=== PATIENT | male | born 1980 | race Caucasian/White ===

== ENCOUNTER 2020-01-05 10:42 | Inpatient (IN) | payer OTHER, MEDICAID, SELFPAY ==
[2020-01-05] VITALS (11 sets, daily range): BP systolic 139–175; BP diastolic 88–110; PULSE 89–106; RESP 12–18; TEMP 36.3–36.7; O2SAT 96–100; BMI 34.7; BMI 34.0
--- NOTE | 2020-01-05 11:53 | RAD_ITS ---
STUDY: X-RAY - LEFT FOOT CLINICAL: Male, 39 years old. INFECTED WOUND LATERAL BALL OF FOOT TECHNIQUE: 3 view(s) of the foot. COMPARISON: None. FINDINGS: There is an enthesophyte involving the posterior superior calcaneus at the site of insertion of the Achilles tendon. Normal visualized subtalar, talonavicular, calcaneocuboid, tarsal and tarsometatarsal articulations. Normal metatarsi. Normal metatarsophalangeal joint of the great toe. Normal tibial and fibular sesamoid bones. Normal interphalangeal joint of the great toe. Normal phalanges of the great toe. Normal second through fifth metatarsophalangeal joints. Normal interphalangeal joints and phalanges of the lesser toes. Soft tissue swelling. RAD/Foot min 3 Views IMPRESSION: Soft tissue swelling. Calcaneal spur. Electronically Signed: Sammy Olsen, at 12:20 EST , Service support ,
[2020-01-05 12:09] LABS: Erythrocyte Sedimentation Rate 6 mm/hr (0-15)
[2020-01-05 12:13] LABS: Absolute Lymphocyte Count 1.64 X10^3/uL (0.83-4.51); Absolute Neutrophil Count 6.8 X10^3/uL (2.0-7.7); Basophil# 0.06 X10^3/uL; Basophil% 0.6 % (0-1); Eosinophil# 0.12 X10^3/uL; Eosinophils% 1.3 % (0-5); Hematocrit 44.9 % (40-54); Hemoglobin 15.4 g/dL (13.0-16.5); Lymphocyte # 1.64 X10^3/ul (4.0); Lymphocyte % 17.7 % (19-41); Mean Corp Hgb Conc 34.3 g/dL (32-36); Mean Corpuscular Hgb 28.8 pg (27.0-32.0); Mean Corpuscular Volume 84.1 fL (80-94); Mean Platelet Vol. 9.1 fl (6.2-12.0); Monocyte# 0.63 X10^3/uL; Monocyte% 6.8 % (0-10); NRBC Flagged by Analyzer 0 % (0-5); Neutrophil # 6.79 X10^3/uL (2.7-7.7); Neutrophil % 73.3 % (47-70); Platelet Count 273 K/mm3 (150-450); RBC Distribution Width CV 12.3 % (11.6-14.6); Red Blood Count 5.34 M/mm3 (4.6-6.2); White Blood Count 9.3 K/mm3 (4.4-11.0)
[2020-01-05 12:18] LABS: ALB/GLOB Ratio 0.9 RATIO (0.9-2.4); AST(SGOT) 16 U/L (15-37); Alanine Aminotransfer ALT/SGPT 39 U/L (16-61); Albumin, Serum 3.6 g/dL (3.2-5.0); Alkaline Phosphatase 57 U/L (45-117); Anion Gap 8 (5-15); BUN 15 mg/dL (7-18); BUN/Creat Ratio 15.1 RATIO (10-20); Calcium,Total 9.3 mg/dL (8.5-10.1); Chloride 102 mmol/L (98-107); Creatinine, Serum 0.99 mg/dL (0.70-1.30); EST Glomerular Filtration Rate 88 mL/min (>60); Est Glom Filt Rate - Afr Amer 107 mL/min (>60); Estimated Creatinine Clearance 117.36 ml/min; Globulin 4.1 g/dL (2.2-4.2); Glucose 277 mg/dL (74-106); Potassium 4.2 mmol/L (3.5-5.1); Protein, Total 7.7 g/dL (6.4-8.2); Sodium Level 136 mmol/L (136-145)
--- NOTE | 2020-01-05 14:21 | MRI_ITS ---
STUDY: MRI LEFT FOREFOOT WITH AND WITHOUT CONTRAST REASON FOR EXAM: Male, 39 years old. wound left foot open wound area of distal 4th/5th MT x 2 1/2wks TECHNIQUE: Standardized fat and water weighted pulse sequences were obtained in all 3 orthogonal planes, post contrast administration. IV Dotarem 25ml was administered for the contrast portion of the examination. COMPARISON: X-ray. FINDINGS: There is degenerative arthrosis with a joint of effusion of the metatarsophalangeal joint of the hallux with capsular distension. Normal tibial and fibular sesamoids, with normal sesamoids-first metatarsal articulations. Normal interphalangeal joint of the hallux. Normal proximal and distal phalanges of the great toe. Normal medial and lateral heads of the flexor hallucis brevis tendons. Normal flexor and extensor hallucis longus tendons. Normal second through fifth metatarsophalangeal (MTP) joints. Normal interphalangeal joints of the second through fifth toes. Normal proximal, middle and distal phalanges of the second through fifth toes. Normal flexor and extensor tendons of the second through fifth toes. Normal first through fourth intermetatarsal spaces. Normal intrinsic muscles of the forefoot. There is soft tissue swelling with subcutaneous edema and enhancement. There is defect with nonenhancing consistent with wound on the plantar aspect in the fourths of metatarsal region. There is adjacent focal marrow edema and enhancement of the fourth metatarsal head, series 9 and 11 images . MRI/Lower Ext No Joint W/WO Cont IMPRESSION: Osteomyelitis of the fourth metatarsal head. There is adjacent soft tissue ulcer and swelling. Electronically Signed: Fredis Rodríguez MD at 17:00 EST , Service support ,
--- NOTE | 2020-01-05 14:24 | ED.DCSUM_ITS ---
- ER Visit Summary Date of Service: 01/05/20 Chief Complaint: Left foot pain History of Present Illness: The patient is a 39 M who presents with left foot pain and open wound that has been getting worse over the past 2-1/2 weeks. Patient describes his pain as aching. Patient states pain is over the plantar aspect of the left foot. Patient does admit to some drainage over the area. Patient went to an outlying emergency department last week and was given antibiotics. Patient followed up with [facility] today and was referred to the emergency department. Physical Examination: Vital signs are stable. Patient is afebrile. Patient is in no acute distress. Skin is warm dry. There is an open wound on the plantar aspect of the left foot over the area of the distal fourth metatarsal. There is no active discharge or drainage. Sensation was intact to light touch in all digits. Capillary refill was less than 2 seconds in all digits. Pedal pulses were equal bilaterally. There is no calf tenderness or edema. Heart was regular rate and rhythm. Lungs are clear and equal bilaterally. Abdomen is soft and nontender. Test Results: X-rays of the right foot were obtained. There is soft tissue swelling. CBC was within normal limits. Glucose was elevated at 277. Sed rate was normal at 6. CRP was ordered and was elevated at 5.10. Hemoglobin A1c was also ordered and was elevated at 12. Wound culture was obtained at the orthopedic office and was ordered here. Emergency Department Course and Treatment: Patient was started on Zosyn and vancomycin. Case was discussed with the hospitalist. He will admit the patient to his service. Orthopedics recommended a stat MRI of the foot to rule out osteomyelitis. This was ordered and is pending. Patient is agreeable to admission. Patient understands and is agreeable with the plan. All questions were answered. Disposition: Admit to hospital Impression: 1. Osteomyelitis left foot 2. New onset diabetes This note was generated with [employer] dictation software. It may contain incorrect words, spelling, and punctuation that were not noted in review of the chart prior to signing ED Disposition - Plan for ED Patient: Disposition: Acute Care Hospital [facility] Diagnosis: Osteomyelitis of left foot, Diabetes mellitus, new onset
--- NOTE | 2020-01-05 16:52 | PCM.HP.STD ---
History of Present Illness Date of Admission: 01/05/20 Chief Complaint: Left foot wound The patient is a 39 year old M with no significant past medical history presents with a left foot wound that he was seen in outside hospital ER about a week and a half ago. He says at that time he was given some antibiotics and sent home. He says that he first noticed his wound about 2 weeks ago because of the smell, he had not felt that before though he denies having any foot numbness. At that time his became concerned because it seemed very similar to a diabetic foot ulcer so she completely changed her diet to a keto diet which they have been doing for about 2 weeks now. He denies any redness, or fevers but he did have some chills over the last few days. The ER physician at the other hospital had recommended follow-up with orthopedic surgery and so he saw the orthopedic surgical PA today who requested that he come to the ER for an MRI and admission given how deep the wound to his foot was. In the ER the foot was already wrapped though a wound culture was taken. He had an elevated CRP with normal ESR, and a foot x-ray initially was obtained which did not show any bony destruction. He has no white count or fever. Past Medical History Allergies No Known Allergies Allergy (Verified 01/05/20 10:42) Home Medications: Ambulatory Orders Medication Instructions Recorded Loratadine [Claritin] 10 mg PO DAILY 01/05/20 Surgical History: no surgical history Smoking Status: Never smoker Tobacco Use: Chew Alcohol: None Drugs: None - *Family History Maternal History Items: Diabetes, Heart Disease Paternal History Items: Diabetes, Heart Disease Review of Systems Constitutional: Reports: Chills. Denies: Anorexia, Fever HEENT: Denies: Head Aches, Sinus Congestion, Sinus Drainage Cardiovascular: Denies: Chest Pain, Palpitations Respiratory: Denies: Cough, Shortness of breath at rest, Sputum production Gastrointestinal: Denies: Abdominal Pain, Nausea, Vomiting Genitourinary: Denies: Dysuria Musculoskeletal: Denies: Joint Pain, Joint Tenderness Skin: Reports: Wounds. Denies: Rash Neurological: Denies: Numbness, Tingling, Focal weakness Psychiatric: Denies: Anxiety, Depression Hematologic/ Lymphatic: Denies: Easy Bruising, Easy Bleeding VTE Information - Inpt Only VTE Present on Admission: No Patient Problems: Active and Suspected Problems Osteomyelitis of left foot (Acute) Diabetes mellitus, new onset (Acute) - Physical Exam Vitals/I&O's: Vital Signs Temp Pulse Resp BP Pulse Ox 98 F 96 16 154/105 H 99 01/05/20 15:00 01/05/20 15:00 01/05/20 15:00 01/05/20 15:00 01/05/20 15:00 Oxygen Delivery Method Room Air Weight: 278 lb Body Mass Index (BMI) 34.7 Intake and Output for Last 24 Hours 01/03/20 01/04/20 01/05/20 23:59 23:59 23:59 Intake Total 100 / 100 Balance 100 / 100 General: Alert, Oriented x3, Cooperative, No apparent distress HEENT: Atraumatic, PERRLA, EOMI, Normocephalic Oral: Moist Mucosa Neck: Supple, No JVD Lungs: Clear to auscultation, Normal air movement, No rhonchi, No wheeze, No rales Cardiovascular: Regular rate, Regular Rhythm, Normal S1, Normal S2, No murmurs Abdomen: Soft, Non Tender, Non-Distended, No Hepato-splenomegaly Extremities: No edema, Capillary Refill Less than 3 Seconds Skin: Ulcer/ Wound - On the ball of his left foot, does track fairly deeply, no surrounding cellulitis or erythema Neurological: Neuro grossly intact, Sensory exam intact to light touch and pain Psych/Mental Status: Normal Affect, Appropriate Microbiology Past 72 Hours 01/05/20 Unknown Wound - Left Foot Gram Stain - Final Laboratory Results 01/05/20 11:25: WBC 9.3, RBC 5.34, Hgb 15.4, Hct 44.9, MCV 84.1, MCH 28.8, MCHC 34.3, RDW Std Deviation 37.0, RDW Coeff of Alivia 12.3, Plt Count 273, MPV 9.1, Immature Gran % (Auto) 0.300, Neut % (Auto) 73.3 H, Lymph % (Auto) 17.7 L, [place] % (Auto) 6.8, Eos % (Auto) 1.3, Baso % (Auto) 0.6, Absolute Neuts (auto) 6.8, Absolute Lymphs (auto) 1.64, Nucleated RBC % 0, ESR 6 01/05/20 11:25: Sodium 136, Potassium 4.2, Chloride 102, Carbon Dioxide 26.0, Anion Gap 8, BUN 15, Creatinine 0.99, Estim Creat Clear Calc 117.36, Est GFR (MDRD) Af Amer 107, Est GFR (MDRD) Non-Af 88, BUN/Creatinine Ratio 15.1, Glucose 277 H, Calcium 9.3, Total Bilirubin 0.90, AST 16, ALT 39, Alkaline Phosphatase 57, C-React Prot Ext Range 5.10 H, Total Protein 7.7, Albumin 3.6, Globulin 4.1, Albumin/Globulin Ratio 0.9 01/05/20 11:25: Hemoglobin A1c 12.0 H 01/05/20 11:58: Acid Fast Stain Cancelled, Miscellaneous Cytology Cancelled Current Medications Acetaminophen (Tylenol) 650 mg PO Q6H PRN PRN PRN Reason: Pain Score 1-10/Temp > 100.7 F Glucagon () 1 mg IM .X1 PRN PRN Reason: Hypoglycemia Vancomycin HCl 2,000 mg/ (Sodium Chloride) 540 mls @ 250 mls/hr IV X1 ONE Stop: 01/05/20 17:54 Last Admin: 01/05/20 16:43 Dose: 250 mls/hr Documented by: Vancomycin IV Pharmacy to Dose (1 ea/ Sodium Chloride) 500 mls @ 250 mls/hr IV X1 PRN; Protocol PRN Reason: Rx to Dose Piperacillin Sod/Tazobactam (Sod 3.375 gm/ Sodium Chloride) 50 mls @ 12.5 mls/hr IV Q8 ASHVIN Dextrose (Dextrose 10%-Water) 250 mls @ 999 mls/hr IV .Q16M PRN; Protocol PRN Reason: HYPOGLYCEMIA Insulin Glargine (Lantus (Bkc)) 5 units SC QHS ASHVIN Insulin Human Lispro (Humalog Kwikpen (Bkc)) 0 unit SC ACHS ASHVIN; Protocol Insulin Human Lispro (Humalog Kwikpen (Bkc)) 5 unit SC TIDAC ASHVIN Ondansetron HCl (Zofran) 4 mg IV Q8H PRN PRN PRN Reason: NAUSEA/VOMITING Sodium Chloride () 10 - 40 ml IV UD PRN PRN Reason: SALINE FLUSH Assessment/Plan All Active Problems Osteomyelitis of left foot (Acute) Diabetes mellitus, new onset (Acute) 1. Left diabetic foot ulcer/new onset insulin-dependent diabetes/obesity -A1c on admission was 12.0 -Start him on Lantus 5 units nightly as well as 5 units with meals of NovoLog and sliding scale insulin -He will also likely need metformin on discharge -Orthopedic surgery sent him in to be admitted to the hospital so we will consult orthopedic surgery for surgical management of this wound -Continue with Vanco and Zosyn for right now until wound culture data returns -MRI of his left foot is pending for possible osteo-, CRP was elevated but ESR was normal -Had a 40-minute discussion with the about lifestyle modifications including diet and exercise -Consult multimedia author for diabetic teaching -We will obtain a microalbumin creatinine ratio and if elevated can start him on a low-dose lisinopril for renal protection DVT: Low risk Code Visit Inpatient E&M: 58271 Init Hosp L2
[2020-01-05] MEDS: Insulin Lispro 100 UNIT/ML INSULN.PEN SC ×3 (17:57→21:36)
--- NOTE | 2020-01-05 17:57 | PCM.RX.CS ---
Consult Pharmacy has been consulted to manage selected antiobiotic: Vancomycin Type of Consult: New start Suspected Infection: Other - DIABETIC FOOT ULCER Prior Doses of Antibiotics Received/Current Regimen: ED DOSE VANCOMYCIN IV 2000MG X1 @ 1643 Labs: Sodium 136 mmol/L (136-145) 01/05/20 11:25 Potassium 4.2 mmol/L (3.5-5.1) 01/05/20 11:25 Chloride 102 mmol/L (98-107) 01/05/20 11:25 Carbon Dioxide 26.0 mmol/L (21.0-32.0) 01/05/20 11:25 Anion Gap 8 (5-15) 01/05/20 11:25 BUN 15 mg/dL (7-18) 01/05/20 11:25 Creatinine 0.99 mg/dL (0.70-1.30) 01/05/20 11:25 Est GFR (MDRD) Af Amer 107 mL/min (>60) 01/05/20 11:25 Est GFR (MDRD) Non-Af 88 mL/min (>60) 01/05/20 11:25 BUN/Creatinine Ratio 15.1 RATIO (10-20) 01/05/20 11:25 Glucose 277 mg/dL (74-106) H 01/05/20 11:25 Microbiology: Microbiology 01/05/20 Unknown Wound - Left Foot Gram Stain - Final Weight used for dosin.6 kg Estimated Creatinine Clearance: 139 Goal Trough: 15-20 mcg/mL Pharmacy Plan for Drug Dosin. Will start vancomycin IV 1500mg Q8H based on weight and CrCl (using Adj body weight) 8 hours after ED dose 2. Trough scheduled prior to the 4th dose 3. Pharmacy Service will continue to monitor and adjust dosing as required. Labs to be done on [date and time ordered]: 01/06/2020 @ 1631
[2020-01-05 18:16] LABS: Bedside Glucose 195 mg/dL (70-110)
[2020-01-05 20:28] LABS: Microalbumin,Random Urine 14.5 mg/L (NO RANGE EST.); Microalbumin:Creatinine Ratio 25.4 mg/g CRE (<30 mg/g CRE)
[2020-01-05 21:46] LABS: Bedside Glucose 262 mg/dL (70-110)
[2020-01-06 02:16] VITALS: BP 124/78; PULSE 83; RESP 16; TEMP 36.8; O2SAT 97
[2020-01-06 04:30] LABS: Bedside Glucose 256 mg/dL (70-110)
[2020-01-06 06:38] LABS: Absolute Neutrophil Count 3.8 X10^3/uL (2.0-7.7); Basophil# 0.04 X10^3/uL; Basophil% 0.7 % (0-1); Eosinophil# 0.19 X10^3/uL; Eosinophils% 3.3 % (0-5); Hematocrit 40.2 % (40-54); Hemoglobin 13.7 g/dL (13.0-16.5); Lymphocyte % 20.6 % (19-41); Mean Corp Hgb Conc 34.1 g/dL (32-36); Mean Corpuscular Hgb 28.7 pg (27.0-32.0); Mean Corpuscular Volume 84.1 fL (80-94); Mean Platelet Vol. 8.9 fl (6.2-12.0); Monocyte# 0.63 X10^3/uL; Monocyte% 10.8 % (0-10); NRBC Flagged by Analyzer 0 % (0-5); Neutrophil # 3.75 X10^3/uL (2.7-7.7); Neutrophil % 64.3 % (47-70); Platelet Count 227 K/mm3 (150-450); RBC Distribution Width SD 36.4 fl (35.1-43.9); Red Blood Count 4.78 M/mm3 (4.6-6.2); White Blood Count 5.8 K/mm3 (4.4-11.0)
[2020-01-06 06:55] LABS: Anion Gap 8 (5-15); BUN 10 mg/dL (7-18); Calcium,Total 8.3 mg/dL (8.5-10.1); Chloride 107 mmol/L (98-107); Creatinine, Serum 0.91 mg/dL (0.70-1.30); EST Glomerular Filtration Rate 98 mL/min (>60); Est Glom Filt Rate - Afr Amer 118 mL/min (>60); Estimated Creatinine Clearance 127.68 ml/min; Glucose 259 mg/dL (74-106); Sodium Level 139 mmol/L (136-145)
--- NOTE | 2020-01-06 07:30 | CON.PCM_ITS ---
Problem List (1) Osteomyelitis of left foot Status: Acute Qualifiers: Osteomyelitis type: other acute Qualified Code(s): M86.172 - Other acute osteomyelitis, left ankle and foot (2) Diabetes mellitus, new onset Status: Acute Reason for Consult Date of Consultation: 01/06/20 Reason for Consultation: 1. Diabetes mellitus type 2 with polyneuropathy. #2 diabetes mellitus type 2 with foot ulcer. 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 History of Present Illness: The patient is a 39 year old M who presented to my office yesterday, January 05, 2020 with complaints of a wound on his left foot. Upon verbal questioning, patient relates that he began to have pain in his left foot approximately 2 weeks ago, and noticed drainage and liquid in his sock. At that time, he noticed a wound on the bottom of his left foot near the ball of his foot. This wound was red, draining, and had a bad odor. Patient presented to an outside emergency department for further evaluation on 12/25/2019. At that time, x-rays were taken showing no cortical destruction in the area of the wound. Patient was discharged from the emergency department on oral antibiotics. According to the patient, he was not instructed on wound care and was not instructed on any specific weightbearing activities. Patient continued to weight-bear as tolerated in regular shoe gear. Patient states that the wound continued to drain, but he was not covering it. Patient states that the wound started to look better with a decrease in redness while he was taken the antibiotics. Patient states that this past weekend, the wound started to hurt again and the redness started to increase. This prompted him to make an appointment with me in my office. Upon seeing the patient yesterday in my office, the wound had a fibronecrotic base with significant erythema. Furthermore, the wound probed down to the fourth metatarsal head. I discussed with the patient that I believe he has a significant infection in his left foot along with probable osteomyelitis. I urged the patient to report to [facility] for admission, IV antibiotics, MRI, and possible surgery. Lab work was performed an MRI was performed as well. [] Past Medical History Allergies No Known Allergies Allergy (Verified 01/05/20 10:42) Home Medications: Ambulatory Orders Medication Instructions Recorded Loratadine [Claritin] 10 mg PO DAILY 01/05/20 Surgical History: no surgical history Psychiatric History: No pertinent psych hx Lives: Spouse/ Significant Other Smoking Status: Never smoker Tobacco Use: Chew Alcohol: None Drugs: None - *Family History Maternal History Items: Diabetes, Heart Disease Paternal History Items: Diabetes, Heart Disease Review of Systems Constitutional: Denies: Chills, Fever, Night Sweats, Malaise, Weakness Eyes: Denies: Blurred vision, Cataracts, Double vision HEENT: Denies: Difficulty Hearing, Difficulty Swallowing, Dysphasia Cardiovascular: Denies: Chest Pain, Claudication, Chest Pressure, Chest Tightness Respiratory: Denies: Cough, Hemoptysis, Shortness of Breath Gastrointestinal: Denies: Abdominal Pain, Constipation, Diarrhea Genitourinary: Denies: Dysuria Musculoskeletal: Reports: Foot Pain - Admits to left foot pain in the area of the wound that has improved. Skin: Reports: Wounds - Admits to wound on bottom of ball of left foot. Neurological: Denies: Balance problems, Blurred vision, Double vision Psychiatric: Denies: Anxiety, Depression Endocrine: Denies: Change in Body Habitus, Heat/ Cold Intolerance Patient Problems: Active and Suspected Problems Osteomyelitis of left foot (Acute) Diabetes mellitus, new onset (Acute) Subjective: Patient is seen today at bedside resting comfortably. Patient denies any acute overnight events. No acute overnight events reported by nursing staff. Patient denies fever, chills, nausea, vomiting, shortness of breath, chest pain. Patient admits to improved pain of his left foot. Patient denies left calf pain. Patient states that no one has discussed the MRI results with him at this time, and he is nervous to hear them. Patient denies any other acute complaints at this time. Objective: Lower extremity physical exam: Vascular: There is a palpable dorsalis pedis and posterior tibial pulse to the left lower extremity. Capillary fill time is less than 3 seconds all digits. Temperature gradient is slightly reversed going from the mid calf down to the forefoot. There is positive nonpitting edema noted around the entirety of the forefoot starting from the dorsal and plantar aspects of the metatarsals ex tending distally to the digits. Pedal hair is present throughout the foot and ankle. Neurological: Light sensation is diminished to the plantar aspect of the forefoot of the left foot. This is reestablished at the midfoot. Dermatological: There is a wound located on the plantar aspect of the left foot in the area of the fourth metatarsal head. This wound has a fibro-necrotic base and hyperkeratotic edges. Of this wound, there is no fluctuance, no crepitus, but positive mild malodor. There is no purulence, but positive serous drainage. There is positive probing to the fourth metatarsal head. There is no tunneling, no tracking, no undermining. There is Josse erythema surrounding the wound extending proximally to the midportion of the metatarsal extending distally to the base of the proximal phalanx. This erythema is improved from previous physical exam. Musculoskeletal: Muscle strength is 5 out of 5 of the left lower extremity. No gross abnormalities are noted. - Physical Exam Vitals/I&O's: Vital Signs Temp Pulse Resp BP Pulse Ox 98.3 F 83 16 124/78 H 97 01/06/20 02:16 01/06/20 02:16 01/06/20 02:16 01/06/20 02:16 01/06/20 02:16 Oxygen Delivery Method Room Air Weight: 123.6 kg Body Mass Index (BMI) 34.0 Intake and Output for Last 24 Hours 01/04/20 01/05/20 01/06/20 23:59 23:59 23:59 Intake Total 1040.25 / 1040.25 1004.25 / 1004.25 Output Total 500 / 500 Balance 1040.25 / 1040.25 504.25 / 504.25 General: Alert, Oriented x3, Cooperative, Well developed, Well nourished HEENT: Atraumatic, PERRLA Oral: Moist Mucosa Neck: Supple, No JVD Lungs: Clear to auscultation, Normal air movement, No rhonchi, No wheeze, No rales Cardiovascular: Regular rate, Regular Rhythm, Normal S1, Normal S2 Abdomen: Bowel Sounds Present, Soft, Non Tender Extremities: Capillary Refill Less than 3 Seconds, Edema - Surrounding the left foot as described above., Peripheral Pulses Normal Skin: Ulcer/ Wound - On the plantar aspect of the left foot as described above. Musculoskeletal: No Tenderness to Palpation of Joints or Extremities - Minimal pain upon palpation of the wound to the left foot. Psych/Mental Status: Alert and oriented to time, place, person, mood and affect Microbiology Past 72 Hours 01/05/20 Unknown Wound - Left Foot Gram Stain - Final Laboratory Results 01/05/20 11:25: WBC 9.3, RBC 5.34, Hgb 15.4, Hct 44.9, MCV 84.1, MCH 28.8, MCHC 34.3, RDW Std Deviation 37.0, RDW Coeff of Alivia 12.3, Plt Count 273, MPV 9.1, Immature Gran % (Auto) 0.300, Neut % (Auto) 73.3 H, Lymph % (Auto) 17.7 L, [place] % (Auto) 6.8, Eos % (Auto) 1.3, Baso % (Auto) 0.6, Absolute Neuts (auto) 6.8, Absolute Lymphs (auto) 1.64, Nucleated RBC % 0, ESR 6 01/05/20 11:25: Sodium 136, Potassium 4.2, Chloride 102, Carbon Dioxide 26.0, Anion Gap 8, BUN 15, Creatinine 0.99, Estim Creat Clear Calc 117.36, Est GFR (MDRD) Af Amer 107, Est GFR (MDRD) Non-Af 88, BUN/Creatinine Ratio 15.1, Glucose 277 H, Calcium 9.3, Total Bilirubin 0.90, AST 16, ALT 39, Alkaline Phosphatase 57, C-React Prot Ext Range 5.10 H, Total Protein 7.7, Albumin 3.6, Globulin 4.1, Albumin/Globulin Ratio 0.9 01/05/20 11:25: Hemoglobin A1c 12.0 H 01/05/20 11:58: Acid Fast Stain Cancelled, Miscellaneous Cytology Cancelled 01/05/20 17:49: POC Glucose 195 H 01/05/20 19:10: Ur Random Microalbumin 14.5, Urine Creatinine 57.10, Microalb/Creat Ratio 25.4 01/05/20 21:27: POC Glucose 262 H 01/06/20 04:24: POC Glucose 256 H 01/06/20 06:10: WBC 5.8, RBC 4.78, Hgb 13.7, Hct 40.2, MCV 84.1, MCH 28.7, MCHC 34.1, RDW Std Deviation 36.4, RDW Coeff of Alivia 12.0, Plt Count 227, MPV 8.9, Immature Gran % (Auto) 0.300, Neut % (Auto) 64.3, Lymph % (Auto) 20.6, [place] % (Auto) 10.8 H, Eos % (Auto) 3.3, Baso % (Auto) 0.7, Absolute Neuts (auto) 3.8, Absolute Lymphs (auto) 1.20, Nucleated RBC % 0 01/06/20 06:10: Sodium 139, Potassium 4.0, Chloride 107, Carbon Dioxide 24.0, Anion Gap 8, BUN 10, Creatinine 0.91, Estim Creat Clear Calc 127.68, Est GFR (MDRD) Af Amer 118, Est GFR (MDRD) Non-Af 98, BUN/Creatinine Ratio 11.0, Glucose 259 H, Calcium 8.3 L Wound culture: Taken on 01/05/2020, still pending. Gram stain showing gram- positive cocci, gram-negative rods, and gram-negative coccobacillus. X-ray 3 views of the left foot taken on January 05, 2020 at [facility] STUDY: X-RAY - LEFT FOOT CLINICAL: Male, 39 years old. INFECTED WOUND LATERAL BALL OF FOOT TECHNIQUE: 3 view(s) of the foot. COMPARISON: None. FINDINGS: There is an enthesophyte involving the posterior superior calcaneus at the site of insertion of the Achilles tendon. Normal visualized subtalar, talonavicular, calcaneocuboid, tarsal and tarsometatarsal articulations. Normal metatarsi. Normal metatarsophalangeal joint of the great toe. Normal tibial and fibular sesamoid bones. Normal interphalangeal joint of the great toe. Normal phalanges of the great toe. Normal second through fifth metatarsophalangeal joints. Normal interphalangeal joints and phalanges of the lesser toes. Soft tissue swelling. MRI of Left foot taken on 01/05/2020 at [facility] STUDY: MRI LEFT FOREFOOT WITH AND WITHOUT CONTRAST REASON FOR EXAM: Male, 39 years old. wound left foot open wound area of distal 4th/5th MT x 2 1/2wks TECHNIQUE: Standardized fat and water weighted pulse sequences were obtained in all 3 orthogonal planes, post contrast administration. IV Dotarem 25ml was administered for the contrast portion of the examination. COMPARISON: X-ray. FINDINGS: There is degenerative arthrosis with a joint of effusion of the metatarsophalangeal joint of the hallux with capsular distension. Normal tibial and fibular sesamoids, with normal sesamoids-first metatarsal articulations. Normal interphalangeal joint of the hallux. Normal proximal and distal phalanges of the great toe. Normal medial and lateral heads of the flexor hallucis brevis tendons. Normal flexor and extensor hallucis longus tendons. Normal second through fifth metatarsophalangeal (MTP) joints. Normal interphalangeal joints of the second through fifth toes. Normal proximal, middle and distal phalanges of the second through fifth toes. Normal flexor and extensor tendons of the second through fifth toes. Normal first through fourth intermetatarsal spaces. Normal intrinsic muscles of the forefoot. There is soft tissue swelling with subcutaneous edema and enhancement. There is defect with nonenhancing consistent with wound on the plantar aspect in the fourths of metatarsal region. There is adjacent focal marrow edema and enhancement of the fourth metatarsal head, series 9 and 11 images . MRI/Lower Ext No Joint W/WO Cont IMPRESSION: Osteomyelitis of the fourth metatarsal head. There is adjacent soft tissue ulcer and swelling. Electronically Signed: Fredis Rodríguez MD at 17:00 EST , Service support , Current Medications Acetaminophen (Tylenol) 650 mg PO Q6H PRN PRN PRN Reason: Pain Score 1-10/Temp > 100.7 F Glucagon () 1 mg IM .X1 PRN PRN Reason: Hypoglycemia Vancomycin IV Pharmacy to Dose (1 ea/ Sodium Chloride) 500 mls @ 250 mls/hr IV X1 PRN; Protocol PRN Reason: Rx to Dose Piperacillin Sod/Tazobactam (Sod 3.375 gm/ Sodium Chloride) 50 mls @ 12.5 mls/hr IV Q8 ASHVIN Last Admin: 01/06/20 05:32 Dose: 12.5 mls/hr Documented by: Dextrose (Dextrose 10%-Water) 250 mls @ 999 mls/hr IV .Q16M PRN; Protocol PRN Reason: HYPOGLYCEMIA Sodium Chloride () 250 mls @ 15 mls/hr IV .[id number] PRN PRN Reason: Saline Flush Last Infusion: 01/06/20 05:35 Dose: 0 mls/hr Documented by: Vancomycin HCl 1,500 mg/ (Sodium Chloride) 530 mls @ 250 mls/hr IV Q8H ASHVIN Last Infusion: 01/06/20 04:40 Dose: Infused Documented by: Insulin Glargine (Lantus (Bkc)) 5 units SC QHS ASHVIN Last Admin: 01/05/20 21:35 Dose: 5 units Documented by: Insulin Human Lispro (Humalog Kwikpen ([facility])) 0 unit SC ACHS ASHVIN; Protocol Last Admin: 01/05/20 21:36 Dose: 6 u Documented by: Insulin Human Lispro (Humalog Kwikpen ([facility])) 5 unit SC TIDAC [facility] Last Admin: 01/05/20 17:57 Dose: 5 u Documented by: Lisinopril (Zestril) 5 mg PO DAILY [facility] Ondansetron HCl (Zofran) 4 mg IV Q8H PRN PRN PRN Reason: NAUSEA/VOMITING Sodium Chloride () 10 - 40 ml IV UD PRN PRN Reason: SALINE FLUSH Assessment/Plan All Active Problems Osteomyelitis of left foot (Acute) Diabetes mellitus, new onset (Acute) Assessment: Is a 39-year-old male with newly diagnosed diabetes mellitus and a nonpressure wound of the left foot with necrosis of bone. Plan: Patient chart reviewed and patient evaluated. Full discussion had with the patient about his current clinical condition. MRI results reviewed with the patient at this time. A full discussion was had with the patient about his treatment options. These included conservative and surgical interventions. Conservative therapy would possibly include aggressive local wound care along with long-term IV antibiotics through a PICC line. A PICC line was discussed with the patient. Surgical interventions would include resection of the fourth metatarsal head of the left foot, a wound debridement of the left foot, incision and drainage of the left foot, washout of left foot wound, application of synthetic skin substitute to the left foot, and application of wound VAC to left foot. Each of the surgical interventions were discussed with the patient in detail. The risks and benefits to both conservative and surgical intervention were discussed with the patient in detail. I discussed with the patient that due to the infection that is present, I recommended surgical intervention. Patient displayed verbal understanding. Patient states that he would like time to discuss with his and to weigh his options. I discussed with the nurse to contact me when patient has made a decision. At this time, I am going to go ahead and schedule his surgery for tomorrow, January 07, 2020 around 1:00pm. I would request that the patient be n.p.o. after midnight tonight. If patient decides to not perform surgery, I will cancel the surgery. I would recommend a consultation from infectious disease for further antibiotic management. I recommend the patient remain nonweightbearing to the left foot with bathroom privileges. I recommend continuation of IV antibiotics at this time. We will continue to wait for wound cultures for further antibiotic management. Patient displayed verbal understanding to all written and oral instructions at this time. Patient is agreeable to the current treatment plan at this time. All of his questions were answered to his satisfaction and all of his concerns were addressed. I urged him to have the nurse contact me with any further questions, concerns. Thank you very much for the consultation and allowing me to take part in the care of your patient. Code Visit Office Visits / Consults: [id number] IP Consult L3
[2020-01-06 08:05] VITALS: BP 141/100; PULSE 100; RESP 18; TEMP 36.6; O2SAT 97
[2020-01-06] MEDS: Insulin Lispro 100 UNIT/ML INSULN.PEN SC ×7 (08:14→21:25)
[2020-01-06] MEDS: Lisinopril 5 MG Tablet PO (08:19)
[2020-01-06 08:20] LABS: Bedside Glucose 247 mg/dL (70-110)
--- NOTE | 2020-01-06 08:34 | NURSING ---
wound photo: left plantar foot
[2020-01-06 10:30] VITALS: RESP 18; O2SAT 97
--- NOTE | 2020-01-06 11:00 | CASEMGMT ---
RN CM Face to Face with patient for initial transition planning/care coordination assessment. RN CM introduced self and role at [facility]. Patient lying in bed, alert and oriented, at bedside. Patient willing to participate in assessment and is able to answer all questions appropriately. Care providers, pharmacy, and demographics verified. Patient wishes to discharge home will monitor for need for HHC. Patient states he has no further needs or concerns at this time. CM to follow for discharge planning needs that may arise. PCP: Was getting established with Kathe Barroso Specialists: none Preferred [facility]acy: [facility] Insurance: PPO multiplan Prescription Benefit: yes Living Will/HPOA: none LNOK: Living Arrangements: Patient lives with in single story home with 4 steps and railing to enter the home. Patient is independent at home. Transportation: self/ DME/HHC: Patient denies any DME or previous HHC Disposition Plan: Patient to discharge home with family support and follow-up plans in place. Will monitor for need for HHC pending course of treatment. Jada DE LEON, RN, CM
[2020-01-06 11:25] LABS: Bedside Glucose 314 mg/dL (70-110)
[2020-01-06 12:00] VITALS: BP 150/93; PULSE 95; RESP 18; TEMP 36.8; O2SAT 97
[2020-01-06] MEDS: Lisinopril 5 MG Tablet 15 MG PO (12:52)
--- NOTE | 2020-01-06 13:20 | NURSING ---
Student documentation reviewed.
--- NOTE | 2020-01-06 15:12 | PCM.HP.ID ---
Problem List (1) Osteomyelitis of left foot Status: Acute Qualifiers: Osteomyelitis type: other acute Qualified Code(s): M86.172 - Other acute osteomyelitis, left ankle and foot Reason for Consult: osteo Consulted by: Dr. Walters History of Present Illness: The patient is a 39 year old M with minimal medical care in the past, presented with 3 weeks of L foot pain, redness, swelling, odor, and bloody/purulent drainage. No inciting event/trauma. Sx progressively worsened, went to [place] ED 12/25, xray done, no lab work or cx sent. Given doxy and keflex for one week, completed 01/01 which did help sx, but foot quickly worsened as soon as it stopped. Some chills. Came to ED after seeing Dr. Rodriguez. MRI done, started on vanc/zosyn. Full ROS Performed and neg except as noted above. Mild neuropathy. - Medical History Surgical History: reviewed Allergies/Adverse Reactions: Allergies No Known Allergies Allergy (Verified 01/05/20 10:42) Home Medications: Ambulatory Orders Medication Instructions Recorded Loratadine [Claritin] 10 mg PO DAILY 01/05/20 - Social History Tobacco Use: non-smoker Vital Signs Temp Pulse Resp BP Pulse Ox 98.3 F 95 18 150/93 H 97 01/06/20 12:00 01/06/20 12:00 01/06/20 12:00 01/06/20 12:00 01/06/20 12:00 Oxygen Delivery Method Room Air Weight: 123.6 kg Body Mass Index (BMI) 34.0 Microbiology Past 72 Hours 01/05/20 Unknown Gram Stain - Final Wound - Left Foot Wound Culture - Preliminary Beta streptococcus Mixed Gram Positive Organisms Laboratory Tests Past 24 Hrs 01/05/20 01/06/20 01/06/20 19:10 06:10 06:10 WBC 5.8 RBC 4.78 Hgb 13.7 Hct 40.2 MCV 84.1 MCH 28.7 MCHC 34.1 RDW Std Deviation 36.4 RDW Coeff of Alivia 12.0 Plt Count 227 MPV 8.9 Immature Gran % (Auto) 0.300 Neut % (Auto) 64.3 Lymph % (Auto) 20.6 [place] % (Auto) 10.8 H Eos % (Auto) 3.3 Baso % (Auto) 0.7 Absolute Neuts (auto) 3.8 Absolute Lymphs (auto) 1.20 Nucleated RBC % 0 Sodium 139 Potassium 4.0 Chloride 107 Carbon Dioxide 24.0 Anion Gap 8 BUN 10 Creatinine 0.91 Estim Creat Clear Calc 127.68 Est GFR (MDRD) Af Amer 118 Est GFR (MDRD) Non-Af 98 BUN/Creatinine Ratio 11.0 Glucose 259 H Calcium 8.3 L Ur Random Microalbumin 14.5 Urine Creatinine 57.10 Microalb/Creat Ratio 25.4 - Other Studies Radiology: [] reviewed Other Studies: [] Route of nutrition/ use of supplements: [] Nutritional Intake: [] IV Site: [] Corona Catheter: [] - Physical Exam General: Alert, Oriented x3, Cooperative, No apparent distress HEENT: Atraumatic, PERRLA, EOMI Neck: Supple, No Nodes Lungs: Clear to auscultation, Normal air movement Cardiovascular: Regular rate, Regular Rhythm, No murmurs Abdomen: Soft, Non Tender, Non-Distended Extremities: No edema Skin: Ulcer/ Wound - L foot reviewed photo, plantar wound with odor, redness, and drainage IV Site: Peripheral, without redness Musculoskeletal: No Tenderness to Palpation of Joints or Extremities Neurological: Cranial nerves II-XII grossly intact - Assessment/Plan Antibiotics: [] Assessment/Plan: [] Active and Suspected Problems Osteomyelitis of left foot (Acute) Diabetes mellitus, new onset (Acute) L foot osteo with new dx of T2DM - A1c is 12. MRI showed osteo of 4th metatarsal. Wound cx with strep and mixed gram (+). Had some improvement with keflex and doxy as outpt, reviewed [facility] records. Recommend OR debridement tomorrow with Dr. Rodriguez, and pt is in agreement. Cont vanc/zosyn for now. Will follow, thank you.
--- NOTE | 2020-01-06 15:34 | PCM.PN.HOSP ---
Patient Problems: Active and Suspected Problems Osteomyelitis of left foot (Acute) Diabetes mellitus, new onset (Acute) Reason for Visit: Follow-up on hypertension and type 2 DM Subjective: Patient was seen and examined. His pain is controlled. He denied any new complains. No fevers or chills Objective: Physical exam: General: Alert, Oriented x3, Cooperative, No apparent distress HEENT: Atraumatic, PERRLA, EOMI, Normocephalic Oral: Moist Mucosa Neck: Supple, No JVD Lungs: Clear to auscultation, Normal air movement, No rhonchi, No wheeze, No rales Cardiovascular: Regular rate, Regular Rhythm, Normal S1, Normal S2, No murmurs Abdomen: Soft, Non Tender, Non-Distended, No Hepato-splenomegaly Extremities: No edema, Capillary Refill Less than 3 Seconds Skin: Left foot dressing with Kody wraps. Offensive smell from the leg Neurological: Neuro grossly intact, Sensory exam intact to light touch and pain Psych/Mental Status: Normal Affect, Appropriate Vitals/I&O's: Vital Signs Temp Pulse Resp BP Pulse Ox 98.3 F 95 18 150/93 H 97 01/06/20 12:00 01/06/20 12:00 01/06/20 12:00 01/06/20 12:00 01/06/20 12:00 Oxygen Delivery Method Room Air Weight: 123.6 kg Body Mass Index (BMI) 34.0 Intake and Output for Last 24 Hours 01/04/20 01/05/20 01/06/20 23:59 23:59 23:59 Intake Total 1040.25 / 1040.25 2864.25 / 2864.25 Output Total 500 / 500 Balance 1040.25 / 1040.25 2364.25 / 2364.25 Microbiology Past 72 Hours 01/05/20 Unknown Wound - Left Foot Gram Stain - Final 01/05/20 Unknown Wound - Left Foot Wound Culture - Preliminary Beta streptococcus Mixed Gram Positive Organisms Laboratory Results 01/05/20 17:49: POC Glucose 195 H 01/05/20 19:10: Ur Random Microalbumin 14.5, Urine Creatinine 57.10, Microalb/Creat Ratio 25.4 01/05/20 21:27: POC Glucose 262 H 01/06/20 04:24: POC Glucose 256 H 01/06/20 06:10: WBC 5.8, RBC 4.78, Hgb 13.7, Hct 40.2, MCV 84.1, MCH 28.7, MCHC 34.1, RDW Std Deviation 36.4, RDW Coeff of Alivia 12.0, Plt Count 227, MPV 8.9, Immature Gran % (Auto) 0.300, Neut % (Auto) 64.3, Lymph % (Auto) 20.6, [place] % (Auto) 10.8 H, Eos % (Auto) 3.3, Baso % (Auto) 0.7, Absolute Neuts (auto) 3.8, Absolute Lymphs (auto) 1.20, Nucleated RBC % 0 01/06/20 06:10: Sodium 139, Potassium 4.0, Chloride 107, Carbon Dioxide 24.0, Anion Gap 8, BUN 10, Creatinine 0.91, Estim Creat Clear Calc 127.68, Est GFR (MDRD) Af Amer 118, Est GFR (MDRD) Non-Af 98, BUN/Creatinine Ratio 11.0, Glucose 259 H, Calcium 8.3 L 01/06/20 08:09: POC Glucose 247 H 01/06/20 11:21: POC Glucose 314 H Current Medications Acetaminophen (Tylenol) 650 mg PO Q6H PRN PRN PRN Reason: Pain Score 1-10/Temp > 100.7 F Glucagon () 1 mg IM .X1 PRN PRN Reason: Hypoglycemia Vancomycin IV Pharmacy to Dose (1 ea/ Sodium Chloride) 500 mls @ 250 mls/hr IV X1 PRN; Protocol PRN Reason: Rx to Dose Piperacillin Sod/Tazobactam (Sod 3.375 gm/ Sodium Chloride) 50 mls @ 12.5 mls/hr IV Q8 ASHVIN Last Admin: 01/06/20 14:08 Dose: 12.5 mls/hr Documented by: Dextrose (Dextrose 10%-Water) 250 mls @ 999 mls/hr IV .Q16M PRN; Protocol PRN Reason: HYPOGLYCEMIA Sodium Chloride () 250 mls @ 15 mls/hr IV .[id number] PRN PRN Reason: Saline Flush Last Infusion: 01/06/20 05:35 Dose: 0 mls/hr Documented by: Vancomycin HCl 1,500 mg/ (Sodium Chloride) 530 mls @ 250 mls/hr IV Q8H ASHVIN Last Infusion: 01/06/20 12:45 Dose: Infused Documented by: Insulin Glargine (Lantus (Bkc)) 12 units SC QHS [facility] Insulin Human Lispro (Humalog Kwikpen (Bkc)) 0 unit SC ACHS COUNT [facility]CLUD[facility]; Protocol Last Admin: 01/06/20 12:52 Dose: 6 u Documented by: Insulin Human Lispro (Humalog Kwikpen (Bkc)) 5 unit SC TIDAC COUNT [facility]CLUDES [facility] Last Admin: 01/06/20 12:52 Dose: 5 u Documented by: Lisinopril (Zestril) 20 mg PO DAILY COUNT [facility] Ondansetron HCl (Zofran) 4 mg IV Q8H PRN PRN PRN Reason: NAUSEA/VOMITING Sodium Chloride () 10 - 40 ml IV UD PRN PRN Reason: SALINE FLUSH STROKE Vital Signs/Narrative: Vital Signs Temp Pulse Resp BP Pulse Ox 01/06/20 12:00 98.3 F 95 18 150/93 H 97 Medical Necessity - Tobacco Use Smoking Status: Never smoker Tobacco Use: Chew Assessment/Plan All Active Problems Osteomyelitis of left foot (Acute) Diabetes mellitus, new onset (Acute) 1. Acute left foot osteomyelitis, seen on MRI of left foot Wound cultures growing beta streptococcus, mixed gram-positive organisms On vancomycin and Zosyn, ID following Patient will be sent to the OR by orthopedics tomorrow 2. Type II DM, newly diagnosed, HbA1c is 12, continue on Lantus as well as pre-meal insulin with insulin sliding scale Will start patient on metformin after his surgeries when his renal function is stable 3. DVT PPx - low risk, early ambulation recommended Code Visit Inpatient E&M: 63697 Subs Hosp L2
[2020-01-06 15:57] VITALS: BP 165/99; PULSE 92; RESP 18; TEMP 36.8; O2SAT 97
[2020-01-06 16:11] LABS: Bedside Glucose 234 mg/dL (70-110)
--- NOTE | 2020-01-06 17:19 | NURSING ---
SPOKE TO DR HARIS RODRIGUEZ MAKING HIM AWARE PT HAS CHOSEN TO HAVE SURGICAL PROCEDURE
--- NOTE | 2020-01-06 18:35 | PCM.RX.CS ---
Consult Pharmacy has been consulted to manage selected antiobiotic: Vancomycin Type of Consult: Follow-up Suspected Infection: Skin/Soft tissue Prior Doses of Antibiotics Received/Current Regimen: VANCOMYCIN 1500MG IV Q8HR: 01/05 @0220,1037 Labs: Sodium 139 mmol/L (136-145) 01/06/20 06:10 Potassium 4.0 mmol/L (3.5-5.1) 01/06/20 06:10 Chloride 107 mmol/L (98-107) 01/06/20 06:10 Carbon Dioxide 24.0 mmol/L (21.0-32.0) 01/06/20 06:10 Anion Gap 8 (5-15) 01/06/20 06:10 BUN 10 mg/dL (7-18) 01/06/20 06:10 Creatinine 0.91 mg/dL (0.70-1.30) 01/06/20 06:10 Est GFR (MDRD) Af Amer 118 mL/min (>60) 01/06/20 06:10 Est GFR (MDRD) Non-Af 98 mL/min (>60) 01/06/20 06:10 BUN/Creatinine Ratio 11.0 RATIO (10-20) 01/06/20 06:10 Glucose 259 mg/dL (74-106) H 01/06/20 06:10 Vancomycin Trough 17.0 ug/mL (5.0-15.0) H 01/06/20 17:30 Microbiology: Microbiology 01/05/20 Unknown Wound - Left Foot Gram Stain - Final 01/05/20 Unknown Wound - Left Foot Wound Culture - Preliminary Beta streptococcus Mixed Gram Positive Organisms Goal Trough: 15-20 mcg/mL Pharmacy Plan for Drug Dosing: The patient had a trough drawn which resulted in a value of 17 (drawn 7hrs from last administered dose). This is within the goal range of 15-20. Since the patient's trough was 17 after only 3 administered doses, will draw another trough in 2 days (instead of 4 per protocol) just to ensure the patient is still within goal range of 15-20. PLAN/RECOMMENDATIONS 1. Continue vancomycin1 500mg IV Q8hr 2. Trough scheduled 2 days from now: 01/08/20 @1730 3. Pharmacy Service will continue to monitor and adjust dosing as required.
[2020-01-06 19:49] VITALS: BP 133/90; PULSE 97; RESP 16; TEMP 36.8; O2SAT 97
[2020-01-06 21:30] LABS: Bedside Glucose 239 mg/dL (70-110)
[2020-01-07] VITALS (13 sets, daily range): BP systolic 107–198; BP diastolic 70–111; PULSE 77–102; RESP 16–18; TEMP 36.3–37.2; O2SAT 92–98; BMI 34.0
--- NOTE | 2020-01-07 | BON_PTH ---
PATIENT: OZIEL HATCH LOC: [facility]3 U#:[id number] AGE/SX: 39/M ROOM: [facility]318 RE01/05/[address]: Dr. Sarah Gaines DO : 1980 BED: 1 DIS: 01/12/2020 SPEC #: [id number] RECD: 01/07/20 17:01 STATUS: CHRISTY RELarry #: [id number] JOHN: 01/07/20 00:[address]: Franklyn Rodriguez DEPT: SURGICAL PATHOLOGY RECD BY: Oziel Lomeli ENTERED: 01/08/20 10:03 SP TYPE: Bone OTHR DR: MD Dr. Richar Colvin MD Dr. Robert Leininger, MD Dr. Timothy J Miller, DPM No Primary Care Phys Tissues: A - Bone of foot, NOS B - Bone of foot, NOS Procedures: Decalcification bone/plaque Surgery Specimen Level IV Comments: @ Ordering doctor for DEC edited from to [email or web address] Potter by CHETAN at 01/08/20 1329 @ Ordering doctor for SUIII edited from to @ by CHETAN at 01/08/20 1329 @ Submitting doctor edited from to @ by CHETAN at 01/08/20 1329 HEADER OPERATION: Left foot excision fourth metatarsal head, incision and drainage PRE-OP DIAGNOSIS: Osteomyelitis of fourth metatarsal head; ulcer and swelling TISSUE SUBMITTED: A - Clear margin fourth metatarsal head left foot, B - Fourth metatarsal head left foot MICROSCOPIC DIAGNOSIS A. Fourth metatarsal head, left foot, clear margin: Unremarkable fragment of cortical bone. B. Fourth metatarsal head, left foot, excision: Chronic reparative and reactive changes. No evidence of acute osteomyelitis. AM:tereza 01/13/20 MICROSCOPIC DESCRIPTION Slides are reviewed. GROSS DESCRIPTION A - Received in fixative is one container labeled with the patient's name and designated clear margin fourth metatarsal head left foot. The specimen consists of a piece of bone measuring 0.5 x 0.6 x 0.2 cm. The entire specimen is submitted in one cassette after decalcification. B - Received in fixative is one container labeled with the patient's name and designated fourth metatarsal head left foot. The specimen consists of a piece of bone measuring 1.7 x 1 x 1 cm. The specimen is sectioned and submitted entirely in one cassette after decalcification. / Jonah 01/07/02 TC:5 CPT:
[2020-01-07] MEDS: Dextrose 5%/0.9% NaCl 1,000 ML 100 ML IV (02:05)
[2020-01-07] MEDS: Insulin Lispro 100 UNIT/ML INSULN.PEN SC ×3 (05:42→21:35)
[2020-01-07 05:51] LABS: Bedside Glucose 306 mg/dL (70-110)
[2020-01-07 05:58] LABS: Absolute Lymphocyte Count 2.21 X10^3/uL (0.83-4.51); Absolute Neutrophil Count 3.7 X10^3/uL (2.0-7.7); Basophil# 0.06 X10^3/uL; Basophil% 0.9 % (0-1); Eosinophil# 0.29 X10^3/uL; Eosinophils% 4.2 % (0-5); Hematocrit 43.3 % (40-54); Hemoglobin 14.4 g/dL (13.0-16.5); Lymphocyte # 2.21 X10^3/ul (4.0); Lymphocyte % 31.9 % (19-41); Mean Corp Hgb Conc 33.3 g/dL (32-36); Mean Corpuscular Hgb 28.2 pg (27.0-32.0); Mean Corpuscular Volume 84.7 fL (80-94); Monocyte# 0.69 X10^3/uL; NRBC Flagged by Analyzer 0 % (0-5); Neutrophil # 3.65 X10^3/uL (2.7-7.7); Neutrophil % 52.7 % (47-70); Platelet Count 249 K/mm3 (150-450); RBC Distribution Width CV 12.4 % (11.6-14.6); RBC Distribution Width SD 37.8 fl (35.1-43.9); Red Blood Count 5.11 M/mm3 (4.6-6.2); White Blood Count 6.9 K/mm3 (4.4-11.0)
--- NOTE | 2020-01-07 06:00 | EKG12_ITS ---
Test Reason : AM EKG Blood Pressure : / mmHG Vent. Rate : 088 BPM Atrial Rate : 088 BPM P-R Int : 144 ms QRS Dur : 102 ms QT Int : 344 ms P-R-T Axes : 044 046 080 degrees QTc Int : 416 ms Normal sinus rhythm Nonspecific T wave abnormality Abnormal ECG No previous ECGs available Confirmed by CHANA RIVERA, ROMELIA ([id number]), offline editor PRIMO RODRIGUEZ ([id number]) on 01/11/2020 3:59:57 PM Referred By: DR VELAZCO Confirmed By:ROMELIA ZAYAS MD
[2020-01-07 06:30] LABS: ALB/GLOB Ratio 0.8 RATIO (0.9-2.4); AST(SGOT) 13 U/L (15-37); Alanine Aminotransfer ALT/SGPT 27 U/L (16-61); Alkaline Phosphatase 50 U/L (45-117); Anion Gap 5 (5-15); BUN 10 mg/dL (7-18); BUN/Creat Ratio 9.3 RATIO (10-20); Calcium,Total 8.8 mg/dL (8.5-10.1); Chloride 106 mmol/L (98-107); Creatinine, Serum 1.08 mg/dL (0.70-1.30); EST Glomerular Filtration Rate 80 mL/min (>60); Est Glom Filt Rate - Afr Amer 97 mL/min (>60); Estimated Creatinine Clearance 107.58 ml/min; Globulin 3.8 g/dL (2.2-4.2); Glucose 278 mg/dL (74-106); Potassium 3.8 mmol/L (3.5-5.1); Protein, Total 6.8 g/dL (6.4-8.2); Sodium Level 140 mmol/L (136-145)
--- NOTE | 2020-01-07 07:51 | PN_ITS ---
Patient Problems: Active and Suspected Problems Osteomyelitis of left foot (Acute) Diabetes mellitus, new onset (Acute) Reason for Visit: Follow-up on hypertension and type 2 DM Subjective: Patient was seen and examined. He is going for resection of the fourth metatarsal head of the left foot, a wound debridement of the left foot, incision and drainage of the left foot, washout of left foot wound, application of synthetic skin substitute to the left foot, and application of wound VAC to left foot. Patient denied any pain or fever or chills. No acute events overnight. Objective: Physical exam: General: Alert, Oriented x3, Cooperative, No apparent distress HEENT: Atraumatic, PERRLA, EOMI, Normocephalic Oral: Moist Mucosa Neck: Supple, No JVD Lungs: Clear to auscultation, Normal air movement, No rhonchi, No wheeze, No rales Cardiovascular: Regular rate, Regular Rhythm, Normal S1, Normal S2, No murmurs Abdomen: Soft, Non Tender, Non-Distended, No Hepato-splenomegaly Extremities: No edema, Capillary Refill Less than 3 Seconds Skin: Left foot dressing with Kody wraps. Offensive smell from the leg Neurological: Neuro grossly intact, Sensory exam intact to light touch and pain Psych/Mental Status: Normal Affect, Appropriate Vitals/I&O's: Vital Signs Temp Pulse Resp BP Pulse Ox 98.1 F 78 16 165/109 H 97 01/07/20 07:50 01/07/20 07:50 01/07/20 07:50 01/07/20 07:50 01/07/20 07:50 Oxygen Delivery Method Room Air Weight: 123.6 kg Body Mass Index (BMI) 34.0 Intake and Output for Last 24 Hours 01/05/20 01/06/20 01/07/20 23:59 23:59 23:59 Intake Total 1040.25 / 1040.25 4250.00 / 4250.00 714.83 / 714.83 Output Total 500 / 500 Balance 1040.25 / 1040.25 3750.00 / 3750.00 714.83 / 714.83 Microbiology Past 72 Hours 01/05/20 Unknown Wound - Left Foot Gram Stain - Final 01/05/20 Unknown Wound - Left Foot Wound Culture - Preliminary Beta streptococcus Mixed Gram Positive Organisms Laboratory Results 01/06/20 08:09: POC Glucose 247 H 01/06/20 11:21: POC Glucose 314 H 01/06/20 16:00: POC Glucose 234 H 01/06/20 17:30: Vancomycin Trough 17.0 H 01/06/20 21:23: POC Glucose 239 H 01/07/20 05:25: WBC 6.9, RBC 5.11, Hgb 14.4, Hct 43.3, MCV 84.7, MCH 28.2, MCHC 33.3, RDW Std Deviation 37.8, RDW Coeff of Alivia 12.4, Plt Count 249, MPV 9.0, Immature Gran % (Auto) 0.300, Neut % (Auto) 52.7, Lymph % (Auto) 31.9, [place] % (Auto) 10.0, Eos % (Auto) 4.2, Baso % (Auto) 0.9, Absolute Neuts (auto) 3.7, Absolute Lymphs (auto) 2.21, Nucleated RBC % 0 01/07/20 05:25: Sodium 140, Potassium 3.8, Chloride 106, Carbon Dioxide 29.0, Anion Gap 5, BUN 10, Creatinine 1.08, Estim Creat Clear Calc 107.58, Est GFR (MDRD) Af Amer 97, Est GFR (MDRD) Non-Af 80, BUN/Creatinine Ratio 9.3 L, Glucose 278 H, Calcium 8.8, Total Bilirubin 0.70, AST 13 L, ALT 27, Alkaline Phosphatase 50, Total Protein 6.8, Albumin 3.0 L, Globulin 3.8, Albumin/Globulin Ratio 0.8 L 01/07/20 05:40: POC Glucose 306 H Current Medications Acetaminophen (Tylenol) 650 mg PO Q6H PRN PRN PRN Reason: Pain Score 1-10/Temp > 100.7 F Glucagon () 1 mg IM .X1 PRN PRN Reason: Hypoglycemia Vancomycin IV Pharmacy to Dose (1 ea/ Sodium Chloride) 500 mls @ 250 mls/hr IV X1 PRN; Protocol PRN Reason: Rx to Dose Piperacillin Sod/Tazobactam (Sod 3.375 gm/ Sodium Chloride) 50 mls @ 12.5 mls/hr IV Q8 ASHVIN Last Admin: 01/07/20 05:40 Dose: 12.5 mls/hr Documented by: Dextrose (Dextrose 10%-Water) 250 mls @ 999 mls/hr IV .Q16M PRN; Protocol PRN Reason: HYPOGLYCEMIA Sodium Chloride () 250 mls @ 15 mls/hr IV .[id number] PRN PRN Reason: Saline Flush Last Infusion: 01/07/20 02:00 Dose: 0 mls/hr Documented by: Vancomycin HCl 1,500 mg/ (Sodium Chloride) 530 mls @ 250 mls/hr IV Q8H ASHVIN Last Infusion: 01/07/20 04:23 Dose: Infused Documented by: Dextrose/Sodium Chloride (Dextrose 5%/0.9% Nacl) 1,000 mls @ 50 mls/hr IV .Q20H ASHVIN Last Infusion: 01/07/20 07:44 Dose: Infused Documented by: Sodium Chloride () 1,000 mls @ 75 mls/hr IV .[id number] ASHVIN Insulin Glargine (Lantus (Bkc)) 12 units SC QHS [facility] Last Admin: 01/06/20 21:26 Dose: 12 u Documented by: Insulin Human Lispro (Humalog Kwikpen (Bkc)) 0 unit SC ACHS [facility]; Protocol Last Admin: 01/06/20 21:25 Dose: 6 u Documented by: Insulin Human Lispro (Humalog Kwikpen (Bkc)) 5 unit SC TIDAC [facility] Last Admin: 01/06/20 17:14 Dose: 5 u Documented by: Insulin Human Lispro (Humalog Kwikpen (Bkc)) 0 unit SC Q6 [facility]; Protocol Stop: 01/07/20 16:00 Last Admin: 01/07/20 05:42 Dose: 3 u Documented by: Lisinopril (Zestril) 20 mg PO DAILY [facility] Ondansetron HCl (Zofran) 4 mg IV Q8H PRN PRN PRN Reason: NAUSEA/VOMITING Sodium Chloride () 10 - 40 ml IV UD PRN PRN Reason: SALINE FLUSH STROKE Vital Signs/Narrative: Vital Signs Temp Pulse Resp BP Pulse Ox 01/07/20 07:50 98.1 F 78 16 165/109 H 97 Medical Necessity - Tobacco Use Smoking Status: Never smoker Tobacco Use: Chew Assessment/Plan All Active Problems Osteomyelitis of left foot (Acute) Diabetes mellitus, new onset (Acute) 1. Acute left foot osteomyelitis, seen on MRI of left foot in a newly diagnosed DM Wound cultures growing group G streptococcus, coag negative staph, GPC possible enterococcus, gram-positive rods On vancomycin and Zosyn, ID following Surgery today for I & D and resection of the 4th metatarsal bone. Continue on pain control as well as wound care per orthopedics surgery. 2. Type II DM, newly diagnosed, HbA1c is 12, kept n.p.o. for surgery, taking of pre-meal insulin, on insulin sliding scale Would resume his Lantus insulin as well as pre-meal insulin after surgery when patient is able to eat 3. DVT PPx - low risk, early ambulation recommended Inpatient E&M: 64450 Subs Hosp L2
[2020-01-07] MEDS: Lisinopril 20 MG Tablet PO (07:52)
--- NOTE | 2020-01-07 07:55 | NURSING ---
Pt is scheduled for surgery with Dr Franklyn Rodriguez later this afternoon. Will leave dressing in place at this time.
[2020-01-07] MEDS: 0.9% Normal Saline 1,000 ML 75 ML IV ×2 (08:55→17:17)
--- NOTE | 2020-01-07 09:48 | PN.ID_ITS ---
Patient Problems: Active and Suspected Problems Osteomyelitis of left foot (Acute) Diabetes mellitus, new onset (Acute) Subjective: Feeling better, fever/chills improved. OR today. No n/v/d. - Physical Exam Vitals/I&O's: Vital Signs Temp Pulse Resp BP Pulse Ox 98.1 F 78 16 165/109 H 97 01/07/20 07:50 01/07/20 07:50 01/07/20 07:50 01/07/20 07:50 01/07/20 07:50 Oxygen Delivery Method Room Air Weight: 123.6 kg Body Mass Index (BMI) 34.0 Intake and Output for Last 24 Hours 01/05/20 01/06/20 01/07/20 23:59 23:59 23:59 Intake Total 1040.25 / 1040.25 4250.00 / 4250.00 714.83 / 714.83 Output Total 500 / 500 Balance 1040.25 / 1040.25 3750.00 / 3750.00 714.83 / 714.83 General: Alert, Cooperative, No apparent distress Lungs: Clear to auscultation, Normal air movement Cardiovascular: Regular rate, Regular Rhythm Abdomen: Soft, Non Tender, Non-Distended Skin: Ulcer/ Wound - foot wrapped Microbiology Past 72 Hours 01/05/20 Unknown Wound - Left Foot Gram Stain - Final 01/05/20 Unknown Wound - Left Foot Wound Culture - Preliminary Beta streptococcus Mixed Gram Positive Organisms 01/05/20 Unknown Wound - Left Foot Anaerobic Culture - Preliminary Checking for anaerobes, further studies to follow. Laboratory Results 01/06/20 11:21: POC Glucose 314 H 01/06/20 16:00: POC Glucose 234 H 01/06/20 17:30: Vancomycin Trough 17.0 H 01/06/20 21:23: POC Glucose 239 H 01/07/20 05:25: WBC 6.9, RBC 5.11, Hgb 14.4, Hct 43.3, MCV 84.7, MCH 28.2, MCHC 33.3, RDW Std Deviation 37.8, RDW Coeff of Alivia 12.4, Plt Count 249, MPV 9.0, Immature Gran % (Auto) 0.300, Neut % (Auto) 52.7, Lymph % (Auto) 31.9, [place] % (Auto) 10.0, Eos % (Auto) 4.2, Baso % (Auto) 0.9, Absolute Neuts (auto) 3.7, Absolute Lymphs (auto) 2.21, Nucleated RBC % 0 01/07/20 05:25: Sodium 140, Potassium 3.8, Chloride 106, Carbon Dioxide 29.0, Anion Gap 5, BUN 10, Creatinine 1.08, Estim Creat Clear Calc 107.58, Est GFR (MDRD) Af Amer 97, Est GFR (MDRD) Non-Af 80, BUN/Creatinine Ratio 9.3 L, Glucose 278 H, Calcium 8.8, Total Bilirubin 0.70, AST 13 L, ALT 27, Alkaline Phosphatase 50, Total Protein 6.8, Albumin 3.0 L, Globulin 3.8, Albumin/Globulin Ratio 0.8 L 01/07/20 05:40: POC Glucose 306 H Current Medications Acetaminophen (Tylenol) 650 mg PO Q6H PRN PRN PRN Reason: Pain Score 1-10/Temp > 100.7 F Glucagon () 1 mg IM .X1 PRN PRN Reason: Hypoglycemia Vancomycin IV Pharmacy to Dose (1 ea/ Sodium Chloride) 500 mls @ 250 mls/hr IV X1 PRN; Protocol PRN Reason: Rx to Dose Piperacillin Sod/Tazobactam (Sod 3.375 gm/ Sodium Chloride) 50 mls @ 12.5 mls/hr IV Q8 ASHVIN Last Admin: 01/07/20 05:40 Dose: 12.5 mls/hr Documented by: Dextrose (Dextrose 10%-Water) 250 mls @ 999 mls/hr IV .Q16M PRN; Protocol PRN Reason: HYPOGLYCEMIA Sodium Chloride () 250 mls @ 15 mls/hr IV .[id number] PRN PRN Reason: Saline Flush Last Infusion: 01/07/20 02:00 Dose: 0 mls/hr Documented by: Vancomycin HCl 1,500 mg/ (Sodium Chloride) 530 mls @ 250 mls/hr IV Q8H [facility] Last Infusion: 01/07/20 04:23 Dose: Infused Documented by: Sodium Chloride () 1,000 mls @ 100 mls/hr IV .Q10H [facility] Last Admin: 01/07/20 08:55 Dose: 75 mls/hr Documented by: Insulin Glargine (Lantus (Bkc)) 12 units SC QHS [facility] Last Admin: 01/06/20 21:26 Dose: 12 u Documented by: Insulin Human Lispro (Humalog Kwikpen (Bkc)) 0 unit SC ACHS [facility]; Protocol Last Admin: 01/06/20 21:25 Dose: 6 u Documented by: Insulin Human Lispro (Humalog Kwikpen (Bkc)) 5 unit SC TIDAC [facility] Last Admin: 01/06/20 17:14 Dose: 5 u Documented by: Insulin Human Lispro (Humalog Kwikpen (Bkc)) 0 unit SC Q6 [facility]; Protocol Stop: 01/07/20 16:00 Last Admin: 01/07/20 05:42 Dose: 3 u Documented by: Lisinopril (Zestril) 20 mg PO DAILY [facility] Last Admin: 01/07/20 07:52 Dose: 20 mg Documented by: Ondansetron HCl (Zofran) 4 mg IV Q8H PRN PRN PRN Reason: NAUSEA/VOMITING Sodium Chloride () 10 - 40 ml IV UD PRN PRN Reason: SALINE FLUSH Medical Necessity - Tobacco Use Smoking Status: Never smoker Tobacco Use: Chew Route of nutrition/ use of supplements: [] Nutritional Intake: [] IV Site: [] [place] Catheter: [] - Assessment/Plan Antibiotics: [] Assessment/Plan: [] Active and Suspected Problems Osteomyelitis of left foot (Acute) Diabetes mellitus, new onset (Acute) L foot osteo with new dx of T2DM - A1c is 12. MRI showed osteo of 4th metatarsal. Wound cx with strep and mixed gram (+). OR today. Cont vanc/zosyn for now. May need 6 weeks iv abx at discharge. Will follow
[2020-01-07 11:40] LABS: Bedside Glucose 234 mg/dL (70-110)
[2020-01-07] MEDS: hydrALAZINE 20 MG/ML Vial 10 MG IV (12:04)
--- NOTE | 2020-01-07 12:09 | NURSING ---
Off unit to OR at this time.
[2020-01-07] MEDS: Metoprolol Tartrate 5 MG/5 ML Vial IV (12:15)
[2020-01-07] MEDS: Bupivacaine Mpf 0.5% 30 ML VIAL (13:40)
--- NOTE | 2020-01-07 14:20 | RAD_ITS ---
STUDY: X-RAY - LEFT FOOT CLINICAL: Male, 39 years old. LEFT FOOT EXCISION 4TH METATARSAL HEAD I and amp;D DEBRIDEMENT TECHNIQUE: 3 intraoperative C-arm view(s) of the foot. 4 seconds fluoroscopy time COMPARISON: None. FINDINGS: These images show resection of the head of the fourth metatarsal. Correlate with procedure note. Electronically Signed: Salbador Wilson MD at 19:07 EST , Service support , RAD/Foot min 3 Views
--- NOTE | 2020-01-07 15:33 | OP.PCM_ITS ---
Problem List (1) Osteomyelitis of left foot Status: Acute Qualifiers: Osteomyelitis type: other acute Qualified Code(s): M86.172 - Other acute osteomyelitis, left ankle and foot (2) Diabetes mellitus, new onset Status: Acute Report of Operation Date of Procedure: 01/07/20 Pre-Operative Diagnosis: 1. Acute osteomyelitis left foot fourth metatarsal head. #2 diabetes mellitus type 2 with polyneuropathy. #3 diabetes mellitus type 2 with foot ulcer. #4 nonpressure ulcer left foot with necrosis of bone. #5 left foot cellulitis Post-Operative Diagnosis: Same as preoperative Surgery/Procedure Performed:: 1. Excision of fourth metatarsal head left foot. #2 wound debridement of left foot wound down to including level of bone with excision. #3 incision and drainage left foot. #4 left foot washout of wound. #5 application of wound VAC left foot wound Description of Surgical Findings:: Consistent with diagnosis. Remaining soft tissue appeared healthy with no signs of necrosis. Repeat remaining bone appeared healthy with no signs of necrosis. Healthy active bleeding noted of left foot. geophysical observer: Constance Barragan Type of Anesthesia:: General/Regional - with an ankle block given to the left ankle consisting of 20cc of 0.5% marcaine plain Anesthesiologist: Song Ba Drains: wound vac at 125mmHg low continuous Estimated Blood Loss (mL): 10mL Description of Procedure: Pathology: #1. Fourth metatarsal head left foot for pathology. 2. Fourth metatarsal head left foot for culture. 3. Clear margin fourth metatarsal left foot for pathology. 4. Clear margin fourth metatarsal left foot for culture 5. Wound culture of left foot wound for aerobic, anaerobic status post washout. 6. Wound culture of left foot wound for MRSA status post washout Hemostasis: Pneumatic calf tourniquet placed to the level left calf at 250 mmHg for 60 minutes Estimated blood loss: Less than 20 mL Materials: #1. Integra prime matrix. 2. Size 0 Vicryl. 3. Size 2-0 nylon. 4. KCI wound VAC with associated black foam and tape. Injectables: None Complications: None Condition: Stable Indications: This patient is a 39-year-old male who presented to my office on January 04 for evaluation of a left foot wound. According to the patient, he has not seen a physician in 20 years. Patient related that he developed a wound on his left foot over 2 weeks ago. Upon noticing the wound, the patient went to an outside emergency department for further evaluation. At that time, x-rays were taken. Patient was told that there is no infection of the bone. Patient was then discharged on oral antibiotics. Patient then presented to my office on January 04. Patient states that he was having increased pain in the wound along with increased drainage and malodor. Upon seeing the patient, a significant infection was present with erythema and malodor. Furthermore, the fourth metatarsal head was exposed through the wound. X-rays were taken in my office and I did not see infection in the fourth metatarsal head. Due to the suspicion of osteomyelitis in the fourth metatarsal head, at that time, I urged the patient to present to the emergency department for further evaluation and admission. Patient was admitted through the emergency department on January 04. Patient was started on IV antibiotics. An MRI was ordered of the left foot which revealed osteomyelitis of the fourth metatarsal head. Multiple discussions were had with the patient about his treatment options. Conservative options would include local wound care along with long-term IV antibiotics. Surgical options include excision of the infected bone along with the nonviable tissue, incision and drainage of the left foot, washout the left foot wound, application of graft, application of wound VAC. Risks and benefits of both treatment options were discussed with the patient, including but not limited to continued infection, nonhealing of the wound, DVT, loss of function of the fourth toe, loss of limb, loss of life. Due to the infection that was present, I recommended surgical intervention. Patient was agreeable to surgical in tervention. Operative report Before the patient was brought to the operating room, the risks, benefits, possible outcomes, possible complications of the procedure were discussed with the patient. These included but not limited to continued infection, nonhealing of the wound, DVT, loss of function of the fourth toe, loss of limb, loss of life. All the patient's questions were answered to his satisfaction and all of his concerns were addressed. No guarantees were made as to the outcome of the procedure. Patient understood all aspects of the procedure, and consent was then signed by the patient. Patient was then brought to the operating room and placed on the operating table in supine position. After timeout, under general anesthesia, a well-padded pneumatic calf tourniquet was placed to level of left calf. Next, 20 mL of 0.5% Marcaine plain was distributed ankle block fashion to the left ankle. The left foot, ankle, leg were then scrubbed, prepped, draped in the usual sterile manner. Elevation of the left lower extremity was followed by exsanguination via Esmarch and inflation of the pneumatic calf tourniquet to 250 mmHg. Attention was then directed to the plantar aspect the left foot wound. At this time, #15 blade was used to perform sharp excisional wound debridement of the left foot wound to remove all nonviable tissue down to including level of bone. All nonviable tissue was removed. This included subcutaneous tissue, fourth metatarsal capsule, and the flexor tendon to the fourth digit. These were removed from the operative site. Visual inspection was then performed of the fourth metatarsal head through the wound. This was necrotic, soft, and was not pearly white. Next, #15 blade was used to make an incision from the distal aspect of the wound approximately 0.5 cm distal and from the proximal aspect of the wound 0.5 cm proximal. This was to allow easier access to the fourth metatarsal head excision. This incision was deepened utilizing sharp and blunt dissection. Care was taken retract all vital neural and vascular structures. All bleeders were cauterized and ligated as necessary. At this time, a sagittal bone saw was used to resect the osteonecrotic portion of the fourth metatarsal head. This was resected in a plantar proximal to dorsal distal fashion. Once the bone cut was made, the fourth metatarsal head was sharply excised to the soft tissue attachments and removed from the operative site. Visual inspection was then performed once again of the fourth metatarsal, which appeared osteonecrotic. This was then passed from the table. A portion of this bone was sent for pathology labeled fourth metatarsal head left foot and another portion of this bone was sent for culture labeled fourth metatarsal left foot. Visual inspection was then performed of the remaining fourth metatarsal left foot. This appeared hard, healthy, and pearly white with no signs of osteonecrosis. The remaining bone was deemed healthy. The sagittal bone saw was used to resect a piece of this bone at the distal portion. This resected piece was then split and 2, with 1 sent to pathology labeled clear margin, fourth metatarsal, left foot and the other portion sent for culture labeled clear margin, fourth metatarsal, left foot. At this time, a pulse lavage was used to irrigate the wound with 3 L of normal sterile saline. Once thorough irrigation was performed, the left foot wound was redraped. At this time, a wound culture for MRSA and a wound culture for aerobic and anaerobic organisms was taken of the wound site status post lavage. The wound was then measured to be 2 cm x 1.5 cm x 2 cm. At this time, radiograph evaluation was then performed. This confirmed excision of the fourth metatarsal head. Next, size 0 Vicryl was used to reapproximate and co-apt the subcutaneous tissue of the incisions made on the proximal and distal aspect of the wound. 2-0 nylon was used to reapproximate the skin of both of these incisions in a simple interrupted manner. Next, the pneumatic calf tourniquet was then released and a prompt hyperemic response noted to the entirety of the left foot, ankle, leg. Healthy active bleeding was noted at the medullary canal of the fourth metatarsal of the left foot. At this time, the Integra prime matrix was prepared and placed into the wound. This was then protected via a Mepitel. At this time, wound VAC was cut to protect the surgical sites of the distal and proximal aspects of the wound. Black foam was then applied to the wound site and was adhered utilizing the VAC tape. The wound VAC was then placed and adequate seal and suction was noted at 125 mmHg low continuous. The wound site was then dressed with a dry sterile dressing consisting of 4 x 4 gauze and ABD pads. Care was taken make sure that adequate protection was placed around the left foot and ankle. Kerlix was then wrapped from the foot up to the midcalf. The left foot, ankle, leg were then wrapped with an Kody bandage. Neurovascular status was assessed at the end the application and deemed intact left lower extremity. The surgical scrub technologist, the nurse practitioner, was utilized at the entire case. She helped with patient positioning. She helped with retraction throughout and help holding of the limb. She helped with bandage application. Without the surgical scrub technologist, surgical time would have been increased and outcome could have been less optimal. Patient tolerated the anesthesia procedure well and was transported to the PACU with vital signs stable and neurovascular status intact to left lower extremity. After period of postoperative monitoring, patient will be transferred back to the general medical floor. At this time, I would like to keep the dressing and wound VAC to the left foot and leg clean, dry, intact until further notice. Please reinforce as needed. I like the patient to remain nonweightbearing to the left lower extremity. I recommend continuation of antibiotics per infectious disease. - Admit VTE Documentation VTE Present on Admission: No VTE Mechan Device Prophylaxis: SCD's
--- NOTE | 2020-01-07 15:45 | RAD_ITS ---
STUDY: X-RAY - LEFT FOOT CLINICAL: Male, 39 years old. Post op excision of fourth metatarsal head TECHNIQUE: 3 view(s) of the foot. COMPARISON: 01/05/2020. FINDINGS: Since prior exam there has been resection of the head of the fourth metatarsal. No evidence of acute postsurgical changes. No other significant findings. RAD/Foot min 3 Views IMPRESSION: Grossly satisfactory appearance status post resection of the head of the fourth metatarsal. Electronically Signed: Salbador Wilson MD at 17:36 EST , Service support ,
[2020-01-07 16:41] LABS: Bedside Glucose 227 mg/dL (70-110)
[2020-01-07 18:10] LABS: Bedside Glucose 182 mg/dL (70-110)
[2020-01-07] MEDS: Insulin Lispro 100 UNIT/ML INSULN.PEN 8 UNIT SC (18:45)
[2020-01-07] MEDS: Acetaminophen 325 MG Tablet 650 MG PO (19:16)
[2020-01-07 20:07] LABS: M R Staph aureus DNA By PCR Negative (Negative); Staph aureus DNA By PCR NEGATIVE (Negative)
[2020-01-07 20:08] LABS: Probe Check PASS
[2020-01-07] MEDS: oxyCODONE 5 MG Tablet PO (21:33)
[2020-01-07 22:00] LABS: Bedside Glucose 230 mg/dL (70-110)
[2020-01-08 02:10] VITALS: BP 113/71; PULSE 94; RESP 18; TEMP 37.4; O2SAT 96
--- NOTE | 2020-01-08 07:26 | PN_ITS ---
Patient Problems: Active and Suspected Problems Osteomyelitis of left foot (Acute) Diabetes mellitus, new onset (Acute) Reason for Visit: Follow-up on acute osteomyelitis/Type 2 DM Vitals/I&O's: Vital Signs Temp Pulse Resp BP Pulse Ox 99.3 F H 94 18 113/71 96 01/08/20 02:10 01/08/20 02:10 01/08/20 02:10 01/08/20 02:10 01/08/20 02:10 Oxygen Delivery Method Room Air Weight: 123.6 kg Body Mass Index (BMI) 34.0 Finger Stick Blood Glucose 227 Intake and Output for Last 24 Hours 01/06/20 01/07/20 01/08/20 23:59 23:59 23:59 Intake Total 4250.00 / 4250.00 2490.66 / 2490.66 1483.17 / 1483.17 Output Total 500 / 500 1300 / 1300 600 / 600 Balance 3750.00 / 3750.00 1190.66 / 1190.66 883.17 / 883.17 Microbiology Past 72 Hours 01/05/20 Unknown Wound - Left Foot Gram Stain - Final 01/05/20 Unknown Wound - Left Foot Wound Culture - Preliminary Streptococcus group G Coag Negative Staph GPC Poss Enterococcus sp Gram positive gus 01/05/20 Unknown Wound - Left Foot Anaerobic Culture - Preliminary Checking for anaerobes, further studies to follow. Laboratory Results 01/07/20 11:30: POC Glucose 234 H 01/07/20 16:29: POC Glucose 227 H 01/07/20 18:02: POC Glucose 182 H 01/07/20 21:33: POC Glucose 230 H 01/07/20 : S.aureus Protein A PCR NEGATIVE, MRSA (PCR) Negative Current Medications Acetaminophen (Tylenol) 650 mg PO Q6H PRN PRN PRN Reason: Pain Score 1-10/Temp > 100.7 F Last Admin: 01/07/20 19:16 Dose: 650 mg Documented by: Glucagon () 1 mg IM .X1 PRN PRN Reason: Hypoglycemia Vancomycin IV Pharmacy to Dose (1 ea/ Sodium Chloride) 500 mls @ 250 mls/hr IV X1 PRN; Protocol PRN Reason: Rx to Dose Piperacillin Sod/Tazobactam (Sod 3.375 gm/ Sodium Chloride) 50 mls @ 12.5 mls/hr IV Q8 ASHVIN Last Admin: 01/08/20 06:41 Dose: 12.5 mls/hr Documented by: Dextrose (Dextrose 10%-Water) 250 mls @ 999 mls/hr IV .Q16M PRN; Protocol PRN Reason: HYPOGLYCEMIA Sodium Chloride () 250 mls @ 15 mls/hr IV .[id number] PRN PRN Reason: Saline Flush Last Infusion: 01/08/20 06:41 Dose: 0 mls/hr Documented by: Vancomycin HCl 1,500 mg/ (Sodium Chloride) 530 mls @ 250 mls/hr IV Q8H [facility] Last Infusion: 01/08/20 04:21 Dose: Infused Documented by: Insulin Glargine (Lantus (Bkc)) 18 units SC QHS [facility] Last Admin: 01/07/20 21:34 Dose: 18 u Documented by: Insulin Human Lispro (Humalog Kwikpen (Bkc)) 8 unit SC TIDAC [facility] Last Admin: 01/07/20 18:45 Dose: 8 u Documented by: Insulin Human Lispro (Humalog Kwikpen (Bkc)) 0 unit SC ACHS [facility]; Protocol Last Admin: 01/07/20 21:35 Dose: 4 u Documented by: Lisinopril (Zestril) 20 mg PO DAILY [facility] Last Admin: 01/07/20 07:52 Dose: 20 mg Documented by: Loratadine (Claritin) 10 mg PO DAILY [facility] Ondansetron HCl (Zofran) 4 mg IV Q8H PRN PRN PRN Reason: NAUSEA/VOMITING Oxycodone HCl (Oxyir) 5 mg PO Q6H PRN PRN PRN Reason: Pain Score 6-10/10 Last Admin: 01/07/20 21:33 Dose: 5 mg Documented by: Sodium Chloride () 10 - 40 ml IV UD PRN PRN Reason: SALINE FLUSH Medical Necessity - Tobacco Use Smoking Status: Never smoker Tobacco Use: Chew Assessment/Plan All Active Problems Osteomyelitis of left foot (Acute) Diabetes mellitus, new onset (Acute) 1. POD #1, s/p resection of the 4th metatarsal bone for Acute left foot osteomyelitis, seen on MRI of left foot in a newly diagnosed DM Wound cultures growing group G streptococcus, Coag negative staph, GPC possible enterococcus, gram-positive rods Bone cultures show no growth to date. On vancomycin and unasyn, ID following Continue on pain control as well as wound care per orthopedics surgery. 2. Type II DM, newly diagnosed, HbA1c 12, BS fairly controlled, continue on Lantus 20 units QHS and premeal insulin 10 units TID Will continue on blood glucose checks with ISS 3. Hypertension, uncontrolled, on Lisinopril 20mg daily, will start on metoprolol XL 12.5mg po daily 4. DVT PPx - low risk, early ambulation recommended Inpatient E&M: [id number] Subs Hosp L2
[2020-01-08 07:35] VITALS: BP 141/93; PULSE 91; RESP 16; TEMP 36.8; O2SAT 96
[2020-01-08 07:36] LABS: Bedside Glucose 165 mg/dL (70-110)
--- NOTE | 2020-01-08 07:49 | NURSING ---
Wound VAC dressing is to remain in place per Dr Rodriguez's order. Good seal noted at 125mmHg low continuous suction. Home VAC paperwork on chart for Dr Rodriguez to sign. Unsure of discharge date at this time.
[2020-01-08] MEDS: Lisinopril 20 MG Tablet PO (09:01)
[2020-01-08] MEDS: Insulin Lispro 100 UNIT/ML INSULN.PEN 8 UNIT SC ×2 (09:01→11:18)
[2020-01-08] MEDS: Insulin Lispro 100 UNIT/ML INSULN.PEN SC ×4 (09:01→22:50)
[2020-01-08] MEDS: Loratadine 10 MG Tablet PO (09:03)
[2020-01-08 11:26] LABS: Bedside Glucose 231 mg/dL (70-110)
[2020-01-08 11:36] VITALS: BP 149/95; PULSE 89; RESP 16; TEMP 36.6; O2SAT 96
--- NOTE | 2020-01-08 12:01 | PN.ORTHO_ITS ---
Patient Problems: Active and Suspected Problems Osteomyelitis of left foot (Acute) Diabetes mellitus, new onset (Acute) Subjective: Patient seen at bedside resting comfortably. Patient is 1 day status post left foot fourth metatarsal head resection, wound debridement of nonhealing wound, incision and drainage of left foot wound, washout of left foot wound, application of graft to left foot wound, application of wound VAC to left foot wound. Patient states that he was having increased pain overnight, but is now controlled with medications. Furthermore, the nursing staff loosen to the Kody bandage around his foot and ankle, which is alleviated his pain as well. Patient states that the pain is improved at this time. Patient states that he was upset because he was not able to see his pinky toe of his left foot through the dressing, and thought that that was removed. Nursing staff then exposed the pinky toe, stating that it was not removed. Patient then was no longer upset. Patient's and daughter present at bedside during entire exam. Patient denies any other acute complaints at this time. Currently, patient denies fever, chills, nausea, vomiting, shortness of breath, chest pain. Patient denies left calf pain. Objective: Lower extremity physical exam focused on the left lower extremity: Dressing is clean, dry, intact to left foot and ankle with no strikethrough noted Vascular: palpable popliteal pulse of the left lower extremity. Capillary fill time is less than 3 seconds to all 5 digits of the left foot. Temperature gradient is within normal limits of the left lower extremity. Positive nonpitting edema noted of the left toes. Neurological: Gross and protective sensation are diminished to the toes of left foot Dermatological: Deferred at this time due to a clean and intact sterile dressing Musculoskeletal call: Muscle strength is deferred at this time, but no gross abnormalities are noted. Negative Homans and negative Bledsoe's sign noted of the left lower extremity. - Physical Exam Vitals/I&O's: Vital Signs Temp Pulse Resp BP Pulse Ox 97.9 F 89 16 149/95 H 96 01/08/20 11:36 01/08/20 11:36 01/08/20 11:36 01/08/20 11:36 01/08/20 11:36 Oxygen Delivery Method Room Air Weight: 123.6 kg Body Mass Index (BMI) 34.0 Finger Stick Blood Glucose 227 Intake and Output for Last 24 Hours 01/06/20 01/07/20 01/08/20 23:59 23:59 23:59 Intake Total 4250.00 / 4250.00 2490.66 / 2490.66 2033.17 / 2032. Output Total 500 / 500 1300 / 1300 1150 / 1150 Balance 3750.00 / 3750.00 1190.66 / 1190.66 883.17 / 883.17 General: Alert, Oriented x3, Cooperative, No apparent distress HEENT: Atraumatic, PERRLA Neck: Supple, No JVD Lungs: Clear to auscultation, Normal air movement, No rhonchi, No wheeze, No rales Cardiovascular: Regular rate, Regular Rhythm, Normal S1, Normal S2 Abdomen: Bowel Sounds Present, Soft, Non Tender, Non-Distended Extremities: Capillary Refill Less than 3 Seconds, Edema - As described above the left lower extremity, Peripheral Pulses Normal Skin: Ulcer/ Wound - Of the left plantar foot that is covered in a postoperative dressing Musculoskeletal: No Tenderness to Palpation of Joints or Extremities, Tenderness - Upon palpation compression of the plantar aspect of the metatarsal heads of the left foot. No other areas of tenderness noted. Psych/Mental Status: Alert and oriented to time, place, person, mood and affect Microbiology Past 72 Hours 01/07/20 Unknown Incision/Surgical Site Wound Culture - Preliminary Gram positive organism 01/07/20 Unknown Bone - Left Foot Wound Culture - Preliminary No growth-Final to follow 01/07/20 Unknown Bone - Left Foot Wound Culture - Preliminary No growth-Final to follow 01/05/20 Unknown Wound - Left Foot Gram Stain - Final 01/05/20 Unknown Wound - Left Foot Wound Culture - Preliminary Streptococcus group G Staphylococcus haemolyticus Strep anginosus Corynebacterium jeikeium 01/05/20 Unknown Wound - Left Foot Anaerobic Culture - Preliminary Checking for anaerobes, further studies to follow. Laboratory Results 01/07/20 16:29: POC Glucose 227 H 01/07/20 18:02: POC Glucose 182 H 01/07/20 21:33: POC Glucose 230 H 01/07/20 : S.aureus Protein A PCR NEGATIVE, MRSA (PCR) Negative 01/08/20 07:29: POC Glucose 165 H 01/08/20 11:12: POC Glucose 231 H STUDY: X-RAY - LEFT FOOT CLINICAL: Male, 39 years old. Post op excision of fourth metatarsal head TECHNIQUE: 3 view(s) of the foot. COMPARISON: 01/05/2020. FINDINGS: Since prior exam there has been resection of the head of the fourth metatarsal. No evidence of acute postsurgical changes. No other significant findings. RAD/Foot min 3 Views IMPRESSION: Grossly satisfactory appearance status post resection of the head of the fourth metatarsal. Electronically Signed: Salbador Wilson MD at 17:36 EST , Service support , Current Medications Acetaminophen (Tylenol) 650 mg PO Q6H PRN PRN PRN Reason: Pain Score 1-10/Temp > 100.7 F Last Admin: 01/07/20 19:16 Dose: 650 mg Documented by: Glucagon () 1 mg IM .X1 PRN PRN Reason: Hypoglycemia Vancomycin IV Pharmacy to Dose (1 ea/ Sodium Chloride) 500 mls @ 250 mls/hr IV X1 PRN; Protocol PRN Reason: Rx to Dose Piperacillin Sod/Tazobactam (Sod 3.375 gm/ Sodium Chloride) 50 mls @ 12.5 mls/hr IV Q8 [facility] Last Infusion: 01/08/20 11:15 Dose: Infused Documented by: Dextrose (Dextrose 10%-Water) 250 mls @ 999 mls/hr IV .Q16M PRN; Protocol PRN Reason: HYPOGLYCEMIA Sodium Chloride () 250 mls @ 15 mls/hr IV .[id number] PRN PRN Reason: Saline Flush Last Infusion: 01/08/20 06:41 Dose: 0 mls/hr Documented by: Vancomycin HCl 1,500 mg/ (Sodium Chloride) 530 mls @ 250 mls/hr IV Q8H [facility] Last Admin: 01/08/20 11:15 Dose: 250 mls/hr Documented by: Insulin Glargine (Lantus (Bkc)) 18 units SC QHS [facility] Last Admin: 01/07/20 21:34 Dose: 18 u Documented by: Insulin Human Lispro (Humalog Kwikpen (Bk)) 8 unit SC TIDAC [facility] Last Admin: 01/08/20 11:18 Dose: 8 u Documented by: Insulin Human Lispro (Humalog Kwikpen (Bkc)) 0 unit SC ACHS [facility]; Protocol Last Admin: 01/08/20 11:18 Dose: 4 u Documented by: Lisinopril (Zestril) 20 mg PO DAILY [facility] Last Admin: 01/08/20 09:01 Dose: 20 mg Documented by: Loratadine (Claritin) 10 mg PO DAILY [facility] Last Admin: 01/08/20 09:03 Dose: 10 mg Documented by: Ondansetron HCl (Zofran) 4 mg IV Q8H PRN PRN PRN Reason: NAUSEA/VOMITING Oxycodone HCl (Oxyir) 5 mg PO Q6H PRN PRN PRN Reason: Pain Score 6-10/10 Last Admin: 01/07/20 21:33 Dose: 5 mg Documented by: Sodium Chloride () 10 - 40 ml IV UD PRN PRN Reason: SALINE FLUSH Medical Necessity - Tobacco Use Smoking Status: Never smoker Tobacco Use: Chew Assessment/Plan All Active Problems Osteomyelitis of left foot (Acute) Diabetes mellitus, new onset (Acute) Assessment: Patient is a 39-year-old male 1 day status post left foot fourth metatarsal head resection, left foot wound debridement, left foot incision and drainage, left foot washout, left foot application of graft, left foot application of wound VAC with newly diagnosed diabetes mellitus type 2 and nonhealing wound of his left foot Plan: Patient chart reviewed and patient evaluated Full discussion had with patient, , daughter about the patient's current clinical condition. I discussed with the patient in detail about the operation that took place, which correlated with what I spoke with him during the preoperative assessment. I discussed with the patient that no toes were removed, and the surgery was that was performed was exactly what we talked about. Patient stated that he was relieved and displayed verbal understanding at this time. At this time, I discussed with the patient that would like to keep the dressing clean, dry, intact with a wound VAC on at this time. We will likely change the wound VAC on January 10 at bedside. I discussed with the patient that would like him to go home on the wound VAC therapy to assist in closure of this wound. Patient is agreeable and displayed verbal understanding to this. At this time I would like to patient to remain nonweightbearing to the left foot. I instructed the patient on proper elevation techniques. A physical therapy evaluation was placed to assist the patient nonweightbearing to the left foot with assistive devices. We are currently awaiting the cultures and the pathology that were taken from the operating room yesterday. The cultures that were taken during surgery were from the proximal clear margin of the fourth metatarsal, from the fourth metatarsal head, and wound culture status post washout of the wound. The pathology that was taken was from the proximal clear margin of the fourth metatarsal and the fourth metatarsal head. I recommend the continuation of antibiotics per infectious disease. I appreciate Dr. Robertson's input with this patient. I appreciate the continued medical management from the primary team for this patient. There will be no further surgical interventions by me while the patient is in house. I will be continuing local wound care at this time. I will continue to follow the patient and update accordingly. I will next see the patient on Saturday, January 11, 2020 for a likely wound VAC change. Patient displayed verbal understanding to all written and oral instructions at this time. Patient is agreeable to the current treatment plan at this time. All of his questions were answered to his satisfaction and all of his concerns were addressed. Patient is advised to speak to the nursing staff if he needs to reach out to me with any concerns or questions. Thank you for allowing me to take part in the care of your patient. Inpatient E&M: 59890 Subs Hosp L2
[2020-01-08 14:10] VITALS: BP 157/100; PULSE 87; RESP 16; TEMP 36.8; O2SAT 97
--- NOTE | 2020-01-08 14:32 | PN.ID_ITS ---
Patient Problems: Active and Suspected Problems Osteomyelitis of left foot (Acute) Diabetes mellitus, new onset (Acute) Subjective: Feeling ok, pain controlled, no fever, no n/v/d. - Physical Exam Vitals/I&O's: Vital Signs Temp Pulse Resp BP Pulse Ox 98.2 F 87 16 157/100 H 97 01/08/20 14:10 01/08/20 14:10 01/08/20 14:10 01/08/20 14:10 01/08/20 14:10 Oxygen Delivery Method Room Air Weight: 123.6 kg Body Mass Index (BMI) 34.0 Finger Stick Blood Glucose 227 Intake and Output for Last 24 Hours 01/06/20 01/07/20 01/08/20 23:59 23:59 23:59 Intake Total 4250.00 / 4250.00 2490.66 / 2490.66 2574.17 / 2574.17 Output Total 500 / 500 1300 / 1300 1150 / 1150 Balance 3750.00 / 3750.00 1190.66 / 1190.66 1424.17 / 1424.17 General: Alert, Cooperative, No apparent distress Lungs: Clear to auscultation, Normal air movement Cardiovascular: Regular rate, Regular Rhythm Abdomen: Soft, Non Tender, Non-Distended Skin: Ulcer/ Wound - foot wrapped Microbiology Past 72 Hours 01/07/20 Unknown Incision/Surgical Site Gram Stain - Final 01/07/20 Unknown Incision/Surgical Site Wound Culture - Preliminary Gram positive organism 01/07/20 Unknown Bone - Left Foot Gram Stain - Final 01/07/20 Unknown Bone - Left Foot Wound Culture - Preliminary No growth-Final to follow 01/07/20 Unknown Bone - Left Foot Gram Stain - Final 01/07/20 Unknown Bone - Left Foot Wound Culture - Preliminary No growth-Final to follow 01/05/20 Unknown Wound - Left Foot Gram Stain - Final 01/05/20 Unknown Wound - Left Foot Wound Culture - Preliminary Streptococcus group G Staphylococcus haemolyticus Strep anginosus Corynebacterium jeikeium 01/05/20 Unknown Wound - Left Foot Anaerobic Culture - Preliminary Checking for anaerobes, further studies to follow. Laboratory Results 01/07/20 16:29: POC Glucose 227 H 01/07/20 18:02: POC Glucose 182 H 01/07/20 21:33: POC Glucose 230 H 01/07/20 : S.aureus Protein A PCR NEGATIVE, MRSA (PCR) Negative 01/08/20 07:29: POC Glucose 165 H 01/08/20 11:12: POC Glucose 231 H Current Medications Acetaminophen (Tylenol) 650 mg PO Q6H PRN PRN PRN Reason: Pain Score 1-10/Temp > 100.7 F Last Admin: 01/07/20 19:16 Dose: 650 mg Documented by: Glucagon () 1 mg IM .X1 PRN PRN Reason: Hypoglycemia Vancomycin IV Pharmacy to Dose (1 ea/ Sodium Chloride) 500 mls @ 250 mls/hr IV X1 PRN; Protocol PRN Reason: Rx to Dose Dextrose (Dextrose 10%-Water) 250 mls @ 999 mls/hr IV .Q16M PRN; Protocol PRN Reason: HYPOGLYCEMIA Sodium Chloride () 250 mls @ 15 mls/hr IV .[id number] PRN PRN Reason: Saline Flush Last Infusion: 01/08/20 14:09 Dose: 0 mls/hr Documented by: Vancomycin HCl 1,500 mg/ (Sodium Chloride) 530 mls @ 250 mls/hr IV Q8H [facility] Last Infusion: 01/08/20 13:25 Dose: Infused Documented by: Ampicillin Sodium/Sulbactam (Sodium 3 gm/ Sodium Chloride) 112 mls @ 150 mls/hr IV Q6 [facility] Last Admin: 01/08/20 14:09 Dose: 150 mls/hr Documented by: Insulin Glargine (Lantus (Bkc)) 18 units SC QHS [facility] Last Admin: 01/07/20 21:34 Dose: 18 u Documented by: Insulin Human Lispro (Humalog Kwikpen (Bkc)) 8 unit SC TIDAC [facility] Last Admin: 01/08/20 11:18 Dose: 8 u Documented by: Insulin Human Lispro (Humalog Kwikpen (Bkc)) 0 unit SC ACHS [facility]; Protocol Last Admin: 01/08/20 11:18 Dose: 4 u Documented by: Lisinopril (Zestril) 20 mg PO DAILY [facility] Last Admin: 01/08/20 09:01 Dose: 20 mg Documented by: Loratadine (Claritin) 10 mg PO DAILY [facility] Last Admin: 01/08/20 09:03 Dose: 10 mg Documented by: Ondansetron HCl (Zofran) 4 mg IV Q8H PRN PRN PRN Reason: NAUSEA/VOMITING Oxycodone HCl (Oxyir) 5 mg PO Q6H PRN PRN PRN Reason: Pain Score 6-10/10 Last Admin: 01/07/20 21:33 Dose: 5 mg Documented by: Sodium Chloride () 10 - 40 ml IV UD PRN PRN Reason: SALINE FLUSH Medical Necessity - Tobacco Use Smoking Status: Never smoker Tobacco Use: Chew Route of nutrition/ use of supplements: [] Nutritional Intake: [] IV Site: [] Corona Catheter: [] - Assessment/Plan Antibiotics: [] Assessment/Plan: [] Active and Suspected Problems Osteomyelitis of left foot (Acute) Diabetes mellitus, new onset (Acute) L foot osteo with new dx of T2DM - A1c is 12. MRI showed osteo of 4th metatarsal. Wound cx with strep and mixed gram (+). OR 01/[address] Rodriguez for 4th metatarsal resection. Narrow to vanc/unasyn. Wound cx with MR-CoNS, strep x2, corynebacteria. May need 6 weeks iv abx at discharge, will follow results from OR. Will follow
[2020-01-08 16:06] LABS: Bedside Glucose 205 mg/dL (70-110)
[2020-01-08 18:34] LABS: Creatinine, Serum 1.47 mg/dL (0.70-1.30); EST Glomerular Filtration Rate 56 mL/min (>60); Est Glom Filt Rate - Afr Amer 68 mL/min (>60); Estimated Creatinine Clearance 79.04 ml/min
[2020-01-08 18:36] LABS: Vancomycin, Trough Level 30.8 ug/mL (5.0-15.0)
--- NOTE | 2020-01-08 19:54 | PHA.PHARE_ITS ---
Consult Pharmacy has been consulted to manage selected antiobiotic: Vancomycin Type of Consult: Follow-up Suspected Infection: Osteomyelitis Prior Doses of Antibiotics Received/Current Regimen: the patient is currently on 1500 mg IV q8h with previous 2 doses given today at 11:15 and tonight's dose was started at 18:45 Labs: Sodium 140 mmol/L (136-145) 01/07/20 05:25 Potassium 3.8 mmol/L (3.5-5.1) 01/07/20 05:25 Chloride 106 mmol/L (98-107) 01/07/20 05:25 Carbon Dioxide 29.0 mmol/L (21.0-32.0) 01/07/20 05:25 Anion Gap 5 (5-15) 01/07/20 05:25 BUN 10 mg/dL (7-18) 01/07/20 05:25 Creatinine 1.47 mg/dL (0.70-1.30) H 01/08/20 17:36 Est GFR (MDRD) Af Amer 68 mL/min (>60) 01/08/20 17:36 Est GFR (MDRD) Non-Af 56 mL/min (>60) L 01/08/20 17:36 BUN/Creatinine Ratio 9.3 RATIO (10-20) L 01/07/20 05:25 Glucose 278 mg/dL (74-106) H 01/07/20 05:25 Vancomycin Trough 30.8 ug/mL (5.0-15.0) H 01/08/20 17:36 Microbiology: Microbiology 01/05/20 Unknown Wound - Left Foot Gram Stain - Final 01/05/20 Unknown Wound - Left Foot Wound Culture - Preliminary Streptococcus group G Staphylococcus haemolyticus Strep anginosus Corynebacterium jeikeium 01/05/20 Unknown Wound - Left Foot Anaerobic Culture - Preliminary Checking for anaerobes, further studies to follow. 01/07/20 Unknown Incision/Surgical Site Gram Stain - Final 01/07/20 Unknown Incision/Surgical Site Wound Culture - Preliminary Gram positive organism 01/07/20 Unknown Bone - Left Foot Gram Stain - Final 01/07/20 Unknown Bone - Left Foot Wound Culture - Preliminary No growth-Final to follow 01/07/20 Unknown Bone - Left Foot Gram Stain - Final 01/07/20 Unknown Bone - Left Foot Wound Culture - Preliminary No growth-Final to follow Weight used for dosin.6 kg Estimated Creatinine Clearance: 93.6ml/min Goal Trough: 15-20 mcg/mL Pharmacy Plan for Drug Dosing: The vanc trough level drawn tonight at 17:36 (about 6.25 hours after the prev ious dose) came back as 30.8 mg/L, which is well above goal range of 15-20. Pharmacy then called the nurse about 19:15 to stop the current infusion which had been started about 18:45. The level of 30.8 may be slightly inflated since it was drawn only 6.25 hours after the previous dose instead of the desired 7.5- 8 hours after but it would still be well above 20 if drawn closer to the correct time. Therefore, also noting that the patient's SCr ana to 1.47 and CrCl dropped to 93.6, further dosing was stopped and a random level will be entered to be drawn tomorrow morning. Dosing can then be continued, albeit at a lower dose, when the level drops below 20. Pharmacy Service will continue to monitor and adjust dosing as required. Follow-Up Labs: Trough Vancomycin - random level Labs to be done on [date and time ordered]: 01/09/20 10:00
[2020-01-08 20:05] VITALS: BP 171/87; PULSE 97; RESP 16; TEMP 36.9; O2SAT 96
[2020-01-08 22:59] VITALS: BP 146/92
[2020-01-08 23:05] LABS: Bedside Glucose 210 mg/dL (70-110)
[2020-01-09] VITALS (10 sets, daily range): BP systolic 126–192; BP diastolic 81–108; PULSE 81–88; RESP 16–18; TEMP 36.7–37.1; O2SAT 96–97
--- NOTE | 2020-01-09 01:53 | NURSING ---
At approximately 1930 on 01/08/20 Néstor from Pharmacy called me and told me to stop the patients Vancomycin infusion due to his High Vancomycin trough of 30.8. and the
--- NOTE | 2020-01-09 01:57 | NURSING ---
At approximately 1930 on 01/08/20 Néstor from pharmacy called me and told me to stop Catherine Mondragon's Vancomycin infusion due to his high Vancomycin level of 30.8. He said he would schedule another draw on 01/09/20 and address the continuation and dosage of his Vancomycin after they get the results.
[2020-01-09 06:45] LABS: Bedside Glucose 164 mg/dL (70-110)
[2020-01-09 06:59] LABS: Absolute Lymphocyte Count 1.58 X10^3/uL (0.83-4.51); Absolute Neutrophil Count 5.3 X10^3/uL (2.0-7.7); Basophil# 0.04 X10^3/uL; Basophil% 0.5 % (0-1); Eosinophil# 0.27 X10^3/uL; Eosinophils% 3.3 % (0-5); Hematocrit 37.7 % (40-54); Hemoglobin 12.6 g/dL (13.0-16.5); Lymphocyte # 1.58 X10^3/ul (4.0); Lymphocyte % 19.4 % (19-41); Mean Corp Hgb Conc 33.4 g/dL (32-36); Mean Corpuscular Hgb 28.1 pg (27.0-32.0); Mean Corpuscular Volume 84.2 fL (80-94); Mean Platelet Vol. 9.1 fl (6.2-12.0); Monocyte# 0.94 X10^3/uL; Monocyte% 11.5 % (0-10); NRBC Flagged by Analyzer 0 % (0-5); Neutrophil % 65.1 % (47-70); Platelet Count 228 K/mm3 (150-450); RBC Distribution Width CV 12.3 % (11.6-14.6); RBC Distribution Width SD 37.4 fl (35.1-43.9); Red Blood Count 4.48 M/mm3 (4.6-6.2); White Blood Count 8.2 K/mm3 (4.4-11.0)
[2020-01-09 07:29] LABS: ALB/GLOB Ratio 0.7 RATIO (0.9-2.4); AST(SGOT) 13 U/L (15-37); Alanine Aminotransfer ALT/SGPT 19 U/L (16-61); Albumin, Serum 2.5 g/dL (3.2-5.0); Alkaline Phosphatase 45 U/L (45-117); Anion Gap 7 (5-15); BUN 11 mg/dL (7-18); BUN/Creat Ratio 8.2 RATIO (10-20); Calcium,Total 8.4 mg/dL (8.5-10.1); Chloride 109 mmol/L (98-107); Creatinine, Serum 1.34 mg/dL (0.70-1.30); EST Glomerular Filtration Rate 62 mL/min (>60); Est Glom Filt Rate - Afr Amer 75 mL/min (>60); Estimated Creatinine Clearance 86.71 ml/min; Globulin 3.7 g/dL (2.2-4.2); Glucose 182 mg/dL (74-106); Potassium 3.6 mmol/L (3.5-5.1); Protein, Total 6.2 g/dL (6.4-8.2); Sodium Level 141 mmol/L (136-145)
[2020-01-09] MEDS: Insulin Lispro 100 UNIT/ML INSULN.PEN SC ×4 (08:13→22:43)
[2020-01-09] MEDS: Insulin Lispro 100 UNIT/ML INSULN.PEN 10 UNIT SC ×3 (08:14→17:15)
[2020-01-09] MEDS: Loratadine 10 MG Tablet PO (08:14)
[2020-01-09] MEDS: Metoprolol(XL)Succ 25 MG Tablet PO ×2 (10:00→15:04)
[2020-01-09] MEDS: 0.9% Normal Saline 1,000 ML 150 ML IV ×2 (10:34→13:27)
[2020-01-09 11:16] LABS: Bedside Glucose 224 mg/dL (70-110)
--- NOTE | 2020-01-09 11:25 | PCM.PN.HOSP ---
Patient Problems: Active and Suspected Problems Osteomyelitis of left foot (Acute) Diabetes mellitus, new onset (Acute) Vitals/I&O's: Vital Signs Temp Pulse Resp BP Pulse Ox 98.8 F 86 18 140/97 H 97 01/09/20 07:55 01/09/20 10:00 01/09/20 07:55 01/09/20 07:55 01/09/20 07:55 Oxygen Delivery Method Room Air Weight: 123.6 kg Body Mass Index (BMI) 34.0 Finger Stick Blood Glucose 227 Intake and Output for Last 24 Hours 01/07/20 01/08/20 01/09/20 23:59 23:59 23:59 Intake Total 2490.66 / 2490.66 3626.17 / 3626.17 951.75 / 951.75 Output Total 1300 / 1300 1150 / 1150 1650 / 1650 Balance 1190.66 / 1190.66 2476.17 / 2476.17 -698.25 / -698.25 General: Alert, Oriented x3, Cooperative, No apparent distress HEENT: Atraumatic, PERRLA, EOMI, Normocephalic Oral: Moist Mucosa Neck: Supple Lungs: Clear to auscultation, Normal air movement Cardiovascular: Regular rate, Regular Rhythm, Normal S1, Normal S2, No murmurs Abdomen: Bowel Sounds Present, Soft, Non Tender Extremities: No edema, Capillary Refill Less than 3 Seconds Skin: No rashes, No breakdown Musculoskeletal: No Tenderness to Palpation of Joints or Extremities Neurological: Cranial nerves II-XII grossly intact Psych/Mental Status: Normal Affect, Appropriate Microbiology Past 72 Hours 01/07/20 Unknown Incision/Surgical Site Gram Stain - Final 01/07/20 Unknown Incision/Surgical Site Wound Culture - Preliminary Staphylococcus species 01/05/20 Unknown Wound - Left Foot Gram Stain - Final 01/05/20 Unknown Wound - Left Foot Wound Culture - Final Streptococcus group G Staphylococcus haemolyticus Strep anginosus Corynebacterium amayaikeium 01/05/20 Unknown Wound - Left Foot Anaerobic Culture - Preliminary Checking for anaerobes, further studies to follow. 01/07/20 Unknown Bone - Left Foot Gram Stain - Final 01/07/20 Unknown Bone - Left Foot Wound Culture - Preliminary No growth-Final to follow 01/07/20 Unknown Bone - Left Foot Gram Stain - Final 01/07/20 Unknown Bone - Left Foot Wound Culture - Preliminary No growth-Final to follow Laboratory Results 01/08/20 11:12: POC Glucose 231 H 01/08/20 16:03: POC Glucose 205 H 01/08/20 17:36: Vancomycin Trough 30.8 H 01/08/20 17:36: Creatinine 1.47 H, Estim Creat Clear Calc 79.04, Est GFR (MDRD) Af Amer 68, Est GFR (MDRD) Non-Af 56 L 01/08/20 22:49: POC Glucose 210 H 01/09/20 06:20: WBC 8.2, RBC 4.48 L, Hgb 12.6 L, Hct 37.7 L, MCV 84.2, MCH 28.1, MCHC 33.4, RDW Std Deviation 37.4, RDW Coeff of Alivia 12.3, Plt Count 228, MPV 9.1, Immature Gran % (Auto) 0.200, Neut % (Auto) 65.1, Lymph % (Auto) 19.4, Milam % (Auto) 11.5 H, Eos % (Auto) 3.3, Baso % (Auto) 0.5, Absolute Neuts (auto) 5.3, Absolute Lymphs (auto) 1.58, Nucleated RBC % 0 01/09/20 06:20: Sodium 141, Potassium 3.6, Chloride 109 H, Carbon Dioxide 25.0, Anion Gap 7, BUN 11, Creatinine 1.34 H, Estim Creat Clear Calc 86.71, Est GFR (MDRD) Af Amer 75, Est GFR (MDRD) Non-Af 62, BUN/Creatinine Ratio 8.2 L, Glucose 182 H, Calcium 8.4 L, Total Bilirubin 0.70, AST 13 L, ALT 19, Alkaline Phosphatase 45, Total Protein 6.2 L, Albumin 2.5 L, Globulin 3.7, Albumin/Globulin Ratio 0.7 L 01/09/20 06:41: POC Glucose 164 H 01/09/20 10:18: Random Vancomycin 16.0 H 01/09/20 11:10: POC Glucose 224 H Current Medications Acetaminophen (Tylenol) 650 mg PO Q6H PRN PRN PRN Reason: Pain Score 1-10/Temp > 100.7 F Last Admin: 01/07/20 19:16 Dose: 650 mg Documented by: Glucagon () 1 mg IM .X1 PRN PRN Reason: Hypoglycemia Hydralazine HCl (Apresoline Iv) 5 mg IV Q4H PRN PRN PRN Reason: sbp > 160 ; or DBP > 120 Vancomycin IV Pharmacy to Dose (1 ea/ Sodium Chloride) 500 mls @ 250 mls/hr IV X1 PRN; Protocol PRN Reason: Rx to Dose Dextrose (Dextrose 10%-Water) 250 mls @ 999 mls/hr IV .Q16M PRN; Protocol PRN Reason: HYPOGLYCEMIA Sodium Chloride () 250 mls @ 15 mls/hr IV .[id number] PRN PRN Reason: Saline Flush Last Infusion: 01/09/20 06:46 Dose: Infused Documented by: Ampicillin Sodium/Sulbactam (Sodium 3 gm/ Sodium Chloride) 112 mls @ 150 mls/hr IV Q6 [facility] Last Infusion: 01/09/20 07:23 Dose: Infused Documented by: Sodium Chloride () 1,000 mls @ 150 mls/hr IV .Q6H40M [facility] Last Admin: 01/09/20 10:34 Dose: 150 mls/hr Documented by: Insulin Glargine (Lantus (Bkc)) 20 units SC QHS [facility] Last Admin: 01/08/20 22:51 Dose: 20 u Documented by: Insulin Human Lispro (Humalog Kwikpen (Bkc)) 0 unit SC ACHS [facility]; Protocol Last Admin: 01/09/20 08:13 Dose: 2 u Documented by: Insulin Human Lispro (Humalog Kwikpen (Bkc)) 10 unit SC TIDAC [facility] Last Admin: 01/09/20 08:14 Dose: 10 units Documented by: Loratadine (Claritin) 10 mg PO DAILY [facility] Last Admin: 01/09/20 08:14 Dose: 10 mg Documented by: Metoprolol Succinate (Toprol Xl (Beta Cheryl)) 25 mg PO DAILY [facility] Last Admin: 01/09/20 10:00 Dose: 25 mg Documented by: Ondansetron HCl (Zofran) 4 mg IV Q8H PRN PRN PRN Reason: NAUSEA/VOMITING Oxycodone HCl (Oxyir) 5 mg PO Q6H PRN PRN PRN Reason: Pain Score 6-10/10 Last Admin: 01/07/20 21:33 Dose: 5 mg Documented by: Sodium Chloride () 10 - 40 ml IV UD PRN PRN Reason: SALINE FLUSH STROKE Vital Signs/Narrative: Vital Signs Temp Pulse Resp BP Pulse Ox 01/09/20 10:00 86 01/09/20 07:55 98.8 F 86 18 140/97 H 97 Medical Necessity - Tobacco Use Smoking Status: Never smoker Tobacco Use: Chew Assessment/Plan All Active Problems Osteomyelitis of left foot (Acute) Diabetes mellitus, new onset (Acute) 1. POD #2, s/p resection of the 4th metatarsal bone for Acute left foot osteomyelitis, seen on MRI of left foot in a newly diagnosed DM Wound cultures growing group G streptococcus, Coag negative staph, GPC possible enterococcus, gram-positive rods Bone cultures show no growth to date. On vancomycin and unasyn, ID following Continue on pain control as well as wound care per orthopedics surgery. 2. HUMBERTO, likely prerenal vs vancomycin side-effect, on IVF, Cr improved from 1.47 to 1.34 Will continue on IVF, repeat blood work in am 3. Type II DM, newly diagnosed, HbA1c 12, BS fairly controlled, continue on Lantus 20 units QHS and premeal insulin 10 units TID Will continue on blood glucose checks with ISS 4. Hypertension, uncontrolled, on Lisinopril 20mg daily, will start on metoprolol XL 12.5mg po daily 5. DVT PPx - low risk, early ambulation recommended Inpatient E&M: 56960 Subs Hosp L2
--- NOTE | 2020-01-09 12:32 | PCM.RX.CS ---
Consult Pharmacy has been consulted to manage selected antiobiotic: Vancomycin Type of Consult: Follow-up Suspected Infection: Osteomyelitis Prior Doses of Antibiotics Received/Current Regimen: VANCOMYCIN 1500MG IV GIVEN 01/07 @ 1845 - STOPPED AT 1915 Labs: Sodium 141 mmol/L (136-145) 01/09/20 06:20 Potassium 3.6 mmol/L (3.5-5.1) 01/09/20 06:20 Chloride 109 mmol/L (98-107) H 01/09/20 06:20 Carbon Dioxide 25.0 mmol/L (21.0-32.0) 01/09/20 06:20 Anion Gap 7 (5-15) 01/09/20 06:20 BUN 11 mg/dL (7-18) 01/09/20 06:20 Creatinine 1.34 mg/dL (0.70-1.30) H 01/09/20 06:20 Est GFR (MDRD) Af Amer 75 mL/min (>60) 01/09/20 06:20 Est GFR (MDRD) Non-Af 62 mL/min (>60) 01/09/20 06:20 BUN/Creatinine Ratio 8.2 RATIO (10-20) L 01/09/20 06:20 Glucose 182 mg/dL (74-106) H 01/09/20 06:20 Vancomycin Trough 30.8 ug/mL (5.0-15.0) H 01/08/20 17:36 Random Vancomycin 16.0 ug/mL (0.0-15.0) H 01/09/20 10:18 Microbiology: Microbiology 01/07/20 Unknown Incision/Surgical Site Gram Stain - Final 01/07/20 Unknown Incision/Surgical Site Wound Culture - Preliminary Staphylococcus species 01/05/20 Unknown Wound - Left Foot Gram Stain - Final 01/05/20 Unknown Wound - Left Foot Wound Culture - Final Streptococcus group G Staphylococcus haemolyticus Strep anginosus Corynebacterium amayaikeium 01/05/20 Unknown Wound - Left Foot Anaerobic Culture - Preliminary Checking for anaerobes, further studies to follow. 01/07/20 Unknown Bone - Left Foot Gram Stain - Final 01/07/20 Unknown Bone - Left Foot Wound Culture - Preliminary No growth-Final to follow 01/07/20 Unknown Bone - Left Foot Gram Stain - Final 01/07/20 Unknown Bone - Left Foot Wound Culture - Preliminary No growth-Final to follow Estimated Creatinine Clearance: 102.7 Goal Trough: 15-20 mcg/mL Pharmacy Plan for Drug Dosin. 10.5 hour random level came back at 16 mg/dL 2. Will adjust vancomycin to 1250mg Q12H seeing as how creatinine is still elevated 3. Trough scheduled prior to the 4th dose of the new regimen 4. Pharmacy Service will continue to monitor and adjust dosing as required. Labs to be done on [date and time ordered]: 01/11/2020 @ 0030
[2020-01-09] MEDS: hydrALAZINE 20 MG/ML Vial 5 MG IV (14:08)
[2020-01-09 17:26] LABS: Bedside Glucose 177 mg/dL (70-110)
[2020-01-09] MEDS: hydrALAZINE 20 MG/ML Vial 10 MG IV (17:50)
[2020-01-09] MEDS: LORazepam 2 MG/ML Syringe IV (22:51)
[2020-01-09] MEDS: 0.9% Saline Lock 10 ML Syringe IV (22:51)
[2020-01-09 23:00] LABS: Bedside Glucose 162 mg/dL (70-110)
[2020-01-10 06:03] VITALS: BP 140/89; PULSE 78; RESP 16; TEMP 36.4; O2SAT 97
[2020-01-10 06:49] LABS: Absolute Lymphocyte Count 1.82 X10^3/uL (0.83-4.51); Absolute Neutrophil Count 4.1 X10^3/uL (2.0-7.7); Basophil# 0.06 X10^3/uL; Basophil% 0.8 % (0-1); Eosinophil# 0.33 X10^3/uL; Eosinophils% 4.6 % (0-5); Hematocrit 36.5 % (40-54); Hemoglobin 12.2 g/dL (13.0-16.5); Lymphocyte # 1.82 X10^3/ul (4.0); Lymphocyte % 25.6 % (19-41); Mean Corp Hgb Conc 33.4 g/dL (32-36); Mean Corpuscular Hgb 28.4 pg (27.0-32.0); Mean Corpuscular Volume 85.1 fL (80-94); Mean Platelet Vol. 8.9 fl (6.2-12.0); Monocyte# 0.79 X10^3/uL; Monocyte% 11.1 % (0-10); NRBC Flagged by Analyzer 0 % (0-5); Neutrophil % 57.6 % (47-70); Platelet Count 231 K/mm3 (150-450); RBC Distribution Width CV 12.1 % (11.6-14.6); RBC Distribution Width SD 36.8 fl (35.1-43.9); Red Blood Count 4.29 M/mm3 (4.6-6.2); White Blood Count 7.1 K/mm3 (4.4-11.0)
[2020-01-10 07:18] LABS: ALB/GLOB Ratio 0.6 RATIO (0.9-2.4); AST(SGOT) 11 U/L (15-37); Alanine Aminotransfer ALT/SGPT 16 U/L (16-61); Albumin, Serum 2.3 g/dL (3.2-5.0); Alkaline Phosphatase 46 U/L (45-117); Anion Gap 8 (5-15); BUN 9 mg/dL (7-18); BUN/Creat Ratio 7.5 RATIO (10-20); Calcium,Total 8.4 mg/dL (8.5-10.1); Chloride 110 mmol/L (98-107); EST Glomerular Filtration Rate 71 mL/min (>60); Est Glom Filt Rate - Afr Amer 86 mL/min (>60); Estimated Creatinine Clearance 96.82 ml/min; Globulin 3.7 g/dL (2.2-4.2); Glucose 140 mg/dL (74-106); Potassium 3.4 mmol/L (3.5-5.1); Sodium Level 144 mmol/L (136-145)
[2020-01-10] MEDS: Loratadine 10 MG Tablet PO (08:25)
[2020-01-10] MEDS: 0.9% Normal Saline 1,000 ML 75 ML IV (08:25)
[2020-01-10] MEDS: Insulin Lispro 100 UNIT/ML INSULN.PEN SC ×3 (08:26→17:35)
[2020-01-10 08:27] VITALS: BP 154/96; PULSE 80
[2020-01-10] MEDS: Metoprolol(XL)Succ 50 MG Tablet PO (08:27)
[2020-01-10] MEDS: Insulin Lispro 100 UNIT/ML INSULN.PEN 10 UNIT SC ×3 (08:27→17:35)
[2020-01-10 08:31] LABS: Bedside Glucose 150 mg/dL (70-110)
[2020-01-10 08:35] VITALS: BP 154/96; PULSE 80; RESP 18; TEMP 36.8; O2SAT 95
[2020-01-10 11:15] LABS: Bedside Glucose 160 mg/dL (70-110)
[2020-01-10 14:01] VITALS: BP 143/90; PULSE 75; RESP 18; TEMP 36.6; O2SAT 99
[2020-01-10 16:45] LABS: Bedside Glucose 151 mg/dL (70-110)
--- NOTE | 2020-01-10 16:56 | PCM.PN.HOSP ---
Patient Problems: Active and Suspected Problems Osteomyelitis of left foot (Acute) Diabetes mellitus, new onset (Acute) Subjective: Feeling well. Pain is controlled. Pt states that he would really like to get off of the insulin. Vitals/I&O's: Vital Signs Temp Pulse Resp BP Pulse Ox 97.8 F 75 18 143/90 H 99 01/10/20 14:01 01/10/20 14:01 01/10/20 14:01 01/10/20 14:01 01/10/20 14:01 Oxygen Delivery Method Room Air Weight: 123.6 kg Body Mass Index (BMI) 34.0 Finger Stick Blood Glucose 227 Intake and Output for Last 24 Hours 01/08/20 01/09/20 01/11/20 23:59 23:59 00:59 Intake Total 3626.17 / 3626.17 3342.00 / 3742.00 2241.0 / 2241.0 Output Total 1150 / 1150 3050 / 4000 2150 / 2150 Balance 2476.17 / 2476.17 292.00 / -258.00 91.0 / 91.0 General: Alert, Oriented x3, Cooperative, No apparent distress, Well developed, Well nourished, - - appears comfortable, watching TV HEENT: Atraumatic, PERRLA, EOMI, Normocephalic, EAC Clear Oral: Moist Mucosa, No Gingival or Mucosal Lesions/ Ulcerations, - - poor dentitin, Mallampati 2 Neck: Supple, No JVD, Negative Carotid Bruits, Negative Hepatojugular Reflux, No Nodes, No Nuchal Rigidity, Trachea Midline, Thyroid Normal Size and Texture Lungs: Clear to auscultation, No rhonchi, No wheeze, No rales Cardiovascular: Regular rate, Regular Rhythm, Normal S1, Normal S2, No murmurs, No Ectopic Activity, No rub noted, No Gallop Abdomen: Bowel Sounds Present, Soft, Non Tender, Non-Distended, No Hepato-splenomegaly, No hernias noted Extremities: No clubbing, No cyanosis, No edema, - - L LE with dressing in place, cap refill 2+, warm Skin: No rashes, No breakdown Musculoskeletal: No Tenderness to Palpation of Joints or Extremities, No Muscle Wasting Lymphatic: No Cervical, Supraclavicular, or Inguinal Adenopathy Neurological: Cranial nerves II-XII grossly intact, Deep Tendon Reflexes 2+/4 and Symmetrical, Neuro grossly intact, Motor Exam 5/5 strength throughout, - - decreased sensation B feet Psych/Mental Status: Normal Affect, Appropriate, Alert and oriented to time, place, person, mood and affect Microbiology Past 72 Hours 01/07/20 Unknown Incision/Surgical Site Gram Stain - Final 01/07/20 Unknown Incision/Surgical Site Wound Culture - Final Staphylococcus epidermidis 01/07/20 Unknown Bone - Left Foot Gram Stain - Final 01/07/20 Unknown Bone - Left Foot Wound Culture - Final No growth aerobically. 01/05/20 Unknown Wound - Left Foot Gram Stain - Final 01/05/20 Unknown Wound - Left Foot Wound Culture - Final Streptococcus group G Staphylococcus haemolyticus Strep anginosus Corynebacterium jeikeium 01/05/20 Unknown Wound - Left Foot Anaerobic Culture - Preliminary Checking for anaerobes, further studies to follow. 01/07/20 Unknown Bone - Left Foot Gram Stain - Final 01/07/20 Unknown Bone - Left Foot Wound Culture - Preliminary No growth-Final to follow Laboratory Results 01/09/20 17:13: POC Glucose 177 H 01/09/20 22:41: POC Glucose 162 H 01/10/20 06:02: WBC 7.1, RBC 4.29 L, Hgb 12.2 L, Hct 36.5 L, MCV 85.1, MCH 28.4, MCHC 33.4, RDW Std Deviation 36.8, RDW Coeff of Alivia 12.1, Plt Count 231, MPV 8.9, Immature Gran % (Auto) 0.300, Neut % (Auto) 57.6, Lymph % (Auto) 25.6, Powell % (Auto) 11.1 H, Eos % (Auto) 4.6, Baso % (Auto) 0.8, Absolute Neuts (auto) 4.1, Absolute Lymphs (auto) 1.82, Nucleated RBC % 0 01/10/20 06:02: Sodium 144, Potassium 3.4 L, Chloride 110 H, Carbon Dioxide 26.0, Anion Gap 8, BUN 9, Creatinine 1.20, Estim Creat Clear Calc 96.82, Est GFR (MDRD) Af Amer 86, Est GFR (MDRD) Non-Af 71, BUN/Creatinine Ratio 7.5 L, Glucose 140 H, Calcium 8.4 L, Total Bilirubin 0.70, AST 11 L, ALT 16, Alkaline Phosphatase 46, Total Protein 6.0 L, Albumin 2.3 L, Globulin 3.7, Albumin/Globulin Ratio 0.6 L 01/10/20 08:22: POC Glucose 150 H 01/10/20 11:09: POC Glucose 160 H 01/10/20 16:40: POC Glucose 151 H Current Medications Acetaminophen (Tylenol) 650 mg PO Q6H PRN PRN PRN Reason: Pain Score 1-10/Temp > 100.7 F Last Admin: 01/07/20 19:16 Dose: 650 mg Documented by: Glucagon () 1 mg IM .X1 PRN PRN Reason: Hypoglycemia Hydralazine HCl (Apresoline Iv) 10 mg IV Q4H PRN PRN PRN Reason: sbp > 160 ; or DBP > 120 Last Admin: 01/09/20 17:50 Dose: 10 mg Documented by: Vancomycin IV Pharmacy to Dose (1 ea/ Sodium Chloride) 500 mls @ 250 mls/hr IV X1 PRN; Protocol PRN Reason: Rx to Dose Dextrose (Dextrose 10%-Water) 250 mls @ 999 mls/hr IV .Q16M PRN; Protocol PRN Reason: HYPOGLYCEMIA Sodium Chloride () 250 mls @ 15 mls/hr IV .[id number] PRN PRN Reason: Saline Flush Last Infusion: 01/09/20 06:46 Dose: Infused Documented by: Ampicillin Sodium/Sulbactam (Sodium 3 gm/ Sodium Chloride) 112 mls @ 150 mls/hr IV Q6 [facility] Last Infusion: 01/10/20 12:39 Dose: Infused Documented by: Sodium Chloride () 1,000 mls @ 75 mls/hr IV .[id number] [facility] Last Infusion: 01/10/20 14:50 Dose: 75 mls/hr Documented by: Vancomycin HCl 1,250 mg/ (Sodium Chloride) 275 mls @ 167 mls/hr IV Q12H [facility] Last Infusion: 01/10/20 14:50 Dose: Infused Documented by: Insulin Glargine (Lantus (Bkc)) 20 units SC QHS [facility] Last Admin: 01/09/20 22:43 Dose: 20 u Documented by: Insulin Human Lispro (Humalog Kwikpen (Bkc)) 0 unit SC ACHS [facility]; Protocol Last Admin: 01/10/20 12:30 Dose: 2 u Documented by: Insulin Human Lispro (Humalog Kwikpen (Bkc)) 10 unit SC TIDAC [facility] Last Admin: 01/10/20 12:30 Dose: 10 units Documented by: Loratadine (Claritin) 10 mg PO DAILY [facility] Last Admin: 01/10/20 08:25 Dose: 10 mg Documented by: Metoprolol Succinate (Toprol Xl (Beta Cheryl)) 50 mg PO DAILY [facility] Last Admin: 01/10/20 08:27 Dose: 50 mg Documented by: Ondansetron HCl (Zofran) 4 mg IV Q8H PRN PRN PRN Reason: NAUSEA/VOMITING Oxycodone HCl (Oxyir) 5 mg PO Q6H PRN PRN PRN Reason: Pain Score 6-10/10 Last Admin: 01/07/20 21:33 Dose: 5 mg Documented by: Sodium Chloride () 10 - 40 ml IV UD PRN PRN Reason: SALINE FLUSH Last Admin: 01/09/20 22:51 Dose: 10 ml Documented by: STROKE Vital Signs/Narrative: Vital Signs Temp Pulse Resp BP Pulse Ox 01/10/20 14:01 97.8 F 75 18 143/90 H 99 Medical Necessity - Tobacco Use Smoking Status: Never smoker Tobacco Use: Chew Assessment/Plan All Active Problems Osteomyelitis of left foot (Acute) Diabetes mellitus, new onset (Acute) POD #3, s/p resection of the 4th metatarsal bone for Acute left foot osteomyelitis -seen on MRI of left foot in a newly diagnosed DM -Wound cultures growing group G streptococcus, Coag negative staph, GPC possible enterococcus, gram-positive rods -Bone cultures NGTD, fungal still pending -On vancomycin and unasyn -may need 6 weeks of ABX -?PICC for d/c prep in am (will d/w ID) -ID following -Continue on pain control as well as wound care per orthopedics surgery. HUMBERTO -resolved -D/C IVF -sCr now 1.2 and WNL -repeat BMP in am DM-2 newly diagnosed HbA1c 12 on admission -continue on Lantus but increase to 26 units QHS -continue prandial insulin 10 units TID -continue on blood glucose checks with SSI Hypertension-uncontrolled -not Lisinopril 20mg daily--> add to 20 mg daily and watch sCr closely -continue metoprolol XL 12.5mg po daily for now -trend BP Hypokalemia -PO Kdur 40 mEq x 1 dose -recheck in am Mild Anemia -suspect post operative -no s/o blood loss DVT Prophylaxis -low risk -early ambulation recommended
[2020-01-10 20:00] VITALS: BP 155/108; PULSE 75; RESP 16; TEMP 36.7; O2SAT 95
[2020-01-11] VITALS (9 sets, daily range): BP systolic 137–183; BP diastolic 86–114; PULSE 72–77; RESP 16–18; TEMP 36.4–36.8; O2SAT 92–97
[2020-01-11 01:07] LABS: Vancomycin, Trough Level 16.6 ug/mL (5.0-15.0)
--- NOTE | 2020-01-11 01:12 | PHA.PHARE_ITS ---
Consult Pharmacy has been consulted to manage selected antiobiotic: Vancomycin Type of Consult: Follow-up Suspected Infection: Skin/Soft tissue Prior Doses of Antibiotics Received/Current Regimen: Medications Vancomycin HCl 1,250 mg/ (Sodium Chloride) 275 mls @ 167 mls/hr IV Q12H [facility] Last Admin: 01/10/20 14:50 Dose: Infused Labs: Sodium 144 mmol/L (136-145) 01/10/20 06:02 Potassium 3.4 mmol/L (3.5-5.1) L 01/10/20 06:02 Chloride 110 mmol/L (98-107) H 01/10/20 06:02 Carbon Dioxide 26.0 mmol/L (21.0-32.0) 01/10/20 06:02 Anion Gap 8 (5-15) 01/10/20 06:02 BUN 9 mg/dL (7-18) 01/10/20 06:02 Creatinine 1.20 mg/dL (0.70-1.30) 01/10/20 06:02 Est GFR (MDRD) Af Amer 86 mL/min (>60) 01/10/20 06:02 Est GFR (MDRD) Non-Af 71 mL/min (>60) 01/10/20 06:02 BUN/Creatinine Ratio 7.5 RATIO (10-20) L 01/10/20 06:02 Glucose 140 mg/dL (74-106) H 01/10/20 06:02 Vancomycin Trough 16.6 ug/mL (5.0-15.0) H 01/11/20 00:33 Random Vancomycin 16.0 ug/mL (0.0-15.0) H 01/09/20 10:18 Microbiology: Microbiology 01/07/20 Unknown Incision/Surgical Site Gram Stain - Final 01/07/20 Unknown Incision/Surgical Site Wound Culture - Final Staphylococcus epidermidis 01/07/20 Unknown Bone - Left Foot Gram Stain - Final 01/07/20 Unknown Bone - Left Foot Wound Culture - Final No growth aerobically. 01/05/20 Unknown Wound - Left Foot Gram Stain - Final 01/05/20 Unknown Wound - Left Foot Wound Culture - Final Streptococcus group G Staphylococcus haemolyticus Strep anginosus Corynebacterium jeikeium 01/05/20 Unknown Wound - Left Foot Anaerobic Culture - Preliminary Checking for anaerobes, further studies to follow. 01/07/20 Unknown Bone - Left Foot Gram Stain - Final 01/07/20 Unknown Bone - Left Foot Wound Culture - Preliminary No growth-Final to follow Weight used for dosin.6 kg Estimated Creatinine Clearance: 114 Goal Trough: 15-20 mcg/mL Pharmacy Plan for Drug Dosing: Trough level of 16.6 was within the target range of 15-20, so will continue dosing 1250mg q12h. Will re-draw trough 01/14/20. Pharmacy Service will continue to monitor and adjust dosing as required. Follow-Up Labs: Trough Vancomycin Labs to be done on [date and time ordered]: 01/14/20 @1239
[2020-01-11 02:56] LABS: Bedside Glucose 135 mg/dL (70-110)
[2020-01-11 06:44] LABS: Absolute Neutrophil Count 3.8 X10^3/uL (2.0-7.7); Basophil# 0.07 X10^3/uL; Eosinophil# 0.35 X10^3/uL; Eosinophils% 5.2 % (0-5); Hematocrit 35.4 % (40-54); Hemoglobin 11.8 g/dL (13.0-16.5); Lymphocyte % 28.3 % (19-41); Mean Corp Hgb Conc 33.3 g/dL (32-36); Mean Corpuscular Volume 84.1 fL (80-94); Mean Platelet Vol. 8.8 fl (6.2-12.0); Monocyte# 0.59 X10^3/uL; Monocyte% 8.8 % (0-10); NRBC Flagged by Analyzer 0 % (0-5); Neutrophil # 3.79 X10^3/uL (2.7-7.7); Neutrophil % 56.4 % (47-70); Platelet Count 242 K/mm3 (150-450); RBC Distribution Width CV 12.2 % (11.6-14.6); RBC Distribution Width SD 36.8 fl (35.1-43.9); Red Blood Count 4.21 M/mm3 (4.6-6.2); White Blood Count 6.7 K/mm3 (4.4-11.0)
[2020-01-11 06:46] LABS: Bedside Glucose 140 mg/dL (70-110)
[2020-01-11 07:05] LABS: Anion Gap 5 (5-15); BUN 9 mg/dL (7-18); BUN/Creat Ratio 7.8 RATIO (10-20); Calcium,Total 8.3 mg/dL (8.5-10.1); Chloride 112 mmol/L (98-107); Creatinine, Serum 1.16 mg/dL (0.70-1.30); EST Glomerular Filtration Rate 74 mL/min (>60); Est Glom Filt Rate - Afr Amer 89 mL/min (>60); Estimated Creatinine Clearance 100.16 ml/min; Glucose 141 mg/dL (74-106); Potassium 3.7 mmol/L (3.5-5.1); Sodium Level 143 mmol/L (136-145)
[2020-01-11] MEDS: 0.9% Saline Lock 10 ML Syringe IV ×3 (08:22→17:20)
[2020-01-11] MEDS: hydrALAZINE 20 MG/ML Vial 10 MG IV ×2 (08:22→14:17)
[2020-01-11] MEDS: Insulin Lispro 100 UNIT/ML INSULN.PEN 10 UNIT SC ×2 (08:25→17:15)
[2020-01-11] MEDS: Metoprolol(XL)Succ 50 MG Tablet PO (10:37)
[2020-01-11] MEDS: Loratadine 10 MG Tablet PO (10:37)
[2020-01-11] MEDS: Lisinopril 10 MG Tablet PO (10:38)
--- NOTE | 2020-01-11 10:51 | PCM.PN.HOSP ---
Patient Problems: Active and Suspected Problems Osteomyelitis of left foot (Acute) Diabetes mellitus, new onset (Acute) Subjective: States that he has to get up to go to the [place]. States that he is feeling ok. Denies pain. Does complain that he is not sleeping well and the Melatonin is not helping. Vitals/I&O's: Vital Signs Temp Pulse Resp BP Pulse Ox 98.2 F 72 16 165/110 H 97 01/11/20 08:00 01/11/20 10:37 01/11/20 08:00 01/11/20 08:22 01/11/20 08:00 Oxygen Delivery Method Room Air Weight: 123.6 kg Body Mass Index (BMI) 34.0 Finger Stick Blood Glucose 227 Intake and Output for Last 24 Hours 01/09/20 01/10/20 01/11/20 22:59 23:59 23:59 Intake Total 1391.5 / 1391.5 Output Total 1000 / 1000 Balance 391.5 / 391.5 General: Alert, Oriented x3, Cooperative, No apparent distress, Well developed, Well nourished Lungs: Clear to auscultation, Normal air movement, No rhonchi, No wheeze, No rales Cardiovascular: Regular rate, Regular Rhythm, Normal S1, Normal S2, No murmurs, No Ectopic Activity, No rub noted, No Gallop Abdomen: Bowel Sounds Present, Soft, Non Tender, Non-Distended, No Hepato-splenomegaly, Obese, No hernias noted Extremities: No clubbing, No cyanosis, No edema, Capillary Refill Less than 3 Seconds, Peripheral Pulses Normal, - - L LE dressed with anai bandage, toes warm and cap refill 2+ Psych/Mental Status: Alert and oriented to time, place, person, mood and affect Microbiology Past 72 Hours 01/07/20 Unknown Bone - Left Foot Gram Stain - Final 01/07/20 Unknown Bone - Left Foot Wound Culture - Final No growth aerobically. 01/07/20 Unknown Bone - Left Foot Anaerobic Culture - Preliminary No growth in 48 hours. 01/07/20 Unknown Bone - Left Foot Gram Stain - Final 01/07/20 Unknown Bone - Left Foot Wound Culture - Final No growth aerobically. 01/07/20 Unknown Bone - Left Foot Anaerobic Culture - Preliminary No growth in 48 hours. 01/07/20 Unknown Incision/Surgical Site Gram Stain - Final 01/07/20 Unknown Incision/Surgical Site Wound Culture - Final Staphylococcus epidermidis 01/07/20 Unknown Incision/Surgical Site Anaerobic Culture - Preliminary No anaerobic bacteria isolated. 01/05/20 Unknown Wound - Left Foot Gram Stain - Final 01/05/20 Unknown Wound - Left Foot Wound Culture - Final Streptococcus group G Staphylococcus haemolyticus Strep anginosus Corynebacterium amayaikeium 01/05/20 Unknown Wound - Left Foot Anaerobic Culture - Preliminary Checking for anaerobes, further studies to follow. Laboratory Results 01/10/20 11:09: POC Glucose 160 H 01/10/20 16:40: POC Glucose 151 H 01/10/20 21:05: POC Glucose 135 H 01/11/20 00:33: Vancomycin Trough 16.6 H 01/11/20 06:30: WBC 6.7, RBC 4.21 L, Hgb 11.8 L, Hct 35.4 L, MCV 84.1, MCH 28.0, MCHC 33.3, RDW Std Deviation 36.8, RDW Coeff of Laivia 12.2, Plt Count 242, MPV 8.8, Immature Gran % (Auto) 0.300, Neut % (Auto) 56.4, Lymph % (Auto) 28.3, Mcculloch % (Auto) 8.8, Eos % (Auto) 5.2 H, Baso % (Auto) 1.0, Absolute Neuts (auto) 3.8, Absolute Lymphs (auto) 1.90, Nucleated RBC % 0 01/11/20 06:30: Sodium 143, Potassium 3.7, Chloride 112 H, Carbon Dioxide 26.0, Anion Gap 5, BUN 9, Creatinine 1.16, Estim Creat Clear Calc 100.16, Est GFR (MDRD) Af Amer 89, Est GFR (MDRD) Non-Af 74, BUN/Creatinine Ratio 7.8 L, Glucose 141 H, Calcium 8.3 L 01/11/20 06:32: POC Glucose 140 H Current Medications Acetaminophen (Tylenol) 650 mg PO Q6H PRN PRN PRN Reason: Pain Score 1-10/Temp > 100.7 F Last Admin: 01/07/20 19:16 Dose: 650 mg Documented by: Glucagon () 1 mg IM .X1 PRN PRN Reason: Hypoglycemia Hydralazine HCl (Apresoline Iv) 10 mg IV Q4H PRN PRN PRN Reason: sbp > 160 ; or DBP > 120 Last Admin: 01/11/20 08:22 Dose: 10 mg Documented by: Vancomycin IV Pharmacy to Dose (1 ea/ Sodium Chloride) 500 mls @ 250 mls/hr IV X1 PRN; Protocol PRN Reason: Rx to Dose Dextrose (Dextrose 10%-Water) 250 mls @ 999 mls/hr IV .Q16M PRN; Protocol PRN Reason: HYPOGLYCEMIA Sodium Chloride () 250 mls @ 15 mls/hr IV .[id number] PRN PRN Reason: Saline Flush Last Admin: 01/11/20 08:26 Dose: 15 mls/hr Documented by: Ampicillin Sodium/Sulbactam (Sodium 3 gm/ Sodium Chloride) 112 mls @ 150 mls/hr IV Q6 [facility] Last Infusion: 01/11/20 07:12 Dose: Infused Documented by: Vancomycin HCl 1,250 mg/ (Sodium Chloride) 275 mls @ 167 mls/hr IV Q12H [facility] Last Infusion: 01/11/20 03:53 Dose: Infused Documented by: Insulin Glargine (Lantus (Bkc)) 26 units SC QHS [facility] Last Admin: 01/10/20 21:09 Dose: 10 units Documented by: Insulin Human Lispro (Humalog Kwikpen (Bkc)) 0 unit SC ACHS [facility]; Protocol Last Admin: 01/11/20 06:32 Dose: Not Given Documented by: Insulin Human Lispro (Humalog Kwikpen (Bkc)) 10 unit SC TIDAC [facility] Last Admin: 01/11/20 08:25 Dose: 10 units Documented by: Lisinopril (Zestril) 10 mg PO DAILY [facility] Last Admin: 01/11/20 10:38 Dose: 10 mg Documented by: Loratadine (Claritin) 10 mg PO DAILY [facility] Last Admin: 01/11/20 10:37 Dose: 10 mg Documented by: Metoprolol Succinate (Toprol Xl (Beta Cheryl)) 50 mg PO DAILY [facility] Last Admin: 01/11/20 10:37 Dose: 50 mg Documented by: Ondansetron HCl (Zofran) 4 mg IV Q8H PRN PRN PRN Reason: NAUSEA/VOMITING Oxycodone HCl (Oxyir) 5 mg PO Q6H PRN PRN PRN Reason: Pain Score 6-10/10 Last Admin: 01/07/20 21:33 Dose: 5 mg Documented by: Sodium Chloride () 10 - 40 ml IV UD PRN PRN Reason: SALINE FLUSH Last Admin: 01/11/20 08:22 Dose: 10 ml Documented by: STROKE Vital Signs/Narrative: Vital Signs Temp Pulse Resp BP Pulse Ox 01/11/20 10:37 72 01/11/20 08:22 72 165/110 H 01/11/20 08:10 72 01/11/20 08:00 98.2 F 72 16 165/110 H 97 Medical Necessity - Tobacco Use Smoking Status: Never smoker Tobacco Use: Chew Assessment/Plan All Active Problems Osteomyelitis of left foot (Acute) Diabetes mellitus, new onset (Acute) POD #4, s/p resection of the 4th metatarsal bone for Acute left foot osteomyelitis -seen on MRI of left foot in a newly diagnosed DM -Wound cultures growing group G streptococcus, Coag negative staph, GPC possible enterococcus, gram-positive rods -Bone cultures NGTD, fungal still pending -On vancomycin and unasyn -may need 6 weeks of ABX -?PICC for d/c prep in am (ID to round this afternoon) -ID following -Continue on pain control as well as wound care per orthopedics surgery. HUMBERTO -resolved -sCr now 1.16 and WNL-stable in last 24 hrs DM-2 newly diagnosed -HbA1c 12 on admission -BGT good -continue on Lantus 26 units QHS -continue prandial insulin 10 units TID -continue on blood glucose checks with SSI Hypertension-uncontrolled -only am BP's measured (prior to meds being given) will check TID to see if need further changes -continue Lisinopril 10mg daily -continue metoprolol XL 12.5mg po daily for now -trend BP Hypokalemia -resolved Mild Anemia -suspect post operative -no s/o blood loss -stable DVT Prophylaxis -low risk -early ambulation recommended Dispo D/C soon suspect to home--> ?01/11 ?PICC per ID--> await for them to see pt Inpatient E&M: 67443 Subs Hosp L2
--- NOTE | 2020-01-11 11:14 | PCM.PN.ORT ---
Patient Problems: Active and Suspected Problems Osteomyelitis of left foot (Acute) Diabetes mellitus, new onset (Acute) Subjective: Patient seen at bedside resting comfortably. Patient denies any acute events over the weekend and overnight. Patient states that his left foot does not have any pain. Patient is kept the dressing clean, dry, intact and states that the wound VAC is been working well. Patient has been elevating as instructed and has remained nonweightbearing as instructed. Patient has been using a walker for assistance. Patient denies any acute complaints at this time. Patient states that he believes that he got approval for the wound VAC and is waiting for further instructions on his antibiotics. Currently, patient denies fever, chills, nausea, vomiting, shortness of breath, chest pain. Patient denies left calf pain. Objective: Lower extremity physical exam: Vascular: Dorsalis pedis and posterior tibial pulse are palpable. Capillary fill time is less than 3 seconds to all digits. Temperature gradient is within normal limits the left lower extremity. Mild nonpitting edema noted of the right foot surrounding the dorsal and plantar aspects of the metatarsals. No other areas of edema noted. Neurological: Light touch sensation is diminished to the forefoot. Gross and protective sensation are intact from the medial malleolus extending proximally to the tibial tuberosity. Musculoskeletal: No gross abnormalities are noted. Muscle strength is deferred to the left lower extremity Dermatological: Wound on the plantar aspect the left fourth metatarsal head observed with a graft in place. Of the wound, there is no fluctuance, no crepitus, no malodor, no drainage, no purulence. There is minimal periwound erythema noted. Graft is intact. Mepitel is in place. Wound measures 2 cm x 1.5 cm. Wound VAC: There was adequate seal and suction noted at 125 mmHg low continuous. Less than 50 mL of serosanguineous drainage evacuated - Physical Exam Vitals/I&O's: Vital Signs Temp Pulse Resp BP Pulse Ox 98.2 F 72 16 165/110 H 97 01/11/20 08:00 01/11/20 10:37 01/11/20 08:00 01/11/20 08:22 01/11/20 08:00 Oxygen Delivery Method Room Air Weight: 123.6 kg Body Mass Index (BMI) 34.0 Finger Stick Blood Glucose 227 Intake and Output for Last 24 Hours 0301/10/20 01/11/20 22:59 23:59 23:59 Intake Total 1391.5 / 1391.5 Output Total 1000 / 1000 Balance 391.5 / 391.5 General: Alert, Oriented x3, Cooperative, No apparent distress HEENT: Atraumatic Oral: Moist Mucosa Neck: Supple, No JVD Lungs: Clear to auscultation, Normal air movement, No rhonchi, No wheeze, No rales Cardiovascular: Regular rate, Regular Rhythm, Normal S1, Normal S2 Abdomen: Bowel Sounds Present, Soft, Non Tender, Non-Distended Extremities: Capillary Refill Less than 3 Seconds, No Calf Tenderness, Peripheral Pulses Normal Skin: Ulcer/ Wound - as described above Musculoskeletal: No Tenderness to Palpation of Joints or Extremities - No tenderness to palpation or compression of the wound site Neurological: Muscle tone normal Psych/Mental Status: Alert and oriented to time, place, person, mood and affect Microbiology Past 72 Hours 01/07/20 Unknown Bone - Left Foot Gram Stain - Final 01/07/20 Unknown Bone - Left Foot Wound Culture - Final No growth aerobically. 01/07/20 Unknown Bone - Left Foot Anaerobic Culture - Preliminary No growth in 48 hours. 01/07/20 Unknown Bone - Left Foot Gram Stain - Final 01/07/20 Unknown Bone - Left Foot Wound Culture - Final No growth aerobically. 01/07/20 Unknown Bone - Left Foot Anaerobic Culture - Preliminary No growth in 48 hours. 01/07/20 Unknown Incision/Surgical Site Gram Stain - Final 01/07/20 Unknown Incision/Surgical Site Wound Culture - Final Staphylococcus epidermidis 01/07/20 Unknown Incision/Surgical Site Anaerobic Culture - Preliminary No anaerobic bacteria isolated. 01/05/20 Unknown Wound - Left Foot Gram Stain - Final 01/05/20 Unknown Wound - Left Foot Wound Culture - Final Streptococcus group G Staphylococcus haemolyticus Strep anginosus Corynebacterium jeikeium 01/05/20 Unknown Wound - Left Foot Anaerobic Culture - Preliminary Checking for anaerobes, further studies to follow. Laboratory Results 01/10/20 11:09: POC Glucose 160 H 01/10/20 16:40: POC Glucose 151 H 01/10/20 21:05: POC Glucose 135 H 01/11/20 00:33: Vancomycin Trough 16.6 H 01/11/20 06:30: WBC 6.7, RBC 4.21 L, Hgb 11.8 L, Hct 35.4 L, MCV 84.1, MCH 28.0, MCHC 33.3, RDW Std Deviation 36.8, RDW Coeff of Alivia 12.2, Plt Count 242, MPV 8.8, Immature Gran % (Auto) 0.300, Neut % (Auto) 56.4, Lymph % (Auto) 28.3, [place] % (Auto) 8.8, Eos % (Auto) 5.2 H, Baso % (Auto) 1.0, Absolute Neuts (auto) 3.8, Absolute Lymphs (auto) 1.90, Nucleated RBC % 0 01/11/20 06:30: Sodium 143, Potassium 3.7, Chloride 112 H, Carbon Dioxide 26.0, Anion Gap 5, BUN 9, Creatinine 1.16, Estim Creat Clear Calc 100.16, Est GFR (MDRD) Af Amer 89, Est GFR (MDRD) Non-Af 74, BUN/Creatinine Ratio 7.8 L, Glucose 141 H, Calcium 8.3 L 01/11/20 06:32: POC Glucose 140 H Current Medications Acetaminophen (Tylenol) 650 mg PO Q6H PRN PRN PRN Reason: Pain Score 1-10/Temp > 100.7 F Last Admin: 01/07/20 19:16 Dose: 650 mg Documented by: Glucagon () 1 mg IM .X1 PRN PRN Reason: Hypoglycemia Hydralazine HCl (Apresoline Iv) 10 mg IV Q4H PRN PRN PRN Reason: sbp > 160 ; or DBP > 120 Last Admin: 01/11/20 08:22 Dose: 10 mg Documented by: Vancomycin IV Pharmacy to Dose (1 ea/ Sodium Chloride) 500 mls @ 250 mls/hr IV X1 PRN; Protocol PRN Reason: Rx to Dose Dextrose (Dextrose 10%-Water) 250 mls @ 999 mls/hr IV .Q16M PRN; Protocol PRN Reason: HYPOGLYCEMIA Sodium Chloride () 250 mls @ 15 mls/hr IV .[id number] PRN PRN Reason: Saline Flush Last Admin: 01/11/20 08:26 Dose: 15 mls/hr Documented by: Ampicillin Sodium/Sulbactam (Sodium 3 gm/ Sodium Chloride) 112 mls @ 150 mls/hr IV Q6 [facility] Last Infusion: 01/11/20 07:12 Dose: Infused Documented by: Vancomycin HCl 1,250 mg/ (Sodium Chloride) 275 mls @ 167 mls/hr IV Q12H [facility] Last Infusion: 01/11/20 03:53 Dose: Infused Documented by: Insulin Glargine (Lantus (Bkc)) 26 units SC QHS [facility] Last Admin: 01/10/20 21:09 Dose: 10 units Documented by: Insulin Human Lispro (Humalog Kwikpen (Bk)) 0 unit SC ACHS [facility]; Protocol Last Admin: 01/11/20 06:32 Dose: Not Given Documented by: Insulin Human Lispro (Humalog Kwikpen (Bk)) 10 unit SC TIDAC [facility] Last Admin: 01/11/20 08:25 Dose: 10 units Documented by: Lisinopril (Zestril) 10 mg PO DAILY [facility] Last Admin: 01/11/20 10:38 Dose: 10 mg Documented by: Loratadine (Claritin) 10 mg PO DAILY [facility] Last Admin: 01/11/20 10:37 Dose: 10 mg Documented by: Metoprolol Succinate (Toprol Xl (Beta Cheryl)) 50 mg PO DAILY [facility] Last Admin: 01/11/20 10:37 Dose: 50 mg Documented by: Ondansetron HCl (Zofran) 4 mg IV Q8H PRN PRN PRN Reason: NAUSEA/VOMITING Oxycodone HCl (Oxyir) 5 mg PO Q6H PRN PRN PRN Reason: Pain Score 6-10/10 Last Admin: 01/07/20 21:33 Dose: 5 mg Documented by: Sodium Chloride () 10 - 40 ml IV UD PRN PRN Reason: SALINE FLUSH Last Admin: 01/11/20 08:22 Dose: 10 ml Documented by: Zolpidem Tartrate (Ambien (Generic)) 5 mg PO QHS PRN PRN PRN Reason: INSOMNIA Medical Necessity - Tobacco Use Smoking Status: Never smoker Tobacco Use: Chew Assessment/Plan All Active Problems Osteomyelitis of left foot (Acute) Diabetes mellitus, new onset (Acute) Assessment: Patient is a 39-year-old male 4 days status post left foot fourth metatarsal head resection, left foot wound debridement, left foot incision and drainage, left foot washout, left foot application of graft, left foot application of wound VAC with newly diagnosed diabetes mellitus type 2 and nonhealing wound of his left foot Plan: Patient chart reviewed and patient evaluated Full discussion had with patient about his current clinical condition. At this time, the wound VAC was reapplied to the left foot wound with adequate seal and suction noted at 125 mmHg low continuous. This was then wrapped with a dry sterile dressing with adequate padding to all pressure points and underneath tubing. I discussed with the patient that would like him to go home on the wound VAC therapy to assist in closure of this wound. Patient is agreeable and displayed verbal understanding to this. At this time I would like to patient to remain nonweightbearing to the left foot. I instructed the patient on proper elevation techniques. A physical therapy evaluation was placed to assist the patient nonweightbearing to the left foot with assistive devices. We are currently awaiting the cultures and the pathology that were taken from the operating room yesterday. The cultures that were taken during surgery were from the proximal clear margin of the fourth metatarsal, from the fourth metatarsal head, and wound culture status post washout of the wound. The pathology that was taken was from the proximal clear margin of the fourth metatarsal and the fourth metatarsal head. I recommend the continuation of antibiotics per infectious disease. I appreciate Dr. Robertson's input with this patient. I appreciate the continued medical management from the primary team for this patient. There will be no further surgical interventions by me while the patient is in house. I will be continuing local wound care at this time. I will continue to follow the patient and update accordingly. Patient will follow up with me in one week in my office for the next wound VAC change. Patient is OK for discharge from my point of view with follow up with me in my [place] office in one week. Patient displayed verbal understanding to all written and oral instructions at this time. Patient is agreeable to the current treatment plan at this time. All of his questions were answered to his satisfaction and all of his concerns were addressed. Patient is advised to speak to the nursing staff if he needs to reach out to me with any concerns or questions. Thank you for allowing me to take part in the care of your patient. Inpatient E&M: 27623 Subs Hosp L2
[2020-01-11 11:31] LABS: Bedside Glucose 169 mg/dL (70-110)
[2020-01-11] MEDS: Insulin Lispro 100 UNIT/ML INSULN.PEN SC ×3 (12:21→21:35)
--- NOTE | 2020-01-11 13:33 | NURSING ---
wound photo: left foot
[2020-01-11] MEDS: levoFLOXacin 500 MG Tablet PO (14:12)
--- NOTE | 2020-01-11 14:17 | CASEMGMT ---
DERRICK FLOWERS received update and script that patient will need IV ATBs at discharge. DERRICK CM in to discuss discharge needs. DERRICK FLOWERS provided list of HHC and IV ATB. Patient agreeable to [facility] for IV ATBs. Referrals sent to [facility] and [facility]. DERRICK FLOWERS also made appointment for [facility] in 01/18/20 1200. Appointment also made with Dr. Rodriguez for 01/18/20 1045. DERRICK FLOWERS awaiting call back from [facility] and [facility]. Patient states that he has access to walker, knee scooter, and glucometer, denied further DME needs. DERRICK FLOWERS will continue to follow this patient and plan for a safe discharge.
--- NOTE | 2020-01-11 15:38 | PCM.PN.ID ---
Patient Problems: Active and Suspected Problems Osteomyelitis of left foot (Acute) Diabetes mellitus, new onset (Acute) Subjective: Feeling ok, no fever, no n/v/d. - Physical Exam Vitals/I&O's: Vital Signs Temp Pulse Resp BP Pulse Ox 97.5 F L 72 18 183/114 H 92 01/11/20 14:09 01/11/20 14:17 01/11/20 14:09 01/11/20 14:17 01/11/20 14:09 Oxygen Delivery Method Room Air Weight: 123.6 kg Body Mass Index (BMI) 34.0 Finger Stick Blood Glucose 227 Intake and Output for Last 24 Hours 01/09/20 01/10/20 01/11/20 22:59 23:59 23:59 Intake Total 2549.50 / 2549.50 Output Total 1000 / 1000 Balance 1549.50 / 1549.50 General: Alert, Cooperative, No apparent distress Lungs: Clear to auscultation, Normal air movement Cardiovascular: Regular rate, Regular Rhythm Abdomen: Soft, Non Tender, Non-Distended Skin: Ulcer/ Wound Microbiology Past 72 Hours 01/05/20 Unknown Wound - Left Foot Gram Stain - Final 01/05/20 Unknown Wound - Left Foot Wound Culture - Final Streptococcus group G Staphylococcus haemolyticus Strep anginosus Corynebacterium jeikeium 01/05/20 Unknown Wound - Left Foot Anaerobic Culture - Preliminary Checking for anaerobes, further studies to follow. 01/07/20 Unknown Bone - Left Foot Gram Stain - Final 01/07/20 Unknown Bone - Left Foot Wound Culture - Final No growth aerobically. 01/07/20 Unknown Bone - Left Foot Anaerobic Culture - Preliminary No growth in 48 hours. 01/07/20 Unknown Bone - Left Foot Gram Stain - Final 01/07/20 Unknown Bone - Left Foot Wound Culture - Final No growth aerobically. 01/07/20 Unknown Bone - Left Foot Anaerobic Culture - Preliminary No growth in 48 hours. 01/07/20 Unknown Incision/Surgical Site Gram Stain - Final 01/07/20 Unknown Incision/Surgical Site Wound Culture - Final Staphylococcus epidermidis 01/07/20 Unknown Incision/Surgical Site Anaerobic Culture - Preliminary No anaerobic bacteria isolated. Laboratory Results 01/10/20 16:40: POC Glucose 151 H 01/10/20 21:05: POC Glucose 135 H 01/11/20 00:33: Vancomycin Trough 16.6 H 01/11/20 06:30: WBC 6.7, RBC 4.21 L, Hgb 11.8 L, Hct 35.4 L, MCV 84.1, MCH 28.0, MCHC 33.3, RDW Std Deviation 36.8, RDW Coeff of Alivia 12.2, Plt Count 242, MPV 8.8, Immature Gran % (Auto) 0.300, Neut % (Auto) 56.4, Lymph % (Auto) 28.3, Major % (Auto) 8.8, Eos % (Auto) 5.2 H, Baso % (Auto) 1.0, Absolute Neuts (auto) 3.8, Absolute Lymphs (auto) 1.90, Nucleated RBC % 0 01/11/20 06:30: Sodium 143, Potassium 3.7, Chloride 112 H, Carbon Dioxide 26.0, Anion Gap 5, BUN 9, Creatinine 1.16, Estim Creat Clear Calc 100.16, Est GFR (MDRD) Af Amer 89, Est GFR (MDRD) Non-Af 74, BUN/Creatinine Ratio 7.8 L, Glucose 141 H, Calcium 8.3 L 01/11/20 06:32: POC Glucose 140 H 01/11/20 11:21: POC Glucose 169 H Current Medications Acetaminophen (Tylenol) 650 mg PO Q6H PRN PRN PRN Reason: Pain Score 1-10/Temp > 100.7 F Last Admin: 01/07/20 19:16 Dose: 650 mg Documented by: Glucagon () 1 mg IM .X1 PRN PRN Reason: Hypoglycemia Hydralazine HCl (Apresoline Iv) 10 mg IV Q4H PRN PRN PRN Reason: sbp > 160 ; or DBP > 120 Last Admin: 01/11/20 14:17 Dose: 10 mg Documented by: Dextrose (Dextrose 10%-Water) 250 mls @ 999 mls/hr IV .Q16M PRN; Protocol PRN Reason: HYPOGLYCEMIA Sodium Chloride () 250 mls @ 15 mls/hr IV .[id number] PRN PRN Reason: Saline Flush Last Infusion: 01/11/20 14:43 Dose: 15 mls/hr Documented by: Ceftriaxone Sodium 2 gm/ (Sodium Chloride) 50 mls @ 100 mls/hr IV Q24 [facility] Last Infusion: 01/11/20 14:43 Dose: Infused Documented by: Insulin Glargine (Lantus ([facility])) 26 units SC QHS [facility] Last Admin: 01/10/20 21:09 Dose: 10 units Documented by: Insulin Human Lispro (Humalog Kwikpen ([facility])) 0 unit SC ACHS [facility]; Protocol Last Admin: 01/11/20 12:21 Dose: 2 u Documented by: Insulin Human Lispro (Humalog Kwikpen ([facility])) 10 unit SC TIDAC [facility] Last Admin: 01/11/20 12:20 Dose: Not Given Documented by: Levofloxacin (Levaquin Tablet) 500 mg PO DAILY@0600 [facility] Last Admin: 01/11/20 14:12 Dose: 500 mg Documented by: Lisinopril (Zestril) 10 mg PO DAILY [facility] Last Admin: 01/11/20 10:38 Dose: 10 mg Documented by: Loratadine (Claritin) 10 mg PO DAILY [facility] Last Admin: 01/11/20 10:37 Dose: 10 mg Documented by: Metoprolol Succinate (Toprol Xl (Beta Cheryl)) 50 mg PO DAILY [facility] Last Admin: 01/11/20 10:37 Dose: 50 mg Documented by: Ondansetron HCl (Zofran) 4 mg IV Q8H PRN PRN PRN Reason: NAUSEA/VOMITING Oxycodone HCl (Oxyir) 5 mg PO Q6H PRN PRN PRN Reason: Pain Score 6-10/10 Last Admin: 01/07/20 21:33 Dose: 5 mg Documented by: Sodium Chloride () 10 - 40 ml IV UD PRN PRN Reason: SALINE FLUSH Last Admin: 01/11/20 14:17 Dose: 10 ml Documented by: Zolpidem Tartrate (Ambien (Generic)) 5 mg PO QHS PRN PRN PRN Reason: INSOMNIA Medical Necessity - Tobacco Use Smoking Status: Never smoker Tobacco Use: Chew Route of nutrition/ use of supplements: [] Nutritional Intake: [] IV Site: [] Corona Catheter: [] - Assessment/Plan Antibiotics: [] Assessment/Plan: [] Active and Suspected Problems Osteomyelitis of left foot (Acute) Diabetes mellitus, new onset (Acute) L foot osteo with new dx of T2DM - A1c is 12. MRI showed osteo of 4th metatarsal. Wound cx with strep and mixed gram (+). OR 01/[address] Rodriguez for 4th metatarsal resection. Wound cx with MR-CoNS, strep x2, corynebacteria. Surg cx with MSSE. Plan for discharge with 2 weeks of levaquin, 6 weeks of iv ceftriaxone, stop date 02/18/20. Weekly bmp, cbc, LFT, and esr. ID followup with me in [place] in 2 weeks. Wrote rx. Will follow, d/w test case developer
[2020-01-11] MEDS: Ondansetron 4 MG/2 ML Vial IV (17:19)
[2020-01-11] MEDS: Acetaminophen 325 MG Tablet 650 MG PO (17:19)
[2020-01-11 17:21] LABS: Bedside Glucose 159 mg/dL (70-110)
[2020-01-11 21:35] LABS: Bedside Glucose 172 mg/dL (70-110)
[2020-01-12 01:47] VITALS: BP 129/80; PULSE 70; RESP 16; TEMP 36.7; O2SAT 94
[2020-01-12] MEDS: levoFLOXacin 500 MG Tablet PO (05:05)
[2020-01-12] MEDS: Acetaminophen 325 MG Tablet 650 MG PO (05:05)
[2020-01-12] MEDS: Insulin Lispro 100 UNIT/ML INSULN.PEN 10 UNIT SC ×2 (07:59→11:52)
[2020-01-12 08:00] LABS: Bedside Glucose 136 mg/dL (70-110)
[2020-01-12 08:01] VITALS: BP 136/85; PULSE 76; RESP 16; TEMP 36.6; O2SAT 97
[2020-01-12] MEDS: Loratadine 10 MG Tablet PO (09:41)
[2020-01-12 09:42] VITALS: BP 136/85; PULSE 76
[2020-01-12] MEDS: Metoprolol(XL)Succ 50 MG Tablet PO (09:42)
[2020-01-12] MEDS: Lisinopril 10 MG Tablet PO (09:43)
--- NOTE | 2020-01-12 10:00 | CASEMGMT ---
DERRICK FLOWERS called [facility] for IV ATB coverage. Patient will have weekly dispense cost of $174.49 per week. DERRICK FLOWERS updated the patient and he is agreeable. DERRICK FLOWERS called [facility] regarding HHC referral. Per [facility] it is still pending. DERRICK FLOWERS will continue to follow-this patient and plan for a safe discharge.
--- NOTE | 2020-01-12 10:24 | PN.ID_ITS ---
Patient Problems: Active and Suspected Problems Osteomyelitis of left foot (Acute) Diabetes mellitus, new onset (Acute) Subjective: Picc today, no fever, no n/v/d. - Physical Exam Vitals/I&O's: Vital Signs Temp Pulse Resp BP Pulse Ox 97.9 F 76 16 136/85 H 97 01/12/20 08:01 01/12/20 09:42 01/12/20 08:01 01/12/20 09:42 01/12/20 08:01 Oxygen Delivery Method Room Air Weight: 123.6 kg Body Mass Index (BMI) 34.0 Finger Stick Blood Glucose 227 Intake and Output for Last 24 Hours 01/10/20 01/11/20 01/12/20 23:59 23:59 23:59 Intake Total 2849.50 / 2849.50 165.75 / 165.75 Output Total 1400 / 1400 500 / 500 Balance 1449.50 / 1449.50 -334.25 / -334.25 General: Alert, Cooperative, No apparent distress Lungs: Clear to auscultation, Normal air movement Cardiovascular: Regular rate, Regular Rhythm Abdomen: Soft, Non Tender, Non-Distended Skin: No rashes Microbiology Past 72 Hours 01/07/20 Unknown Bone - Left Foot Gram Stain - Final 01/07/20 Unknown Bone - Left Foot Wound Culture - Final No growth aerobically. 01/07/20 Unknown Bone - Left Foot Anaerobic Culture - Final No growth in 5 days. 01/07/20 Unknown Bone - Left Foot Gram Stain - Final 01/07/20 Unknown Bone - Left Foot Wound Culture - Final No growth aerobically. 01/07/20 Unknown Bone - Left Foot Anaerobic Culture - Final No growth in 5 days. 01/05/20 Unknown Wound - Left Foot Gram Stain - Final 01/05/20 Unknown Wound - Left Foot Wound Culture - Final Streptococcus group G Staphylococcus haemolyticus Strep anginosus Corynebacterium jeikeium 01/05/20 Unknown Wound - Left Foot Anaerobic Culture - Preliminary Checking for anaerobes, further studies to follow. 01/07/20 Unknown Incision/Surgical Site Gram Stain - Final 01/07/20 Unknown Incision/Surgical Site Wound Culture - Final Staphylococcus epidermidis 01/07/20 Unknown Incision/Surgical Site Anaerobic Culture - Preliminary No anaerobic bacteria isolated. Laboratory Results 01/11/20 11:21: POC Glucose 169 H 01/11/20 17:12: POC Glucose 159 H 01/11/20 21:23: POC Glucose 172 H 01/12/20 07:42: POC Glucose 136 H Current Medications Acetaminophen (Tylenol) 650 mg PO Q6H PRN PRN PRN Reason: Pain Score 1-10/Temp > 100.7 F Last Admin: 01/12/20 05:05 Dose: 650 mg Documented by: Glucagon () 1 mg IM .X1 PRN PRN Reason: Hypoglycemia Hydralazine HCl (Apresoline Iv) 10 mg IV Q4H PRN PRN PRN Reason: sbp > 160 ; or DBP > 120 Last Admin: 01/11/20 14:17 Dose: 10 mg Documented by: Dextrose (Dextrose 10%-Water) 250 mls @ 999 mls/hr IV .Q16M PRN; Protocol PRN Reason: HYPOGLYCEMIA Sodium Chloride () 250 mls @ 15 mls/hr IV .[id number] PRN PRN Reason: Saline Flush Last Admin: 01/12/20 01:46 Dose: 15 mls/hr Documented by: Ceftriaxone Sodium 2 gm/ (Sodium Chloride) 50 mls @ 100 mls/hr IV Q24 [facility] Last Admin: 01/12/20 09:43 Dose: 100 mls/hr Documented by: Insulin Glargine (Lantus (Bkc)) 10 units SC QHS [facility] Last Admin: 01/11/20 22:31 Dose: Not Given Documented by: Insulin Human Lispro (Humalog Kwikpen (Bkc)) 0 unit SC ACHS [facility]; Protocol Last Admin: 01/12/20 07:44 Dose: Not Given Documented by: Insulin Human Lispro (Humalog Kwikpen (Bkc)) 10 unit SC TIDAC [facility] Last Admin: 01/12/20 07:59 Dose: 10 units Documented by: Levofloxacin (Levaquin Tablet) 500 mg PO DAILY@0600 [facility] Last Admin: 01/12/20 05:05 Dose: 500 mg Documented by: Lisinopril (Zestril) 10 mg PO DAILY [facility] Last Admin: 01/12/20 09:43 Dose: 10 mg Documented by: Loratadine (Claritin) 10 mg PO DAILY [facility] Last Admin: 01/12/20 09:41 Dose: 10 mg Documented by: Metoprolol Succinate (Toprol Xl (Beta Cheryl)) 50 mg PO DAILY [facility] Last Admin: 01/12/20 09:42 Dose: 50 mg Documented by: Ondansetron HCl (Zofran) 4 mg IV Q8H PRN PRN PRN Reason: NAUSEA/VOMITING Last Admin: 01/11/20 17:19 Dose: 4 mg Documented by: Oxycodone HCl (Oxyir) 5 mg PO Q6H PRN PRN PRN Reason: Pain Score 6-10/10 Last Admin: 01/07/20 21:33 Dose: 5 mg Documented by: Sodium Chloride () 10 - 40 ml IV UD PRN PRN Reason: SALINE FLUSH Last Admin: 01/11/20 17:20 Dose: 10 ml Documented by: Zolpidem Tartrate (Ambien (Generic)) 5 mg PO QHS PRN PRN PRN Reason: INSOMNIA Medical Necessity - Tobacco Use Smoking Status: Never smoker Tobacco Use: Chew Route of nutrition/ use of supplements: [] Nutritional Intake: [] IV Site: [] Corona Catheter: [] - Assessment/Plan Antibiotics: [] Assessment/Plan: [] Active and Suspected Problems Osteomyelitis of left foot (Acute) Diabetes mellitus, new onset (Acute) L foot osteo with new dx of T2DM - A1c is 12. MRI showed osteo of 4th metatarsal. Wound cx with strep and mixed gram (+). OR 01/[address] Rodriguez for 4th metatarsal resection. Wound cx with MR-CoNS, strep x2, corynebacteria. Surg cx with MSSE. Plan for discharge with 2 weeks of levaquin, 6 weeks of iv ceftriaxone, stop date 02/18/20. Weekly bmp, cbc, LFT, and esr. ID followup with me in [place] in 2 weeks. Wrote rx. Will follow, d/w cyanide case hardener
[2020-01-12 11:41] LABS: Bedside Glucose 179 mg/dL (70-110)
[2020-01-12] MEDS: Insulin Lispro 100 UNIT/ML INSULN.PEN SC (11:51)
--- NOTE | 2020-01-12 14:30 | CASEMGMT ---
DERRICK FLOWERS called [facility] again regarding acceptance. Per [facility] they are not able to accept the patient due to non-coverage at this time and that the patient account is in suspension. DERRICK FLOWERS called patient's insurance benefits and per insurance patient does not have [facility] coverage. DERRICK FLOWERS updated the patient. Per and patient, [id number] is RN and can assist with IV ATB, patient is agreeable to one time nurse from [facility] to come and set patient up. DERRICK FLOWERS updated [facility] and cost is $125 per visit, patient notified and is still agreeable. DERRICK FLOWERS updated [facility] regarding patient requesting nurse to visit at home for setup. Per Gosia at [facility], nurse medical scheduler reviewing and will contact patient regarding setup for nursing. DERRICK FLOWERS updated Dr. Robertson regarding plans for home antibiotics and that patient will need script for outpatient labs. DERRICK FLOWERS received script and provided to patient. Per patient, I nurse is not available but they are going to [facility] infusion suite tomorrow 01/13/20 at 9am for initial teaching. No further questions or concerns at this time. DERRICK FLOWERS will continue to follow this patient and plan for a safe discharge.
--- NOTE | 2020-01-12 14:33 | NURSING ---
Pt switched over to the home VAC. reviewed alarms and how to change the canister. pt aware to take a dressing and canister to Dr Franklyn Rodriguez's office visit next week. denies further questions about the VAC. present at bedside as well and also denies questions.
--- NOTE | 2020-01-12 15:23 | DS.PCM_ITS ---
Discharge Date and Diagnosis - Problem List Patient Problems: Active and Suspected Problems Osteomyelitis of left foot (Acute) Diabetes mellitus, new onset (Acute) Date of Admission: 01/05/20 Date of Discharge: 01/12/20 - Primary Discharge Diagnosis Active and Suspected Problems Osteomyelitis of left foot (Acute) Diabetes mellitus, new onset (Acute) Hospital Course and Treatment Imaging Results: MRI Consultations 01/05/20 16:33 Consult: Onc/Wound/horse breeder Routine Comment: Operations: - - 4th metatarsal resection Summary of Care Provided: Mr Mondragon is a 39 year old M wh presented to the ED on 01/05/2020 with a L foot wound. he had been seen for this in the outpt setting and was placed or oral abx. He had been given an ortho referral from a previous ED visit and was sent tt he ED by the ortho PA for admission as they were concerned about osteomyelitis. ESR and CRP were elevated. An MRI was done and ws + for osteo of the 4th metatarsal head. he was placed on ABX at admission and ID was consulted. Wound cx are + for G streptococcus, Coag negative staph, GPC possible enterococcus, gram-positive rods. He was take to the OR for 4th metatarsal resection on 01/06 and a wound vac was placed. ID narrowed his abx to and he is to continue the wound vac and NWB status at d/c until he f/u with ortho (1 week). Per ID he will by discharged n 2 weeks of Levaquin and 6 weeks of ceftriaxone. He was found to be diabetic on admission with an A1c of 12. He was started on Lantus and Humalog. Lantus was decreased on the night prior to d/c by the gis professor and he was d/c with this lower dose but will need close f/u after dc for his sugars. He is to check his sugars 3x/day and scripts were given for Meds/Glucometer/Grace and test strips. His BP was also noted to be elevated throughout his stay and he was place on lisinopril and metoprolol. POD #5, s/p resection of the 4th metatarsal bone for Acute left foot osteomyelitis -seen on MRI of left foot in a newly diagnosed DM -Wound cultures growing group G streptococcus, Coag negative staph, GPC possible enterococcus, gram-positive rods -Bone cultures NGTD, fungal still pending -On vancomycin and unasyn -may need 6 weeks of ABX -?PICC for d/c prep in am (ID to round this afternoon) -ID following -Continue on pain control as well as wound care per orthopedics surgery. HUMBERTO -resolved -sCr now 1.16 DM-2 newly diagnosed -HbA1c 12 on admission -BGT stable -night team reduced Lantus to 10 units QHS--> continue at 10 u for d/c and f/u with PCP -continue prandial insulin 10 units TID -continue on blood glucose checks with SSI Hypertension-uncontrolled -BP is better -continue Lisinopril 10mg daily -continue metoprolol XL 12.5mg po daily for now -trend BP Hypokalemia -resolved Mild Anemia -suspect post operative -no s/o blood loss -stable DVT Prophylaxis -low risk -early ambulation recommended Dispo -D/C today [] Patient Problems: Active and Suspected Problems Osteomyelitis of left foot (Acute) Diabetes mellitus, new onset (Acute) Subjective: Feeling well. Anxious to go home. PICC in place. - Physical Exam Vitals/I&O's: Vital Signs Temp Pulse Resp BP Pulse Ox 97.9 F 76 16 136/85 H 97 01/12/20 08:01 01/12/20 09:42 01/12/20 08:01 01/12/20 09:42 01/12/20 08:01 Oxygen Delivery Method Room Air Weight: 123.6 kg Body Mass Index (BMI) 34.0 Finger Stick Blood Glucose 227 Intake and Output for Last 24 Hours 01/10/20 01/11/20 01/12/20 23:59 23:59 23:59 Intake Total 2849.50 / 2849.50 215.75 / 215.75 Output Total 1400 / 1400 500 / 500 Balance 1449.50 / 1449.50 -284.25 / -284.25 General: Alert, Oriented x3, Cooperative, No apparent distress, Well developed, Well nourished HEENT: Atraumatic, PERRLA, EOMI Oral: Moist Mucosa, No Gingival or Mucosal Lesions/ Ulcerations, - - no thrush Neck: Supple, No JVD, Negative Hepatojugular Reflux, No Nodes, No Nuchal Rigidity, Trachea Midline, Thyroid Normal Size and Texture Lungs: Clear to auscultation, Normal air movement, No rhonchi, No wheeze, No rales Cardiovascular: Regular rate, Regular Rhythm, Normal S1, Normal S2, No murmurs, No Ectopic Activity, No rub noted, No Gallop Abdomen: Bowel Sounds Present, Soft, Non Tender, Non-Distended, No Hepato- splenomegaly, No hernias noted Extremities: No clubbing, No cyanosis, No edema, - - L LE wrapped, good cap refill Skin: No rashes, No breakdown Musculoskeletal: No Tenderness to Palpation of Joints or Extremities Lymphatic: No Cervical, Supraclavicular, or Inguinal Adenopathy Neurological: Cranial nerves II-XII grossly intact, Deep Tendon Reflexes 2+/4 and Symmetrical, Neuro grossly intact, Motor Exam 5/5 strength throughout Psych/Mental Status: Normal Affect, Appropriate, Alert and oriented to time, place, person, mood and affect Microbiology Past 72 Hours 01/07/20 Unknown Incision/Surgical Site Gram Stain - Final 01/07/20 Unknown Incision/Surgical Site Wound Culture - Final Staphylococcus epidermidis 01/07/20 Unknown Incision/Surgical Site Anaerobic Culture - Final No anaerobic bacteria isolated. 01/07/20 Unknown Bone - Left Foot Gram Stain - Final 01/07/20 Unknown Bone - Left Foot Wound Culture - Final No growth aerobically. 01/07/20 Unknown Bone - Left Foot Anaerobic Culture - Final No growth in 5 days. 01/07/20 Unknown Bone - Left Foot Gram Stain - Final 01/07/20 Unknown Bone - Left Foot Wound Culture - Final No growth aerobically. 01/07/20 Unknown Bone - Left Foot Anaerobic Culture - Final No growth in 5 days. 01/05/20 Unknown Wound - Left Foot Gram Stain - Final 01/05/20 Unknown Wound - Left Foot Wound Culture - Final Streptococcus group G Staphylococcus haemolyticus Strep anginosus Corynebacterium jeikeium 01/05/20 Unknown Wound - Left Foot Anaerobic Culture - Preliminary Checking for anaerobes, further studies to follow. Laboratory Results 01/11/20 17:12: POC Glucose 159 H 01/11/20 21:23: POC Glucose 172 H 01/12/20 07:42: POC Glucose 136 H 01/12/20 11:31: POC Glucose 179 H Current Medications Acetaminophen (Tylenol) 650 mg PO Q6H PRN PRN PRN Reason: Pain Score 1-10/Temp > 100.7 F Last Admin: 01/12/20 05:05 Dose: 650 mg Documented by: Glucagon () 1 mg IM .X1 PRN PRN Reason: Hypoglycemia Hydralazine HCl (Apresoline Iv) 10 mg IV Q4H PRN PRN PRN Reason: sbp > 160 ; or DBP > 120 Last Admin: 01/11/20 14:17 Dose: 10 mg Documented by: Dextrose (Dextrose 10%-Water) 250 mls @ 999 mls/hr IV .Q16M PRN; Protocol PRN Reason: HYPOGLYCEMIA Sodium Chloride () 250 mls @ 15 mls/hr IV .[id number] PRN PRN Reason: Saline Flush Last Admin: 01/12/20 01:46 Dose: 15 mls/hr Documented by: Ceftriaxone Sodium 2 gm/ (Sodium Chloride) 50 mls @ 100 mls/hr IV Q24 [facility] Last Infusion: 01/12/20 10:13 Dose: Infused Documented by: Insulin Glargine (Lantus (Bkc)) 10 units SC QHS [facility] Last Admin: 01/11/20 22:31 Dose: Not Given Documented by: Insulin Human Lispro (Humalog Kwikpen (Bkc)) 0 unit SC ACHS [facility]; Protocol Last Admin: 01/12/20 11:51 Dose: 2 u Documented by: Insulin Human Lispro (Humalog Kwikpen (Bkc)) 10 unit SC TIDAC [facility] Last Admin: 01/12/20 11:52 Dose: 10 units Documented by: Levofloxacin (Levaquin Tablet) 500 mg PO DAILY@0600 [facility] Last Admin: 01/12/20 05:05 Dose: 500 mg Documented by: Lisinopril (Zestril) 10 mg PO DAILY [facility] Last Admin: 01/12/20 09:43 Dose: 10 mg Documented by: Loratadine (Claritin) 10 mg PO DAILY [facility] Last Admin: 01/12/20 09:41 Dose: 10 mg Documented by: Metoprolol Succinate (Toprol Xl (Beta Cheryl)) 50 mg PO DAILY [facility] Last Admin: 01/12/20 09:42 Dose: 50 mg Documented by: Ondansetron HCl (Zofran) 4 mg IV Q8H PRN PRN PRN Reason: NAUSEA/VOMITING Last Admin: 01/11/20 17:19 Dose: 4 mg Documented by: Oxycodone HCl (Oxyir) 5 mg PO Q6H PRN PRN PRN Reason: Pain Score 6-10/10 Last Admin: 01/07/20 21:33 Dose: 5 mg Documented by: Sodium Chloride () 10 - 40 ml IV UD PRN PRN Reason: SALINE FLUSH Last Admin: 01/11/20 17:20 Dose: 10 ml Documented by: Zolpidem Tartrate (Ambien (Generic)) 5 mg PO QHS PRN PRN PRN Reason: INSOMNIA Home Medications: Medications to take at Discharge Loratadine [Claritin] 10 mg PO DAILY 01/05/20 Ceftriaxone 2 gm IV Q24 38 Days #38 vial 01/11/20 levoFLOXacin tablet [Levaquin tablet] 500 mg PO DAILY@0600 #12 tab 01/11/20 Insulin Glargine [Lantus SoloStar Pen] 10 units SUBCUT QHS 30 Days #1 pen 01/12/20 Insulin Lispro [Humalog KwikPen] 10 unit SUBCUT TIDAC 30 Days #1 insuln.pen 01/12/20 Lisinopril [Zestril] 10 mg PO DAILY #30 tab 01/12/20 Metoprolol(XL)Succ [Toprol Xl (Beta Cheryl)] 50 mg PO DAILY #30 tab 01/12/20 Oxycodone [Oxyir] 5 mg PO Q6H PRN PRN 5 Days #20 tab 01/12/20 Following Prescrptions Were Given to Patient: Ceftriaxone 2 gm IV Q24 38 Days #38 vial Prescription Printed Insulin Lispro [Humalog KwikPen] 10 unit SUBCUT TIDAC 30 Days #1 insuln.pen Transmission Status: Pending to [id number] Insulin Glargine [Lantus SoloStar Pen] 10 units SUBCUT QHS 30 Days #1 pen Transmission Status: Pending to [id number] levoFLOXacin tablet [Levaquin tablet] 500 mg PO DAILY@0600 #12 tab Transmission Status: Received by [id number] Oxycodone [Oxyir] 5 mg PO Q6H PRN PRN 5 Days #20 tab PRN Reason: Pain Score 6-10/10 Prescription Printed Metoprolol(XL)Succ [Toprol Xl (Beta Cheryl)] 50 mg PO DAILY #30 tab Transmission Status: Pending to [facility] Lisinopril [Zestril] 10 mg PO DAILY #30 tab Transmission Status: Pending to [facility] Primary Care Physician: Care Physician,No Primary [NON-STAFF] - Please Follow Up With: Saskia Hahn NP-C When: Saturday Please Follow Up With: Franklyn Rodriguez MD When: Saturday Medical Necessity - Tobacco Use Smoking Status: Never smoker Tobacco Use: Chew Meaningful Use Info Meaningful Use Diagnoses (Choose all that apply): None applicable Inpatient E&M: 67662 Disch Hosp
--- NOTE | 2020-01-12 15:44 | DCINST_ITS ---
- Discharge Diagnoses Current Active Problems: Current Active and Chronic Problems Osteomyelitis of left foot (Acute) Diabetes mellitus, new onset (Acute) You will use the following diet at home:: Calorie/Carbohydrate Controlled (specify 1200, 1400, etc) Your food should be the consistency of: Regular Your liquids should be the consistency of: Regular/Thin Discharge Activity: Return to Normal Activity Return to work on:: 01/18/20 May resume sexual activity in: No Restrictions Weight Bearing Status: No weight bearing - LLE Keep extremity elevated above heart level: Operative Extremity Call your doctor if your incision/area has: Continuous Slow Oozing, Increased Pain/ Swelling, Increased Redness, Foul Smelling Discharge, Swelling at the incision site Call your doctor if you observe: Fever of 101 or Higher, Coldness, Increased Pain Allergies/Adverse Reactions: Allergies No Known Allergies Allergy (Verified 01/05/20 10:42) Medications to take at Discharge Loratadine [Claritin] 10 mg PO DAILY 01/05/20 Ceftriaxone 2 gm IV Q24 38 Days #38 vial 01/11/20 levoFLOXacin tablet [Levaquin tablet] 500 mg PO DAILY@0600 #12 tab 01/11/20 Insulin Glargine [Lantus SoloStar Pen] 10 units SUBCUT QHS 30 Days #1 pen 01/12/20 Insulin Lispro [Humalog KwikPen] 10 unit SUBCUT TIDAC 30 Days #1 insuln.pen 01/12/20 Lisinopril [Zestril] 10 mg PO DAILY #30 tab 01/12/20 Metoprolol(XL)Succ [Toprol Xl (Beta Cheryl)] 50 mg PO DAILY #30 tab 01/12/20 Oxycodone [Oxyir] 5 mg PO Q6H PRN PRN 5 Days #20 tab 01/12/20 The following prescriptions were given: Ceftriaxone 2 gm IV Q24 38 Days #38 vial Prescription Printed Insulin Lispro [Humalog KwikPen] 10 unit SUBCUT TIDAC 30 Days #1 insuln.pen Transmission Status: Pending to [facility] Insulin Glargine [Lantus SoloStar Pen] 10 units SUBCUT QHS 30 Days #1 pen Transmission Status: Pending to [facility] levoFLOXacin tablet [Levaquin tablet] 500 mg PO DAILY@0600 #12 tab Transmission Status: Received by [facility] Oxycodone [Oxyir] 5 mg PO Q6H PRN PRN 5 Days #20 tab PRN Reason: Pain Score 6-10/10 Prescription Printed Metoprolol(XL)Succ [Toprol Xl (Beta Cheryl)] 50 mg PO DAILY #30 tab Transmission Status: Pending to [facility] Lisinopril [Zestril] 10 mg PO DAILY #30 tab Transmission Status: Pending to [facility] Test Results: Test results from this visit will be discussed in further detail at your follow- up appointment, if applicable. Please Follow Up With: Saskia Hahn NP-C When: Saturday Please Follow Up With: Franklyn Rodriguez MD When: Saturday
[2020-01-12 15:46] VITALS: BP 141/95; PULSE 70; RESP 18; TEMP 36.5; O2SAT 97
[2020-01-12 16:18] VITALS: BP 141/95; PULSE 70; RESP 18; TEMP 36.5; O2SAT 97
== END 2020-01-12 16:13 | disposition home or self-care (01) | DRG 629 ==
LOC: ED 14:25 → MS3 14:37
PROVIDERS: Internal Medicine; Podiatrist Foot & Ankle Surgery; Admitting Provider Family Medicine; Emergency Provider Emergency Medicine; PCP Nurse Practitioner Family; Visit Provider Internal Medicine
PROC: 0QBP0ZZ Excision of Left Metatarsal, Open Approach (ICD-10-PCS; principal; 2020-01-07 12:50)
DX: E11.69 Type 2 diabetes mellitus with other specified complication (principal); M86.172 Other acute osteomyelitis, left ankle and foot; L03.116 Cellulitis of left lower limb; B95.4 Other streptococcus as the cause of diseases classified elsewhere; B95.7 Other staphylococcus as the cause of diseases classified elsewhere; B96.89 Other specified bacterial agents as the cause of diseases classified elsewhere; N17.9 Acute kidney failure, unspecified; Z79.4 Long term (current) use of insulin; I10 Essential (primary) hypertension; E87.6 Hypokalemia; D64.9 Anemia, unspecified; E11.42 Type 2 diabetes mellitus with diabetic polyneuropathy; L97.524 Non-pressure chronic ulcer of other part of left foot with necrosis of bone; Z72.0 Tobacco use
CPT/HCPCS: 36415; 36569; 73630; 73720; 76000; 80048; 80053; 80202; 82043; 82565; 82570; 82962; 83036; 85025; 85652; 86140; 87015; 87070; 87075; 87077; 87101; 87102; 87116; 87186; 87205; 87206; 87640; 88304; 88305; 88311; 93005; 97116; 97162; 97802; 97803; 99284; 99406; A9575; C1713; J7030; J7040; J7050; A4216; J0295; J0696; J2405

== ENCOUNTER → 2020-05-04 11:04 | Outpatient (CLI) | payer MEDICAID, SELFPAY ==
[2020-03-30 13:23] VITALS: BMI 34.0
== END ==
PROVIDERS: PCP Nurse Practitioner Family; Referring Provider Podiatrist Foot & Ankle Surgery; Visit Provider Podiatrist Foot & Ankle Surgery
DX: L97.524 Non-pressure chronic ulcer of other part of left foot with necrosis of bone (principal)
CPT/HCPCS: 87070; 87077; 87186; 87205

== ENCOUNTER 2020-05-09 12:04 | Inpatient (IN) | payer MEDICAID, SELFPAY ==
[2020-03-30 13:23] VITALS: BMI 34.0
[2020-05-09 12:06] VITALS: BP 133/92; PULSE 78; RESP 18; TEMP 36.6; O2SAT 100; BMI 33.7
[2020-05-09] MEDS: 0.9% Normal Saline 1,000 ML 1000 ML IV (13:00)
[2020-05-09 13:04] LABS: Absolute Lymphocyte Count 2.19 X10^3/uL (0.83-4.51); Absolute Neutrophil Count 5.7 X10^3/uL (2.0-7.7); Basophil# 0.05 X10^3/uL; Basophil% 0.6 % (0-1); Eosinophil# 0.26 X10^3/uL; Hematocrit 40.1 % (40-54); Hemoglobin 13.7 g/dL (13.0-16.5); Lymphocyte # 2.19 X10^3/ul (4.0); Lymphocyte % 24.9 % (19-41); Mean Corp Hgb Conc 34.2 g/dL (32-36); Mean Corpuscular Hgb 29.3 pg (27.0-32.0); Mean Corpuscular Volume 85.9 fL (80-94); Mean Platelet Vol. 8.7 fl (6.2-12.0); Monocyte# 0.59 X10^3/uL; Monocyte% 6.7 % (0-10); NRBC Flagged by Analyzer 0 % (0-5); Neutrophil # 5.66 X10^3/uL (2.7-7.7); Neutrophil % 64.3 % (47-70); Platelet Count 312 K/mm3 (150-450); RBC Distribution Width SD 40.3 fl (35.1-43.9); Red Blood Count 4.67 M/mm3 (4.6-6.2); White Blood Count 8.8 K/mm3 (4.4-11.0)
[2020-05-09 13:17] LABS: Erythrocyte Sedimentation Rate 18 mm/hr (0-15)
[2020-05-09 13:19] LABS: ALB/GLOB Ratio 0.8 RATIO (0.9-2.4); AST(SGOT) 16 U/L (15-37); Alanine Aminotransfer ALT/SGPT 25 U/L (16-61); Albumin, Serum 3.4 g/dL (3.2-5.0); Alkaline Phosphatase 52 U/L (45-117); Anion Gap 5 (5-15); BUN 23 mg/dL (7-18); Calcium,Total 9.1 mg/dL (8.5-10.1); Chloride 103 mmol/L (98-107); Creatinine, Serum 1.28 mg/dL (0.70-1.30); EST Glomerular Filtration Rate 66 mL/min (>60); Est Glom Filt Rate - Afr Amer 79 mL/min (>60); Estimated Creatinine Clearance 89.85 ml/min; Globulin 4.2 g/dL (2.2-4.2); Glucose 138 mg/dL (74-106); Potassium 4.5 mmol/L (3.5-5.1); Protein, Total 7.6 g/dL (6.4-8.2); Sodium Level 137 mmol/L (136-145)
[2020-05-09 13:24] LABS: Lactic Acid 0.9 mmol/L (0.4-1.9)
[2020-05-09 13:50] VITALS: RESP 18
--- NOTE | 2020-05-09 14:52 | ED.VISSUMM ---
- ER Visit Summary Date of Service: 05/09/20 Chief Complaint: Infection right foot History of Present Illness: The patient is a 40 M who goes to the [facility]. Has a history of type 2 diabetes. He reports that 12 days ago he stepped on a nail when he was barefoot. He was seen at an urgent care and had his tetanus updated and was placed on antibiotics. He does not know the name of these antibiotics. He had taken these for 6 days when he followed up with Dr. Rodriguez from podiatry. He was switched to doxycycline and Cipro. Wound cultures were obtained. The patient was seen today and is worsening so he sent to the emergency department for admission. Patient reports he has an aching pain is 5-10 he walks into 10 at rest. Denies any paresthesias. He denies any constitutional symptoms. No fever, chills, nausea, or vomiting. Physical Examination: Vitals: Stable. Afebrile. General: Well-nourished and well-developed. Head: Normocephalic atraumatic. Neck: Supple, no lymphadenopathy. No JVD. Nontender. Cardiovascular: Regular rate and rhythm. No murmurs. Respiratory: No respiratory distress. Clear to auscultation bilaterally. Abdominal: Soft, nontender, nondistended, normal bowel sounds. No guarding, rebound, or peritoneal signs. Back: Nontender. Extremities: Nontender, no edema. There is an approximate 1 cm laceration on the bottom of his left foot between the distal portion of the fourth and fifth metacarpals. There is erythema surrounding this that extends onto the top of his foot. There is no induration or fluctuance. He is a 2+ dorsalis pedis pulse. Skin: Normal color, no rash. Neurologic: Alert and oriented ?3. Cranial nerves II through XII are intact. Normal strength and sensation. Psych: Normal affect. Test Results: CRP is 17.2. ESR is 18. Lactic acid is normal. CBC is normal. Chem-7 shows a BUN of 23 and glucose 138. LFTs are normal. Emergency Department Course and Treatment: Patient had an x-ray in the office today. This was not repeated. He is given Zosyn and vancomycin IV. He refused pain medications. He is resting comfortably. Treatment Plan: Patient was discussed with Dr. Francis. He will be admitted to the hospital for further evaluation and treatment. Disposition: Admitted in stable condition. Impression: 1. Puncture wound right foot, infected with failed outpatient treatment. 2. Diabetes mellitus. This note was generated with [employer] dictation software. It may contain incorrect words, spelling, and punctuation that were not noted in review of the chart prior to signing ED Disposition - Plan for ED Patient: Referrals: Saskia Hahn, SIMEON-C [Primary Care Provider] -
[2020-05-09 15:01] VITALS: BP 146/104; PULSE 69; RESP 18; TEMP 36.6; O2SAT 99
--- NOTE | 2020-05-09 15:18 | HP.PCM_ITS ---
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 Patient went to an urgent care and received antibiotics and then saw Dr. Rodriguez last week and was started on doxycycline and ciprofloxacin. Despite that the wound had not healed and had developed some redness. Saw Dr. Rodriguez today who sent the patient to the emergency room. Patient had an x-ray apparently that was unremarkable. Patient received Pipracil and/tazobactam and vancomycin in the emergency room. [] Past Medical History Past Medical History (Chronic Problems): Chronic Problems (Last Reviewed 03/30/20 @ 13:[address] John Patel MD) Polyneuropathy due to type 2 diabetes mellitus (Chronic) Diabetes (Chronic) Medical History: Medical History (Last Reviewed 05/09/20 @ 15:[address] Song Francis DO) DM w/o complication type II E11.9 Essential hypertension I10 Neuropathy G62.9 Osteomyelitis M86.9 Seasonal allergies J30.2 Vitamin D deficiency, unspecified E55.9 Allergies No Known Allergies Allergy (Verified 05/09/20 12:06) Home Medications: Ambulatory Orders Medication Instructions Recorded Glimepiride 4 mg PO DAILY 05/09/20 Insulin Glargine [Lantus SoloStar 10 units SUBCUT QHS 05/09/20 Pen] Lisinopril [Zestril] 10 mg PO DAILY 05/09/20 Loratadine [Claritin] 10 mg PO DAILY 05/09/20 Metformin HCl 500 mg PO BID 05/09/20 Metoprolol(XL)Succ [Toprol Xl 50 mg PO DAILY 05/09/20 (Beta Cheryl)] Surgical History: Surgical History (Last Reviewed 05/09/20 @ 15:[address] Song Francis DO) 4th metatarsal removal Surgical History: no surgical history Psychiatric History: No pertinent psych hx Smoking Status: Never smoker - *Family History Maternal Family History: Family History (Last Reviewed 05/09/20 @ 15:[address] Song Francis DO) Grandmother Diabetes Aunt Diabetes Father Hypertension Brother Hypertension History Items: Diabetes, Heart Disease Paternal Family History: Family History (Last Reviewed 05/09/20 @ 15:[address] Song Francis DO) Grandmother Diabetes Aunt Diabetes Father Hypertension Brother Hypertension History Items: Diabetes, Heart Disease Review of Systems Constitutional: Denies: Chills, Fever, Weight Change Eyes: Denies: Blurred vision, Double vision HEENT: Denies: Head Aches, Sinus Congestion, Sinus Drainage Cardiovascular: Denies: Chest Pain, Palpitations Respiratory: Denies: Cough, Shortness of breath at rest, Sputum production Gastrointestinal: Denies: Abdominal Pain, Nausea, Vomiting Genitourinary: Denies: Dysuria Musculoskeletal: Reports: - - Right foot pain Skin: Reports: - - Redness on the right foot with puncture site in the plantar aspect., - - Patient gets a rash under his chin from his cao Neurological: Reports: - - Neuropathy Hematologic/ Lymphatic: Denies: Easy Bruising, Easy Bleeding, Hx of blood clot Comment: All review of systems were negative except as mentioned above in the history of present illness and the other review of systems. VTE Information - Inpt Only VTE Present on Admission: No VTE Mechan Device Prophylaxis: None VTE Pharm Prophylaxis ordered?: Yes Patient Problems: Active and Suspected Problems (Last Reviewed 03/30/20 @ 13:[address] John Patel MD) Right foot infection (Acute) - Physical Exam Vitals/I&O's: Vital Signs Temp Pulse Resp BP Pulse Ox 36.6 C 69 18 146/104 H 99 05/09/20 15:01 05/09/20 15:01 05/09/20 15:01 05/09/20 15:01 05/09/20 15:01 Oxygen Delivery Method Room Air Weight: 122.47 kg Body Mass Index (BMI) 33.7 Finger Stick Blood Glucose 227 Intake and Output for Last 24 Hours 05/07/20 05/08/20 05/09/20 23:59 23:59 23:59 Intake Total 100 / 100 Balance 100 / 100 General: Alert, Cooperative, No apparent distress HEENT: Atraumatic, Normocephalic Oral: Moist Mucosa, No Gingival or Mucosal Lesions/ Ulcerations Neck: No Nodes, Trachea Midline Lungs: Clear to auscultation, Normal air movement Cardiovascular: Regular rate, No murmurs Abdomen: Bowel Sounds Present, Soft, Non Tender, Non-Distended Extremities: No edema, No Calf Tenderness Skin: - - Patient has a small puncture site on the dorsum of his right foot under the fourth metatarsal joint. No significant swelling. Areas covered in Betadine so unable to appreciate any erythema if present. Musculoskeletal: No Tenderness to Palpation of Joints or Extremities, No Muscle Wasting Psych/Mental Status: Normal Affect, Appropriate Laboratory Results 05/09/20 12:45: WBC 8.8, RBC 4.67, Hgb 13.7, Hct 40.1, MCV 85.9, MCH 29.3, MCHC 34.2, RDW Std Deviation 40.3, RDW Coeff of Alivia 13.0, Plt Count 312, MPV 8.7, Immature Gran % (Auto) 0.500, Neut % (Auto) 64.3, Lymph % (Auto) 24.9, Stanley % (Auto) 6.7, Eos % (Auto) 3.0, Baso % (Auto) 0.6, Absolute Neuts (auto) 5.7, Absolute Lymphs (auto) 2.19, Nucleated RBC % 0, ESR 18 H 05/09/20 12:45: Sodium 137, Potassium 4.5, Chloride 103, Carbon Dioxide 29.0, Anion Gap 5, BUN 23 H, Creatinine 1.28, Estim Creat Clear Calc 89.85, Est GFR (MDRD) Af Amer 79, Est GFR (MDRD) Non-Af 66, BUN/Creatinine Ratio 18.0, Glucose 138 H, Calcium 9.1, Total Bilirubin 0.60, AST 16, ALT 25, Alkaline Phosphatase 52, C-React Prot Ext Range 17.20 H, Total Protein 7.6, Albumin 3.4, Globulin 4.2, Albumin/Globulin Ratio 0.8 L 05/09/20 12:45: Lactic Acid 0.9 Assessment/Plan All Active Problems (Last Reviewed 03/30/20 @ 13:[address] John Patel MD) Right foot infection (Acute) Osteomyelitis of left foot (Resolved) 1. Right foot infection: Status post puncture from stepping on nail. Patient stated that he did receive tetanus booster at the urgent care. Patient had been on 2 courses of antibiotics and the wound is still not healed. Plan is to get an MRI without contrast to evaluate for any abscess or osteomyelitis. Will continue with Pipracil and/tazobactam and vancomycin. Check cultures of the wound as well as an MRSA screen. Consults placed to infectious disease as well as podiatry. 2. Diabetes mellitus type 2: Complicates care. Continue with basal insulin p satnam oral meds. Check A1c. Signed scale insulin. 3. VTE prophylaxis: Moderate risk. Low molecular weight heparin. Inpatient E&M: 63100 Init Hosp L2
--- NOTE | 2020-05-09 16:00 | MRI_ITS ---
STUDY: MRI RIGHT FOREFOOT WITHOUT CONTRAST REASON FOR EXAM: Right foot infection, nail puncture wound at the distal fourth/fifth metatarsal area. TECHNIQUE: Standardized fat and water weighted pulse sequences were obtained in all 3 orthogonal planes. COMPARISON: None. FINDINGS: Normal metatarsophalangeal joint of the hallux. Normal tibial and fibular sesamoids, with normal sesamoids-first metatarsal articulations. Normal interphalangeal joint of the hallux. Normal proximal and distal phalanges of the great toe. Normal medial and lateral heads of the flexor hallucis brevis tendons. Normal flexor and extensor hallucis longus tendons. There is a small effusion of the fourth metatarsophalangeal joint (inversion recovery sagittal image 22). Normal interphalangeal joints of the second through fifth toes. There is bone edema of the fourth metatarsal head and fourth proximal phalangeal base/diaphysis (inversion recovery sagittal images 22, 23) without corresponding decreased T1 bone marrow signal and therefore either early osteomyelitis or reactive bone edema. There are hammertoe deformities of the lesser toes. Normal first through fourth intermetatarsal spaces. Normal flexor and extensor tendons of the second through fifth toes. There is mild edema in the intrinsic muscles of the forefoot (inversion recovery sagittal images 10-25). There is susceptibility artifact in the subcutis adipose space plantar to the fourth metatarsophalangeal joint (T1 sagittal image 23) secondary to the puncture wound. There is edema in the subcutis adipose space without focal fluid collection to indicate soft tissue abscess. MRI/Lower Ext/No Jt/w/o IMPRESSION: Bone edema of the fourth metatarsal head and fourth proximal phalanx, either early osteomyelitis or reactive bone edema. Small effusion of the fourth metatarsophalangeal joint. Edema in the subcutis adipose space without demonstrated soft tissue abscess. Mild edema in the intrinsic muscles of the forefoot, likely secondary to peripheral neuropathy. Electronically Signed: Pankaj Banegas MD at 8:32 EDT Tel , Service support ,
[2020-05-09 16:22] VITALS: BMI 33.3
[2020-05-09 16:23] VITALS: BMI 33.3
[2020-05-09 16:25] LABS: Hemoglobin A1c 6.4 % (3.8-5.6)
--- NOTE | 2020-05-09 17:49 | PCM.RX.CS ---
Consult Pharmacy has been consulted to manage selected antiobiotic: Vancomycin Type of Consult: New start Suspected Infection: Osteomyelitis Prior Doses of Antibiotics Received/Current Regimen: 1 Labs: Sodium 137 mmol/L (136-145) 05/09/20 12:45 Potassium 4.5 mmol/L (3.5-5.1) 05/09/20 12:45 Chloride 103 mmol/L (98-107) 05/09/20 12:45 Carbon Dioxide 29.0 mmol/L (21.0-32.0) 05/09/20 12:45 Anion Gap 5 (5-15) 05/09/20 12:45 BUN 23 mg/dL (7-18) H 05/09/20 12:45 Creatinine 1.28 mg/dL (0.70-1.30) 05/09/20 12:45 Est GFR (MDRD) Af Amer 79 mL/min (>60) 05/09/20 12:45 Est GFR (MDRD) Non-Af 66 mL/min (>60) 05/09/20 12:45 BUN/Creatinine Ratio 18.0 RATIO (10-20) 05/09/20 12:45 Glucose 138 mg/dL (74-106) H 05/09/20 12:45 TROUGH LEVEL ORDERED FOR 30 MIN PRIOR TO 4TH DOSE Weight used for dosin kg Estimated Creatinine Clearance: 89.8 Goal Trough: 15-20 mcg/mL - VANCO IV 2 GRAMS Q12H Pharmacy Plan for Drug Dosing: Pharmacy Service will continue to monitor and adjust dosing as required.
[2020-05-09 18:45] VITALS: BP 159/99; PULSE 76; RESP 16; TEMP 36.6; O2SAT 98
[2020-05-09] MEDS: metFORMIN HCl 500 MG Tablet PO (19:05)
[2020-05-09 21:55] LABS: Bedside Glucose 116 mg/dL (70-110)
[2020-05-10] VITALS (13 sets, daily range): BP systolic 110–147; BP diastolic 79–103; PULSE 67–85; RESP 16–18; TEMP 35.7–36.9; O2SAT 94–98; BMI 33.3
[2020-05-10 05:13] LABS: Absolute Lymphocyte Count 2.69 X10^3/uL (0.83-4.51); Absolute Neutrophil Count 3.7 X10^3/uL (2.0-7.7); Basophil# 0.06 X10^3/uL; Basophil% 0.8 % (0-1); Eosinophil# 0.32 X10^3/uL; Eosinophils% 4.3 % (0-5); Hematocrit 35.8 % (40-54); Hemoglobin 11.9 g/dL (13.0-16.5); Lymphocyte # 2.69 X10^3/ul (4.0); Lymphocyte % 36.4 % (19-41); Mean Corp Hgb Conc 33.2 g/dL (32-36); Mean Corpuscular Hgb 28.9 pg (27.0-32.0); Mean Corpuscular Volume 86.9 fL (80-94); Mean Platelet Vol. 8.3 fl (6.2-12.0); Monocyte# 0.59 X10^3/uL; NRBC Flagged by Analyzer 0 % (0-5); Neutrophil % 50.2 % (47-70); Platelet Count 266 K/mm3 (150-450); RBC Distribution Width CV 13.1 % (11.6-14.6); RBC Distribution Width SD 40.3 fl (35.1-43.9); Red Blood Count 4.12 M/mm3 (4.6-6.2); White Blood Count 7.4 K/mm3 (4.4-11.0)
[2020-05-10 05:25] LABS: Anion Gap 5 (5-15); BUN 18 mg/dL (7-18); BUN/Creat Ratio 15.4 RATIO (10-20); Calcium,Total 8.3 mg/dL (8.5-10.1); Chloride 110 mmol/L (98-107); Creatinine, Serum 1.17 mg/dL (0.70-1.30); EST Glomerular Filtration Rate 73 mL/min (>60); Est Glom Filt Rate - Afr Amer 88 mL/min (>60); Glucose 101 mg/dL (74-106); Potassium 4.1 mmol/L (3.5-5.1); Sodium Level 141 mmol/L (136-145)
[2020-05-10 06:21] LABS: Bedside Glucose 105 mg/dL (70-110)
--- NOTE | 2020-05-10 07:19 | PCM.CONS.GEN ---
Problem List (1) Cellulitis of right foot Status: Acute (2) Right foot infection Status: Acute Reason for Consult Date of Consultation: 05/10/20 Reason for Consultation: right foot cellulitis, possible abscess right foot History of Present Illness: This patient is a 40-year-old male with a past medical history of diabetes mellitus type 2 who on April 27, 2020, stepped on a nail with his right foot. Patient detailed to me that he stepped on his foot with a nail through his boot, but other reports states that he was barefoot when he stepped on the nail. Patient states that the nail did penetrate his foot at that time. After the incident, patient presented to an urgent care. At that time, the nail was removed. Furthermore, the wound site was irrigated. Patient was instructed to perform daily dressing changes with bacitracin and a Band-Aid. He was given a prescription for Keflex. Patient then presented to my office 1 week after the incident on Monday, May 04, 2020. There was localized erythema around the wound, but no evidence of drainage, fluctuance, crepitus. At that time, I performed a thorough irrigation of the wound, and obtained wound cultures. Furthermore, instructed the patient on daily dressing changes and switch his antibiotics to doxycycline and ciprofloxacin. I instructed the patient at that time that if the wound becomes worse or if he experiences signs of systemic infection, he is to report to the emergency department immediately. Patient return to my office on Saturday, May 09, 2020 for further evaluation. Upon viewing the wound yesterday, there is an increase in cellulitic appearance with cellulitis streaking from the wound to his midfoot. Due to the failure of oral therapy, I urged the patient to present to the emergency department for further evaluation and admittance for IV antibiotics and her MRI of the right foot. Past Medical History Past Medical History (Chronic Problems): Chronic Problems (Last Reviewed 05/09/20 @ 15:[address] 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 Song Francis DO) DM w/o complication type II E11.9 Essential hypertension I10 Neuropathy G62.9 Osteomyelitis M86.9 Seasonal allergies J30.2 Vitamin D deficiency, unspecified E55.9 Allergies No Known Allergies Allergy (Verified 05/09/20 12:06) Home Medications: Ambulatory Orders Medication Instructions Recorded Glimepiride 4 mg PO DAILY 05/09/20 Insulin Glargine [Lantus SoloStar 10 units SUBCUT QHS 05/09/20 Pen] Lisinopril [Zestril] 10 mg PO DAILY 05/09/20 Loratadine [Claritin] 10 mg PO DAILY 05/09/20 Metformin HCl 500 mg PO BID 05/09/20 Metoprolol(XL)Succ [Toprol Xl 50 mg PO DAILY 05/09/20 (Beta Cheryl)] Surgical History: Surgical History (Last Reviewed 05/09/20 @ 15:[address] Song Francis DO) 4th metatarsal removal Surgical History: - - left foot wound debridement, excision of fourth metatarsal head 01/2020 Psychiatric History: No pertinent psych hx Lives: Spouse/ Significant Other, With Family Smoking Status: Never smoker Tobacco Use: Chew Alcohol: Occasional Drugs: None - *Family History Maternal Family History: Family History (Last Reviewed 05/09/20 @ 15:[address] Song Francis DO) Grandmother Diabetes Aunt Diabetes Father Hypertension Brother Hypertension History Items: Diabetes, Heart Disease Paternal Family History: Family History (Last Reviewed 05/09/20 @ 15:[address] Song Francis DO) Grandmother Diabetes Aunt Diabetes Father Hypertension Brother Hypertension History Items: Diabetes, Heart Disease Review of Systems Constitutional: Denies: Anorexia, Chills, Fever, Night Sweats, Malaise, Weakness, Weight Change, Fatigue Eyes: Denies: Blurred vision, Cataracts HEENT: Denies: Difficulty Hearing, Difficulty Swallowing, Dysphasia Cardiovascular: Denies: Chest Pain, Claudication Respiratory: Denies: Cough, Shortness of Breath, Shortness of breath at rest, Shortness of breath upon exertion Gastrointestinal: Denies: Abdominal Pain, Constipation, Diarrhea Genitourinary: Denies: Dysuria Musculoskeletal: Denies: Foot Pain - Patient denies foot pain to right foot Skin: Denies: Dryness, Jaundice Neurological: Denies: Balance problems, Blurred vision, Double vision Psychiatric: Denies: Anxiety, Depression Endocrine: Denies: Change in Body Habitus, Heat/ Cold Intolerance, Polydipsia, Polyuria Patient Problems: Active and Suspected Problems (Last Reviewed 05/09/20 @ 15:[address] Song Francis, DO) Right foot infection (Acute) Cellulitis of right foot (Acute) Subjective: Patient seen at bedside resting comfortably. Patient denies any pain to right foot at this time. Patient denies any acute overnight events. No acute overnight events reported by nursing staff. Patient denies any acute complaints at this time. Currently, patient denies fever, chills, nausea, vomiting, shortness of breath, chest pain. Patient denies right calf pain. Objective: Lower extremity physical exam: Dressing is clean, dry, intact to the right lower extremity no evidence of strikethrough. Vascular: Dorsalis pedis and posterior tibial pulse are palpable to the right lower extremity. Capillary fill time is less than 3 seconds to all digits of the right foot. Temperature gradient is within normal limits. Minimal nonpitting edema noted in the plantar aspect of the right foot in the area of the puncture wound. Neurological: Gross and protective sensation are diminished from the digits to the ankle of the right lower extremity and intact from the ankle to the tibial tuberosity. Dermatological: Evidence of superficial lesion noted in the plantar aspect of the fourth metatarsal head of the right foot in the area of the puncture wound. This appears healed at this time. Of this lesion, there is no fluctuance, no crepitus, no malodor, no drainage, no purulence. There is positive periwound erythema, decreased from assessment from office on May 09, 2020. Evidence of streaking that was noted in office yesterday has decreased as well. There is no probing to bone, no tunneling, no tracking. No pain upon palpation or compression of the wound. Musculoskeletal: Muscle strength is 5 out of 5 of the right lower extremity. No gross deformity noted. - Physical Exam Vitals/I&O's: Vital Signs Temp Pulse Resp BP Pulse Ox 98.2 F 67 16 110/79 97 05/10/20 06:00 05/10/20 06:00 05/10/20 06:00 05/10/20 06:00 05/10/20 06:00 Oxygen Delivery Method Room Air Weight: 120.9 kg Body Mass Index (BMI) 33.3 Finger Stick Blood Glucose 227 Intake and Output for Last 24 Hours 05/08/20 05/09/2020 23:59 23:59 23:59 Intake Total 1635 / 1635 1430 / 1430 Output Total 275 / 275 625 / 625 Balance 1360 / 1360 805 / 805 General: Alert, Oriented x3, Cooperative, No apparent distress, Well developed, Well nourished HEENT: Atraumatic, PERRLA Oral: Moist Mucosa Neck: Supple, No JVD Lungs: Clear to auscultation, Normal air movement, No rhonchi, No wheeze, No rales Cardiovascular: Regular rate, Regular Rhythm, Normal S1, Normal S2 Abdomen: Bowel Sounds Present, Soft, Non Tender, Non-Distended, Obese Extremities: No clubbing, Capillary Refill Less than 3 Seconds, Peripheral Pulses Normal Skin: Ulcer/ Wound - As described above. Musculoskeletal: No Tenderness to Palpation of Joints or Extremities - No pain upon palpation or compression of the area of the puncture site of the right foot. Neurological: Motor Exam 5/5 strength throughout Psych/Mental Status: Alert and oriented to time, place, person, mood and affect Laboratory Results 05/09/20 12:45: WBC 8.8, RBC 4.67, Hgb 13.7, Hct 40.1, MCV 85.9, MCH 29.3, MCHC 34.2, RDW Std Deviation 40.3, RDW Coeff of Alivia 13.0, Plt Count 312, MPV 8.7, Immature Gran % (Auto) 0.500, Neut % (Auto) 64.3, Lymph % (Auto) 24.9, [place] % (Auto) 6.7, Eos % (Auto) 3.0, Baso % (Auto) 0.6, Absolute Neuts (auto) 5.7, Absolute Lymphs (auto) 2.19, Nucleated RBC % 0, ESR 18 H 05/09/20 12:45: Sodium 137, Potassium 4.5, Chloride 103, Carbon Dioxide 29.0, Anion Gap 5, BUN 23 H, Creatinine 1.28, Estim Creat Clear Calc 89.85, Est GFR (MDRD) Af Amer 79, Est GFR (MDRD) Non-Af 66, BUN/Creatinine Ratio 18.0, Glucose 138 H, Calcium 9.1, Total Bilirubin 0.60, AST 16, ALT 25, Alkaline Phosphatase 52, C-React Prot Ext Range 17.20 H, Total Protein 7.6, Albumin 3.4, Globulin 4.2, Albumin/Globulin Ratio 0.8 L 05/09/20 12:45: Lactic Acid 0.9 05/09/20 12:45: Hemoglobin A1c 6.4 H 05/09/20 21:46: POC Glucose 116 H 05/10/20 05:02: WBC 7.4, RBC 4.12 L, Hgb 11.9 L, Hct 35.8 L, MCV 86.9, MCH 28.9, MCHC 33.2, RDW Std Deviation 40.3, RDW Coeff of Alivia 13.1, Plt Count 266, MPV 8.3, Immature Gran % (Auto) 0.300, Neut % (Auto) 50.2, Lymph % (Auto) 36.4, [place] % (Auto) 8.0, Eos % (Auto) 4.3, Baso % (Auto) 0.8, Absolute Neuts (auto) 3.7, Absolute Lymphs (auto) 2.69, Nucleated RBC % 0 05/10/20 05:02: Sodium 141, Potassium 4.1, Chloride 110 H, Carbon Dioxide 26.0, Anion Gap 5, BUN 18, Creatinine 1.17, Estim Creat Clear Calc 98.30, Est GFR (MDRD) Af Amer 88, Est GFR (MDRD) Non-Af 73, BUN/Creatinine Ratio 15.4, Glucose 101, Calcium 8.3 L 05/10/20 06:01: POC Glucose 105 MRI taken on 05/09/2020: report pending Current Medications Acetaminophen (Tylenol) 650 mg PO Q6H PRN PRN PRN Reason: Pain Score 1-10/Temp > 100.7 F Dextrose (D50w Syringe) 0 gm IV X1 PRN; Protocol PRN Reason: Hypoglycemia Enoxaparin Sodium (Lovenox) 40 mg SC DAILY [facility] Glimepiride (Amaryl) 4 mg PO DAILY@0800 [facility] Glucagon () 1 mg IM .X1 PRN PRN Reason: Hypoglycemia Piperacillin Sod/Tazobactam (Sod 3.375 gm/ Sodium Chloride) 50 mls @ 12.5 mls/hr IV Q8 [facility] Last Admin: 05/10/20 05:58 Dose: 12.5 mls/hr Documented by: Vancomycin IV Pharmacy to Dose (1 ea/ Sodium Chloride) 500 mls @ 250 mls/hr IV X1 PRN; Protocol PRN Reason: . PRN Vancomycin HCl 2,000 mg/ (Sodium Chloride) 540 mls @ 250 mls/hr IV Q12H [facility] Last Infusion: 05/10/20 04:31 Dose: Infused Documented by: Insulin Glargine (Lantus (Bkc)) 10 units SC QHS [facility] Last Admin: 05/09/20 21:49 Dose: Not Given Documented by: Insulin Human Lispro (Humalog Kwikpen (Bkc)) 0 unit SC TIDAC [facility]; Protocol Last Admin: 05/10/20 06:01 Dose: Not Given Documented by: Lisinopril (Zestril) 10 mg PO DAILY [facility] Loratadine (Claritin) 10 mg PO DAILY [facility] Metformin HCl (Glucophage) 500 mg PO BIDCM [facility] Last Admin: 05/09/20 19:05 Dose: 500 mg Documented by: Metoprolol Succinate (Toprol Xl (Beta Cheryl)) 50 mg PO DAILY [facility] Ondansetron HCl (Zofran) 4 mg IV Q8H PRN PRN PRN Reason: NAUSEA/VOMITING Oxycodone HCl (Oxyir) 5 mg PO Q4H PRN PRN PRN Reason: Pain Score 6-10/10 Assessment/Plan All Active Problems (Last Reviewed 05/09/20 @ 15:[address] Song Francis, ) Right foot infection (Acute) Cellulitis of right foot (Acute) Osteomyelitis of left foot (Resolved) Assessment: This is a 40-year-old male with past medical history of diabetes mellitus type 2 polyneuropathy who was admitted on May 09, 2020 for right foot cellulitis and possible abscess status post puncture wound. Plan: Patient chart reviewed and patient evaluated. Full discussion had with the patient about the patient's current clinical condition. At this time, I discussed with the patient that the MRI has been completed, but we are awaiting the report. As read by me, there is a possible abscess in the area of the fourth metatarsal head and fourth metatarsal phalangeal joint of the right foot. Due to this, I would like to make the patient n.p.o. immediately for possible surgical intervention today. Surgical intervention would include incision and drainage of the right foot wound with a washout. I discussed with the patient the risks and benefits of surgical intervention. Due to the limb and life-threatening infection that could be present, I would recommend surgical intervention. Patient is agreeable to this. We will anticipate surgical intervention today pending on the MRI results. Overall, the right foot does appear better than previous assessment with a decrease in cellulitis. Hopefully, we can avoid surgery and have the patient just continue on the IV antibiotics. I did discuss the plan with the patient, the patient is agreeable for surgical intervention if necessary. We will await the official MRI report for further decision-making. At this time, patient is n.p.o. for now with possible surgical intervention in the afternoon of today, May 10. I will continue to follow patient closely and update accordingly. Thank you very much for the consultation and allowing me to take part in the care of your patient. Office Visits / Consults: [id number] IP Consult L3
--- NOTE | 2020-05-10 08:41 | PCM.PN.HOSP ---
Patient Problems: Active and Suspected Problems (Last Reviewed 05/09/20 @ 15:[address] Song Francis, DO) Right foot infection (Acute) Cellulitis of right foot (Acute) Subjective: Feeling okay. Frustrated as he just got the L foot healed from his last admission. Vitals/I&O's: Vital Signs Temp Pulse Resp BP Pulse Ox 98.2 F 67 16 110/79 97 05/10/20 06:00 05/10/20 06:00 05/10/20 06:00 05/10/20 06:00 05/10/20 06:00 Oxygen Delivery Method Room Air Weight: 120.9 kg Body Mass Index (BMI) 33.3 Finger Stick Blood Glucose 227 Intake and Output for Last 24 Hours 05/08/20 05/09/20 05/10/20 23:59 23:59 23:59 Intake Total 1635 / 1635 1430 / 1430 Output Total 275 / 275 625 / 625 Balance 1360 / 1360 805 / 805 General: Alert, Oriented x3, Cooperative, No apparent distress, Well developed, Well nourished, - - WM lying in bed watching TV Lungs: Clear to auscultation, Normal air movement, No rhonchi, No wheeze, No rales Cardiovascular: Regular rate, Regular Rhythm, Normal S1, Normal S2, No murmurs, No Ectopic Activity Abdomen: Bowel Sounds Present, Soft, Non Tender, Non-Distended, Obese Extremities: No clubbing, No cyanosis, No edema, Capillary Refill Less than 3 Seconds, No Calf Tenderness, Peripheral Pulses Normal, - - R Foot dressed with LANI bandage covering Psych/Mental Status: Normal Affect, Appropriate, Alert and oriented to time, place, person, mood and affect Laboratory Results 05/09/20 12:45: WBC 8.8, RBC 4.67, Hgb 13.7, Hct 40.1, MCV 85.9, MCH 29.3, MCHC 34.2, RDW Std Deviation 40.3, RDW Coeff of Alivia 13.0, Plt Count 312, MPV 8.7, Immature Gran % (Auto) 0.500, Neut % (Auto) 64.3, Lymph % (Auto) 24.9, [place] % (Auto) 6.7, Eos % (Auto) 3.0, Baso % (Auto) 0.6, Absolute Neuts (auto) 5.7, Absolute Lymphs (auto) 2.19, Nucleated RBC % 0, ESR 18 H 05/09/20 12:45: Sodium 137, Potassium 4.5, Chloride 103, Carbon Dioxide 29.0, Anion Gap 5, BUN 23 H, Creatinine 1.28, Estim Creat Clear Calc 89.85, Est GFR (MDRD) Af Amer 79, Est GFR (MDRD) Non-Af 66, BUN/Creatinine Ratio 18.0, Glucose 138 H, Calcium 9.1, Total Bilirubin 0.60, AST 16, ALT 25, Alkaline Phosphatase 52, C-React Prot Ext Range 17.20 H, Total Protein 7.6, Albumin 3.4, Globulin 4.2, Albumin/Globulin Ratio 0.8 L 05/09/20 12:45: Lactic Acid 0.9 05/09/20 12:45: Hemoglobin A1c 6.4 H 05/09/20 21:46: POC Glucose 116 H 05/10/20 05:02: WBC 7.4, RBC 4.12 L, Hgb 11.9 L, Hct 35.8 L, MCV 86.9, MCH 28.9, MCHC 33.2, RDW Std Deviation 40.3, RDW Coeff of Alivia 13.1, Plt Count 266, MPV 8.3, Immature Gran % (Auto) 0.300, Neut % (Auto) 50.2, Lymph % (Auto) 36.4, [place] % (Auto) 8.0, Eos % (Auto) 4.3, Baso % (Auto) 0.8, Absolute Neuts (auto) 3.7, Absolute Lymphs (auto) 2.69, Nucleated RBC % 0 05/10/20 05:02: Sodium 141, Potassium 4.1, Chloride 110 H, Carbon Dioxide 26.0, Anion Gap 5, BUN 18, Creatinine 1.17, Estim Creat Clear Calc 98.30, Est GFR (MDRD) Af Amer 88, Est GFR (MDRD) Non-Af 73, BUN/Creatinine Ratio 15.4, Glucose 101, Calcium 8.3 L 05/10/20 06:01: POC Glucose 105 Current Medications Acetaminophen (Tylenol) 650 mg PO Q6H PRN PRN PRN Reason: Pain Score 1-10/Temp > 100.7 F Dextrose (D50w Syringe) 0 gm IV X1 PRN; Protocol PRN Reason: Hypoglycemia Enoxaparin Sodium (Lovenox) 40 mg SC DAILY [facility] Glimepiride (Amaryl) 4 mg PO DAILY@0800 [facility] Glucagon () 1 mg IM .X1 PRN PRN Reason: Hypoglycemia Piperacillin Sod/Tazobactam (Sod 3.375 gm/ Sodium Chloride) 50 mls @ 12.5 mls/hr IV Q8 [facility] Last Admin: 05/10/20 05:58 Dose: 12.5 mls/hr Documented by: Vancomycin IV Pharmacy to Dose (1 ea/ Sodium Chloride) 500 mls @ 250 mls/hr IV X1 PRN; Protocol PRN Reason: . PRN Vancomycin HCl 2,000 mg/ (Sodium Chloride) 540 mls @ 250 mls/hr IV Q12H [facility] Last Infusion: 05/10/20 04:31 Dose: Infused Documented by: Insulin Glargine (Lantus (Bkc)) 10 units SC QHS [facility] Last Admin: 05/09/20 21:49 Dose: Not Given Documented by: Insulin Human Lispro (Humalog Kwikpen (Bkc)) 0 unit SC TIDAC [facility]; Protocol Last Admin: 05/10/20 06:01 Dose: Not Given Documented by: Lisinopril (Zestril) 10 mg PO DAILY [facility] Loratadine (Claritin) 10 mg PO DAILY [facility] Metformin HCl (Glucophage) 500 mg PO BIDCM [facility] Last Admin: 05/09/20 19:05 Dose: 500 mg Documented by: Metoprolol Succinate (Toprol Xl (Beta Cheryl)) 50 mg PO DAILY [facility] Ondansetron HCl (Zofran) 4 mg IV Q8H PRN PRN PRN Reason: NAUSEA/VOMITING Oxycodone HCl (Oxyir) 5 mg PO Q4H PRN PRN PRN Reason: Pain Score 6-10/10 STROKE Vital Signs/Narrative: Vital Signs Temp Pulse Resp BP Pulse Ox 05/10/20 06:00 98.2 F 67 16 110/79 97 Medical Necessity - Tobacco Use Smoking Status: Never smoker Tobacco Use: Chew Assessment/Plan All Active Problems (Last Reviewed 05/09/20 @ 15:[address] Song Francis, DO) Right foot infection (Acute) Cellulitis of right foot (Acute) Osteomyelitis of left foot (Resolved) Osteomyelits/Soft Tissues infection of the R Foot -pt stepped on nail about 2 weeks ago (04/27/2020) -treated with Keflex after going to Urgent care but no better and f/u with Dr. Rodriguez (05/04/2020) -was placed on doxy and Cipro after wound irrigated and cx done (Cx + for Staph epi) -F/U with Dr. Rodriguez wound looked worse therefore sent to ED (05/09/2020) -MRI with Osteo of the 4th metatarsal head and 4th proximal phalanx -Dr. Rodriguez following and to OR today for I&D with washout -blood cx pending -ESR 18 -await bone cx from surgery -will likely need [facility] abx unless amputation required -continue Vanc and Zosyn Mild Anemia -will trend [id number] -A1c is 6.4 -continue lantus 10 u at HS -hold home metformin and glimepiride -once eating will do SSI but pt NPO today for OR -BGT are stable--> will check q 6 and prn until able to eat after OR HTN -continue BB/lisinopril Tobacco Abuse -chews -denies need for nicotine patch DVT prophylaxis -Lovenox Code Status Full Inpatient E&M: 57982 Subs Hosp L2
[2020-05-10] MEDS: Lisinopril 10 MG Tablet PO (10:07)
[2020-05-10] MEDS: Loratadine 10 MG Tablet PO (10:07)
[2020-05-10] MEDS: Metoprolol(XL)Succ 50 MG Tablet PO (10:07)
--- NOTE | 2020-05-10 10:20 | CASEMGMT ---
RN KRISTIE Face to Face with patient for initial transition planning/care coordination assessment. RN CM introduced self and role at [facility]. Patient lying in bed, alert and oriented. Patient willing to participate in assessment and is able to answer all questions appropriately. Care providers, pharmacy, and demographics verified. Patient wishes to discharge home, denies need for home health at this time. Patient states he has no further needs or concerns at this time. CM to follow for discharge planning needs that may arise. PCP: Jovani Specialists: Hiral Rodriguez; podiatry Preferred Pharmacy: [facility] Insurance: [employer] Prescription Benefit: yes Living Will/HPOA: none LNOK: Living Arrangements: Patient lives with in 1 story home with 3 steps to enter the home. Patient is independent at home. Transportation: self/ DME/HHC: Patient states he has walker and knee scooter. Disposition Plan: Patient to discharge home with family support and follow-up plans in place. Jada DE LEON, RN, CM
[2020-05-10 11:56] LABS: Bedside Glucose 96 mg/dL (70-110)
[2020-05-10] MEDS: Lactated Ringers 1,000 ML 100 ML IV (12:15)
--- NOTE | 2020-05-10 13:00 | BON_PTH ---
PATIENT: LIU HATCH LOC: [facility] U#:[id number] AGE/SX: 40/M ROOM: IL310 RE05/09/[address]: Dr. Sarah Gaines DO : 1980 BED: 1 DIS: 05/11/2020 SPEC #: [id number] RECD: 05/10/20 15:17 STATUS: CHRISTY RE #: [id number] JOHN: 05/10/20 13:[address]: Sarah Gaines DEPT: SURGICAL PATHOLOGY RECD BY: Asaf Cavazos ENTERED: 05/11/20 09:14 SP TYPE: Bone OTHR DR: DO Dr. Too Jaffe MD Dr. Timothy J Miller, DPM Saskia Hahn NP-C Tissues: A - Bone of foot, NOS B - Bone of foot, NOS Procedures: Decalcification bone/plaque Special Stain Group I Surgery Specimen Level III AFB Stain (control) GMS Stain (control) HEADER OPERATION: Foot I & D, wound debridement, bone biopsy PRE-OP DIAGNOSIS: Cellulitis and right foot infection TISSUE SUBMITTED: A - Fourth metatarsal head, B - Proximal phalanx MICROSCOPIC DIAGNOSIS A. Fourth metatarsal head: A piece of bone, negative for acute osteomyelitis. B. Proximal phalanx: Fragments of fibroadipose tissue with acute inflammation and abscess formation. A minute fragment of bone, negative for acute osteomyelitis. Special stains for acid fast bacilli and fungi are negative for organisms; matched controls are appropriate. BEV:tereza 05/16/20 MICROSCOPIC DESCRIPTION Slides are reviewed. GROSS DESCRIPTION A - Received in fixative is one container labeled with the patient's name and designated fourth metatarsal head right. The specimen consists of a fragment of bone measuring 0.3 x 0.2 x 0.1 cm. The specimen is totally submitted in one cassette after decalcification. B - Received in fixative is one container labeled with the patient's name and designated proximal phalanx right. The specimen consists of multiple irregular fragments of camp soft tissue that in aggregate measure 2 x 1 x 0.1 cm. The specimen is totally submitted in one cassette. / BEV:tereza 05/11/20 TC:2 CPT: 39816 x2, 34886, 80134 x2
[2020-05-10] MEDS: Bupivacaine Mpf 0.5% 30 ML VIAL (14:30)
--- NOTE | 2020-05-10 15:08 | PCM.OPRPT ---
Problem List (1) Cellulitis of right foot Status: Acute (2) Right foot infection Status: Acute Report of Operation Date of Procedure: 05/10/20 Pre-Operative Diagnosis: 1. Right foot cellulitis. 2. Possible osteomyelitis, right foot. 3. Puncture wound right foot Post-Operative Diagnosis: Same as preoperative Surgery/Procedure Performed:: 1. Right foot incision and drainage. 2. Right foot wound washout. 3. Right foot bone biopsy from fourth metatarsal head and fourth proximal phalanx. Description of Surgical Findings:: Consistent with diagnosis. Bone of fourth metatarsal and the fourth proximal phalanx appeared hard and healthy. No signs of osteonecrosis noted. Bone appeared pearly white. Type of Anesthesia:: Local MAC - 20 cc of 0.5% Marcaine plain was distributed in a right ankle block fashion Anesthesiologist: Juan Cates Specimen's removed: 1. Right foot fourth metatarsal head bone for culture and microbiology. 2. Right foot fourth metatarsal head bone for pathology. 3. Right foot fourth proximal phalanx bone for culture and microbiology. 4. Right foot fourth proximal phalanx bone for pathology. 5. Wound culture of right foot wound for aerobic, anaerobic, acid-fast, fungal organisms status post washout Drains: 1/4 inch iodoform packing Estimated Blood Loss (mL): 10 Description of Procedure: Hemostasis: Pneumatic calf tourniquet placed to the level of the right calf at 250 mmHg for 60 minutes Blood loss: 10 mL Materials: #1. 1/4 inch iodoform packing. 2. Size 0 Vicryl. 3. Size 2-0 Vicryl. 4. Size 0 Prolene. 5. Size 2-0 nylon. Injectables: 10 mL of 0.5 to Marcaine plain Complications: None Condition: Stable Indications: This patient is a 40-year-old male with a past medical history of diabetes mellitus type 2 who on April 27, 2020, stepped on a nail with his right foot. Patient detailed to me that he stepped on his foot with a nail through his boot, but other reports states that he was barefoot when he stepped on the nail. Patient states that the nail did penetrate his foot at that time. After the incident, patient presented to an urgent care. At that time, the nail was removed. Furthermore, the wound site was irrigated. Patient was instructed to perform daily dressing changes with bacitracin and a Band-Aid. He was given a prescription for Keflex. Patient then presented to my office 1 week after the incident on Monday, May 04, 2020. There was localized erythema around the wound, but no evidence of drainage, fluctuance, crepitus. At that time, I performed a thorough irrigation of the wound, and obtained wound cultures. Furthermore, instructed the patient on daily dressing changes and switch his antibiotics to doxycycline and ciprofloxacin. I instructed the patient at that time that if the wound becomes worse or if he experiences signs of systemic infection, he is to report to the emergency department immediately. Patient return to my office on Saturday, May 09, 2020 for further evaluation. Upon viewing the wound yesterday, there is an increase in cellulitic appearance with cellulitis streaking from the wound to his midfoot. Due to the failure of oral therapy, I urged the patient to present to the emergency department for further evaluation and admittance for IV antibiotics and her MRI of the right foot. Patient was admitted on May 09, 2020 and an MRI was ordered of the right foot. MRI revealed early osteomyelitis versus reactive bone edema of the fourth metatarsal head and fourth proximal phalanx. After discussing the MRI results with the patient, it was determined that a surgical intervention to washout the wound along with a bone biopsy for further treatment planning would greatly benefit the patient help and return to activities of daily living. Operative report: Before the patient was brought to the operating room, the risks, benefits, possible outcomes, possible complications of the procedure discussed with the patient. All the patient's questions were answered to his satisfaction and all of his concerns were addressed. No guarantees were made as to the outcome of the procedure. The risks include but not limited to delayed or nonhealing wounds, delayed or nonhealing bone, DVT, infection, decreased function of limb, loss of limb, decreased function of fourth toe, loss of life. Patient displayed verbal understanding, and consent was then signed by the patient. Patient was then brought to the operating room and placed on the operating table in supine position. After timeout, under IV sedation, 20 mL of 0.5% Marcaine plain was distributed in a right ankle block fashion. Next, a well-padded pneumatic calf tourniquet was placed to level the right calf. The right foot, ankle, leg were then scrubbed, prepped, draped in the usual sterile manner. Elevation of the right lower extremity was followed by exsanguination via Esmarch and inflation of the pneumatic calf tourniquet to 250 mmHg. Attention was then directed to the plantar aspect of the right foot in the area of the fourth metatarsal head. At this time, the puncture wound was identified. Next, a linear longitudinal incision was made starting from the plantar aspect of the base of the proximal phalanx of the fourth digit of the right foot extending proximally to the level of the neck of the fourth metatarsal, centered over the puncture wound. This incision was approximately 2 cm in length. This incision was deepened utilizing sharp and blunt dissection. Care was taken to retract all vital neural and vascular structures. All bleeders were cauterized and ligated as necessary. Next, blunt dissection was continued down deep to the level of the fourth metatarsal phalangeal joint. This was then sharply incised in fashion to that similar of the skin. At this time, the bones of the fourth metatarsal head and bones of the fourth proximal phalanx were identified and investigated. These bones appeared hard, healthy, pearly white with no signs of osteonecrosis. No signs of infection were present. Next, the surgical site was irrigated via a pulse lavage with 3 L of normal sterile saline. The right foot, ankle, leg were then re-scrubbed and draped. At this time, wound cultures of the right foot wound were taken for aerobic, anaerobic, acid-fast, fungal organisms status post washout. Next, a Jamshidi needle was used to remove a portion of the fourth metatarsal head bone. A portion of the specimen was then sent for pathology and the other portion was sent for microbiology. These were both labeled fourth metatarsal head right foot . At this time, a new Jamshidi needle was used to remove a portion of the bone of the base of the fourth proximal phalanx. A portion of this specimen was sent for pathology and the other portion was sent for microbiology. These were both labeled fourth proximal phalanx right foot. Investigation was performed of the bones once again. The all appeared hard, healthy, pearly white with no signs of osteonecrosis. At this time, the periosteal, capsular, and deep soft tissue structures were reapproximated coapted utilizing size 0 Vicryl at the distal and proximal aspects of the incision. The subcutaneous tissues of the distal and proximal aspect of the incision were reapproximated coapted utilizing size 2-0 Vicryl. The skin of the distal and proximal aspects of the surgical site were reapproximated coapted utilizing size 0 Prolene and size 2-0 nylon. The central portion of the incision site was left open intentionally. At this time, 1/4 inch iodoform packing was placed into the surgical wound at the central portion of the incision. Retention sutures were then placed through the wound to tie off at a later date. At this time, the pneumatic calf tourniquet was then released and a prompt hyperemic response noted to the entirety of the right lower extremity. The surgical site was then dressed with Betadine soaked gauze, and a dry sterile dressing consisting of 4 x 4 gauze, ABD pads, wrapped with Kerlix. The right foot and ankle were then wrapped in Kody bandage. Neurovascular status was assessed at the end of the application and deemed intact to the right lower extremity. Patient tolerated the anesthesia and the procedure well and was transported to the PACU with vital signs stable and neurovascular status intact to the right lower extremity. After period of postoperative monitoring, patient will be transferred back to the general medical floor and will continue to be followed by me while in house. At this time, the dressing is to be kept clean, dry, intact until I see the patient next. Patient is to not place any weight on his right foot. Patient is to elevate his right foot above level of heart as often as possible and to place ice on his right ankle as needed. Dressing can be reinforced to the right foot with gauze, Kerlix, Kody bandage. I will continue to follow the patient closely and update accordingly. - Complications None - Admit VTE Documentation VTE Present on Admission: No VTE Mechan Device Prophylaxis: SCD's VTE Pharm Prophylaxis ordered?: Yes
[2020-05-10 15:15] LABS: Bedside Glucose 80 mg/dL (70-110)
--- NOTE | 2020-05-10 15:30 | RAD_ITS ---
STUDY: X-RAY - RIGHT FOOT CLINICAL: Male, 40 years old. S/P BONE BIOPSY RIGHT FOOT. 4TH MET HEAD/PROX PHALAN TECHNIQUE: 3 view(s) of the foot. COMPARISON: None. FINDINGS: Normal talus, calcaneus, and tarsal bones. Normal visualized subtalar, talonavicular, calcaneocuboid, tarsal and tarsometatarsal articulations. Normal metatarsi. Normal metatarsophalangeal joint of the great toe. Normal tibial and fibular sesamoid bones. Normal interphalangeal joint of the great toe. Normal phalanges of the great toe. Normal second through fifth metatarsophalangeal joints. Normal interphalangeal joints and phalanges of the lesser toes. There are edematous changes within the soft tissues at the level of the fourth metatarsal phalangeal joint. No tisha lytic destructive changes are seen.. No evidence for acute fracture or dislocation. RAD/Foot min 3 Views IMPRESSION: Soft tissue swelling at the level of the fourth metatarsal phalangeal joint. No significant bony pathology Electronically Signed: Carl Vincent MD at 15:58 EDT , Service support ,
--- NOTE | 2020-05-10 15:59 | CHAPLAIN ---
Type of Pastoral Visit ___ Initial Visit ___ Follow-up Visit ___ On-call Visit ___ General Patient Visit ___ Spiritual Assessment ___ Family Conference ___ Bereavement ___ Rapid Response ___ Code Blue ___ Other (describe below) Pastoral Care Referral From ___ Patient ___ Family ___ Nurse ___ Physician ___ Statement Processor ___ Grain Inspector ___ Other (describe below) Sacrament/Intervention ___ Active listening ___ Anointing ___ Buddhism ___ Bereavement ___ Communion ___ Justine exploration ___ ___ Life review ___ Prayer ___ Reconciliation ___ Sacrament of Sick ___ Supportive presence ___ Wedding ___ Other (describe below) Pastoral Comments patient and bed were out of the room; calling card left
[2020-05-10 17:26] LABS: Bedside Glucose 112 mg/dL (70-110)
[2020-05-10] MEDS: 0.9% Saline Lock 10 ML Syringe IV (18:01)
[2020-05-10 21:51] LABS: Bedside Glucose 147 mg/dL (70-110)
[2020-05-11 01:48] LABS: Vancomycin, Trough Level 23.3 ug/mL (5.0-15.0)
--- NOTE | 2020-05-11 02:26 | PCM.RX.CS ---
Consult Pharmacy has been consulted to manage selected antiobiotic: Vancomycin Type of Consult: Follow-up Suspected Infection: Osteomyelitis Labs: Sodium 141 mmol/L (136-145) 05/10/20 05:02 Potassium 4.1 mmol/L (3.5-5.1) 05/10/20 05:02 Chloride 110 mmol/L (98-107) H 05/10/20 05:02 Carbon Dioxide 26.0 mmol/L (21.0-32.0) 05/10/20 05:02 Anion Gap 5 (5-15) 05/10/20 05:02 BUN 18 mg/dL (7-18) 05/10/20 05:02 Creatinine 1.17 mg/dL (0.70-1.30) 05/10/20 05:02 Est GFR (MDRD) Af Amer 88 mL/min (>60) 05/10/20 05:02 Est GFR (MDRD) Non-Af 73 mL/min (>60) 05/10/20 05:02 BUN/Creatinine Ratio 15.4 RATIO (10-20) 05/10/20 05:02 Glucose 101 mg/dL (74-106) 05/10/20 05:02 Vancomycin Trough 23.3 ug/mL (5.0-15.0) H 05/11/20 00:58 Goal Trough: 15-20 mcg/mL Pharmacy Plan for Drug Dosing: Pharmacy Service will continue to monitor and adjust dosing as required. TROUGH 23.3 HOLD NEXT DOSE AND RANDOM TROUGH IN 24 HOURS Follow-Up Labs: Trough Vancomycin Labs to be done on [date and time ordered]: 05/12 @ 0030
[2020-05-11 02:30] VITALS: BP 115/77; PULSE 76; RESP 18; TEMP 36.8; O2SAT 96
[2020-05-11] MEDS: 0.9% Normal Saline 1,000 ML 15 ML IV (05:44)
[2020-05-11 06:03] LABS: Absolute Lymphocyte Count 1.98 X10^3/uL (0.83-4.51); Absolute Neutrophil Count 5.4 X10^3/uL (2.0-7.7); Basophil# 0.06 X10^3/uL; Basophil% 0.7 % (0-1); Eosinophil# 0.25 X10^3/uL; Hematocrit 36.2 % (40-54); Hemoglobin 12.2 g/dL (13.0-16.5); Lymphocyte # 1.98 X10^3/ul (4.0); Lymphocyte % 23.6 % (19-41); Mean Corp Hgb Conc 33.7 g/dL (32-36); Mean Corpuscular Hgb 28.8 pg (27.0-32.0); Mean Corpuscular Volume 85.4 fL (80-94); Mean Platelet Vol. 8.4 fl (6.2-12.0); Monocyte% 8.3 % (0-10); NRBC Flagged by Analyzer 0 % (0-5); Neutrophil # 5.37 X10^3/uL (2.7-7.7); Platelet Count 277 K/mm3 (150-450); RBC Distribution Width CV 12.9 % (11.6-14.6); RBC Distribution Width SD 39.6 fl (35.1-43.9); Red Blood Count 4.24 M/mm3 (4.6-6.2); White Blood Count 8.4 K/mm3 (4.4-11.0)
[2020-05-11 06:36] LABS: Anion Gap 5 (5-15); BUN 15 mg/dL (7-18); BUN/Creat Ratio 11.6 RATIO (10-20); Calcium,Total 8.4 mg/dL (8.5-10.1); Chloride 108 mmol/L (98-107); Creatinine, Serum 1.29 mg/dL (0.70-1.30); EST Glomerular Filtration Rate 65 mL/min (>60); Est Glom Filt Rate - Afr Amer 79 mL/min (>60); Estimated Creatinine Clearance 89.16 ml/min; Glucose 130 mg/dL (74-106); Sodium Level 141 mmol/L (136-145)
[2020-05-11 06:55] LABS: Bedside Glucose 130 mg/dL (70-110)
--- NOTE | 2020-05-11 08:59 | PN_ITS ---
Patient Problems: Active and Suspected Problems (Last Reviewed 05/09/20 @ 15:[address] Song Francis, DO) Right foot infection (Acute) Cellulitis of right foot (Acute) Subjective: Feeling well. Intermittent pain in foot but no meds needed. No issues overnight. Vitals/I&O's: Vital Signs Temp Pulse Resp BP Pulse Ox 98.3 F 76 18 115/77 96 05/11/20 02:30 05/11/20 02:30 05/11/20 02:30 05/11/20 02:30 05/11/20 02:30 Oxygen Delivery Method Room Air Weight: 120.9 kg Body Mass Index (BMI) 33.3 Finger Stick Blood Glucose 80 Intake and Output for Last 24 Hours 05/09/20 05/10/20 05/11/20 23:59 23:59 23:59 Intake Total 1635 / 1635 3597 / 3597 963 / 963 Output Total 275 / 275 1175 / 1175 700 / 700 Balance 1360 / 1360 2422 / 2422 263 / 263 General: Alert, Oriented x3, Cooperative, No apparent distress, Well developed, Well nourished, - - WM lying in bed and appears comfortable Oral: Moist Mucosa Lungs: Clear to auscultation, Normal air movement, No rhonchi, No wheeze, No rales Cardiovascular: Regular rate, Regular Rhythm, Normal S1, Normal S2, No murmurs, No Ectopic Activity, No rub noted, No Gallop Abdomen: Bowel Sounds Present, Soft, Non Tender, Non-Distended, Obese, No hernias noted Extremities: No clubbing, No cyanosis, No edema, Capillary Refill Less than 3 Seconds, - - R Foot with dressing and LANI bandage in place Psych/Mental Status: Normal Affect, Appropriate, Alert and oriented to time, place, person, mood and affect Laboratory Results 05/10/20 10:45: COVID-19 (FELICIANO) Not Detected 05/10/20 11:47: POC Glucose 96 05/10/20 15:07: POC Glucose 80 05/10/20 16:30: POC Glucose 112 H 05/10/20 21:40: POC Glucose 147 H 05/10/20 : Acid Fast Stain Pending, Miscellaneous Cytology Pending 05/10/20 : Acid Fast Stain Pending, Miscellaneous Cytology Pending 05/11/20 00:58: Vancomycin Trough 23.3 H 05/11/20 05:50: WBC 8.4, RBC 4.24 L, Hgb 12.2 L, Hct 36.2 L, MCV 85.4, MCH 28.8, MCHC 33.7, RDW Std Deviation 39.6, RDW Coeff of Alivia 12.9, Plt Count 277, MPV 8.4, Immature Gran % (Auto) 0.400, Neut % (Auto) 64.0, Lymph % (Auto) 23.6, Buchanan % (Auto) 8.3, Eos % (Auto) 3.0, Baso % (Auto) 0.7, Absolute Neuts (auto) 5.4, Absolute Lymphs (auto) 1.98, Nucleated RBC % 0 05/11/20 05:50: Sodium 141, Potassium 4.0, Chloride 108 H, Carbon Dioxide 28.0, Anion Gap 5, BUN 15, Creatinine 1.29, Estim Creat Clear Calc 89.16, Est GFR (MDRD) Af Amer 79, Est GFR (MDRD) Non-Af 65, BUN/Creatinine Ratio 11.6, Glucose 130 H, Calcium 8.4 L 05/11/20 06:49: POC Glucose 130 H Current Medications Acetaminophen (Tylenol) 650 mg PO Q6H PRN PRN PRN Reason: Pain Score 1-10/Temp > 100.7 F Hydrocodone Bitart/Acetaminophen ([place] 5mg-325mg) 1 tablet PO Q4H PRN PRN PRN Reason: Pain Score 6-10/10 Dextrose (D50w Syringe) 0 gm IV X1 PRN; Protocol PRN Reason: Hypoglycemia Enoxaparin Sodium (Lovenox) 40 mg SC DAILY COUNTS INCLUDE 234 BEDS AT THE [facility] Last Admin: 05/10/20 10:06 Dose: Not Given Documented by: Glucagon () 1 mg IM .X1 PRN PRN Reason: Hypoglycemia Piperacillin Sod/Tazobactam (Sod 3.375 gm/ Sodium Chloride) 50 mls @ 12.5 mls/hr IV Q8 COUNTS INCLUDE 234 BEDS AT THE [facility] Last Admin: 05/11/20 05:44 Dose: 12.5 mls/hr Documented by: Vancomycin IV Pharmacy to Dose (1 ea/ Sodium Chloride) 500 mls @ 250 mls/hr IV X1 PRN; Protocol PRN Reason: . PRN Sodium Chloride () 250 mls @ 15 mls/hr IV .[id number] PRN PRN Reason: Saline Flush Last Infusion: 05/11/20 05:50 Dose: Infused Documented by: Sodium Chloride () 250 mls @ 15 mls/hr IV .[id number] PRN PRN Reason: Additional IVPB Infusion Sodium Chloride () 1,000 mls @ 15 mls/hr IV .Q48H COUNTS INCLUDE 234 BEDS AT THE [facility] Last Admin: 05/11/20 05:44 Dose: 15 mls/hr Documented by: Insulin Glargine (Lantus ([facility] [place])) 10 units SC QHS COUNTS INCLUDE 234 BEDS AT THE [facility] Last Admin: 05/10/20 21:42 Dose: Not Given Documented by: Insulin Human Lispro (Humalog Kwikpen ([facility])) 0 unit SC TIDAC COUNTS INCLUDE 234 BEDS AT THE [facility]; Protocol Last Admin: 05/11/20 06:52 Dose: Not Given Documented by: Lisinopril (Zestril) 10 mg PO DAILY COUNTS INCLUDE 234 BEDS AT THE [facility] Last Admin: 05/10/20 10:07 Dose: 10 mg Documented by: Loratadine (Claritin) 10 mg PO DAILY COUNTS INCLUDE 234 BEDS AT THE [facility] Last Admin: 05/10/20 10:07 Dose: 10 mg Documented by: Metoprolol Succinate (Toprol Xl (Beta Cheryl)) 50 mg PO DAILY COUNTS INCLUDE 234 BEDS AT THE [facility] Last Admin: 05/10/20 10:07 Dose: 50 mg Documented by: Ondansetron HCl (Zofran) 4 mg IV Q8H PRN PRN PRN Reason: NAUSEA/VOMITING Sodium Chloride () 10 - 40 ml IV UD PRN PRN Reason: SALINE FLUSH Last Admin: 05/10/20 18:01 Dose: 10 ml Documented by: Tramadol HCl (Ultram) 50 mg PO Q6H PRN PRN PRN Reason: Pain Score 1-5/10 Medical Necessity - Tobacco Use Smoking Status: Never smoker Tobacco Use: Chew Assessment/Plan All Active Problems (Last Reviewed 05/09/20 @ 15:[address] Song Francis, DO) Right foot infection (Acute) Cellulitis of right foot (Acute) Osteomyelitis of left foot (Resolved) Osteomyelits/Soft Tissues infection of the R Foot -pt stepped on nail about 2 weeks ago (04/27/2020) -treated with Keflex after going to Urgent care but no better and f/u with Dr. Rodriguez (05/04/2020) -was placed on doxy and Cipro after wound irrigated and cx done (Cx + for Staph epi) -F/U with Dr. Rodriguez wound looked worse therefore sent to ED (05/09/2020) -MRI with Osteo of the 4th metatarsal head and 4th proximal phalanx -Dr. Rodriguez to OR 05/10 for I&D with washout and bone bx for cx -all cx still pending -ESR 18 -continue Vanc and Zosyn until cx result Mild Anemia -will trend [id number] -A1c is 6.4 -continue lantus 10 u at HS -hold home metformin and glimepiride -as and hs BGT -carb control diet -BGT looks good HTN -continue BB/lisinopril Tobacco Abuse -chews -denies need for nicotine patch DVT prophylaxis -Lovenox Code Status Full Inpatient E&M: 01929 Subs Hosp L2
--- NOTE | 2020-05-11 09:04 | NURSING ---
Notified by lab that Dr. Hiral Rodriguez ordered stains without culture. Notified that culture is the gold standard and wondered if he would like acid fast culture with stain, which would be a send out to lab [facility].
--- NOTE | 2020-05-11 09:59 | NURSING ---
This RN called Dr. Galvan's office's answering service to confirm that consult is not accidentally missed. Completed at this time.
[2020-05-11 10:14] VITALS: PULSE 72
[2020-05-11] MEDS: Metoprolol(XL)Succ 50 MG Tablet PO (10:14)
[2020-05-11] MEDS: Lisinopril 10 MG Tablet PO (10:15)
[2020-05-11] MEDS: Enoxaparin 40 MG/0.4 ML Syringe SC (10:15)
[2020-05-11] MEDS: Loratadine 10 MG Tablet PO (10:15)
[2020-05-11] MEDS: Insulin Lispro 100 UNIT/ML INSULN.PEN SC (11:20)
[2020-05-11 11:45] LABS: Bedside Glucose 178 mg/dL (70-110)
[2020-05-11 12:30] VITALS: BP 135/83; PULSE 72; RESP 16; TEMP 36.8; O2SAT 98
--- NOTE | 2020-05-11 13:00 | PN.ORTHO_ITS ---
Patient Problems: Active and Suspected Problems (Last Reviewed 05/09/20 @ 15:[address] Song Francis, DO) Right foot infection (Acute) Cellulitis of right foot (Acute) Subjective: Patient seen at bedside resting comfortably. Patient admits to mild pain of right foot, but improved since surgical intervention. Patient's present at bedside during entire visit. Overall, patient denies any acute complaints. Denies any acute overnight events. No acute events reported overnight by nursing staff. Currently, patient denies fever, chills, nausea, vomiting, shortness of breath, chest pain. Patient denies right calf pain. Objective: Lower extremity physical exam: Dressing is clean, dry, intact of the right foot with no evidence of strikethrough noted. Vascular: Palpable dorsalis pedis and posterior tibial pulse of the right foot. Capillary fill time is less than 3 seconds to all digits of the right foot. Temperature gradient is within normal limits bilaterally. Mild nonpitting edema noted the surgical site on the plantar aspect of the right foot in the area of the fourth metatarsal head. No other areas of edema noted. Neurological: Gross and protective sensation are diminished of the right lower extremity. Musculoskeletal: No evidence of obvious deformity noted the right foot and ankle. Foot appears rectus underneath the tibia at this time. Muscle strength deferred at this time due to recent surgical intervention. Dermatological: Significant decrease in periwound erythema noted on the plantar aspect of the right foot when compared to preoperative assessment. The surgical site of the plantar aspect of the right foot near the fourth metatarsal head is well coapted distally and proximally with a central opening left intact. Evidence of iodoform packing noted in the central aspect. Of the surgical site, there is no fluctuance, no crepitus, no malodor, no purulence. Positive sanguinous drainage noted. Decreasing erythema noted from preoperative assessment. Minimal pain upon palpation compression of the surgical site. Overall, no signs of dehiscence noted. Decreasing signs of acute infection present. - Physical Exam Vitals/I&O's: Vital Signs Temp Pulse Resp BP Pulse Ox 98.3 F 72 16 135/83 H 98 05/11/20 12:30 05/11/20 12:30 05/11/20 12:30 05/11/20 12:30 05/11/20 12:30 Oxygen Delivery Method Room Air Weight: 120.9 kg Body Mass Index (BMI) 33.3 Finger Stick Blood Glucose 80 Intake and Output for Last 24 Hours 05/09/20 05/10/20 05/11/20 23:59 23:59 23:59 Intake Total 1635 / 1635 3597 / 3597 1887.25 / 1887.25 Output Total 275 / 275 1175 / 1175 1100 / 1100 Balance 1360 / 1360 2422 / 2422 787.25 / 787.25 General: Alert, Oriented x3, Cooperative, No apparent distress, Well developed, Well nourished HEENT: Atraumatic, PERRLA Oral: Moist Mucosa Neck: Supple, No JVD Lungs: Clear to auscultation, Normal air movement, No rhonchi, No wheeze, No rales Cardiovascular: Regular rate, Regular Rhythm, Normal S1, Normal S2 Abdomen: Bowel Sounds Present, Soft, Non Tender, Non-Distended Extremities: Capillary Refill Less than 3 Seconds, No Calf Tenderness - Negative Saulo's sign and Negative Bledsoe's sign noted of the right lower extremity, Peripheral Pulses Normal Skin: Ulcer/ Wound - as described above Musculoskeletal: Tenderness - upon palpation and compression of the surgical site Psych/Mental Status: Alert and oriented to time, place, person, mood and affect Microbiology Past 72 Hours 05/10/20 Unknown Tissue - Right Foot Gram Stain - Final 05/10/20 Unknown Tissue - Right Foot Wound Culture - Preliminary Gram positive organism 05/10/20 Unknown Tissue - Right Foot Gram Stain - Final 05/10/20 Unknown Tissue - Right Foot Wound Culture - Preliminary No growth-Final to follow 05/10/20 Unknown Aspirate - Right Foot Gram Stain - Final 05/10/20 Unknown Aspirate - Right Foot Wound Culture - Preliminary Mixed Gram Positive Organisms 05/09/20 12:55 Blood Culture (Wb) - Left Hand Blood Culture - Preliminary No growth in 48 hours. 05/09/20 12:45 Blood Culture (Wb) - Anticubital Right Blood Culture - Preliminary No growth in 48 hours. Laboratory Results 05/10/20 10:45: COVID-19 (FELICIANO) Not Detected 05/10/20 15:07: POC Glucose 80 05/10/20 16:30: POC Glucose 112 H 05/10/20 21:40: POC Glucose 147 H 05/10/20 : Acid Fast Stain Pending, Miscellaneous Cytology Pending 05/10/20 : Acid Fast Stain Pending, Miscellaneous Cytology Pending 05/11/20 00:58: Vancomycin Trough 23.3 H 05/11/20 05:50: WBC 8.4, RBC 4.24 L, Hgb 12.2 L, Hct 36.2 L, MCV 85.4, MCH 28.8, MCHC 33.7, RDW Std Deviation 39.6, RDW Coeff of Alivia 12.9, Plt Count 277, MPV 8.4, Immature Gran % (Auto) 0.400, Neut % (Auto) 64.0, Lymph % (Auto) 23.6, [place] % (Auto) 8.3, Eos % (Auto) 3.0, Baso % (Auto) 0.7, Absolute Neuts (auto) 5.4, Absolute Lymphs (auto) 1.98, Nucleated RBC % 0 05/11/20 05:50: Sodium 141, Potassium 4.0, Chloride 108 H, Carbon Dioxide 28.0, Anion Gap 5, BUN 15, Creatinine 1.29, Estim Creat Clear Calc 89.16, Est GFR (MDRD) Af Amer 79, Est GFR (MDRD) Non-Af 65, BUN/Creatinine Ratio 11.6, Glucose 130 H, Calcium 8.4 L 05/11/20 06:49: POC Glucose 130 H 05/11/20 11:17: POC Glucose 178 H STUDY: X-RAY - RIGHT FOOT CLINICAL: Male, 40 years old. S/P BONE BIOPSY RIGHT FOOT. 4TH MET HEAD/PROX PHALAN TECHNIQUE: 3 view(s) of the foot. COMPARISON: None. FINDINGS: Normal talus, calcaneus, and tarsal bones. Normal visualized subtalar, talonavicular, calcaneocuboid, tarsal and tarsometatarsal articulations. Normal metatarsi. Normal metatarsophalangeal joint of the great toe. Normal tibial and fibular sesamoid bones. Normal interphalangeal joint of the great toe. Normal phalanges of the great toe. Normal second through fifth metatarsophalangeal joints. Normal interphalangeal joints and phalanges of the lesser toes. There are edematous changes within the soft tissues at the level of the fourth metatarsal phalangeal joint. No tisha lytic destructive changes are seen.. No evidence for acute fracture or dislocation. RAD/Foot min 3 Views IMPRESSION: Soft tissue swelling at the level of the fourth metatarsal phalangeal joint. No significant bony pathology Electronically Signed: Carl Vincent MD at 15:58 EDT , Service support , Current Medications Acetaminophen (Tylenol) 650 mg PO Q6H PRN PRN PRN Reason: Pain Score 1-10/Temp > 100.7 F Hydrocodone Bitart/Acetaminophen ([place] 5mg-325mg) 1 tablet PO Q4H PRN PRN PRN Reason: Pain Score 6-10/10 Dextrose (D50w Syringe) 0 gm IV X1 PRN; Protocol PRN Reason: Hypoglycemia Enoxaparin Sodium (Lovenox) 40 mg SC DAILY [facility] Last Admin: 05/11/20 10:15 Dose: 40 mg Documented by: Glucagon () 1 mg IM .X1 PRN PRN Reason: Hypoglycemia Piperacillin Sod/Tazobactam (Sod 3.375 gm/ Sodium Chloride) 50 mls @ 12.5 mls/hr IV Q8 [facility] Last Infusion: 05/11/20 09:49 Dose: Infused Documented by: Vancomycin IV Pharmacy to Dose (1 ea/ Sodium Chloride) 500 mls @ 250 mls/hr IV X1 PRN; Protocol PRN Reason: . PRN Sodium Chloride () 250 mls @ 15 mls/hr IV .[id number] PRN PRN Reason: Saline Flush Last Infusion: 05/11/20 05:50 Dose: Infused Documented by: Sodium Chloride () 250 mls @ 15 mls/hr IV .[id number] PRN PRN Reason: Additional IVPB Infusion Sodium Chloride () 1,000 mls @ 15 mls/hr IV .Q48H [facility] Last Infusion: 05/11/20 11:23 Dose: 15 mls/hr Documented by: Insulin Glargine (Lantus (Bkc)) 10 units SC QHS [facility] Last Admin: 05/10/20 21:42 Dose: Not Given Documented by: Insulin Human Lispro (Humalog Kwikpen (Bkc)) 0 unit SC TIDAC [facility]; Protocol Last Admin: 05/11/20 11:20 Dose: 1 unit Documented by: Lisinopril (Zestril) 10 mg PO DAILY [facility] Last Admin: 05/11/20 10:15 Dose: 10 mg Documented by: Loratadine (Claritin) 10 mg PO DAILY [facility] Last Admin: 05/11/20 10:15 Dose: 10 mg Documented by: Metoprolol Succinate (Toprol Xl (Beta Cheryl)) 50 mg PO DAILY [facility] Last Admin: 05/11/20 10:14 Dose: 50 mg Documented by: Ondansetron HCl (Zofran) 4 mg IV Q8H PRN PRN PRN Reason: NAUSEA/VOMITING Sodium Chloride () 10 - 40 ml IV UD PRN PRN Reason: SALINE FLUSH Last Admin: 05/10/20 18:01 Dose: 10 ml Documented by: Tramadol HCl (Ultram) 50 mg PO Q6H PRN PRN PRN Reason: Pain Score 1-5/10 Medical Necessity - Tobacco Use Smoking Status: Never smoker Tobacco Use: Chew Assessment/Plan All Active Problems (Last Reviewed 05/09/20 @ 15:[address] Song Francis, DO) Right foot infection (Acute) Cellulitis of right foot (Acute) Osteomyelitis of left foot (Resolved) Assessment: This is a 40-year-old male with past medical history significant for diabetes mellitus type 2 with polyneuropathy who is 1 day status post right foot incision and drainage with a washout and bone biopsy of the fourth metatarsal head and fourth proximal phalanx. Plan: Patient chart reviewed and patient evaluated. Full discussion had with the patient and the patient's about the patient's current clinical condition. Radiographs discussed with them at this time. I discussed with the patient that we are still waiting on the culture results. I advised him to continue current antibiotic regimen as instructed. After verbal consent was obtained, iodoform packing was removed in its entirety from the right foot surgical site. Remaining portion of surgical site was then irrigated with copious amounts of normal sterile saline. The remaining portion of the surgical site was then reapproximated coapted utilizing size 2-0 nylon in a simple interrupted fashion. Patient tolerated procedure well without complaints or complications. The surgical site was then dressed with Betadine soaked gauze, and a dry sterile dressing consisting of 4 x 4 gauze wrapped with Kerlix. The right foot and ankle were then wrapped with an Kody bandage. Neurovascular status was assessed at the end of the application and deemed intact to the right lower extremity. At this time, I recommend patient continue nonweightbearing to the right lower extremity with assistive devices. I recommend continue ice around the right ankle as needed and elevation of the right foot above the level of heart as often as possible. Patient already has a pneumatic cam boot for the right foot, which will aid him in his nonweightbearing to the right foot. I recommend that the patient keep the dressing clean, dry, intact to the right lower extremity. Reinforce as needed. Next dressing change will be performed in my office by me as an outpatient. I would like to have the patient follow-up with me in my [place] office on May 17 for further postoperative care. I recommended continuation of broad-spectrum IV antibiotics. I recommend antibiotic course per infectious disease. At this time, there is no further surgical intervention by me. I will have the patient follow-up with me on an outpatient basis. Please do not hesitate to reach out to me with questions or concerns. Thank you for allowing me to take part in the care of your patient. Inpatient E&M: [id number] Subs Hosp L2
--- NOTE | 2020-05-11 13:13 | DCINST_ITS ---
Discharge Activity: May Not Drive, May Not Shower, Use Walker, Use Crutches Weight Bearing Status: No weight bearing Keep extremity elevated above heart level: Right Leg Additional Activity Instructions:: 1. Keep dressing to right foot clean, dry, intact. Do not get dressing wet. If get dressing wet, call office for further instruction. 2. Ice around right ankle 20 minutes on, 20 minutes off, every hour as needed for pain. 3. Elevate right foot above level of heart as often a s possible until follow-up appointment. 4. Take zwzu-[id number] pain medications as needed for pain. 5. No walking or standing on right foot. Use knee scooter for assistance. Use pneumatic cam boot for assistance as well. Call your doctor if your incision/area has: Sudden Increased Bleeding, Increased Pain/ Swelling Call your doctor if you observe: Coldness, Increased Pain, Inability to have a bowel movement, Shortness of breath, Increased palpitations (irregular heartbeat), Calf discomfort, Uncontrolled pain Cleanse incision/area with: Keep Dressing Clean & Dry Allergies/Adverse Reactions: Allergies No Known Allergies Allergy (Verified 05/09/20 12:06) Medications to take at Discharge Glimepiride 4 mg PO DAILY 05/09/20 Insulin Glargine [Lantus SoloStar Pen] 10 units SUBCUT QHS 05/09/20 Lisinopril [Zestril] 10 mg PO DAILY 05/09/20 Loratadine [Claritin] 10 mg PO DAILY 05/09/20 Metformin HCl 500 mg PO BID 05/09/20 Metoprolol(XL)Succ [Toprol Xl (Beta Cheryl)] 50 mg PO DAILY 05/09/20 Primary Care Physician: Saskia Hahn NP-C [Primary Care Provider] - Test Results: Test results from this visit will be discussed in further detail at your follow- up appointment, if applicable. Please Follow Up With: Franklyn Rodriguez DPM When: on May 17 in [place] Office for further post op care
--- NOTE | 2020-05-11 14:53 | PCM.HP.ID ---
Reason for Consult: Diabetic right foot infection Consulted by: Dr. Lizarraga History of Present Illness: The patient is a 40 year old M [] This is a 40-year-old gentleman recently diagnosed with [id number] diabetes mellitus in January when he presented with a complicated left foot infection and at that time required prolonged course of parenteral antibiotic therapy along with debridement of the left foot. Patient was doing well until roughly 2 weeks ago when he stepped on a nail onto his right forefoot. Patient was at home at the time of the injury and was barefoot. Patient went to the emergency department and received a tetanus shot and an oral antibiotic. He then saw his certified addiction counselor Dr. Rodriguez roughly a week later and was prescribed ciprofloxacin plus doxycycline which he took for roughly 4 days prior to come to the hospital. Patient underwent plain films of the right foot as well as an MRI of the right foot. Yesterday patient was taken to the operating room for debridement of the right foot and obtaining cultures. In talking the patient denies any fevers at home no chills. No constitutional symptoms. I did review the operative note from yesterday surgery. - Medical History Past Medical History (Chronic Problems): Chronic Problems (Last Reviewed 05/09/20 @ 15:[address] Song Francis, DO) Polyneuropathy due to type 2 diabetes mellitus (Chronic) Diabetes (Chronic) Allergies/Adverse Reactions: Allergies No Known Allergies Allergy (Verified 05/09/20 12:06) Home Medications: Ambulatory Orders Medication Instructions Recorded Glimepiride 4 mg PO DAILY 05/09/20 Insulin Glargine [Lantus SoloStar 10 units SUBCUT QHS 05/09/20 Pen] Lisinopril [Zestril] 10 mg PO DAILY 05/09/20 Loratadine [Claritin] 10 mg PO DAILY 05/09/20 Metformin HCl 500 mg PO BID 05/09/20 Metoprolol(XL)Succ [Toprol Xl 50 mg PO DAILY 05/09/20 (Beta Cheryl)] Vital Signs Temp Pulse Resp BP Pulse Ox 98.3 F 72 16 135/83 H 98 05/11/20 12:30 05/11/20 12:30 05/11/20 12:30 05/11/20 12:30 05/11/20 12:30 Oxygen Delivery Method Room Air Weight: 120.9 kg Body Mass Index (BMI) 33.3 Finger Stick Blood Glucose 80 Alert and oriented does not appear toxic lungs are clear heart exam S1-S2 abdomen soft nontender left foot the wound ulcers that healed up nicely. Right foot postop dressings are in place Microbiology Past 72 Hours 05/10/20 Unknown Gram Stain - Final Tissue - Right Foot Wound Culture - Preliminary Gram positive organism 05/10/20 Unknown Gram Stain - Final Tissue - Right Foot Wound Culture - Preliminary No growth-Final to follow 05/10/20 Unknown Gram Stain - Final Aspirate - Right Foot Wound Culture - Preliminary Mixed Gram Positive Organisms 05/09/20 12:55 Blood Culture - Preliminary Blood Culture (Wb) - Left Hand No growth in 48 hours. 05/09/20 12:45 Blood Culture - Preliminary Blood Culture (Wb) - Anticubital Right No growth in 48 hours. Laboratory Tests Past 24 Hrs 05/10/20 05/10/20 05/11/20 Unknown Unknown 00:58 WBC RBC Hgb Hct MCV MCH MCHC RDW Std Deviation RDW Coeff of Alivia Plt Count MPV Immature Gran % (Auto) Neut % (Auto) Lymph % (Auto) [place] % (Auto) Eos % (Auto) Baso % (Auto) Absolute Neuts (auto) Absolute Lymphs (auto) Nucleated RBC % Sodium Potassium Chloride Carbon Dioxide Anion Gap BUN Creatinine Estim Creat Clear Calc Est GFR (MDRD) Af Amer Est GFR (MDRD) Non-Af BUN/Creatinine Ratio Glucose Calcium Vancomycin Trough 23.3 H Acid Fast Stain Pending Pending Miscellaneous Cytology Pending Pending 05/11/20 05/11/20 05:50 05:50 WBC 8.4 RBC 4.24 L Hgb 12.2 L Hct 36.2 L MCV 85.4 MCH 28.8 MCHC 33.7 RDW Std Deviation 39.6 RDW Coeff of Alivia 12.9 Plt Count 277 MPV 8.4 Immature Gran % (Auto) 0.400 Neut % (Auto) 64.0 Lymph % (Auto) 23.6 [place] % (Auto) 8.3 Eos % (Auto) 3.0 Baso % (Auto) 0.7 Absolute Neuts (auto) 5.4 Absolute Lymphs (auto) 1.98 Nucleated RBC % 0 Sodium 141 Potassium 4.0 Chloride 108 H Carbon Dioxide 28.0 Anion Gap 5 BUN 15 Creatinine 1.29 Estim Creat Clear Calc 89.16 Est GFR (MDRD) Af Amer 79 Est GFR (MDRD) Non-Af 65 BUN/Creatinine Ratio 11.6 Glucose 130 H Calcium 8.4 L Vancomycin Trough Acid Fast Stain Miscellaneous Cytology - Other Studies Radiology: [] Other Studies: [] Route of nutrition/ use of supplements: [] Nutritional Intake: [] IV Site: [] [place]ona Catheter: [] - Assessment/Plan Antibiotics: [] Assessment/Plan: [] Active and Suspected Problems (Last Reviewed 05/09/20 @ 15:[address] Song Francis, DO) Right foot infection (Acute) Cellulitis of right foot (Acute) Diabetic right foot infection after traumatic injury and stepping onto a nail. Patient was barefoot when the incident happened. Apparently the nail was promptly removed after the puncture. Operative cultures from yesterday are pending. At this point we reasonable to send the patient home on oral antibiotics in the form of ciprofloxacin plus doxycycline for total 4 weeks, I did write the prescription.
--- NOTE | 2020-05-11 14:59 | CASEMGMT ---
DERRICK FLOWERS NOTE: Per Dr Galvan, pt to discharge home on PO atb's. Script for PO atb's received from him and given to RNHeidi. Per Dr Wells, from his stand-point, pt can be discharged home today. Dr Gaines notified of same. DERRICK FLOWERS to room to talk w/pt and . They deny having any discharge planning needs or concerns at this time. Gianna GLORIAN DERRICK CM
[2020-05-11 15:23] VITALS: BP 151/82; PULSE 72; RESP 18; TEMP 36.7; O2SAT 94
--- NOTE | 2020-05-11 15:42 | PCM.DC ---
- Discharge Diagnoses Current Active Problems: Current Active and Chronic Problems (Last Reviewed 05/09/20 @ 15:[address] Song Francis, DO) Right foot infection (Acute) Cellulitis of right foot (Acute) You will use the following diet at home:: Calorie/Carbohydrate Controlled (specify 1200, 1400, etc) Your food should be the consistency of: Regular Your liquids should be the consistency of: Regular/Thin Discharge Activity: May Not Drive, May Not Shower, Use Walker, Use Crutches May resume sexual activity in: No Restrictions Weight Bearing Status: No weight bearing Keep extremity elevated above heart level: Right Leg Additional Activity Instructions:: 1. Keep dressing to right foot clean, dry, intact. Do not get dressing wet. If get dressing wet, call office for further instruction. 2. Ice around right ankle 20 minutes on, 20 minutes off, every hour as needed for pain. 3. Elevate right foot above level of heart as often as possible until follow-up appointment. 4. Take [id number] pain medications as needed for pain. 5. No walking or standing on right foot. Use knee scooter for assistance. Use pneumatic cam boot for assistance as well. Call your doctor if your incision/area has: Sudden Increased Bleeding, Increased Pain/ Swelling Call your doctor if you observe: Coldness, Increased Pain, Inability to have a bowel movement, Shortness of breath, Increased palpitations (irregular heartbeat), Calf discomfort, Uncontrolled pain Cleanse incision/area with: Keep Dressing Clean & Dry Allergies/Adverse Reactions: Allergies No Known Allergies Allergy (Verified 05/09/20 12:06) Medications to take at Discharge Glimepiride 4 mg PO DAILY 05/09/20 Insulin Glargine [Lantus SoloStar Pen] 10 units SUBCUT QHS 05/09/20 Lisinopril [Zestril] 10 mg PO DAILY 05/09/20 Loratadine [Claritin] 10 mg PO DAILY 05/09/20 Metformin HCl 500 mg PO BID 05/09/20 Metoprolol(XL)Succ [Toprol Xl (Beta Cheryl)] 50 mg PO DAILY 05/09/20 Primary Care Physician: Saskia Hahn NP-C [Primary Care Provider] - Test Results: Test results from this visit will be discussed in further detail at your follow-up appointment, if applicable. Please Follow Up With: Franklyn Rodriguez DPM When: on May 17 in [place] Office for further post op care
--- NOTE | 2020-05-11 15:43 | PCM.DC.SUM ---
Discharge Date and Diagnosis - Problem List Patient Problems: Active and Suspected Problems (Last Reviewed 05/09/20 @ 15:[address] Song Francis DO) Right foot infection (Acute) Cellulitis of right foot (Acute) Date of Admission: 05/09/20 Date of Discharge: 05/11/20 - Primary Discharge Diagnosis Acute Problems: Active Problems (Last Reviewed 05/09/20 @ 15:[address] Song Francis DO) Right foot infection (Acute) Cellulitis of right foot (Acute) - Secondary Discharge Diagnosis Chronic Problems: Chronic Problems (Last Reviewed 05/09/20 @ 15:[address] 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 He went to an Urgent care and was given Keflex and a bandaid. The wound worsened so he f/u with Dr. Rodriguez from podiatry on 05/04/2020 where the wound was irrigated, cx were done (Stap epi) and he was placed on doxy and cipro. He f/u with Dr. Rodriguez on 05/09 and the are appeared worse and he was referred to the ED. MRI showed possible osteo with soft tissue infections and he was taken to the OR on 05/10 for an incision and drainage with a washout and bone biopsy of the fourth metatarsal head and fourth proximal phalanx. ID was consulted and are recommending continued cipro and doxy for a total of 4 weeks. He is to remain NWB on his R LE and is to f/u with Dr. Rodriguez on 05/17 in his office. The pt was discharged home in stable condition. Patient Problems: Active and Suspected Problems (Last Reviewed 05/09/20 @ 15:[address] Song Francis DO) Right foot infection (Acute) Cellulitis of right foot (Acute) - Physical Exam Vitals/I&O's: Vital Signs Temp Pulse Resp BP Pulse Ox 98.0 F 72 18 151/82 H 94 05/11/20 15:23 05/11/20 15:23 05/11/20 15:23 05/11/20 15:23 05/11/20 15:23 Oxygen Delivery Method Room Air Weight: 120.9 kg Body Mass Index (BMI) 33.3 Finger Stick Blood Glucose 80 Intake and Output for Last 24 Hours 05/09/20 05/10/20 05/11/20 23:59 23:59 23:59 Intake Total 1635 / 1635 3597 / 3597 1947.50 / 1947.50 Output Total 275 / 275 1175 / 1175 1100 / 1100 Balance 1360 / 1360 2422 / 2422 847.50 / 847.50 Microbiology Past 72 Hours 05/10/20 Unknown Tissue - Right Foot Gram Stain - Final 05/10/20 Unknown Tissue - Right Foot Wound Culture - Preliminary Gram positive organism 05/10/20 Unknown Tissue - Right Foot Gram Stain - Final 05/10/20 Unknown Tissue - Right Foot Wound Culture - Preliminary No growth-Final to follow 05/10/20 Unknown Aspirate - Right Foot Gram Stain - Final 05/10/20 Unknown Aspirate - Right Foot Wound Culture - Preliminary Mixed Gram Positive Organisms 05/09/20 12:55 Blood Culture (Wb) - Left Hand Blood Culture - Preliminary No growth in 48 hours. 05/09/20 12:45 Blood Culture (Wb) - Anticubital Right Blood Culture - Preliminary No growth in 48 hours. Laboratory Results 05/10/20 16:30: POC Glucose 112 H 05/10/20 21:40: POC Glucose 147 H 05/11/20 00:58: Vancomycin Trough 23.3 H 05/11/20 05:50: WBC 8.4, RBC 4.24 L, Hgb 12.2 L, Hct 36.2 L, MCV 85.4, MCH 28.8, MCHC 33.7, RDW Std Deviation 39.6, RDW Coeff of Alivia 12.9, Plt Count 277, MPV 8.4, Immature Gran % (Auto) 0.400, Neut % (Auto) 64.0, Lymph % (Auto) 23.6, [place] % (Auto) 8.3, Eos % (Auto) 3.0, Baso % (Auto) 0.7, Absolute Neuts (auto) 5.4, Absolute Lymphs (auto) 1.98, Nucleated RBC % 0 05/11/20 05:50: Sodium 141, Potassium 4.0, Chloride 108 H, Carbon Dioxide 28.0, Anion Gap 5, BUN 15, Creatinine 1.29, Estim Creat Clear Calc 89.16, Est GFR (MDRD) Af Amer 79, Est GFR (MDRD) Non-Af 65, BUN/Creatinine Ratio 11.6, Glucose 130 H, Calcium 8.4 L 05/11/20 06:49: POC Glucose 130 H 05/11/20 11:17: POC Glucose 178 H Current Medications Acetaminophen (Tylenol) 650 mg PO Q6H PRN PRN PRN Reason: Pain Score 1-10/Temp > 100.7 F Hydrocodone Bitart/Acetaminophen ([place] 5mg-325mg) 1 tablet PO Q4H PRN PRN PRN Reason: Pain Score 6-10/10 Dextrose (D50w Syringe) 0 gm IV X1 PRN; Protocol PRN Reason: Hypoglycemia Enoxaparin Sodium (Lovenox) 40 mg SC DAILY [facility] Last Admin: 05/11/20 10:15 Dose: 40 mg Documented by: Glucagon () 1 mg IM .X1 PRN PRN Reason: Hypoglycemia Piperacillin Sod/Tazobactam (Sod 3.375 gm/ Sodium Chloride) 50 mls @ 12.5 mls/hr IV Q8 [facility] Last Admin: 05/11/20 15:20 Dose: 12.5 mls/hr Documented by: Vancomycin IV Pharmacy to Dose (1 ea/ Sodium Chloride) 500 mls @ 250 mls/hr IV X1 PRN; Protocol PRN Reason: . PRN Sodium Chloride () 250 mls @ 15 mls/hr IV .[id number] PRN PRN Reason: Saline Flush Last Infusion: 05/11/20 05:50 Dose: Infused Documented by: Sodium Chloride () 250 mls @ 15 mls/hr IV .[id number] PRN PRN Reason: Additional IVPB Infusion Sodium Chloride () 1,000 mls @ 15 mls/hr IV .Q48H [facility] Last Infusion: 05/11/20 15:24 Dose: 0 mls/hr Documented by: Insulin Glargine (Lantus (Bkc)) 10 units SC QHS [facility] Last Admin: 05/10/20 21:42 Dose: Not Given Documented by: Insulin Human Lispro (Humalog Kwikpen (Bk)) 0 unit SC TIDAC [facility]; Protocol Last Admin: 05/11/20 11:20 Dose: 1 unit Documented by: Lisinopril (Zestril) 10 mg PO DAILY [facility] Last Admin: 05/11/20 10:15 Dose: 10 mg Documented by: Loratadine (Claritin) 10 mg PO DAILY [facility] Last Admin: 05/11/20 10:15 Dose: 10 mg Documented by: Metoprolol Succinate (Toprol Xl (Beta Cheryl)) 50 mg PO DAILY [facility] Last Admin: 05/11/20 10:14 Dose: 50 mg Documented by: Ondansetron HCl (Zofran) 4 mg IV Q8H PRN PRN PRN Reason: NAUSEA/VOMITING Sodium Chloride () 10 - 40 ml IV UD PRN PRN Reason: SALINE FLUSH Last Admin: 05/10/20 18:01 Dose: 10 ml Documented by: Tramadol HCl (Ultram) 50 mg PO Q6H PRN PRN PRN Reason: Pain Score 1-5/10 Discharge Activity: May Not Drive, May Not Shower, Use Walker, Use Crutches May resume sexual activity in: No Restrictions Weight Bearing Status: No weight bearing Keep extremity elevated above heart level: Right Leg Additional Activity Instructions:: 1. Keep dressing to right foot clean, dry, intact. Do not get dressing wet. If get dressing wet, call office for further instruction. 2. Ice around right ankle 20 minutes on, 20 minutes off, every hour as needed for pain. 3. Elevate right foot above level of heart as often as possible until follow-up appointment. 4. Take rzmy-nil-ddqguzn pain medications as needed for pain. 5. No walking or standing on right foot. Use knee scooter for assistance. Use pneumatic cam boot for assistance as well. Call your doctor if your incision/area has: Sudden Increased Bleeding, Increased Pain/ Swelling Call your doctor if you observe: Coldness, Increased Pain, Inability to have a bowel movement, Shortness of breath, Increased palpitations (irregular heartbeat), Calf discomfort, Uncontrolled pain Cleanse incision/area with: Keep Dressing Clean & Dry Home Medications: Medications to take at Discharge Glimepiride 4 mg PO DAILY 05/09/20 Insulin Glargine [Lantus SoloStar Pen] 10 units SUBCUT QHS 05/09/20 Lisinopril [Zestril] 10 mg PO DAILY 05/09/20 Loratadine [Claritin] 10 mg PO DAILY 05/09/20 Metformin HCl 500 mg PO BID 05/09/20 Metoprolol(XL)Succ [Toprol Xl (Beta Cheryl)] 50 mg PO DAILY 05/09/20 Primary Care Physician: Saskia Hahn, INTERIOR HORTICULTURIST-C [Primary Care Provider] - Please Follow Up With: Franklyn Rodriguez DPM When: on May 17 in [place] Office for further post op care Medical Necessity - Tobacco Use Smoking Status: Never smoker Tobacco Use: Chew Meaningful Use Info Meaningful Use Diagnoses (Choose all that apply): None applicable Inpatient E&M: [id number] [facility]
== END 2020-05-11 17:19 | disposition home or self-care (01) | DRG 383 ==
LOC: ED 15:26 → MS3 15:28
PROVIDERS: Podiatrist Foot & Ankle Surgery; Emergency Provider Emergency Medicine; PCP Nurse Practitioner Family; Visit Provider Internal Medicine
DX: L03.115 Cellulitis of right lower limb (principal); W45.0XXA Nail entering through skin, initial encounter; S91.331A Puncture wound without foreign body, right foot, initial encounter; I10 Essential (primary) hypertension; J30.2 Other seasonal allergic rhinitis; E11.42 Type 2 diabetes mellitus with diabetic polyneuropathy; Z72.0 Tobacco use; Z79.4 Long term (current) use of insulin; Z82.49 Family history of ischemic heart disease and other diseases of the circulatory system; Z83.3 Family history of diabetes mellitus; D64.9 Anemia, unspecified
CPT/HCPCS: 36415; 73630; 73718; 80048; 80053; 80202; 82962; 83036; 83605; 85025; 85652; 86140; 87015; 87040; 87070; 87075; 87077; 87102; 87116; 87176; 87186; 87205; 87206; 87635; 88304; 88311; 88312; 99284; G2023; J7030; J7040; J7050; J7120; A4216; U0003

== ENCOUNTER → 2020-07-12 11:42 | Outpatient (CLI) | payer MEDICAID, SELFPAY ==
[2020-05-25 08:58] VITALS: BMI 33.3
== END ==
PROVIDERS: Referring Provider Podiatrist Foot & Ankle Surgery; Visit Provider Podiatrist Foot & Ankle Surgery
DX: S91.331D Puncture wound without foreign body, right foot, subsequent encounter (principal)
CPT/HCPCS: 87070; 87205

== ENCOUNTER 2020-07-28 08:14 | Outpatient (RCR) | payer MEDICAID, SELFPAY ==
[2020-05-25 08:58] VITALS: BMI 33.3
[2020-07-28 08:49] VITALS: BP 120/83; PULSE 68; RESP 18; TEMP 36.6; BMI 33.7
[2020-07-28 09:39] VITALS: RESP 16; TEMP 36.4
--- NOTE | 2020-07-28 12:32 | HP.PCM_ITS ---
(1) Wound of right foot Status: Chronic Current Visit: Yes Code(s): S91.301A - Unspecified open wound, right foot, initial encounter Comment: Traumatic, Puncture wound with fat layer exposed. (2) Type 2 diabetes mellitus Status: Chronic Current Visit: Yes Code(s): E11.9 - Type 2 diabetes mellitus without complications (3) Polyneuropathy due to type 2 diabetes mellitus Status: Chronic Current Visit: Yes Code(s): E11.42 - Type 2 diabetes mellitus with diabetic polyneuropathy History of Present Illness Date of Service: 07/28/20 Chief Complaint: Non healing right foot wound. History of Wound: Mr. Mondragon is a 40-year-old was referred to the wound center by his case preparer and liner due to nonhealing right foot wound. Sustained wound after a nail puncture. Has been on several courses of antibiotic and is currently applying Silvadene daily. Newly diagnosed diabetes mellitus however now said to be better controlled. Most recent A1c less than 6.5. He states that he has been elevating his lower extremities as much as possible. He feels well otherwise denies chills, fever, nausea vomiting or change in bowel habit. Past Medical History Past Medical History: Chronic Problems (Last Reviewed 05/25/20 @ 09:[address] John Patel MD) Wound of right foot (Chronic) Traumatic, Puncture wound with fat layer exposed. 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) Diabetes (Chronic) Surgical History: - - left foot wound debridement, excision of fourth metatarsal head 01/2020 Allergies/Adverse Reactions: Allergies No Known Allergies Allergy (Verified 05/25/20 08:55) Home Medications: Ambulatory Orders Medication Instructions Recorded Lisinopril [Zestril] 10 mg PO DAILY 05/09/20 Loratadine [Claritin] 10 mg PO DAILY 05/09/20 Metformin HCl 500 mg PO BID 05/09/20 Metoprolol(XL)Succ [Toprol Xl 50 mg PO DAILY 05/09/20 (Beta Cheryl)] glimepiride 2 mg tablet 2 mg PO DAILY #30 tab 05/25/20 Amox/Clavulanate Tablet [Augmentin 1 tab PO Q8H 07/28/20 Tablet] Cephalexin [Keflex] 500 mg PO Q12 07/28/20 - Family History Maternal Family History: Family History (Last Reviewed 05/25/20 @ 09:[address] John Patel MD) Grandmother Diabetes Aunt Diabetes Father Hypertension Brother Hypertension Diabetes, Heart Disease Paternal Family History: Family History (Last Reviewed 05/25/20 @ 09:[address] John Patel MD) Grandmother Diabetes Aunt Diabetes Father Hypertension Brother Hypertension Diabetes, Heart Disease Smoking Status: Current some day smoker Review of Systems Constitutional: Denies: Anorexia, Chills, Fever, Night Sweats Eyes: Denies: Blurred vision, Pain, Redness HEENT: Denies: Difficulty Swallowing Cardiovascular: Denies: Chest Pain, Claudication, Chest Pressure Respiratory: Denies: Cough, Hemoptysis Gastrointestinal: Denies: Abdominal Pain, Hematemesis, Vomiting Skin: Denies: Jaundice - Physical Exam Vital Signs Temp Pulse Resp BP 97.6 F L 68 16 120/83 H 07/28/20 09:39 07/28/20 08:49 07/28/20 09:39 07/28/20 08:49 General: Alert, Oriented x3, Cooperative, No apparent distress HEENT: Atraumatic, Normocephalic Oral: Moist Mucosa Neck: Supple Lungs: Normal air movement Cardiovascular: Regular rate, Regular Rhythm, Normal S1, Normal S2 Abdomen: Non Tender, Obese Extremities: No cyanosis Skin: Ulcer/ Wound Wound Measurements and Assessment WC - Nurse 1 - General Ulcer Measurement Start: 07/28/20 08:48 Freq: Status: Active Protocol: Activity Type Activity Date Activity User E-Sign Co-Sign Detail Recorded Client Recorded Date Recorded By Document 07/28/20 08:49 [id number] 07/28/20 08:58 RB 07/28/20 08:49 Wound Center Nurse 1 [Ulcer Assessment] 1. R plantar -Combined with other wound No -Current Size (cm) - Length 0.3 -Current Size (cm) - Width 0.2 -Current Size (cm) - Depth 0.6 -Total Square Cm 0.06 -Photo Taken Yes -Tunneling No -Undermining/Tunneling No -Circular Undermining No -Exudate Amt Small -Exudate Type Serosanguineous -Wound Margin Thickened -Granulation Amt Medium (34-66%) -Granulation Quality [place] -Slough/Fibrin Yes -Necrosis Amt Small (1-33%) -Necrotic Tissue Type Adherent Slough -Structure Exposed N/A -Texture (Roxanne-wound Skin Appearance) Assessed -Moisture (Roxanne-wound Skin Appearance Assessed ) -Color (Roxanne-wound Skin Appearance) Assessed -Temperature (Roxanne-wound Skin No Abnormality Appearance) (Pt Warm) -Tenderness on Palpation (Roxanne-wound No Skin Appearance) -Ulcer Cleansing Wound Cleanser -Foul Odor after Cleansing No -Anesthetic Used 4% Lidocaine Solution [Edema Assessment] -Lower Limb Edema Present Yes -Right Calf (cm) 39 -Right Ankle (cm) 24 -Left Calf (cm) 38 -Left Ankle (cm) 23.5 YANCI - Nurse 2 - General Ulcer CM Notes Start: 07/28/20 08:48 Freq: Status: Active Protocol: Activity Type Activity Date Activity User E-Sign Co-Sign Detail Recorded Client Recorded Date Recorded By Document 07/28/20 09:19 MW [id number] 07/28/20 09:26 MW 07/28/20 09:19 Wound Center Nurse 2 [Procedure/Treatment] 1. R plantar -Time 09:20 -Correct Patient Yes -Correct Side, Site, Position Yes -Correct Procedure Yes -Procedure Performed Yes -Type of Procedure Debridement -Clinical Debridement Subcutaneous -Tissue Removed Subcutaneous -Post Debridement (cm) - Length 1.5 -Post Debridement (cm) - Width 0.5 -Post Debridement (cm) - Depth 0.6 -Total Square (Post) (cm) 0.75 -Area of Debridement (cm) - Length 1.5 -Area of Debridement (cm) - Width 0.5 -Total Square (Area) (cm) 0.75 -Tunneling No -Undermining/Tunneling No -Circular Undermining No -Wound/Ulcer Outcome Not Healed -Ulcer Cleansing Rinsed/ Irrigated with Saline -Foul Odor after Cleansing No -Bioengineered Tissue No -Bleeding Controlled with Pressure -Offloading No -Treatment Response Procedure Tolerated Well -Debridement - Subq, 1st 20sq cm Yes [See Physician Procedure note for Specifics] Pain Scale: 0-10 Numeric [Pain] -Is Patient Pain Free? Yes YANCI - Nurse 3 - General Ulcer D/C NN Start: 07/28/20 08:48 Freq: Status: Active Protocol: Activity Type Activity Date Activity User E-Sign Co-Sign Detail Recorded Client Recorded Date Recorded By Document 07/28/20 09:39 [facility] [id number] 07/28/20 09:40 BM 07/28/20 09:39 Wound Care Nurse 3 [Wound Dressing] 1. R plantar -Ulcer Cleansing Rinsed/ Irrigated with Saline -Foul Odor after Cleansing No -Primary Dressing Applied Promogran -Primary Dressing Covered/Secured Dry Gauze & with Roll Gauze, Secured with Tape -Promogran 1 [Post Procedure Tolerated] -Treatment Response Procedure Tolerated Well Vital Signs [Temperature Protocol: VS] -Temperature (97.8 F-99.1 F) 97.6 F L -Temperature Source Temporal [Respirations] -Respiratory Rate (12-18 breaths/min) 16 -Respiratory rate source Observation -Oxygen Delivery Method Room Air Pain Scale: 0-10 Numeric [Pain] -Is Patient Pain Free? Yes WC - Visit Discharge [Visit Discharge Information] -Discharge Condition Stable -Ambulatory Status Walker -Transportation Private Auto -Accompanied by -Notes: knee walker Musculoskeletal: No Muscle Wasting Neurological: Cranial nerves II-XII grossly intact Psych/Mental Status: Normal Affect Debridement Note Post-Debridement Measurements/Treatment WC - Nurse 2 - General Ulcer CM Notes Start: 07/28/20 08:48 Freq: Status: Active Protocol: Activity Type Activity Date Activity User E-Sign Co-Sign Detail Recorded Client Recorded Date Recorded By Document 07/28/20 09:19 MW [id number] 07/28/20 09:26 MW 07/28/20 09:19 Wound Center Nurse 2 1. R plantar -Time 09:20 -Correct Patient Yes -Correct Side, Site, Position Yes -Correct Procedure Yes -Procedure Performed Yes -Type of Procedure Debridement -Clinical Debridement Subcutaneous -Tissue Removed Subcutaneous -Post Debridement (cm) - Length 1.5 -Post Debridement (cm) - Width 0.5 -Post Debridement (cm) - Depth 0.6 -Total Square (Post) (cm) 0.75 -Area of Debridement (cm) - Length 1.5 -Area of Debridement (cm) - Width 0.5 -Total Square (Area) (cm) 0.75 -Tunneling No -Undermining/Tunneling No -Circular Undermining No -Wound/Ulcer Outcome Not Healed -Ulcer Cleansing Rinsed/ Irrigated with Saline -Foul Odor after Cleansing No -Bioengineered Tissue No -Bleeding Controlled with Pressure -Offloading No -Treatment Response Procedure Tolerated Well -Debridement - Subq, 1st 20sq cm Yes Pain Scale: 0-10 Numeric Is Patient Pain Free? Yes - Nurse 3 - General Ulcer D/C NN Start: 07/28/20 08:48 Freq: Status: Active Protocol: Activity Type Activity Date Activity User E-Sign Co-Sign Detail Recorded Client Recorded Date Recorded By Document 07/28/20 09:39 [facility] [id number] 07/28/20 09:40 [facility] 07/28/20 09:39 Wound Care Nurse 3 1. R plantar -Ulcer Cleansing Rinsed/ Irrigated with Saline -Foul Odor after Cleansing No -Primary Dressing Applied Promogran -Primary Dressing Covered/Secured with Dry Gauze & Roll Gauze, Secured with Tape -Promogran 1 Treatment Response Procedure Tolerated Well Vital Signs Temperature (97.8 F-99.1 F) 97.6 F L Temperature Source Temporal Respiratory Rate (12-18 breaths/min) 16 Respiratory rate source Observation Oxygen Delivery Method Room Air Pain Scale: 0-10 Numeric Is Patient Pain Free? Yes - Visit Discharge Discharge Condition Stable Ambulatory Status Walker Transportation Private Auto Accompanied by Notes: knee walker Wound debrided: Right foot (plantar) Type of Debridement: Excisional debridement Anesthesia Used: 4% Lidocaine Solution Depth: Down to and including healthy tissue, in the subcutaneous layer Percentage of wound debrided: 100 Instrument Used: 3mm curette, 5mm curette Tissue Removed: Slough and devitalized tissue Severity: Fat Layer Exposed Amount of bleeding with debridement: Mild Bleeding Controlled with: Pressure Patient tolerated procedure well Assessment/Plan Active Problems (Last Reviewed 05/25/20 @ 09:[address] John Patel MD) Wound of right foot (Chronic) Traumatic, Puncture wound with fat layer exposed. 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 Plan: Debridement done as documented above. Procedure was well-tolerated. Currently on Augmentin and Keflex as prescribed by his case preparer and liner. We will hold off culture. Promogran daily, cover with gauze and tape. Optimal diabetes control and increased protein intake discussed. Zinc and vitamin C supplements also recommended. His questions were answered and he was advised to call with any further questions or concerns. Follow-up in a week. This note was generated with Dragon dictation software. It may contain incorrect words, spelling, and punctuation that were not noted in checking the note before signing. Multi Select Codes - Visit Charges Office Visit/Consults: 17149 OV L3 New - Integumentary Integumentary CPT Codes: 70428 Nilam subq tissue 20 sq cm/<
== END 2020-08-03 23:59 ==
LOC: WC 08:14
PROVIDERS: PCP Nurse Practitioner Family; Referring Provider Podiatrist Foot & Ankle Surgery; Visit Provider Internal Medicine
DX: S91.331A Puncture wound without foreign body, right foot, initial encounter (principal); W45.0XXA Nail entering through skin, initial encounter; E11.42 Type 2 diabetes mellitus with diabetic polyneuropathy; I10 Essential (primary) hypertension; Z79.899 Other long term (current) drug therapy; Z79.84 Long term (current) use of oral hypoglycemic drugs
CPT/HCPCS: 11042; 99213; G0463

== ENCOUNTER → 2020-07-28 09:58 | Outpatient (CLI) | payer MEDICAID, SELFPAY ==
[2020-07-28 08:49] VITALS: BMI 33.7
[2020-07-28 11:03] LABS: Absolute Lymphocyte Count 2.31 X10^3/uL (0.83-4.51); Absolute Neutrophil Count 5.5 X10^3/uL (2.0-7.7); Basophil# 0.08 X10^3/uL; Basophil% 0.9 % (0-1); Eosinophil# 0.52 X10^3/uL; Eosinophils% 5.8 % (0-5); Hematocrit 43.8 % (40-54); Hemoglobin 14.3 g/dL (13.0-16.5); Lymphocyte # 2.31 X10^3/ul (4.0); Lymphocyte % 25.7 % (19-41); Mean Corp Hgb Conc 32.6 g/dL (32-36); Mean Corpuscular Hgb 28.3 pg (27.0-32.0); Mean Corpuscular Volume 86.7 fL (80-94); Mean Platelet Vol. 9.1 fl (6.2-12.0); Monocyte% 6.7 % (0-10); NRBC Flagged by Analyzer 0 % (0-5); Neutrophil # 5.45 X10^3/uL (2.7-7.7); Neutrophil % 60.6 % (47-70); Platelet Count 298 K/mm3 (150-450); RBC Distribution Width CV 12.8 % (11.6-14.6); RBC Distribution Width SD 40.1 fl (35.1-43.9); Red Blood Count 5.05 M/mm3 (4.6-6.2)
[2020-07-28 11:20] LABS: AST(SGOT) 16 U/L (15-37); Alanine Aminotransfer ALT/SGPT 23 U/L (16-61); Albumin, Serum 3.7 g/dL (3.2-5.0); Alkaline Phosphatase 45 U/L (45-117); Anion Gap 5 (5-15); BUN 24 mg/dL (7-18); BUN/Creat Ratio 19.7 RATIO (10-20); Calcium,Total 9.1 mg/dL (8.5-10.1); Chloride 105 mmol/L (98-107); Cholesterol 189 mg/dL (200); Creatinine, Serum 1.22 mg/dL (0.70-1.30); EST Glomerular Filtration Rate 69 mL/min (>60); Est Glom Filt Rate - Afr Amer 84 mL/min (>60); Globulin 3.6 g/dL (2.2-4.2); Glucose 129 mg/dL (74-106); High Density Lipoprotein 46 mg/dL; Potassium 4.8 mmol/L (3.5-5.1); Protein, Total 7.3 g/dL (6.4-8.2); Sodium Level 137 mmol/L (136-145); Triglycerides 182 mg/dL; Very Low Density Lipoprotein 36 mg/dL (5-40); Vitamin D,25 Hydroxy 69.7 ng/mL
[2020-07-28 11:23] LABS: Hemoglobin A1c 5.5 % (3.8-5.6)
== END ==
DX: E11.9 Type 2 diabetes mellitus without complications (principal); I10 Essential (primary) hypertension; D64.9 Anemia, unspecified; E55.9 Vitamin D deficiency, unspecified
CPT/HCPCS: 36415; 80053; 80061; 82306; 83036; 85025

== ENCOUNTER 2020-08-11 08:30 | Outpatient (RCR) | payer MEDICAID, SELFPAY ==
[2020-08-04 00:46] VITALS: BP 120/83; PULSE 68; RESP 16; TEMP 36.4
[2020-08-04 09:12] VITALS: BP 136/95; PULSE 68; RESP 16; TEMP 36.6; BMI 33.7
[2020-08-04 09:59] VITALS: BP 154/104; PULSE 66; RESP 16
--- NOTE | 2020-08-04 10:05 | PCM.WC.PN ---
(1) Wound of right foot Status: Chronic Current Visit: Yes Code(s): S91.301A - Unspecified open wound, right foot, initial encounter Comment: Traumatic, Puncture wound with fat layer exposed. 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 History of Wound: Mr. Mondragon is a 40-year-old was referred to the wound center by his chief business officer due to nonhealing right foot wound. Sustained wound after a nail puncture. Has been on several courses of antibiotic and is currently applying Silvadene daily. Newly diagnosed diabetes mellitus however now said to be better controlled. Most recent A1c less than 6.5. He states that he has been elevating his lower extremities as much as possible. He feels well otherwise denies chills, fever, nausea vomiting or change in bowel habit. Progress of Wound: Improving. No new concerns at this time. - Physical Exam Vital Signs Temp Pulse Resp BP 98 F 66 16 154/104 H 08/04/20 09:12 08/04/20 09:59 08/04/20 09:59 08/04/20 09:59 General: Alert, Oriented x3, Cooperative, No apparent distress HEENT: Atraumatic, Normocephalic Oral: Moist Mucosa Neck: Supple Lungs: Normal air movement Extremities: No cyanosis Skin: Ulcer/ Wound Wound Measurements and Assessment WC - Nurse 1 - General Ulcer Measurement Start: 08/04/20 09:12 Freq: Status: Active Protocol: Activity Type Activity Date Activity User E-Sign Co-Sign Detail Recorded Client Recorded Date Recorded By Document 08/04/20 09:12 [facility] [id number] 08/04/20 09:19 [facility] 08/04/20 09:12 Wound Center Nurse 1 [Ulcer Assessment] 1. R plantar -Combined with other wound No -Current Size (cm) - Length 0.1 -Current Size (cm) - Width 0.1 -Current Size (cm) - Depth 0.1 -Total Square Cm 0.01 -Photo Taken No -Tunneling No -Undermining/Tunneling No -Circular Undermining No -Exudate Amt None Present -Wound Margin Flat & Intact -Granulation Amt None Present (0 %) -Slough/Fibrin Yes -Necrosis Amt Large (67-100%) -Necrotic Tissue Type Adherent Slough -Texture (Roxanne-wound Skin Appearance) Callus,Scarring -Moisture (Roxanne-wound Skin Appearance Assessed,Dry/ ) Scaly -Color (Roxanne-wound Skin Appearance) Assessed -Temperature (Roxanne-wound Skin No Abnormality Appearance) (Pt Warm) -Tenderness on Palpation (Roxanne-wound No Skin Appearance) -Ulcer Cleansing Rinsed/ Irrigated with Saline -Foul Odor after Cleansing No -Anesthetic Used 5% Lidocaine Gel WC - Nurse 2 - General Ulcer CM Notes Start: 08/04/20 09:12 Freq: Status: Active Protocol: Activity Type Activity Date Activity User E-Sign Co-Sign Detail Recorded Client Recorded Date Recorded By Document 08/04/20 09:34 MW [id number] 08/04/20 09:40 MW 08/04/20 09:34 Wound Center Nurse 2 [Procedure/Treatment] -Time 09:36 -Correct Patient Yes -Correct Side, Site, Position Yes -Correct Procedure Yes -Procedure Performed Yes -Type of Procedure Debridement -Clinical Debridement Subcutaneous -Tissue Removed Subcutaneous -Post Debridement (cm) - Length 0.7 -Post Debridement (cm) - Width 0.2 -Post Debridement (cm) - Depth 0.5 -Total Square (Post) (cm) 0.14 -Area of Debridement (cm) - Length 0.7 -Area of Debridement (cm) - Width 0.2 -Total Square (Area) (cm) 0.14 -Tunneling No -Undermining/Tunneling No -Circular Undermining No -Wound/Ulcer Outcome Not Healed -Ulcer Cleansing Rinsed/ Irrigated with Saline -Foul Odor after Cleansing No -Bioengineered Tissue No -Bleeding Controlled with Pressure -Offloading No -Debridement - Subq, 1st 20sq cm Yes [See Physician Procedure note for Specifics] Pain Scale: 0-10 Numeric [Pain] -Is Patient Pain Free? Yes YANCI - Nurse 3 - General Ulcer D/C NN Start: 08/04/20 09:12 Freq: Status: Active Protocol: Activity Type Activity Date Activity User E-Sign Co-Sign Detail Recorded Client Recorded Date Recorded By Document 08/04/20 09:59 [facility] [id number] 08/04/20 10:00 [facility] Document 08/04/20 09:59 [facility] [id number] 08/04/20 10:00 [facility] 08/04/20 09:59 Wound Care Nurse 3 [Wound Dressing] 1. R plantar -Ulcer Cleansing Rinsed/ Irrigated with Saline -Foul Odor after Cleansing No -Primary Dressing Applied Promogran -Primary Dressing Covered/Secured Dry Gauze & with Roll Gauze, Secured with Tape,Other -Other Covering anai to secure -Promogran 1 Vital Signs [Pulse] -Pulse Rate (60-100 beats/min) 66 -Pulse Location Monitor [Respirations] -Respiratory Rate (12-18 breaths/min) 16 -Respiratory rate source Observation -Oxygen Delivery Method Room Air [Blood Pressure] -Blood Pressure (90/60-120/80 mm Hg) 154/104 H -Blood Pressure Mean (mm Hg) 120 -Source Monitor -Position Sitting -Blood Pressure Location Left Arm Pain Scale: 0-10 Numeric [Pain] -Is Patient Pain Free? Yes WC - Visit Discharge [Visit Discharge Information] -Discharge Condition Stable -Ambulatory Status Ambulatory, Walker -Transportation Private Auto -Accompanied by -Notes: knee walker Musculoskeletal: No Muscle Wasting Neurological: Cranial nerves II-XII grossly intact Psych/Mental Status: Normal Affect Debridement Note Post-Debridement Measurements/Treatment WC - Nurse 2 - General Ulcer CM Notes Start: 08/04/20 09:12 Freq: Status: Active Protocol: Activity Type Activity Date Activity User E-Sign Co-Sign Detail Recorded Client Recorded Date Recorded By Document 08/04/20 09:34 [id number] 08/04/20 09:40 MW 08/04/20 09:34 Wound Center Nurse 2 1. R plantar -Time 09:36 -Correct Patient Yes -Correct Side, Site, Position Yes -Correct Procedure Yes -Procedure Performed Yes -Type of Procedure Debridement -Clinical Debridement Subcutaneous -Tissue Removed Subcutaneous -Post Debridement (cm) - Length 0.7 -Post Debridement (cm) - Width 0.2 -Post Debridement (cm) - Depth 0.5 -Total Square (Post) (cm) 0.14 -Area of Debridement (cm) - Length 0.7 -Area of Debridement (cm) - Width 0.2 -Total Square (Area) (cm) 0.14 -Tunneling No -Undermining/Tunneling No -Circular Undermining No -Wound/Ulcer Outcome Not Healed -Ulcer Cleansing Rinsed/ Irrigated with Saline -Foul Odor after Cleansing No -Bioengineered Tissue No -Bleeding Controlled with Pressure -Offloading No -Debridement - Subq, 1st 20sq cm Yes Pain Scale: 0-10 Numeric Is Patient Pain Free? Yes - Nurse 3 - General Ulcer D/C NN Start: 08/04/20 09:12 Freq: Status: Active Protocol: Activity Type Activity Date Activity User E-Sign Co-Sign Detail Recorded Client Recorded Date Recorded By Document 08/04/20 09:59 [facility] [id number] 08/04/20 10:00 BM Document 08/04/20 09:59 [facility] [id number] 08/04/20 10:00 [facility] 08/04/20 09:59 Wound Care Nurse 3 1. R plantar -Ulcer Cleansing Rinsed/ Irrigated with Saline -Foul Odor after Cleansing No -Primary Dressing Applied Promogran -Primary Dressing Covered/Secured with Dry Gauze & Roll Gauze, Secured with Tape,Other -Other Covering anai to secure -Promogran 1 Vital Signs Pulse Rate (60-100 beats/min) 66 Pulse Location Monitor Respiratory Rate (12-18 breaths/min) 16 Respiratory rate source Observation Oxygen Delivery Method Room Air Blood Pressure (90/60-120/80 mm Hg) 154/104 H Blood Pressure Mean (mm Hg) 120 Source Monitor Position Sitting Blood Pressure Location Left Arm Pain Scale: 0-10 Numeric Is Patient Pain Free? Yes WC - Visit Discharge Discharge Condition Stable Ambulatory Status Ambulatory, Walker Transportation Private Auto Accompanied by Notes: knee walker Wound debrided: Right foot (plantar) Type of Debridement: Excisional debridement Anesthesia Used: 4% Lidocaine Solution Depth: Down to and including healthy tissue, in the subcutaneous layer Percentage of wound debrided: 100 Instrument Used: 3mm curette Tissue Removed: Slough and devitalized tissue Severity: Fat Layer Exposed Amount of bleeding with debridement: Mild Bleeding Controlled with: Pressure Patient tolerated procedure well Assessment/Plan Active Problems (Last Reviewed 05/25/20 @ 09:[address] John Patel MD) Wound of right foot (Chronic) Traumatic, Puncture wound with fat layer exposed. 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 Plan: Improvement noted. Debridement done as documented above. Procedure was well-tolerated. Continue Promogran daily, cover with gauze and tape. Due to the chronicity of the wound, I believe he will do well with a skin substitute, application begun. Optimal diabetes control and increased protein intake discussed. Zinc and vitamin C supplements also recommended. His questions were answered and he was advised to call with any further questions or concerns. Follow-up in a week. This note was generated with [employer] dictation software. It may contain incorrect words, spelling, and punctuation that were not noted in checking the note before signing. [id number]: [id number] Nilam subq tissue 20 sq cm/<
[2020-08-11 08:36] VITALS: BP 167/106; PULSE 88; RESP 18; TEMP 36.4; BMI 33.7
--- NOTE | 2020-08-11 09:12 | PCM.WC.PN ---
(1) Wound of right foot Status: Chronic Current Visit: Yes Code(s): S91.301A - Unspecified open wound, right foot, initial encounter Comment: Traumatic, Puncture wound with fat layer exposed. 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 History of Wound: Mr. Mondragon is a 40-year-old was referred to the wound center by his electronic equipment repairmen due to nonhealing right foot wound. Sustained wound after a nail puncture. Has been on several courses of antibiotic and is currently applying Silvadene daily. Newly diagnosed diabetes mellitus however now said to be better controlled. Most recent A1c less than 6.5. He states that he has been elevating his lower extremities as much as possible. He feels well otherwise denies chills, fever, nausea vomiting or change in bowel habit. Progress of Wound: Healed. No new concerns at this time. - Physical Exam Vital Signs Temp Pulse Resp BP 97.5 F L 88 18 167/106 H 08/11/20 08:36 08/11/20 08:36 08/11/20 08:36 08/11/20 08:36 General: Alert, Oriented x3, Cooperative, No apparent distress HEENT: Atraumatic, Normocephalic Oral: Moist Mucosa Neck: Supple Lungs: Normal air movement Extremities: No cyanosis Wound Measurements and Assessment WC - Nurse 1 - General Ulcer Measurement Start: 08/04/20 09:12 Freq: Status: Active Protocol: Activity Type Activity Date Activity User E-Sign Co-Sign Detail Recorded Client Recorded Date Recorded By Document 08/11/20 08:36 RB [id number] 08/11/20 08:38 RB 08/11/20 08:36 Wound Center Nurse 1 [Ulcer Assessment] 1. R plantar -Combined with other wound No -Current Size (cm) - Length 0.1 -Current Size (cm) - Width 0.1 -Current Size (cm) - Depth 0.1 -Total Square Cm 0.01 -Tunneling No -Undermining/Tunneling No -Circular Undermining No -Exudate Amt None Present -Wound Margin Flat & Intact -Granulation Amt Large (67-100%) -Granulation Quality [place] -Slough/Fibrin Yes -Necrosis Amt Small (1-33%) -Necrotic Tissue Type Adherent Slough -Structure Exposed N/A -Texture (Roxanne-wound Skin Appearance) Assessed -Moisture (Roxanne-wound Skin Appearance Assessed ) -Color (Roxanne-wound Skin Appearance) Assessed -Temperature (Roxanne-wound Skin No Abnormality Appearance) (Pt Warm) -Tenderness on Palpation (Roxanne-wound No Skin Appearance) -Ulcer Cleansing Wound Cleanser -Foul Odor after Cleansing No -Anesthetic Used 5% Lidocaine Gel WC - Nurse 2 - General Ulcer CM Notes Start: 08/04/20 09:12 Freq: Status: Active Protocol: Activity Type Activity Date Activity User E-Sign Co-Sign Detail Recorded Client Recorded Date Recorded By Document 08/11/20 08:50 MW [id number] 08/11/20 08:53 MW 08/11/20 08:50 Wound Center Nurse 2 [Procedure/Treatment] -Time 08:52 -Correct Patient Yes -Correct Side, Site, Position Yes -Correct Procedure Yes -Procedure Performed No -Post Debridement (cm) - Length 0 -Post Debridement (cm) - Width 0 -Post Debridement (cm) - Depth 0 -Total Square (Post) (cm) 0 -Wound/Ulcer Outcome Healed- Epithelialized [See Physician Procedure note for Specifics] Pain Scale: 0-10 Numeric [Pain] -Is Patient Pain Free? Yes Musculoskeletal: No Muscle Wasting Neurological: Cranial nerves II-XII grossly intact Psych/Mental Status: Normal Affect Debridement Note Post-Debridement Measurements/Treatment - Nurse 2 - General Ulcer CM Notes Start: 08/04/20 09:12 Freq: Status: Active Protocol: Activity Type Activity Date Activity User E-Sign Co-Sign Detail Recorded Client Recorded Date Recorded By Document 08/04/20 09:34 MW [id number] 08/04/20 09:40 MW Document 08/11/20 08:50 MW [id number] 08/11/20 08:53 MW 08/04/20 08/11/20 09:34 08:50 Wound Center Nurse 2 1. R plantar -Time 09:36 08:52 -Correct Patient Yes Yes -Correct Side, Site, Position Yes Yes -Correct Procedure Yes Yes -Procedure Performed Yes No -Type of Procedure Debridement -Clinical Debridement Subcutaneous -Tissue Removed Subcutaneous -Post Debridement (cm) - Length 0.7 0 -Post Debridement (cm) - Width 0.2 0 -Post Debridement (cm) - Depth 0.5 0 -Total Square (Post) (cm) 0.14 0 -Area of Debridement (cm) - Length 0.7 -Area of Debridement (cm) - Width 0.2 -Total Square (Area) (cm) 0.14 -Tunneling No -Undermining/Tunneling No -Circular Undermining No -Wound/Ulcer Outcome Not Healed Healed- Epithelialized -Ulcer Cleansing Rinsed/ Irrigated with Saline -Foul Odor after Cleansing No -Bioengineered Tissue No -Bleeding Controlled with Pressure -Offloading No -Debridement - Subq, 1st 20sq cm Yes Pain Scale: 0-10 Numeric Is Patient Pain Free? Yes Yes - Nurse 3 - General Ulcer D/C NN Start: 08/04/20 09:12 Freq: Status: Active Protocol: Activity Type Activity Date Activity User E-Sign Co-Sign Detail Recorded Client Recorded Date Recorded By Document 08/04/20 09:59 [facility] [id number] 08/04/20 10:00 [facility] Document 08/04/20 09:59 [facility] [id number] 08/04/20 10:00 [facility] 08/04/20 09:59 Wound Care Nurse 3 1. R plantar -Ulcer Cleansing Rinsed/ Irrigated with Saline -Foul Odor after Cleansing No -Primary Dressing Applied Promogran -Primary Dressing Covered/Secured with Dry Gauze & Roll Gauze, Secured with Tape,Other -Other Covering anai to secure -Promogran 1 Vital Signs Pulse Rate (60-100 beats/min) 66 Pulse Location Monitor Respiratory Rate (12-18 breaths/min) 16 Respiratory rate source Observation Oxygen Delivery Method Room Air Blood Pressure (90/60-120/80 mm Hg) 154/104 H Blood Pressure Mean (mm Hg) 120 Source Monitor Position Sitting Blood Pressure Location Left Arm Pain Scale: 0-10 Numeric Is Patient Pain Free? Yes - Visit Discharge Discharge Condition Stable Ambulatory Status Ambulatory, Walker Transportation Private Auto Accompanied by Notes: knee walker No debridement was completed today Assessment/Plan Active Problems (Last Reviewed 05/25/20 @ 09:[address] John Patel MD) Wound of right foot (Chronic) Traumatic, Puncture wound with fat layer exposed. Type 2 diabetes mellitus (Chronic) Polyneuropathy due to type 2 diabetes mellitus (Chronic) Assessment: Healed. Plan: Healed. No new concerns at this time. Adaptic and guaze over top for at least 2 weeks. Keep area protected. Off loading very strongly recommended. Optimal diabetes control and increased protein intake discussed. Zinc and Vitamin C supplements also recommended. His questions were answered and he was advised to call with any further questions or concerns. Follow up with primary Client Renewal Specialist in 2 - 3 weeks. Discharged from the wound clinic. This note was generated with [employer] dictation software. It may contain incorrect words, spelling, and punctuation that were not noted in checking the note before signing. Office Visits / Consults: [id number] OV L3 Est
--- NOTE | 2020-08-11 12:03 | PN.PCM_ITS ---
(1) Wound of right foot Status: Chronic Current Visit: Yes Code(s): S91.301A - Unspecified open wound, right foot, initial encounter Comment: Traumatic, Puncture wound with fat layer exposed. 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 History of Wound: Mr. Mondragon is a 40-year-old was referred to the wound center by his high school teacher due to nonhealing right foot wound. Sustained wound after a nail puncture. Has been on several courses of antibiotic and is currently applying Silvadene daily. Newly diagnosed diabetes mellitus however now said to be better controlled. Most recent A1c less than 6.5. He states that he has been elevating his lower extremities as much as possible. He feels well otherwise denies chills, fever, nausea vomiting or change in bowel habit. Progress of Wound: Healed. No new concerns at this time. - Physical Exam Vital Signs Temp Pulse Resp BP 97.5 F L 88 18 167/106 H 08/11/20 08:36 08/11/20 08:36 08/11/20 08:36 08/11/20 08:36 Wound Measurements and Assessment WC - Nurse 1 - General Ulcer Measurement Start: 08/04/20 09:12 Freq: Status: Active Protocol: Activity Type Activity Date Activity User E-Sign Co-Sign Detail Recorded Client Recorded Date Recorded By Document 08/11/20 08:36 RB [id number] 08/11/20 08:38 RB 08/11/20 08:36 Wound Center Nurse 1 [Ulcer Assessment] 1. R plantar -Combined with other wound No -Current Size (cm) - Length 0.1 -Current Size (cm) - Width 0.1 -Current Size (cm) - Depth 0.1 -Total Square Cm 0.01 -Tunneling No -Undermining/Tunneling No -Circular Undermining No -Exudate Amt None Present -Wound Margin Flat & Intact -Granulation Amt Large (67-100%) -Granulation Quality [place] -Slough/Fibrin Yes -Necrosis Amt Small (1-33%) -Necrotic Tissue Type Adherent Slough -Structure Exposed N/A -Texture (Roxanne-wound Skin Appearance) Assessed -Moisture (Roxanne-wound Skin Appearance Assessed ) -Color (Roxanne-wound Skin Appearance) Assessed -Temperature (Roxanne-wound Skin No Abnormality Appearance) (Pt Warm) -Tenderness on Palpation (Roxanne-wound No Skin Appearance) -Ulcer Cleansing Wound Cleanser -Foul Odor after Cleansing No -Anesthetic Used 5% Lidocaine Gel - Nurse 2 - General Ulcer CM Notes Start: 08/04/20 09:12 Freq: Status: Active Protocol: Activity Type Activity Date Activity User E-Sign Co-Sign Detail Recorded Client Recorded Date Recorded By Document 08/11/20 08:50 MW [id number] 08/11/20 08:53 MW 08/11/20 08:50 Wound Center Nurse 2 [Procedure/Treatment] -Time 08:52 -Correct Patient Yes -Correct Side, Site, Position Yes -Correct Procedure Yes -Procedure Performed No -Post Debridement (cm) - Length 0 -Post Debridement (cm) - Width 0 -Post Debridement (cm) - Depth 0 -Total Square (Post) (cm) 0 -Wound/Ulcer Outcome Healed- Epithelialized [See Physician Procedure note for Specifics] Pain Scale: 0-10 Numeric [Pain] -Is Patient Pain Free? Yes - Nurse 3 - General Ulcer D/C NN Start: 08/04/20 09:12 Freq: Status: Active Protocol: Activity Type Activity Date Activity User E-Sign Co-Sign Detail Recorded Client Recorded Date Recorded By Document 08/11/20 09:14 [facility] [id number] 08/11/20 09:15 [facility] 08/11/20 09:14 Vital Signs [Comments] -Comment NO DEBRIDEMENT TODAY. NO V/S OBTAINED Pain Scale: 0-10 Numeric [Pain] -Is Patient Pain Free? Yes - Visit Discharge [Visit Discharge Information] -Discharge Condition Stable -Ambulatory Status Ambulatory, Walker -Transportation Private Auto -Accompanied by -Notes: KNEE WALKER Debridement Note Post-Debridement Measurements/Treatment - Nurse 2 - General Ulcer CM Notes Start: 08/04/20 09:12 Freq: Status: Active Protocol: Activity Type Activity Date Activity User E-Sign Co-Sign Detail Recorded Client Recorded Date Recorded By Document 08/04/20 09:34 MW [id number] 08/04/20 09:40 MW Document 08/11/20 08:50 MW [id number] 08/11/20 08:53 MW 08/04/20 08/11/20 09:34 08:50 Wound Center Nurse 2 1. R plantar -Time 09:36 08:52 -Correct Patient Yes Yes -Correct Side, Site, Position Yes Yes -Correct Procedure Yes Yes -Procedure Performed Yes No -Type of Procedure Debridement -Clinical Debridement Subcutaneous -Tissue Removed Subcutaneous -Post Debridement (cm) - Length 0.7 0 -Post Debridement (cm) - Width 0.2 0 -Post Debridement (cm) - Depth 0.5 0 -Total Square (Post) (cm) 0.14 0 -Area of Debridement (cm) - Length 0.7 -Area of Debridement (cm) - Width 0.2 -Total Square (Area) (cm) 0.14 -Tunneling No -Undermining/Tunneling No -Circular Undermining No -Wound/Ulcer Outcome Not Healed Healed- Epithelialized -Ulcer Cleansing Rinsed/ Irrigated with Saline -Foul Odor after Cleansing No -Bioengineered Tissue No -Bleeding Controlled with Pressure -Offloading No -Debridement - Subq, 1st 20sq cm Yes Pain Scale: 0-10 Numeric Is Patient Pain Free? Yes Yes WC - Nurse 3 - General Ulcer D/C NN Start: 08/04/20 09:12 Freq: Status: Active Protocol: Activity Type Activity Date Activity User E-Sign Co-Sign Detail Recorded Client Recorded Date Recorded By Document 08/04/20 09:59 [facility] [id number] 08/04/20 10:00 [facility] Document 08/04/20 09:59 [facility] [id number] 08/04/20 10:00 [facility] Document 08/11/20 09:14 [facility] [id number] 08/11/20 09:15 [facility] 08/04/20 08/11/20 09:59 09:14 Wound Care Nurse 3 1. R plantar -Ulcer Cleansing Rinsed/ Irrigated with Saline -Foul Odor after Cleansing No -Primary Dressing Applied Promogran -Primary Dressing Covered/Secured with Dry Gauze & Roll Gauze, Secured with Tape,Other -Other Covering anai to secure -Promogran 1 Vital Signs Pulse Rate (60-100 beats/min) 66 Pulse Location Monitor Respiratory Rate (12-18 breaths/min) 16 Respiratory rate source Observation Oxygen Delivery Method Room Air Blood Pressure (90/60-120/80 mm Hg) 154/104 H Blood Pressure Mean (mm Hg) 120 Source Monitor Position Sitting Blood Pressure Location Left Arm Comment NO DEBRIDEMENT TODAY. NO V/S OBTAINED Pain Scale: 0-10 Numeric Is Patient Pain Free? Yes Yes WC - Visit Discharge Discharge Condition Stable Stable Ambulatory Status Ambulatory, Ambulatory, Walker Walker Transportation Private Auto Private Auto Accompanied by Notes: knee walker KNEE WALKER Assessment/Plan Active Problems (Last Reviewed 05/25/20 @ 09:[address] John Patel MD) Wound of right foot (Chronic) Traumatic, Puncture wound with fat layer exposed. Type 2 diabetes mellitus (Chronic) Polyneuropathy due to type 2 diabetes mellitus (Chronic) Assessment: Healed. Plan: Healed. No new concerns at this time. Adaptic and guaze over top for at least 2 weeks. Keep area protected. Off loading very strongly recommended. Optimal diabetes control and increased protein intake discussed. Zinc and Vitamin C supplements also recommended. His questions were answered and he was advised to call with any further questions or concerns. Follow up with primary Gastroenterology Teacher in 2 - 3 weeks. Discharged from the wound clinic. This note was generated with [employer] dictation software. It may contain incorrect words, spelling, and punctuation that were not noted in checking the note before signing.
== END 2020-08-23 11:25 | disposition home or self-care (01) ==
LOC: WC 08:30
PROVIDERS: Referring Provider Podiatrist Foot & Ankle Surgery; Visit Provider Internal Medicine
DX: S91.331A Puncture wound without foreign body, right foot, initial encounter (principal); W45.0XXA Nail entering through skin, initial encounter; E11.42 Type 2 diabetes mellitus with diabetic polyneuropathy
CPT/HCPCS: 11042; 99213; G0463

== ENCOUNTER → 2020-11-11 09:18 | Outpatient (CLI) | payer MEDICAID, SELFPAY ==
[2020-10-24 08:07] VITALS: BMI 32.8
[2020-11-11 10:15] LABS: Hematocrit 41.4 % (40-54); Hemoglobin 14.5 g/dL (13.0-16.5)
[2020-11-11 10:34] LABS: Hemoglobin A1c 5.7 % (3.8-5.6)
[2020-11-11 11:00] LABS: ALB/GLOB Ratio 1.1 RATIO (0.9-2.4); AST(SGOT) 20 U/L (15-37); Alanine Aminotransfer ALT/SGPT 27 U/L (16-61); Albumin, Serum 3.6 g/dL (3.2-5.0); Alkaline Phosphatase 51 U/L (45-117); Anion Gap 4 (5-15); BUN 36 mg/dL (7-18); BUN/Creat Ratio 28.6 RATIO (10-20); CRP < 2.90 mg/L (0.0-3.0); Calcium,Total 9.1 mg/dL (8.5-10.1); Chloride 107 mmol/L (98-107); Creatinine, Serum 1.26 mg/dL (0.70-1.30); EST Glomerular Filtration Rate 67 mL/min (>60); Est Glom Filt Rate - Afr Amer 81 mL/min (>60); Ferritin 194 ng/mL (26-388); Globulin 3.3 g/dL (2.2-4.2); Glucose 124 mg/dL (74-106); Potassium 4.2 mmol/L (3.5-5.1); Protein, Total 6.9 g/dL (6.4-8.2); Sodium Level 138 mmol/L (136-145)
[2020-11-11 11:42] LABS: Microalbumin,Random Urine 8.2 mg/L (NO RANGE EST.); Microalbumin:Creatinine Ratio 7.9 mg/g CRE (<30 mg/g CRE)
== END ==
PROVIDERS: Referring Provider Family Medicine; Visit Provider Family Medicine
DX: E11.9 Type 2 diabetes mellitus without complications (principal); I10 Essential (primary) hypertension; D64.9 Anemia, unspecified; M86.9 Osteomyelitis, unspecified
CPT/HCPCS: 36415; 80053; 82043; 82570; 82728; 83036; 85014; 85018; 86140

== ENCOUNTER → 2021-02-20 08:25 | Outpatient (CLI) | payer MEDICAID, SELFPAY ==
[2020-10-24 08:07] VITALS: BMI 32.8
--- NOTE | 2021-02-20 08:30 | EKG12_ITS ---
Test Reason : HTN Blood Pressure : / mmHG Vent. Rate : 079 BPM Atrial Rate : 079 BPM P-R Int : 168 ms QRS Dur : 100 ms QT Int : 354 ms P-R-T Axes : 054 049 063 degrees QTc Int : 405 ms Normal sinus rhythm Normal ECG Confirmed by ALEX RIVERA, DAWNA ([id number]), editor & co founder [employer] ([id number]) on 02/21/2021 8:43:52 AM Referred By: [facility] Confirmed By:JIMENEZ JOHNSON MD
[2021-02-20 09:36] LABS: ALB/GLOB Ratio 0.9 RATIO (0.9-2.4); AST(SGOT) 19 U/L (15-37); Alanine Aminotransfer ALT/SGPT 33 U/L (16-61); Albumin, Serum 3.6 g/dL (3.2-5.0); Alkaline Phosphatase 54 U/L (45-117); Anion Gap 3 (5-15); BUN 21 mg/dL (7-18); Calcium,Total 9.5 mg/dL (8.5-10.1); Chloride 105 mmol/L (98-107); Cholesterol 171 mg/dL (200); EST Glomerular Filtration Rate 59 mL/min (>60); Est Glom Filt Rate - Afr Amer 71 mL/min (>60); Globulin 3.8 g/dL (2.2-4.2); Glucose 152 mg/dL (74-106); High Density Lipoprotein 45 mg/dL; Iron 84 ug/dL (65-175); Iron Binding Capacity,Total 318 ug/dL (250-450); PERCENT IRON SATURATION 26.4 % (15.0-55.0); Potassium 4.7 mmol/L (3.5-5.1); Protein, Total 7.4 g/dL (6.4-8.2); Sodium Level 137 mmol/L (136-145); Thyroid Stim Hormone (TSH) 4.88 uIU/mL (0.358-3.74); Triglycerides 171 mg/dL; Very Low Density Lipoprotein 34 mg/dL (5-40)
[2021-02-20 09:58] LABS: Absolute Lymphocyte Count 2.04 X10^3/uL (0.83-4.51); Absolute Neutrophil Count 4.6 X10^3/uL (2.0-7.7); Basophil# 0.08 X10^3/uL; Eosinophil# 0.42 X10^3/uL; Eosinophils% 5.4 % (0-5); Hemoglobin 14.4 g/dL (13.0-16.5); Lymphocyte # 2.04 X10^3/ul (0.83-4.51); Lymphocyte % 26.3 % (19-41); Mean Corp Hgb Conc 33.5 g/dL (32-36); Mean Corpuscular Hgb 29.4 pg (27.0-32.0); Mean Corpuscular Volume 87.8 fL (80-94); Mean Platelet Vol. 8.8 fl (6.2-12.0); Monocyte# 0.62 X10^3/uL; NRBC Flagged by Analyzer 0 % (0-5); Neutrophil # 4.57 X10^3/uL (2.7-7.7); Neutrophil % 58.8 % (47-70); Platelet Count 269 K/mm3 (150-450); RBC Distribution Width CV 12.6 % (11.6-14.6); RBC Distribution Width SD 40.2 fl (35.1-43.9); White Blood Count 7.8 K/mm3 (4.4-11.0)
[2021-02-20 10:24] LABS: Hemoglobin A1c 5.9 % (3.8-5.6)
== END ==
DX: I10 Essential (primary) hypertension (principal)
CPT/HCPCS: 36415; 80053; 80061; 83036; 83540; 83550; 84443; 85025; 93005

== ENCOUNTER → 2021-05-25 12:13 | Outpatient (CLI) | payer MEDICAID, SELFPAY ==
[2021-05-01 08:18] VITALS: BMI 33.7
[2021-05-25 13:22] LABS: Thyroid Stim Hormone (TSH) 3.81 uIU/mL (0.358-3.74)
== END ==
PROVIDERS: Referring Provider Nurse Practitioner Adult Health; Visit Provider Nurse Practitioner Adult Health
DX: I10 Essential (primary) hypertension (principal); R79.89 Other specified abnormal findings of blood chemistry
CPT/HCPCS: 36415; 84443

== ENCOUNTER → 2021-07-06 09:23 | Outpatient (CLI) | payer MEDICAID, SELFPAY ==
[2021-07-06 10:47] LABS: AST(SGOT) 18 U/L (15-37); Alanine Aminotransfer ALT/SGPT 39 U/L (16-61); Albumin, Serum 3.7 g/dL (3.2-5.0); Alkaline Phosphatase 52 U/L (45-117); Anion Gap 5 (5-15); BUN 28 mg/dL (7-18); BUN/Creat Ratio 21.4 RATIO (10-20); Calcium,Total 9.2 mg/dL (8.5-10.1); Chloride 107 mmol/L (98-107); Creatinine, Serum 1.31 mg/dL (0.70-1.30); EST Glomerular Filtration Rate 63 mL/min (>60); Est Glom Filt Rate - Afr Amer 77 mL/min (>60); Globulin 3.6 g/dL (2.2-4.2); Glucose 145 mg/dL (74-106); Potassium 4.6 mmol/L (3.5-5.1); Protein, Total 7.3 g/dL (6.4-8.2); Sodium Level 139 mmol/L (136-145); Thyroid Stim Hormone (TSH) 2.95 uIU/mL (0.358-3.74)
[2021-07-07 08:32] LABS: Thyroid Peroxidase AB 8 IU/mL (0-34)
== END ==
PROVIDERS: PCP Nurse Practitioner Adult Health; Referring Provider Nurse Practitioner Adult Health
DX: I10 Essential (primary) hypertension (principal); R74.8 Abnormal levels of other serum enzymes
CPT/HCPCS: 36415; 80053; 84443; 86376

== ENCOUNTER → 2021-07-13 07:45 | Outpatient (CLI) | payer MEDICAID, SELFPAY ==
--- NOTE | 2021-07-13 07:47 | US_ITS ---
STUDY: RENAL ULTRASOUND - COMPLETE REASON FOR EXAM: Male, 41 years old. CHRONIC KIDNEY DISEASE TECHNIQUE: Ultrasound evaluation of the kidneys was performed with real-time and static javier-scale imaging. COMPARISON: None. FINDINGS: RIGHT KIDNEY: Normal location of the right kidney, which is normal in size. The right kidney measures 10.6 cm x 5.3 cm x 5.2 cm. There is a normal cortex of the right kidney. The renal cortex measures 1.9 cm. There is no right renal mass or cyst. There are no right renal calculi. There is no right hydronephrosis. DISTAL RIGHT URETER: There is non-visualization of the distal right ureter. There is no demonstrated right ureterovesical junction calculus. There is a visualized right ureteral jet. LEFT KIDNEY: Normal location of the left kidney, which is normal in size. The left kidney measures 12.2 cm x 5.2 cm x 4.8 cm. There is a normal cortex of the left kidney. The renal cortex measures 1.8 cm. There is no left renal mass or cyst. There are no left renal calculi. There is no left hydronephrosis. DISTAL LEFT URETER: There is non-visualization of the distal left ureter. There is no demonstrated left ureterovesical junction calculus. There is a visualized left ureteral jet. BLADDER: The distended urinary bladder has a volume of 271 ml. There is a normal wall thickness of the distended urinary bladder. There is no demonstrated mass within the urinary bladder. There are no demonstrated bladder calculi. US/Kidney and Bladder IMPRESSION: Normal ultrasound of the kidneys and urinary bladder. Electronically Signed: Sammy Olsen MD at 14:25 EDT , Service support ,
== END ==
PROVIDERS: PCP Nurse Practitioner Adult Health; Referring Provider Nurse Practitioner Adult Health; Visit Provider Nurse Practitioner Adult Health
DX: N18.9 Chronic kidney disease, unspecified (principal)
CPT/HCPCS: 76770

== ENCOUNTER → 2021-10-06 10:25 | Outpatient (CLI) | payer MEDICAID, SELFPAY ==
[2021-10-06 11:44] LABS: ALB/GLOB Ratio 1.1 RATIO (0.9-2.4); AST(SGOT) 20 U/L (15-37); Alanine Aminotransfer ALT/SGPT 41 U/L (16-61); Albumin, Serum 3.8 g/dL (3.2-5.0); Alkaline Phosphatase 45 U/L (45-117); Anion Gap 6 (5-15); BUN 36 mg/dL (7-18); Chloride 109 mmol/L (98-107); Cholesterol 190 mg/dL (200); Creatinine, Serum 1.64 mg/dL (0.70-1.30); EST Glomerular Filtration Rate 49 mL/min (>60); Est Glom Filt Rate - Afr Amer 59 mL/min (>60); Globulin 3.4 g/dL (2.2-4.2); Glucose 127 mg/dL (74-106); High Density Lipoprotein 43 mg/dL; Potassium 4.5 mmol/L (3.5-5.1); Protein, Total 7.2 g/dL (6.4-8.2); Sodium Level 140 mmol/L (136-145); Triglycerides 236 mg/dL; Very Low Density Lipoprotein 47 mg/dL (5-40)
== END ==
PROVIDERS: PCP Nurse Practitioner Adult Health; Visit Provider Nurse Practitioner Adult Health
DX: E78.5 Hyperlipidemia, unspecified (principal)
CPT/HCPCS: 36415; 80053; 80061

== ENCOUNTER 2021-11-09 09:32 | Outpatient (CLI) | payer MEDICAID, SELFPAY ==
[2021-11-09 10:37] LABS: AST(SGOT) 26 U/L (15-37); Alanine Aminotransfer ALT/SGPT 59 U/L (16-61); Albumin, Serum 3.7 g/dL (3.2-5.0); Alkaline Phosphatase 48 U/L (45-117); Anion Gap 4 (5-15); BUN 30 mg/dL (7-18); BUN/Creat Ratio 20.3 RATIO (10-20); Calcium,Total 9.5 mg/dL (8.5-10.1); Chloride 108 mmol/L (98-107); Creatinine, Serum 1.48 mg/dL (0.70-1.30); EST Glomerular Filtration Rate 55 mL/min (>60); Est Glom Filt Rate - Afr Amer 67 mL/min (>60); Globulin 3.6 g/dL (2.2-4.2); Glucose 152 mg/dL (74-106); Protein, Total 7.3 g/dL (6.4-8.2); Sodium Level 139 mmol/L (136-145)
[2021-11-09 10:46] LABS: Microalbumin,Random Urine 7.1 mg/L (NO RANGE EST.); Microalbumin:Creatinine Ratio 8.3 mg/g CRE (<30 mg/g CRE)
== END 2021-11-09 23:59 | disposition short-term general hospital (02) ==
LOC: LAB 09:33
DX: I10 Essential (primary) hypertension (principal)
CPT/HCPCS: 36415; 80053; 82043; 82570

== ENCOUNTER → 2022-02-19 08:48 | Outpatient (CLI) | payer MEDICAID, SELFPAY ==
[2022-02-19 08:57] LABS: Bacteria 0 SEEN /hpf (None Seen); Mucous, Urine 0 SEEN /hpf (<or=2+); Squamous Epithelial Cells - UA 0 SEEN /hpf (0-5); White Blood Cells 0 SEEN /hpf (0-5)
[2022-02-19 09:34] LABS: Color, Urine Yellow (Yellow); Glucose, Dipstick 1000 mg/dl (Normal); Ketone-Dipstick Negative (Negative); Leukocyte Esterase-Dipstick Negative /ul (Negative); Nitrite-Dipstick Negative (Negative); Occult Blood-Urine 10 /ul (Negative); Protein-Dipstick Negative (Negative); Specific Gravity, Urine 1.015 (1.002-1.030); Urine Bilirubin Dipstick Negative (Negative); Urine Clarity Clear (Clear); Urine Urobilinogen Normal (Normal)
[2022-02-19 09:36] LABS: Hemoglobin 14.1 g/dL (13.0-16.5)
[2022-02-19 09:46] LABS: Red Blood Cells-Urine 0-5 SEEN /hpf (0-5)
[2022-02-19 09:54] LABS: Microalbumin,Random Urine 8.7 mg/L (NO RANGE EST.); Microalbumin:Creatinine Ratio 10.4 mg/g CRE (<30 mg/g CRE); Protein, Urine (Random) 11.5 mg/dL (<11.9); Protein:Creat Ratio 137 mg/g CRE (0-200)
[2022-02-19 10:07] LABS: Albumin, Serum 3.7 g/dL (3.2-5.0); BUN 35 mg/dL (7-18); BUN/Creat Ratio 22.9 RATIO (10-20); Calcium,Total 9.6 mg/dL (8.5-10.1); Chloride 110 mmol/L (98-107); Creatinine, Serum 1.53 mg/dL (0.70-1.30); EST Glomerular Filtration Rate 53 mL/min (>60); Est Glom Filt Rate - Afr Amer 64 mL/min (>60); Glucose 148 mg/dL (74-106); Phosphorus 3.9 mg/dL (2.5-4.9); Potassium 4.4 mmol/L (3.5-5.1); Sodium Level 142 mmol/L (136-145)
== END ==
DX: E11.21 Type 2 diabetes mellitus with diabetic nephropathy (principal); E11.22 Type 2 diabetes mellitus with diabetic chronic kidney disease; N18.2 Chronic kidney disease, stage 2 (mild); I12.9 Hypertensive chronic kidney disease with stage 1 through stage 4 chronic kidney disease, or unspecified chronic kidney disease; E66.9 Obesity, unspecified; Z68.30 Body mass index [BMI] 30.0-30.9, adult
CPT/HCPCS: 36415; 80069; 81001; 82043; 82570; 84156; 85018

== ENCOUNTER → 2022-03-07 | Outpatient (CLI) | payer MEDICAID, SELFPAY ==
[2022-03-07 08:12] LABS: Absolute Lymphocyte Count 2.34 X10^3/uL (0.83-4.51); Absolute Neutrophil Count 8.6 X10^3/uL (2.0-7.7); Basophil# 0.06 X10^3/uL; Basophil% 0.5 % (0-1); Eosinophils% 1.6 % (0-5); Lymphocyte # 2.34 X10^3/ul (0.83-4.51); Lymphocyte % 18.8 % (19-41); Mean Corp Hgb Conc 33.3 g/dL (32-36); Mean Corpuscular Hgb 29.1 pg (27.0-32.0); Mean Corpuscular Volume 87.3 fL (80-94); Mean Platelet Vol. 8.9 fl (6.2-12.0); Monocyte# 1.24 X10^3/uL; Monocyte% 9.9 % (0-10); NRBC Flagged by Analyzer 0 % (0-5); Neutrophil # 8.56 X10^3/uL (2.7-7.7); Neutrophil % 68.6 % (47-70); Platelet Count 217 K/mm3 (150-450); RBC Distribution Width CV 13.1 % (11.6-14.6); RBC Distribution Width SD 41.7 fl (35.1-43.9); Red Blood Count 4.81 M/mm3 (4.6-6.2); White Blood Count 12.5 K/mm3 (4.4-11.0)
[2022-03-07 08:50] LABS: ALB/GLOB Ratio 0.9 RATIO (0.9-2.4); AST(SGOT) 27 U/L (15-37); Alanine Aminotransfer ALT/SGPT 32 U/L (16-61); Albumin, Serum 3.5 g/dL (3.2-5.0); Alkaline Phosphatase 58 U/L (45-117); Anion Gap 6 (5-15); BUN 21 mg/dL (7-18); BUN/Creat Ratio 13.5 RATIO (10-20); Calcium,Total 8.7 mg/dL (8.5-10.1); Chloride 106 mmol/L (98-107); Creatinine, Serum 1.55 mg/dL (0.70-1.30); EST Glomerular Filtration Rate 52 mL/min (>60); Est Glom Filt Rate - Afr Amer 63 mL/min (>60); Globulin 3.8 g/dL (2.2-4.2); Glucose 111 mg/dL (74-106); Lipase 72 U/L (73-393); Potassium 3.8 mmol/L (3.5-5.1); Protein, Total 7.3 g/dL (6.4-8.2); Sodium Level 138 mmol/L (136-145); Thyroid Stim Hormone (TSH) 3.91 uIU/mL (0.358-3.74)
[2022-03-08 18:08] LABS: Endomysial Antibody IgA Negative (Negative)
[2022-03-08 20:35] LABS: Immunoglobulin A 190 mg/dL (90-386); t-Transglutaminase IgA <2 U/mL (0-3)
== END | disposition home or self-care (01) ==
LOC: LAB 07:31
PROVIDERS: Referring Provider Nurse Practitioner Adult Health; Visit Provider Nurse Practitioner Adult Health
DX: R19.7 Diarrhea, unspecified (principal)
CPT/HCPCS: 36415; 80053; 82274; 82784; 83516; 83690; 84443; 85025; 86255; 87493

== ENCOUNTER 2022-03-08 17:43 | Observation (INO) | payer MEDICAID, SELFPAY ==
[2022-03-08 17:43] VITALS: BP 127/92; PULSE 89; RESP 16; TEMP 36.2; O2SAT 98; BMI 37.5
[2022-03-08 17:45] VITALS: BP 127/92; PULSE 89; RESP 16; TEMP 36.2; O2SAT 98
--- NOTE | 2022-03-08 19:39 | EDS_ITS ---
HPI History of Present Illness Chief Complaint: Abscess Informant: patient and spouse/S.O. Narrative Narrative: 41-year-old male presenting to the emergency department for rectal pain. Patient states he developed pain on Saturday went saw his doctor who felt that it was a hemorrhoid. He has been taking suppositories. He states that the pain continues to worsen. He is worried that he may have an infection. He has been able to have bowel movements. No reported fevers. He is a diabetic. [facility] Medical History DM w/o complication type II Essential hypertension Hypertension associated with stage 3 chronic kidney disease due to type 2 diabetes mellitus Neuropathy Osteomyelitis Seasonal allergies Vitamin D deficiency, unspecified Home Medications loratadine 10 mg PO DAILY 05/09/20 [History Last Taken 05/08/20] metoprolol succinate 50 mg PO DAILY 05/09/20 [History Last Taken 05/08/20] Lantus Solostar U-100 Insulin 100 unit/mL (3 mL) subcutaneous pen 8 unit SUBCUT QPM #3 ml NS 05/01/21 [Rx Last Taken Unknown] blood sugar diagnostic #100 ea 05/01/21 [Rx Last Taken Unknown] dapagliflozin 10 mg tablet 10 mg PO DAILY #30 tab 05/01/21 [Rx Last Taken Unknown] insulin lispro 100 unit/mL subcutaneous pen 7 unit SUBCUT TID #6 ml 05/01/21 [Rx Last Taken Unknown] lancets 33 gauge #100 ea 05/01/21 [Rx Last Taken Unknown] losartan 50 mg tablet 100 mg PO tab 10/31/21 [History Last Taken Unknown] glimepiride 2 mg tablet 2 mg PO DAILY #30 tab 03/07/22 [Rx Last Taken Unknown] Allergy/AdvReac Type Severity Reaction Status Date / Time metformin AdvReac Severe Diarrhea Verified 03/08/22 17:45 Family History Grandmother Diabetes Aunt Diabetes Father Hypertension Brother Hypertension Surgical History 4th metatarsal removal Social History Smoking Status: Current some day smoker tobacco type: smokeless tobacco Smokeless tobacco user: chewing tobacco alcohol intake: never substance use type: does not use what type of physical activity do you participate in: none ROS ROS ED Constitutional Constitutional ED: Denies chills, fever(s) or weight loss Eyes Eyes: Denies change in vision or diplopia ENT ENT ED: Denies ear pain, rhinorrhea or sore throat Cardiovascular Cardiovascular: Denies chest pain, orthopnea, palpitations or racing heartbeat Respiratory/Chest Respiratory/Chest: Denies cough, dyspnea or orthopnea Gastrointestinal Gastrointestinal: Reports other Details: rectal pain ; Denies abdominal pain, diarrhea, nausea or vomiting Genitourinary Genitourinary ED: Denies dysuria, hematuria or urinary frequency Musculoskeletal Musculoskeletal: Denies arthralgias or myalgias Integumentary Denies abscess or rash Neurologic Neurologic: Denies headache(s) or weakness Psychiatric Psychiatric: Denies anxiety, depression, suicidal ideation or suicidal thoughts Endocrine Endocrinology: Denies polydipsia, polyphagia or polyuria Allergic/Immunologic Allergic/Immunologic ED: Denies mouth swelling, tongue swelling or urticaria EXAM Physical Exam Const Vital Signs: 03/08/22 17:43 03/08/22 17:45 Temperature 97.2 F L 97.2 F L Temperature Source Temporal Temporal Pulse Rate 89 89 Respiratory Rate 16 16 Blood Pressure 127/92 H 127/92 H Blood Pressure Mean 103 103 Pulse Ox 98 98 Oxygen Delivery Method Room Air Room Air Positive well nourished, well developed and obese General Appearance ED: well developed Nutritional Appearance: obese HEENT Reports normocephalic, head/scalp atraumatic, TM's clear and moist mucous membranes Negative for trauma Tympanic Membrane ED: Yes TM's clear Eyes PERRL and EOMs intact bilaterally Neck no lymphadenopathy, supple and no JVD Resp normal respiratory effort and clear to auscultation bilaterally Cardio regular rate, regular rhythm and no murmurs GI normal to inspection, nondistended, normoactive bowel sounds and non-tender Palpation: soft Narrative: There is erythema in the perineum and in the perirectal area. I do not appreciate any fluctuance. There is tenderness to palpation. There is evidence of a hemorrhoid that is not thrombosed. Back/Spine no CVA tenderness and normal ROM Extremity normal to inspection General Extremety ED: Negative for edema General Extremity: Negative for edema Neuro oriented x3 and CN's II-XII intact bilaterally Sensorium / Orientation: alert Motor Exam: strength 5/5 throughout Psych mental status grossly normal Mood & Affect: Negative for depressed or tearful Skin no rashes or lesions noted and no wounds MDM MDM MDM Narrative Medical decision making narrative: Count slightly elevated 11.6. Creatinine 1.48. CT of the pelvis with IV contrast obtained which demonstrates a 3 cm right perianal abscess. I spoke with our on-call surgeon Dr. Cohn who came to the emergency department to evaluate the patient. Plan is to go to the operating room. Lab Data Attestation: I reviewed the patient's lab results. Labs: Laboratory Results - last 24 hr 03/08/22 03/08/22 20:20 20:20 WBC 11.6 H RBC 4.77 Hgb 13.9 Hct 40.8 MCV 85.5 MCH 29.1 MCHC 34.1 RDW Std Deviation 39.5 RDW Coeff of Alivia 12.6 Plt Count 218 MPV 8.9 Immature Gran % (Auto) 0.300 Neut % (Auto) 72.5 H Lymph % (Auto) 15.3 L [place] % (Auto) 9.1 Eos % (Auto) 2.4 Baso % (Auto) 0.4 Absolute Neuts (auto) 8.4 H Absolute Lymphs (auto) 1.77 Nucleated RBC % 0 Sodium 136 Potassium 3.6 Chloride 104 Carbon Dioxide 25.0 Anion Gap 7 BUN 20 H Creatinine 1.48 H Estim Creat Clear Calc 76.92 Est GFR (MDRD) Af Amer 66 Est GFR (MDRD) Non-Af 55 L BUN/Creatinine Ratio 13.5 Glucose 99 Calcium 8.4 L Radiography Diagnostic Testing: Clinical Impression(s) from Imaging Studies Pelvis CT 03/08/22 20:50 IMPRESSION: 3 cm right perianal abscess. Mild prostatomegaly. Correlate with PSA levels. Electronically Signed: Olivier Sharp MD at 21:14 EDT , EKG Initial EKG: Attestation: I personally reviewed and interpreted this EKG as follows: Comments: Normal sinus rhythm with a ventricular rate of 84 bpm Discharge Plan Dx/Rx/DC Orders Clinical Impression: Abscess, perianal, Cellulitis of perianal area Disposition Disposition: Acute Care Hospital [facility]
[2022-03-08 20:30] LABS: Absolute Lymphocyte Count 1.77 X10^3/uL (0.83-4.51); Absolute Neutrophil Count 8.4 X10^3/uL (2.0-7.7); Basophil# 0.05 X10^3/uL; Basophil% 0.4 % (0-1); Eosinophil# 0.28 X10^3/uL; Eosinophils% 2.4 % (0-5); Hematocrit 40.8 % (40-54); Hemoglobin 13.9 g/dL (13.0-16.5); Lymphocyte # 1.77 X10^3/ul (0.83-4.51); Lymphocyte % 15.3 % (19-41); Mean Corp Hgb Conc 34.1 g/dL (32-36); Mean Corpuscular Hgb 29.1 pg (27.0-32.0); Mean Corpuscular Volume 85.5 fL (80-94); Mean Platelet Vol. 8.9 fl (6.2-12.0); Monocyte# 1.06 X10^3/uL; Monocyte% 9.1 % (0-10); NRBC Flagged by Analyzer 0 % (0-5); Neutrophil % 72.5 % (47-70); Platelet Count 218 K/mm3 (150-450); RBC Distribution Width CV 12.6 % (11.6-14.6); RBC Distribution Width SD 39.5 fl (35.1-43.9); Red Blood Count 4.77 M/mm3 (4.6-6.2); White Blood Count 11.6 K/mm3 (4.4-11.0)
[2022-03-08 20:45] LABS: Anion Gap 7 (5-15); BUN 20 mg/dL (7-18); BUN/Creat Ratio 13.5 RATIO (10-20); Calcium,Total 8.4 mg/dL (8.5-10.1); Chloride 104 mmol/L (98-107); Creatinine, Serum 1.48 mg/dL (0.70-1.30); EST Glomerular Filtration Rate 55 mL/min (>60); Est Glom Filt Rate - Afr Amer 66 mL/min (>60); Estimated Creatinine Clearance 76.92 ml/min; Glucose 99 mg/dL (74-106); Potassium 3.6 mmol/L (3.5-5.1); Sodium Level 136 mmol/L (136-145)
--- NOTE | 2022-03-08 20:50 | CT_ITS ---
INDICATION: perirectal abscess EXAMINATION: CT Pelvis W/ Contrast Injection TECHNIQUE: Helically acquired images were obtained of the pelvis after IV contrast. A radiation dose optimization technique was used for this scan. IV Contrast dosage and agent: IV 100mL [id number]-370 Oral contrast: None. COMPARISON: None. FINDINGS: Vasculature: Unremarkable GI Tract: Unremarkable Lymphadenopathy: None Peritoneum: No ascites. Bladder: Unremarkable Reproductive organs: The prostate is mildly enlarged. Bones/Soft tissues: In the right ischiorectal fossa there is a 2.9 x 1.4 cm rim-enhancing fluid collection with surrounding fat stranding adjacent to the anus. CT/Pelvis WITH IV Contrast IMPRESSION: 3 cm right perianal abscess. Mild prostatomegaly. Correlate with PSA levels. Electronically Signed: Olivier Sharp MD at 21:14 EDT ,
[2022-03-08] MEDS: 0.9% Normal Saline 1,000 ML 1000 ML IV (21:00)
--- NOTE | 2022-03-08 21:38 | EKG12_ITS ---
Test Reason : PRE-OP Blood Pressure : / mmHG Vent. Rate : 084 BPM Atrial Rate : 084 BPM P-R Int : 172 ms QRS Dur : 100 ms QT Int : 378 ms P-R-T Axes : 052 035 038 degrees QTc Int : 446 ms Normal sinus rhythm Nonspecific T wave abnormality Abnormal ECG Confirmed by CHANA RIVERA, ROMELIA ([id number]), newspaper editor managing [employer] ([id number]) on 03/12/2022 1:44:38 PM Referred By: Confirmed By:ROMELIA ZAYAS MD
--- NOTE | 2022-03-08 21:40 | PCM.CONS.GEN ---
Assessment & Plan Assessment/Plan (1) Abscess, perianal: (2) Cellulitis of perianal area: PLAN: The patient is a 41 y/o M w/ PMHx: Obesity, HTN, HLD, Allergic rhinitis, Diabetes mellitus type II with neuropathy, CKD stage III unclear subtype, History of prior diabetic foot wounds with prior BL foot surgeries, reporting his last HgbA1c < 6% 2-3 months prior and noting appropriate diet/medication compliance who presents to the [facility] ED on 03/08/22 with history of onset of rectal pain starting on Saturday with PCP evaluation suspicious for hemorrhoidal discomfort at that time started on suppositories per rectum with continued pain which worsened. #1. Acute rectal pain secondary to right perianal abscess and perianal cellulitis: Patient being admitted per general surgery with requested medical consultation, plan to transition from ED to OR immediately, would expect continue antibiotic therapy with broad-spectrum pending OR wound cultures, expect continued CBC monitoring, general wound care recommendations per general surgery, as needed pain regimen, as needed antiemetic regimen. #2. Diabetes mellitus type II with chronic neuropathy, history of diabetic foot wounds: Hold oral home regimen, continue home insulin regimen, ADA diet once allowed given planned OR upon admission, accu checks w/ ISS. #3. Hypertension: Continue home regimen including metoprolol, losartan with hold parameters as needed, PRN hydralazine. #4. Hyperlipidemia: Not on regimen, defer to outpatient. #5. Chronic Kidney Disease Stage III, unclear subtype: Admission BUN/Cr 20/1.48, baseline renal function 1.3-1.6, repeat BMP in AM. #6. Allergic rhinitis: We will continue patient home loratadine regimen. #7. Obesity: Weight loss and lifestyle changes encouraged. #8. Chew tobacco use history: Encourage to tobacco cessation, nicotine replacement if necessary. #9. DVT prophylaxis: SCDs, chemoprophylaxis per primary admitting service given plan for OR. HPI Consult Data Date of Consult: 03/08/22 HPI Narrative Reason for Consultation: Medical consultation HPI Narrative: The patient is a 41 y/o M w/ PMHx: Obesity, HTN, HLD, Allergic rhinitis, Diabetes mellitus type II with neuropathy, CKD stage III unclear subtype, History of prior diabetic foot wounds with prior BL foot surgeries, reporting his last HgbA1c < 6% 2-3 months prior and noting appropriate diet/medication compliance who presents to the [facility] ED on 03/08/22 with history of onset of rectal pain starting on Saturday with PCP evaluation suspicious for hemorrhoidal discomfort at that time started on suppositories per rectum with continued pain which worsened with no fevers and ongoing normal bowel movements but given severity of pain, sometimes tentative 10 in severity, worse with certain positions prompted evaluation. Work-up in the ED included T97.2, heart rate 89, BP 127/92, respiratory rate 16, 98% on room air, CBC with WC 11.6, hemoglobin 13.9, platelet 218 with left shift, BMP with BUN/creat 20/1.48, glucose 99, pending COVID testing prior to OR, CT pelvis with a 3 cm right perianal abscess with mild prostamegaly. In the ED patient ministered Zosyn, Zofran, morphine and a normal saline bolus. Patient being admitted and taken to the OR by Dr. Cohn with requested medical consultation given diabetic history. [facility] Medical History (Updated 03/08/22 @ 21:[address] Khalida Barnes MD) DM w/o complication type II Essential hypertension HLD (hyperlipidemia) Hypertension associated with stage 3 chronic kidney disease due to type 2 diabetes mellitus Neuropathy Osteomyelitis Seasonal allergies Vitamin D deficiency, unspecified Home Medications loratadine 10 mg PO DAILY 05/09/20 [History Last Taken 05/08/20] metoprolol succinate 50 mg PO DAILY 05/09/20 [History Last Taken 05/08/20] Lantus Solostar U-100 Insulin 100 unit/mL (3 mL) subcutaneous pen 8 unit SUBCUT QPM #3 ml NS 05/01/21 [Rx Last Taken Unknown] blood sugar diagnostic #100 ea 05/01/21 [Rx Last Taken Unknown] dapagliflozin 10 mg tablet 10 mg PO DAILY #30 tab 05/01/21 [Rx Last Taken Unknown] insulin lispro 100 unit/mL subcutaneous pen 7 unit SUBCUT TID #6 ml 05/01/21 [Rx Last Taken Unknown] lancets 33 gauge #100 ea 05/01/21 [Rx Last Taken Unknown] losartan 50 mg tablet 100 mg PO tab 10/31/21 [History Last Taken Unknown] glimepiride 2 mg tablet 2 mg PO DAILY #30 tab 03/07/22 [Rx Last Taken Unknown] Allergy/AdvReac Type Severity Reaction Status Date / Time metformin AdvReac Severe Diarrhea Verified 03/08/22 17:45 Family History Grandmother Diabetes Aunt Diabetes Father Hypertension Brother Hypertension Surgical History (Updated 03/08/22 @ 21:[address] Khalida Barnes MD) 4th metatarsal removal Hx of eye surgery S/P bilateral foot surgery Social History (Updated 03/08/22 @ 21:[address] Khalida Barnes MD) Smoking Status: Never smoker Smokeless tobacco user: chewing tobacco alcohol intake: never substance use type: does not use what type of physical activity do you participate in: none ROS ROS Narrative Admission Review of Systems: CONSTITUTIONAL: No weight loss, fever, chills, + weakness or fatigue. HEENT: Eyes: No visual loss, blurred vision, double vision or yellow sclerae. Ears, Nose, Throat: No hearing loss, sneezing, congestion, runny nose or sore throat. SKIN: + Perirectal redness, abscess. CARDIOVASCULAR: No chest pain, chest pressure or chest discomfort, palpitations, edema, orthopnea, syncopal events. RESPIRATORY: No shortness of breath, cough or sputum, wheezing, hemoptysis. GASTROINTESTINAL: + Perirectal pain, erythema, abscess, no anorexia, nausea, vomiting or diarrhea, abdominal pain, melena, BRBPR. GENITOURINARY: No dysuria, frequency, urgency or retention. NEUROLOGICAL: No headache, dizziness, syncope, paralysis, ataxia, numbness or tingling in the extremities, focal weakness, change in bowel or bladder control, seizure. MUSCULOSKELETAL: + muscle, back pain, joint pain or stiffness. HEMATOLOGIC: No anemia, bleeding or bruising. LYMPHATICS: No enlarged nodes. No history of splenectomy. PSYCHIATRIC: No history of depression or anxiety. ENDOCRINOLOGIC: No reports of sweating, cold or heat intolerance. No polyuria or polydipsia. ALLERGIES: + history of rhinitis. Physical Exam Narrative Physical Examination: General: Awake, alert, oriented x 3 and cooperative, laying in the ED bed, uncomfortable appearing especially positionally. Skin: Normal color, normal turgor, no icterus, no cyanosis except right-sided perianal abscess with no specific fluctuance. HEENT: AT/NC, EOMI, PERRLA, mildly dry MM, no carotid bruits or JVD noted. Lungs: Mildly diminished, greater bases, appropriate effort, no rales, ronchi or wheezing. Heart: Currently regular rate and rhythm; no gallop, rub audible. Abdomen: Soft, obese, NTTP, ND, mildly hyperactive BS, no HSM. Extremities: No cyanosis, clubbing, or edema. Neurological: Patient awake, alert, oriented as noted, cognitive function intact; pupils equally reactive to light and accommodation, cranial nerves II-XII grossly normal, moving all 4 extremities, no focal deficits, strength moderately globally decreased secondary to acute presentation with pain Psychiatric: Affect appears uncomfortable, no acute evidence of depressive or anxiety feelings. Lab / Micro Data Result Diagrams: 03/08/22 20:20 03/08/22 20:20 Labs: Laboratory Results - last 24 hr 03/08/22 20:20: WBC 11.6 H, RBC 4.77, Hgb 13.9, Hct 40.8, MCV 85.5, MCH 29.1, MCHC 34.1, RDW Std Deviation 39.5, RDW Coeff of Alivia 12.6, Plt Count 218, MPV 8.9, Immature Gran % (Auto) 0.300, Neut % (Auto) 72.5 H, Lymph % (Auto) 15.3 L, [place] % (Auto) 9.1, Eos % (Auto) 2.4, Baso % (Auto) 0.4, Absolute Neuts (auto) 8.4 H, Absolute Lymphs (auto) 1.77, Nucleated RBC % 0 03/08/22 20:20: Sodium 136, Potassium 3.6, Chloride 104, Carbon Dioxide 25.0, Anion Gap 7, BUN 20 H, Creatinine 1.48 H, Estim Creat Clear Calc 76.92, Est GFR (MDRD) Af Amer 66, Est GFR (MDRD) Non-Af 55 L, BUN/Creatinine Ratio 13.5, Glucose 99, Calcium 8.4 L Radiology Impression Pelvis CT 03/08/22 20:50 IMPRESSION: 3 cm right perianal abscess. Mild prostatomegaly. Correlate with PSA levels. Electronically Signed: Olivier Sharp MD at 21:14 EDT , Charges/Coding Visit Charges Office Visits / Consults: [id number] IP Consult L4
--- NOTE | 2022-03-08 21:42 | CON.PCM.SX_ITS ---
Assessment & Plan Assessment/Plan (1) Abscess, perianal: PLAN: My plan is to take him to surgery and perform an incision and drainage of this perianal abscess. I have told him that this is hopefully going to be a 1 stage operation and we will treat him with packing. However I also discussed with him that being diabetic sometimes we need to do a second look operation which may require further surgery if we do not drain it effectively tonight. We will also consult Khalida Barnes our hospitalist to help us with the diabetic management of this patient. HPI Consult Data Date of Consult: 03/08/22 HPI Narrative HPI Narrative: LIU HATCH, 41-year-old male presenting to the emergency department for rectal pain. Patient states he developed pain on Saturday went saw his doctor who felt that it was a hemorrhoid. He has been taking suppositories. He states that the pain continues to worsen. He is worried that he may have an infection. He has been able to have bowel movements. No reported fevers. He is a diabetic. Showed a 3 cm right perianal abscess. [facility] Medical History DM w/o complication type II Essential hypertension Hypertension associated with stage 3 chronic kidney disease due to type 2 diabetes mellitus Neuropathy Osteomyelitis Seasonal allergies Vitamin D deficiency, unspecified Home Medications loratadine 10 mg PO DAILY 05/09/20 [History Last Taken 05/08/20] metoprolol succinate 50 mg PO DAILY 05/09/20 [History Last Taken 05/08/20] Lantus Solostar U-100 Insulin 100 unit/mL (3 mL) subcutaneous pen 8 unit SUBCUT QPM #3 ml NS 05/01/21 [Rx Last Taken Unknown] blood sugar diagnostic #100 ea 05/01/21 [Rx Last Taken Unknown] dapagliflozin 10 mg tablet 10 mg PO DAILY #30 tab 05/01/21 [Rx Last Taken Unknown] insulin lispro 100 unit/mL subcutaneous pen 7 unit SUBCUT TID #6 ml 05/01/21 [Rx Last Taken Unknown] lancets 33 gauge #100 ea 05/01/21 [Rx Last Taken Unknown] losartan 50 mg tablet 100 mg PO tab 10/31/21 [History Last Taken Unknown] glimepiride 2 mg tablet 2 mg PO DAILY #30 tab 03/07/22 [Rx Last Taken Unknown] Allergy/AdvReac Type Severity Reaction Status Date / Time metformin AdvReac Severe Diarrhea Verified 03/08/22 17:45 Family History Grandmother Diabetes Aunt Diabetes Father Hypertension Brother Hypertension Surgical History 4th metatarsal removal Social History Smoking Status: Current some day smoker tobacco type: smokeless tobacco Smokeless tobacco user: chewing tobacco alcohol intake: never substance use type: does not use what type of physical activity do you participate in: none ROS Constitutional Constitutional: Denies chills, fatigue or fever(s) Cardiovascular Cardiovascular: Denies chest pain Respiratory/Chest Respiratory/Chest: Denies cough or dyspnea Gastrointestinal Gastrointestinal: Denies abdominal pain, nausea, rectal bleeding or vomiting Genitourinary Genitourinary: Denies change in urinary stream Physical Exam Const alert, oriented x3 and no apparent distress General Appearance: cooperative HEENT normocephalic and head/scalp atraumatic Eyes PERRL and EOMs intact bilaterally Resp clear to auscultation bilaterally Cardio Rate: regular rate Rhythm: regular rhythm GI soft to palpation and non-tender GI Narrative: Patient has on the right buttocks area reddened cellulitic tissue it is tender to touch there is some slight fluctuance to it. None of the cellulitis appears to be going up towards the scrotum. Lab / Micro Data Result Diagrams: 03/08/22 20:20 03/08/22 20:20 Labs: Laboratory Results - last 24 hr 03/08/22 20:20: WBC 11.6 H, RBC 4.77, Hgb 13.9, Hct 40.8, MCV 85.5, MCH 29.1, MCHC 34.1, RDW Std Deviation 39.5, RDW Coeff of Alivia 12.6, Plt Count 218, MPV 8.9, Immature Gran % (Auto) 0.300, Neut % (Auto) 72.5 H, Lymph % (Auto) 15.3 L, [place] % (Auto) 9.1, Eos % (Auto) 2.4, Baso % (Auto) 0.4, Absolute Neuts (auto) 8.4 H, Absolute Lymphs (auto) 1.77, Nucleated RBC % 0 03/08/22 20:20: Sodium 136, Potassium 3.6, Chloride 104, Carbon Dioxide 25.0, An ion Gap 7, BUN 20 H, Creatinine 1.48 H, Estim Creat Clear Calc 76.92, Est GFR (MDRD) Af Amer 66, Est GFR (MDRD) Non-Af 55 L, BUN/Creatinine Ratio 13.5, Glucose 99, Calcium 8.4 L Radiology Impression Pelvis CT 03/08/22 20:50 IMPRESSION: 3 cm right perianal abscess. Mild prostatomegaly. Correlate with PSA levels. Electronically Signed: Olivier Sharp MD at 21:14 EDT ,
--- NOTE | 2022-03-08 22:30 | LES_PTH ---
PATIENT: LIU HATCH LOC: [facility] U#:[id number] AGE/SX: 41/M ROOM: AK315 RE03/08/[address]: Dr. Adair Cohn MD : [id number] BED: 1 DIS: 03/09/2022 SPEC #: [id number] RECD: 03/09/22 11:31 STATUS: CHRISTY RELarry #: [id number] JOHN: 03/08/22 22:[address]: Adair Cohn DEPT: SURGICAL PATHOLOGY RECD BY: Inez Carnes ENTERED: 03/09/22 13:41 SP TYPE: Lesion OTHR DR: K[facility] Tissues: Perianal tissue Procedures: Surgery Specimen Level III HEADER OPERATION: Incision and drainage of perirectal abscess PRE-OP DIAGNOSIS: Abscess, perianal TISSUE SUBMITTED: Perianal skin MICROSCOPIC DIAGNOSIS Perianal skin: A piece of skin with underlying tissue with acute and chronic inflammation and abscess formation. Reactive epithelial changes, hyperkeratosis and parakeratosis. SJ:tereza 03/12/2022 MICROSCOPIC DESCRIPTION Slides are reviewed. GROSS DESCRIPTION Received in fixative is one container labeled with the patient's name and designated perianal skin. The specimen consists of an elongated fragment of camp skin with attached hemorrhagic soft tissue measuring 4.5 x 1 x 0.5 cm. No mass lesions are identified. The specimen is sectioned and totally submitted in two cassettes. / AM:tereza 03/09/2022 TC:2 CPT: 20909
[2022-03-08 22:44] VITALS: BP 135/83; PULSE 91; RESP 15; TEMP 36.8; O2SAT 98
[2022-03-08 22:45] VITALS: PULSE 92; RESP 15; TEMP 36.8; O2SAT 98; BMI 37.5
[2022-03-08] MEDS: BUPIVACAINE LIPOSOME/PF 20 ML VIAL OPERA.SITE (23:14)
--- NOTE | 2022-03-08 23:45 | PCM.OPRPT ---
Problems Associated Problem List Diagnoses (1) Abscess, perianal: Report of Operation Date of Procedure: 03/08/22 Pre-Operative Diagnosis: Perianal abscess Post-Operative Diagnosis: Same Surgery/Procedure Performed:: Incision and drainage of perianal abscess complicated Surgeon: Adair Cohn postal service mail processor: Bhavana Prince Type of Anesthesia: General Anesthesiologist: Song Ba Specimen's removed: Necrotic skin Estimated Blood Loss (mL): < 25 cc Description of Procedure: Patient was brought into the operating room. Placed in the supine position. Under excellent general anesthetic legs were placed up in stirrups perianal area was sterilely prepped and draped in the usual fashion. Patient had a fluctuant area on his right perianal area I injected Exparel and made a 5 cm incision. I obtained cultures and sensitivities for both aerobic and anaerobic's he had necrotic tissue in this area I debrided all of this tissue using a curette and sharp dissection with a scalpel. The depth of the incision went down approximately 3 cm. I removed part of the perianal skin which had mixed necrosis on the undersurface. I irrigated out the wound with a peroxide mixture I saw no areas that look necrotic every edge was bleeding well I use electrocautery on the skin surfaces to stop any bleeding I had good pneumostasis. I packed the wound with a Betadine soaked Kerlix and ABD was placed and then. Pants were placed. This was a significant abscess. He will need to stay in the hospital until his white count normalizes and we are sure that there is no other further cellulitic changes in the perianal area. He will not be able to do any traveling outside this area for more than 2 weeks. Admit VTE Documentation VTE Present on Admission: No VTE Mechan Device Prophylaxis: SCD's VTE Pharm Prophylaxis ordered?: No Reason prophylaxis not ordered:: Treatment Not Indicated
[2022-03-08 23:52] VITALS: BP 126/78; BP 135/85; PULSE 87; RESP 16; TEMP 36.6; O2SAT 100
[2022-03-09] VITALS (10 sets, daily range): BP systolic 119–167; BP diastolic 78–98; PULSE 75–91; RESP 16; TEMP 36.4–37.3; O2SAT 93–98; BMI 36.8
[2022-03-09] MEDS: Lactated Ringers 1,000 ML 15 ML IV
[2022-03-09 00:01] LABS: Bedside Glucose 86 mg/dL (74-106)
[2022-03-09] MEDS: 0.9% Normal Saline 1,000 ML 80 ML IV (00:51)
[2022-03-09 02:18] LABS: M R Staph aureus DNA By PCR Negative (Negative); Probe Check PASS; Specimen Processing Control PASS; Staph aureus DNA By PCR NEGATIVE (Negative)
[2022-03-09 06:34] LABS: Absolute Lymphocyte Count 1.67 X10^3/uL (0.83-4.51); Absolute Neutrophil Count 6.8 X10^3/uL (2.0-7.7); Basophil# 0.05 X10^3/uL; Basophil% 0.5 % (0-1); Eosinophils% 2.1 % (0-5); Hematocrit 37.2 % (40-54); Hemoglobin 12.7 g/dL (13.0-16.5); Lymphocyte # 1.67 X10^3/ul (0.83-4.51); Lymphocyte % 17.1 % (19-41); Mean Corp Hgb Conc 34.1 g/dL (32-36); Mean Corpuscular Hgb 29.2 pg (27.0-32.0); Mean Corpuscular Volume 85.5 fL (80-94); Mean Platelet Vol. 8.8 fl (6.2-12.0); Monocyte# 0.95 X10^3/uL; Monocyte% 9.8 % (0-10); NRBC Flagged by Analyzer 0 % (0-5); Neutrophil # 6.84 X10^3/uL (2.7-7.7); Neutrophil % 70.2 % (47-70); Platelet Count 200 K/mm3 (150-450); RBC Distribution Width CV 12.9 % (11.6-14.6); RBC Distribution Width SD 40.4 fl (35.1-43.9); Red Blood Count 4.35 M/mm3 (4.6-6.2); White Blood Count 9.7 K/mm3 (4.4-11.0)
[2022-03-09 07:00] LABS: ALB/GLOB Ratio 0.9 RATIO (0.9-2.4); AST(SGOT) 30 U/L (15-37); Alanine Aminotransfer ALT/SGPT 37 U/L (16-61); Albumin, Serum 2.9 g/dL (3.2-5.0); Alkaline Phosphatase 57 U/L (45-117); Anion Gap 8 (5-15); BUN 17 mg/dL (7-18); BUN/Creat Ratio 13.1 RATIO (10-20); Calcium,Total 8.1 mg/dL (8.5-10.1); Chloride 111 mmol/L (98-107); EST Glomerular Filtration Rate 64 mL/min (>60); Est Glom Filt Rate - Afr Amer 77 mL/min (>60); Estimated Creatinine Clearance 87.57 ml/min; Globulin 3.4 g/dL (2.2-4.2); Glucose 93 mg/dL (74-106); Potassium 3.8 mmol/L (3.5-5.1); Protein, Total 6.3 g/dL (6.4-8.2); Sodium Level 140 mmol/L (136-145)
--- NOTE | 2022-03-09 07:37 | PCM.PN.HOSP ---
Subjective Subjective Patient is a 41-year-old gentleman admitted with rectal pain found to have right perianal abscess and perianal cellulitis admitted to the surgical service patient underwent incision and drainage of complicated perianal abscess by Dr. Cohn on 03/08/2022. The hospitalist service was consulted to assist with management of patient medical comorbidities Objective Data Objective Data Vital Signs: Vital Signs Temp Pulse Resp BP Pulse Ox 98.5 F 82 16 144/85 H 98 03/09/22 04:32 03/09/22 04:32 03/09/22 04:32 03/09/22 04:32 03/09/22 04:32 Oxygen Delivery Method Room Air Weight: 134.5 kg Body Mass Index (BMI) 36.8 Intake & Output: Intake and Output for Last 24 Hours 03/07/22 03/08/22 03/09/22 23:59 23:59 23:59 Intake Total 1100 / 1100 21.50 / 21.50 Balance 1100 / 1100 21.50 / 21.50 Lab / Micro Data Result Diagrams: 03/09/22 06:10 03/09/22 06:10 Labs: Laboratory Results - last 24 hr 03/08/22 20:20: WBC 11.6 H, RBC 4.77, Hgb 13.9, Hct 40.8, MCV 85.5, MCH 29.1, MCHC 34.1, RDW Std Deviation 39.5, RDW Coeff of Alivia 12.6, Plt Count 218, MPV 8.9, Immature Gran % (Auto) 0.300, Neut % (Auto) 72.5 H, Lymph % (Auto) 15.3 L, [place] % (Auto) 9.1, Eos % (Auto) 2.4, Baso % (Auto) 0.4, Absolute Neuts (auto) 8.4 H, Absolute Lymphs (auto) 1.77, Nucleated RBC % 0 03/08/22 20:20: Sodium 136, Potassium 3.6, Chloride 104, Carbon Dioxide 25.0, Anion Gap 7, BUN 20 H, Creatinine 1.48 H, Estim Creat Clear Calc 76.92, Est GFR (MDRD) Af Amer 66, Est GFR (MDRD) Non-Af 55 L, BUN/Creatinine Ratio 13.5, Glucose 99, Calcium 8.4 L 03/08/22 23:45: S.aureus Protein A PCR NEGATIVE, MRSA (PCR) Negative 03/08/22 23:56: POC Glucose 86 03/09/22 06:10: WBC 9.7, RBC 4.35 L, Hgb 12.7 L, Hct 37.2 L, MCV 85.5, MCH 29.2, MCHC 34.1, RDW Std Deviation 40.4, RDW Coeff of Alivia 12.9, Plt Count 200, MPV 8.8, Immature Gran % (Auto) 0.300, Neut % (Auto) 70.2 H, Lymph % (Auto) 17.1 L, [place] % (Auto) 9.8, Eos % (Auto) 2.1, Baso % (Auto) 0.5, Absolute Neuts (auto) 6.8, Absolute Lymphs (auto) 1.67, Nucleated RBC % 0 03/09/22 06:10: Sodium 140, Potassium 3.8, Chloride 111 H, Carbon Dioxide 21.0, Anion Gap 8, BUN 17, Creatinine 1.30, Estim Creat Clear Calc 87.57, Est GFR (MDRD) Af Amer 77, Est GFR (MDRD) Non-Af 64, BUN/Creatinine Ratio 13.1, Glucose 93, Calcium 8.1 L, Total Bilirubin 0.80, AST 30, ALT 37, Alkaline Phosphatase 57, Total Protein 6.3 L, Albumin 2.9 L, Globulin 3.4, Albumin/Globulin Ratio 0.9 Micro: Microbiology 03/08/22 21:40 Nasal Secretion SARS-CoV-2 Antigen (Rapid) - Final Radiography Diagnostic Testing: Radiology Impression Pelvis CT 03/08/22 20:50 IMPRESSION: 3 cm right perianal abscess. Mild prostatomegaly. Correlate with PSA levels. Electronically Signed: Olivier Sharp MD at 21:14 EDT , Physical Exam Narrative GENERAL: cooperative HEENT: Atraumatic; EYES; Anicteric, Normal Conjunctiva NECK; supple, normal thyroid, RESPIRATORY: Diminished to auscultation CARDIOVASCULAR: Regular S1 S2, GI: soft, normoactive bowel sounds, : No Renal angle tenderness; EXTREMITIES: No edema, no clubbing, MUSCULOSKELETAL: no muscle wasting NEURO: Awake; no lateralizing signs. SKIN: No Rash PSYCH; Flat affect Assessment & Plan Assessment/Plan (1) Abscess, perianal: (2) Cellulitis of perianal area: PLAN: Patient is a 41-year-old gentleman admitted with rectal pain found to have right perianal abscess and perianal cellulitis admitted to the surgical service patient underwent incision and drainage of complicated perianal abscess by Dr. Cohn on 03/08/2022. The hospitalist service was consulted to assist with management of patient medical comorbidities 1. Complicated perianal abscess ? Status post incision and drainage on 03/08/[address] Cohn 2. Diabetes mellitus type 2 ? With complications including polyneuropathy as well as history of diabetic foot wounds. Patient oral hypoglycemic agent held please on Accu-Cheks before meals and at bedtime with sliding scale coverage 3. Hypertension - Blood pressure controlled, home medications continued with dose adjustment as needed 4. Dyslipidemia -Patient is on statin therapy, continued at home dose 5. Class II obesity with BMI of 36.9 ? Weight loss advised 6. Tobacco dependence (chews tobacco) - Counseled on cessation, offered nicotine patch for tobacco cravings 7. DVT prophylaxis ? We will recommend low molecular weight heparin if no contraindication Charges/Coding Visit Charges Inpatient E&M: 67865 Subs Hosp L2
[2022-03-09 08:06] LABS: Bedside Glucose 85 mg/dL (74-106)
[2022-03-09] MEDS: Enoxaparin 40 MG/0.4 ML Syringe SC (09:33)
[2022-03-09] MEDS: Metoprolol(XL)Succ 50 MG Tablet PO (09:33)
[2022-03-09] MEDS: Loratadine 10 MG Tablet PO (09:33)
[2022-03-09] MEDS: Losartan Potassium 100 MG Tablet PO (09:49)
[2022-03-09] MEDS: oxyCODONE 5 MG Tablet PO (11:11)
--- NOTE | 2022-03-09 11:20 | WOUNDNOTE ---
present at bedside and observed this nurse changing the dressing to the right buttock abscess. pt tolerated well. denies questions.
[2022-03-09 11:35] LABS: Bedside Glucose 134 mg/dL (74-106)
--- NOTE | 2022-03-09 12:02 | WOUNDNOTE ---
Dr Cohn had been in to see patient. patient and feel comfortable going home. feels she can do the dressing at home. plan is for to perform the next dressing change around 1400 and then the patient can be discharged home. pt and aware the dressing will need changed with each BM. script written for wound care supplies.
--- NOTE | 2022-03-09 12:13 | EX.PCM.DISCH ---
Discharge Instructions Procedure General Surgery Diet Discharge Diet: Light diet - advance as tolerated (If you have questions about your diet instructions, please talk to your doctor.) Activity Discharge Activity: May Not Drive (for 1 week or while taking narcotic pain medicine.) May shower in (days): 1 Lifting Restrictions: 10 pounds Dressing / Incision Call your doctor if your incision/area has: Continuous Slow Oozing, Sudden Increased Bleeding, Increased Pain/ Swelling, Increased Redness and Foul Smelling Discharge Call your doctor if you observe: Fever of 101 or Higher Follow Up Care Please Follow Up With: Arlet Sanchez PA-C When: Call office to schedule an appointment to be seen in about 10 days. Test Results: Test results from this visit will be discussed in further detail at your follow-up appointment, if applicable. Without the patient to soak in Epson salts at least twice a day. He is to put 2 cups of Epson salts and as warm bath as he can tolerate and soak for at least 20 minutes then take a shower and wash the perianal area well. Discharge Plan Admission Admit Date/Time: 03/08/22 21:57 Attending Provider: Adair Cohn [facility]Prescriptions Prescriptions: New oxycodone-acetaminophen [Percocet] 5-325 mg tablet 1 tab PO Q4H PRN (Reason: pain) 5 Days Qty: 20 RF: 0 amoxicillin-pot clavulanate [Augmentin] 500-125 mg tablet 1 tab PO Q12H Qty: 10 RF: 0 No Action Farxiga 10 mg tablet 10 mg PO DAILY Qty: 30 RF: 6 Lantus Solostar U-100 Insulin 100 unit/mL (3 mL) insulin pen 8 unit subcut QPM Qty: 3 RF: 6 insulin lispro [Humalog KwikPen Insulin] 100 unit/mL insulin pen 7 unit subcut TID Qty: 6 RF: 6 (DME) True Metrix Glucose Test Strip Strip See Rx Instructions .ROUTE .MEDSUPPLY Qty: 100 RF: 11 (DME) lancets [BD Ultra Fine Lancets] 33 gauge misc See Rx Instructions .ROUTE .MEDSUPPLY Qty: 100 RF: 6 losartan 50 mg tablet 100 mg PO DAILY RF: 0 loratadine 10 MG tablet 10 mg PO DAILY RF: 0 metoprolol succinate 50 MG tablet 50 mg PO DAILY RF: 0 atorvastatin 20 mg tablet 20 mg PO QHS RF: 0 glimepiride 2 mg tablet 2 mg PO DAILY Qty: 30 RF: 3 Referrals / Follow Up: Arlet Sanchez PA-C [PHYSICIAN CORE DRILL OPERATOR HELPER] - [facility] Malik [Primary Care Provider] -
--- NOTE | 2022-03-09 13:10 | CASEMGMT ---
DERRICK FLOWERS spoke with wound nurse who states pt is going to perform dressing changes for pt and she watched this morning and will perform yet today. DERRICK FLOWERS in to pt room, pt at bedside, confirmed the above. Pt/ denies need for HHC needs. Denies any homegoing needs.
[2022-03-09] MEDS: Acetaminophen 325 MG Tablet 650 MG PO (14:22)
--- NOTE | 2022-03-09 14:45 | WOUNDNOTE ---
changed dressing to the right buttock without difficulty. states she feels comfortable to change the dressing at least twice a day at home. both aware it will be more often if patient has a BM. both deny further questions and are very appreciative of the care.
--- NOTE | 2022-03-09 14:52 | PHA.DC.MC ---
Pharmacy Service has performed discharge medication reconciliation and counseling for this patient. 1. AUGMENTIN 500MG PO Q12 X 5 DAYS 2. PERCOCET 5/325MG 1T PO Q4H PRN PAIN The patient's discharge medication list was reviewed for discrepancies and discrepancies were resolved. Home Medications loratadine 10 mg PO DAILY 05/09/20 metoprolol succinate 50 mg PO DAILY 05/09/20 Lantus Solostar U-100 Insulin 100 unit/mL (3 mL) subcutaneous pen 8 unit SUBCUT QPM #3 ml NS 05/01/21 blood sugar diagnostic #100 ea 05/01/21 dapagliflozin 10 mg tablet 10 mg PO DAILY #30 tab 05/01/21 insulin lispro 100 unit/mL subcutaneous pen 7 unit SUBCUT TID #6 ml 05/01/21 lancets 33 gauge #100 ea 05/01/21 losartan 50 mg tablet 100 mg PO DAILY tab 10/31/21 glimepiride 2 mg tablet 2 mg PO DAILY #30 tab 03/07/22 amoxicillin-pot clavulanate [Augmentin] 1 tab PO Q12H #10 tab 03/09/22 atorvastatin 20 mg PO QHS 03/09/22 oxycodone-acetaminophen [Percocet] 1 tab PO Q4H PRN 5 Days #20 tab 03/09/22 The patient was counseled on the following discharge medications and changes in medications for homegoing were reviewed. The Reason for Use, instructions for use, and potential side effects were reviewed for all new medications. The patient's questions regarding all of their medications were answered. The patient was able to verbally demonstrate an understanding of their discharge medications.
[2022-03-09 16:16] LABS: Bedside Glucose 111 mg/dL (74-106)
== END 2022-03-09 17:30 | disposition home or self-care (01) ==
LOC: ED 21:40 → MS3 22:05
PROVIDERS: Family Medicine; Admitting Provider Surgery; Emergency Provider Emergency Medicine; Visit Provider Surgery
PROC: (CPT 46040; principal; 2022-03-08 22:15)
DX: K61.0 Anal abscess (principal); E11.22 Type 2 diabetes mellitus with diabetic chronic kidney disease; E11.42 Type 2 diabetes mellitus with diabetic polyneuropathy; Z79.4 Long term (current) use of insulin; N18.30 Chronic kidney disease, stage 3 unspecified; I12.9 Hypertensive chronic kidney disease with stage 1 through stage 4 chronic kidney disease, or unspecified chronic kidney disease; E78.5 Hyperlipidemia, unspecified; Z20.822 Contact with and (suspected) exposure to COVID-19; F17.220 Nicotine dependence, chewing tobacco, uncomplicated; Z79.899 Other long term (current) drug therapy; E55.9 Vitamin D deficiency, unspecified; E66.9 Obesity, unspecified; Z68.36 Body mass index [BMI] 36.0-36.9, adult
CPT/HCPCS: 10061; 00400; 87015; 87116; 87206; 88305; J2405; 36415; 72193; 80048; 80053; 82962; 85025; 87070; 87075; 87077; 87186; 87205; 87640; 87811; 88304; 93005; 96361; 96365; 96366; 96372; 99218; 99251; 99283; 99406; J7030; J7050; J7120; Q9967; A4216; G0378; G0463

== ENCOUNTER 2022-03-22 08:40 | Outpatient (CLI) | payer MEDICAID, SELFPAY ==
[2022-03-22 09:32] LABS: PSA,Total - Annual Screen 0.76 ng/mL (0.00-4.00)
== END 2022-03-22 23:59 | disposition home or self-care (01) ==
LOC: LAB 08:42
PROVIDERS: Visit Provider Nurse Practitioner Adult Health
DX: N41.3 Prostatocystitis (principal)
CPT/HCPCS: 84153; 36415; G0103

== ENCOUNTER → 2022-04-05 | Outpatient (CLI) | payer MEDICAID, SELFPAY ==
[2022-04-05 13:43] LABS: T4 Free Direct 0.99 ng/dL (0.76-1.46)
== END | disposition home or self-care (01) ==
LOC: LAB 10:50
PROVIDERS: Referring Provider Nurse Practitioner Adult Health; Visit Provider Nurse Practitioner Adult Health
DX: E03.9 Hypothyroidism, unspecified (principal)
CPT/HCPCS: 36415; 84439; 84443

== ENCOUNTER → 2022-05-31 | Outpatient (CLI) | payer MEDICAID, SELFPAY ==
[2022-05-31 11:23] LABS: Erythrocyte Sedimentation Rate 3 mm/hr (0-20)
[2022-05-31 11:25] LABS: Absolute Lymphocyte Count 1.72 X10^3/uL (0.83-4.51); Absolute Neutrophil Count 3.5 X10^3/uL (2.0-7.7); Basophil# 0.05 X10^3/uL; Basophil% 0.8 % (0-1); Eosinophil# 0.27 X10^3/uL; Eosinophils% 4.5 % (0-5); Hematocrit 44.3 % (40-54); Hemoglobin 15.1 g/dL (13.0-16.5); Lymphocyte # 1.72 X10^3/ul (0.83-4.51); Lymphocyte % 28.6 % (19-41); Mean Corp Hgb Conc 34.1 g/dL (32-36); Mean Corpuscular Hgb 29.1 pg (27.0-32.0); Mean Corpuscular Volume 85.4 fL (80-94); Mean Platelet Vol. 9.1 fl (6.2-12.0); Monocyte# 0.41 X10^3/uL; Monocyte% 6.8 % (0-10); NRBC Flagged by Analyzer 0 % (0-5); Neutrophil # 3.54 X10^3/uL (2.7-7.7); Neutrophil % 58.8 % (47-70); Platelet Count 211 K/mm3 (150-450); RBC Distribution Width CV 12.6 % (11.6-14.6); RBC Distribution Width SD 38.5 fl (35.1-43.9); Red Blood Count 5.19 M/mm3 (4.6-6.2)
[2022-05-31 11:47] LABS: ALB/GLOB Ratio 1.1 RATIO (0.9-2.4); AST(SGOT) 17 U/L (15-37); Alanine Aminotransfer ALT/SGPT 24 U/L (16-61); Albumin, Serum 3.8 g/dL (3.2-5.0); Alkaline Phosphatase 53 U/L (45-117); Anion Gap 4 (5-15); BUN 23 mg/dL (7-18); BUN/Creat Ratio 15.3 RATIO (10-20); CRP < 2.90 mg/L (0.0-3.0); Calcium,Total 9.2 mg/dL (8.5-10.1); Chloride 109 mmol/L (98-107); EST Glomerular Filtration Rate 54 mL/min (>60); Est Glom Filt Rate - Afr Amer 65 mL/min (>60); Globulin 3.6 g/dL (2.2-4.2); Glucose 115 mg/dL (74-106); LDH 182 U/L (87-241); Potassium 4.3 mmol/L (3.5-5.1); Protein, Total 7.4 g/dL (6.4-8.2); Sodium Level 141 mmol/L (136-145)
[2022-06-01 15:07] LABS: Endomysial Antibody IgA Negative (Negative)
[2022-06-01 16:16] LABS: Immunoglobulin A 192 mg/dL (90-386); t-Transglutaminase IgA <2 U/mL (0-3)
[2022-06-04 15:07] LABS: Anti-Centromere B Ab <0.2 AI (0.0-0.9); Anti-Chromatin <0.2 AI (0.0-0.9); Anti-Jo <0.2 AI (0.0-0.9); Anti-Scleroderma-70 AB <0.2 AI (0.0-0.9); Beef <0.10 kU/L (Class 0); Corn 0.16 kU/L (Class 0/I); Egg, Whole <0.10 kU/L (Class 0); Milk (Cow) 0.13 kU/L (Class 0/I); Peanut 0.12 kU/L (Class 0/I); Pork 0.12 kU/L (Class 0/I); RNP Ab <0.2 AI (0.0-0.9); SJOGREN'S Anti-SS-A test < 0.2 AI (0.0-0.9); SJOGREN'S Anti-SS-B test < 0.2 AI (0.0-0.9); Smith Ab <0.2 AI (0.0-0.9); Soybean <0.10 kU/L (Class 0); Wheat 0.12 kU/L (Class 0/I)
[2022-06-04 21:00] LABS: Anti-dsDNA Ab <1 IU/mL (0-9); Chocolate <0.10 kU/L (Class 0)
[2022-06-05 11:08] LABS: Albumin 4.1 g/dL (2.9-4.4); Alpha-1-Globulins 0.2 g/dL (0.0-0.4); Alpha-2-Globulins 0.8 g/dL (0.4-1.0); Cytoplasmic Ab (C-ANCA) <1:20 titer (Neg:<1:20); Gamma Globulin 0.8 g/dL (0.4-1.8); Immunoglobulin A 202 mg/dL (90-386); Immunoglobulin E 73 IU/mL (6-495); Immunoglobulin G 793 mg/dL (603-1613); Immunoglobulin M 43 mg/dL (20-172); PROEL- TOTAL PROTEIN 6.9 g/dL (6.0-8.5)
[2022-06-05 16:09] LABS: Perinuclear Ab (P-ANCA) <1:20 titer (Neg:<1:20)
== END | disposition home or self-care (01) ==
LOC: LAB 10:49
PROVIDERS: Referring Provider Internal Medicine Gastroenterology; Visit Provider Internal Medicine Gastroenterology
DX: R19.7 Diarrhea, unspecified (principal)
CPT/HCPCS: 36415; 80053; 82784; 82785; 83516; 83615; 84165; 85025; 85652; 86003; 86005; 86140; 86225; 86235; 86255; 86256; 86334

== ENCOUNTER → 2022-06-05 | Outpatient (CLI) | payer MEDICAID, SELFPAY ==
[2022-06-07 21:54] LABS: Calprotectin, Stool 24 ug/g (0-120)
[2022-06-08 15:18] LABS: Pancreatic Elastase, Fecal 287 (>200)
== END | disposition home or self-care (01) ==
LOC: LABSPEC 06:49
PROVIDERS: Referring Provider Internal Medicine Gastroenterology; Visit Provider Internal Medicine Gastroenterology
DX: R19.7 Diarrhea, unspecified (principal); K58.9 Irritable bowel syndrome, unspecified
CPT/HCPCS: 82653; 83630; 83993; 87177; 87209; 87493; 87506

== ENCOUNTER → 2022-10-08 | Outpatient (CLI) | payer MEDICAID, SELFPAY ==
[2022-10-08 10:05] LABS: Vitamin D,25 Hydroxy 73.7 ng/mL
[2022-10-08 10:13] LABS: Cholesterol 175 mg/dL (200); High Density Lipoprotein 48 mg/dL; Thyroid Stim Hormone (TSH) 4.35 uIU/mL (0.358-3.74); Triglycerides 160 mg/dL; Very Low Density Lipoprotein 32 mg/dL (5-40)
[2022-10-09 11:20] LABS: Thyroid Peroxidase AB < 9 IU/mL (0-34)
== END | disposition home or self-care (01) ==
LOC: LAB 08:53
PROVIDERS: Referring Provider Nurse Practitioner Family; Visit Provider Nurse Practitioner Family
DX: E11.9 Type 2 diabetes mellitus without complications (principal); R79.89 Other specified abnormal findings of blood chemistry
CPT/HCPCS: 36415; 80061; 82306; 84443; 86376

== ENCOUNTER → 2023-04-10 | Outpatient (CLI) | payer MEDICARE, MEDICAID, SELFPAY ==
[2023-04-10 10:11] LABS: Microalbumin,Random Urine 12.3 mg/L (NO RANGE EST.); Microalbumin:Creatinine Ratio 6.8 mg/g CRE (<30 mg/g CRE)
[2023-04-10 10:25] LABS: AST(SGOT) 22 U/L (15-37); Alanine Aminotransfer ALT/SGPT 28 U/L (16-61); Albumin, Serum 3.8 g/dL (3.2-5.0); Alkaline Phosphatase 57 U/L (45-117); Anion Gap 4 (5-15); BUN 36 mg/dL (7-18); BUN/Creat Ratio 24.8 RATIO (10-20); Calcium,Total 8.8 mg/dL (8.5-10.1); Chloride 110 mmol/L (98-107); Cholesterol 180 mg/dL (200); Creatinine, Serum 1.45 mg/dL (0.70-1.30); EST Glomerular Filtration Rate 56 mL/min (>60); Est Glom Filt Rate - Afr Amer 68 mL/min (>60); Globulin 3.7 g/dL (2.2-4.2); Glucose 158 mg/dL (74-106); High Density Lipoprotein 44 mg/dL; Potassium 4.1 mmol/L (3.5-5.1); Protein, Total 7.5 g/dL (6.4-8.2); Sodium Level 139 mmol/L (136-145); Thyroid Stim Hormone (TSH) 6.06 uIU/mL (0.358-3.74); Triglycerides 210 mg/dL; Very Low Density Lipoprotein 42 mg/dL (5-40)
[2023-04-10 11:27] LABS: Hemoglobin A1c 5.9 % (3.8-5.6)
[2023-04-11 05:07] LABS: Thyroid Peroxidase AB 11 IU/mL (0-34)
== END | disposition home or self-care (01) ==
PROVIDERS: Referring Provider Nurse Practitioner Family; Visit Provider Nurse Practitioner Family
DX: E11.42 Type 2 diabetes mellitus with diabetic polyneuropathy (principal); M86.9 Osteomyelitis, unspecified; R79.89 Other specified abnormal findings of blood chemistry
CPT/HCPCS: 36415; 80053; 80061; 82043; 82570; 83036; 84443; 86376

== ENCOUNTER → 2023-10-10 | Outpatient (CLI) | payer MEDICARE, SELFPAY ==
[2023-10-10 10:05] LABS: Thyroid Stim Hormone (TSH) 1.09 uIU/mL (0.358-3.74)
== END | disposition home or self-care (01) ==
PROVIDERS: Visit Provider Nurse Practitioner Family
DX: E03.9 Hypothyroidism, unspecified (principal)
CPT/HCPCS: 36415; 84439; 84443

== ENCOUNTER → 2024-04-13 | Outpatient (CLI) | payer MEDICARE, SELFPAY ==
[2024-04-13 10:42] LABS: Vitamin D,25 Hydroxy 46.5 ng/mL
[2024-04-13 10:58] LABS: ALB/GLOB Ratio 1.1 RATIO (0.9-2.4); AST(SGOT) 19 U/L (15-37); Alanine Aminotransfer ALT/SGPT 25 U/L (16-61); Albumin, Serum 3.8 g/dL (3.2-5.0); Alkaline Phosphatase 52 U/L (45-117); Anion Gap 4 (5-15); BUN 31 mg/dL (7-18); BUN/Creat Ratio 22.6 RATIO (10-20); Calcium,Total 9.7 mg/dL (8.5-10.1); Chloride 109 mmol/L (98-107); Cholesterol 202 mg/dL (200); Creatinine, Serum 1.37 mg/dL (0.70-1.30); EST Glomerular Filtration Rate 59 mL/min (>60); Est Glom Filt Rate - Afr Amer 72 mL/min (>60); Globulin 3.6 g/dL (2.2-4.2); Glucose 158 mg/dL (74-106); High Density Lipoprotein 49 mg/dL; Potassium 4.9 mmol/L (3.5-5.1); Protein, Total 7.4 g/dL (6.4-8.2); Sodium Level 139 mmol/L (136-145); T4 Free Direct 1.14 ng/dL (0.76-1.46); Thyroid Stim Hormone (TSH) 2.34 uIU/mL (0.358-3.74); Triglycerides 147 mg/dL; Very Low Density Lipoprotein 29 mg/dL (5-40)
[2024-04-13 11:24] LABS: Microalbumin:Creatinine Ratio 11.2 mg/g CRE (<30 mg/g CRE)
== END | disposition home or self-care (01) ==
LOC: LAB 09:21
PROVIDERS: PCP Nurse Practitioner Family; Referring Provider Nurse Practitioner Family; Visit Provider Nurse Practitioner Family
DX: E03.9 Hypothyroidism, unspecified (principal); E11.3593 Type 2 diabetes mellitus with proliferative diabetic retinopathy without macular edema, bilateral; E66.01 Morbid (severe) obesity due to excess calories; Z68.35 Body mass index [BMI] 35.0-35.9, adult; I10 Essential (primary) hypertension; E55.9 Vitamin D deficiency, unspecified
CPT/HCPCS: 36415; 80053; 80061; 82043; 82306; 82570; 84439; 84443

== ENCOUNTER → 2024-12-01 | Outpatient (CLI) | payer MEDICARE, SELFPAY ==
[2024-12-01 13:07] LABS: Absolute Neutrophil Count 4.1 X10^3/uL (2.0-7.7); Basophil# 0.07 X10^3/uL; Eosinophil# 0.31 X10^3/uL; Eosinophils% 4.5 % (0-5); Hematocrit 44.6 % (40-54); Hemoglobin 14.7 g/dL (13.0-16.5); Lymphocyte % 27.5 % (19-41); Mean Corpuscular Hgb 28.4 pg (27.0-32.0); Mean Corpuscular Volume 86.1 fL (80-94); Mean Platelet Vol. 8.7 fl (6.2-12.0); Monocyte# 0.48 X10^3/uL; Monocyte% 6.9 % (0-10); NRBC Flagged by Analyzer 0 % (0-5); Neutrophil # 4.12 X10^3/uL (2.7-7.7); Neutrophil % 59.7 % (47-70); Platelet Count 238 K/mm3 (150-450); RBC Distribution Width CV 12.9 % (11.6-14.6); Red Blood Count 5.18 M/mm3 (4.6-6.2); White Blood Count 6.9 K/mm3 (4.4-11.0)
[2024-12-01 13:14] LABS: Hemoglobin A1c 6.3 % (3.8-5.6)
[2024-12-01 13:25] LABS: ALB/GLOB Ratio 1.1 RATIO (0.9-2.4); AST(SGOT) 14 U/L (15-37); Alanine Aminotransfer ALT/SGPT 25 U/L (16-61); Albumin, Serum 3.8 g/dL (3.2-5.0); Alkaline Phosphatase 58 U/L (45-117); Anion Gap 8 (5-15); BUN 32 mg/dL (7-18); BUN/Creat Ratio 19.6 RATIO (10-20); Calcium,Total 9.6 mg/dL (8.5-10.1); Chloride 107 mmol/L (98-107); Cholesterol 128 mg/dL (200); Creatinine, Serum 1.63 mg/dL (0.70-1.30); EST Glomerular Filtration Rate 49 mL/min (>60); Est Glom Filt Rate - Afr Amer 59 mL/min (>60); Globulin 3.5 g/dL (2.2-4.2); Glucose 136 mg/dL (74-106); High Density Lipoprotein 47 mg/dL; Potassium 4.6 mmol/L (3.5-5.1); Protein, Total 7.3 g/dL (6.4-8.2); Sodium Level 140 mmol/L (136-145); T4 Free Direct 1.08 ng/dL (0.76-1.46); Triglycerides 128 mg/dL; Very Low Density Lipoprotein 26 mg/dL (5-40)
== END | disposition home or self-care (01) ==
PROVIDERS: PCP Nurse Practitioner Family; Visit Provider Nurse Practitioner Family
DX: E11.9 Type 2 diabetes mellitus without complications (principal); E78.5 Hyperlipidemia, unspecified; E03.9 Hypothyroidism, unspecified
CPT/HCPCS: 36415; 80053; 80061; 83036; 84439; 84443; 85025

== ENCOUNTER → 2025-03-02 | Outpatient (CLI) | payer MEDICARE, SELFPAY ==
[2025-03-02 12:51] LABS: Absolute Lymphocyte Count 1.82 X10^3/uL (0.83-4.51); Absolute Neutrophil Count 3.4 X10^3/uL (2.0-7.7); Basophil# 0.08 X10^3/uL; Basophil% 1.3 % (0-1); Eosinophil# 0.37 X10^3/uL; Hematocrit 45.2 % (40-54); Hemoglobin 15.1 g/dL (13.0-16.5); Lymphocyte # 1.82 X10^3/ul (0.83-4.51); Lymphocyte % 29.7 % (19-41); Mean Corp Hgb Conc 33.4 g/dL (32-36); Mean Corpuscular Hgb 28.7 pg (27.0-32.0); Mean Corpuscular Volume 85.8 fL (80-94); Mean Platelet Vol. 8.9 fl (6.2-12.0); Monocyte# 0.43 X10^3/uL; NRBC Flagged by Analyzer 0 % (0-5); Neutrophil # 3.41 X10^3/uL (2.7-7.7); Neutrophil % 55.8 % (47-70); Platelet Count 234 K/mm3 (150-450); RBC Distribution Width CV 13.2 % (11.6-14.6); RBC Distribution Width SD 40.4 fl (35.1-43.9); Red Blood Count 5.27 M/mm3 (4.6-6.2); White Blood Count 6.1 K/mm3 (4.4-11.0)
[2025-03-02 13:36] LABS: ALB/GLOB Ratio 1.5 RATIO (0.9-2.4); AST(SGOT) 23 U/L (<=37); Alanine Aminotransfer ALT/SGPT 19 U/L (<=46); Albumin, Serum 4.4 g/dL (3.5-5.0); Alkaline Phosphatase 58 U/L (40-129); Anion Gap 13 (5-15); BUN 24 mg/dL (4-19); BUN/Creat Ratio 14.6 RATIO (10-20); Calcium,Total 9.5 mg/dL (7.6-11.0); Carbon Dioxide 20.6 mmol/L (21.0-32.0); Chloride 106 mmol/L (98-108); Cholesterol 118 mg/dL (<=200); Creatinine, Serum 1.62 mg/dL (0.70-1.20); EST Glomerular Filtration Rate 53 (>60); Globulin 2.9 g/dL (2.2-4.2); Glucose 132 mg/dL (70-99); High Density Lipoprotein 41 mg/dL; Low Density Lipoprotein Calc. 55 mg/dL; Potassium 4.4 mmol/L (3.3-5.1); Protein, Total 7.3 g/dL (5.9-8.4); Sodium Level 139 mmol/L (133-145); Total Bilirubin 0.63 mg/dL (0.00-1.30); Triglycerides 107 mg/dL; Very Low Density Lipoprotein 21 mg/dL (5-40); Vitamin D,25 Hydroxy 39.9 ng/mL (30-100); cholesterol:hdl ratio screen 2.85
== END | disposition home or self-care (01) ==
LOC: VSLAB 08:43
PROVIDERS: PCP Nurse Practitioner Family; Visit Provider Nurse Practitioner Family
DX: E11.9 Type 2 diabetes mellitus without complications (principal); E78.5 Hyperlipidemia, unspecified; E03.9 Hypothyroidism, unspecified; E55.9 Vitamin D deficiency, unspecified
CPT/HCPCS: 36415; 80053; 80061; 82306; 84439; 84443; 85025

== ENCOUNTER → 2025-08-31 | Outpatient (CLI) | payer MEDICARE, SELFPAY ==
[2025-08-31 13:17] LABS: Microalbumin,Random Urine 13.1 mg/L (<20 mg/L)
[2025-08-31 13:30] LABS: AST(SGOT) 22 U/L (<=37); Alanine Aminotransfer ALT/SGPT 21 U/L (<=46); Albumin, Serum 4.4 g/dL (3.5-5.0); Alkaline Phosphatase 51 U/L (40-129); Anion Gap 9 (5-15); BUN 29 mg/dL (4-19); BUN/Creat Ratio 21.4 RATIO (10-20); Calcium,Total 9.8 mg/dL (7.6-11.0); Carbon Dioxide 26.9 mmol/L (21.0-32.0); Chloride 104 mmol/L (98-108); Cholesterol 134 mg/dL (<=200); Globulin 2.6 g/dL (2.2-4.2); Glucose 117 mg/dL (70-99); Low Density Lipoprotein Calc. 62 mg/dL; Potassium 4.0 mmol/L (3.3-5.1); Triglycerides 138 mg/dL; Very Low Density Lipoprotein 28 mg/dL (5-40); Vitamin D,25 Hydroxy 42.8 ng/mL (30-100); cholesterol:hdl ratio screen 2.80
[2025-09-01 07:54] LABS: Hematocrit 43.7 % (40-54); Hemoglobin 14.4 g/dL (13.0-16.5); Immature Granulocytes Count 0.020 X10^3/uL (0.0-0.0); Mean Corp Hgb Conc 33.0 g/dL (32-36); Mean Corpuscular Volume 87.4 fL (80-94); Mean Platelet Vol. 9.2 fl (6.2-12.0); NRBC Flagged by Analyzer 0 % (0-5); Platelet Count 213 K/mm3 (150-450); RBC Distribution Width CV 12.8 % (11.6-14.6); RBC Distribution Width SD 40.8 fl (35.1-43.9); Red Blood Count 5.00 M/mm3 (4.6-6.2); White Blood Count 6.8 K/mm3 (4.4-11.0)
== END | disposition home or self-care (01) ==
LOC: VSLAB 08:33
PROVIDERS: PCP Nurse Practitioner Family; Visit Provider Nurse Practitioner Family
DX: E11.9 Type 2 diabetes mellitus without complications (principal); I10 Essential (primary) hypertension; E78.5 Hyperlipidemia, unspecified; E55.9 Vitamin D deficiency, unspecified
CPT/HCPCS: 36415; 80053; 80061; 82043; 82306; 84443; 85025